=== PATIENT | female | born 1925 | race Caucasian/White ===

== ENCOUNTER 2016-08-15 09:29 | Inpatient (IN) | payer MEDICARE, OTHER ==
[2016-08-15 09:50] VITALS: BMI 24.1
--- NOTE | 2016-08-15 09:51 | PDOC ---
History of Present Illness <Bucky Cuevas - Last Filed: 08/15/16 12:18> - History of Present Illness Initial Comments: 08/15/16 10:02 The patient is a 89 year old female, with a significant past medical history of Alzheimers disease, who presents to the emergency department with the home health aide via ems s/p unwitnessed fall at home. As per the patients health aide, she arrived to the home at 8am and found the patient on her hands and knees on the side of her bed. The home health aide reports noticine new scrapes to her knees and that her heels looks slightly blue from kneeling. The home health aide states she stays with the patient overnight once a week, however, last night was not one of those nights. She reports the patient does not typically get out bed at night, but she does attempt to walk in the house unassisted. The patient denies any complaints, but is a very poor historian secondary to her dementia. She does not recall falling. She denies chest pain, shortness of breath, headache and dizziness. She denies fever, chills, nausea, vomit, diarrhea and constipation. She denies dysuria, frequency, urgency and hematuria. Allergies: NKDA PCP - Dr. Joaquin <Lashanda Rand - Last Filed: 08/15/16 15:54> - General Chief Complaint: Injury Stated Complaint: FALL Past History - Past Medical History Dementia: Yes - Immunization History Immunization Up to Date: Yes - Psycho/Social/Smoking Cessation Hx Anxiety: No Suicidal Ideation: No Smoking History: Never smoked Number of Cigarettes Smoked Daily: 0 Information on smoking cessation initiated: No Hx Alcohol Use: No Drug/Substance Use Hx: No Substance Use Type: None Hx Substance Use Treatment: No <Bucky Cuevas - Last Filed: 08/15/16 12:18> <Lashanda Rand - Last Filed: 08/15/16 15:54> - Past Medical History Allergies/Adverse Reactions: Allergies Allergy/AdvReac Type Severity Reaction Status Date / Time No Known Allergies Allergy Verified 07/14/14 12:56 Home Medications: Ambulatory Orders Carbidopa/Levodopa 10/100 [Sinemet 10/100 -] 1 each PO DAILY 08/15/16 Memantine HCl 10 mg PO BID 08/15/16 Quetiapine Fumarate [Seroquel -] 50 mg PO HS 08/15/16 Review of Systems - Review of Systems Able to Perform ROS?: No (dementia) <Lashanda Rand - Last Filed: 08/15/16 15:54> *Physical Exam - Vital Signs Last Vital Signs Temp Pulse Resp BP Pulse Ox 98.7 F 111 H 20 135/80 94 L 08/15/16 09:35 08/15/16 09:35 08/15/16 09:35 08/15/16 09:35 08/15/16 09:35 <Bucky Cuevas - Last Filed: 08/15/16 12:18> - Vital Signs Last Vital Signs Temp Pulse Resp BP Pulse Ox 98.7 F 111 H 20 135/80 94 L 08/15/16 09:35 08/15/16 09:35 08/15/16 09:35 08/15/16 09:35 08/15/16 09:35 - Physical Exam Comments: 08/15/16 10:03 GENERAL: (+) The patient is confused, alert and oriented to name, but not time or place. Well developed, well nourished. No acute distress. HEENT: (+) dry mucous membranes. Normocephalic, atraumatic. PERRLA, EOMI. No conjunctival pallor. Sclera are non-icteric. Oropharynx is clear. NECK: Supple. Full ROM. No JVD. Carotid pulses 2+ and symmetric, without bruits. No thyromegaly. No lymphadenopathy. CARDIOVASCULAR: Regular rate and rhythm. No murmurs, rubs, or gallops. Distal pulses are 2+ and symmetric. PULMONARY: No evidence of respiratory distress. Lungs clear to auscultation bilaterally. No wheezing, rales or rhonchi. ABDOMINAL: Soft. Non-tender. Non-distended. No rebound or guarding. No organomegaly. Normoactive bowel sounds. MUSCULOSKELETAL Normal range of motion at all joints. No bony deformities or tenderness. No CVA tenderness. EXTREMITIES: (+) swelling and erythema in bilateral lower extremities. No groin tenderness. Bilateral straight leg raise was deferred by patient. No cyanosis. No clubbing. No edema. No calf tenderness. SKIN: Warm and dry. Normal capillary refill. No rashes. No jaundice. NEUROLOGICAL: Alert, awake, appropriate. Cranial nerves 2-12 intact. Normoreflexic in the upper and lower extremities. Normal speech. Toes are down-going bilaterally. No foot drop. PSYCHIATRIC: Cooperative. Good eye contact. Appropriate mood and affect. <Lashanda Rand - Last Filed: 08/15/16 15:54> Heart Score/ECG Review - ECG Intrepretation Comment:: 08/15/16 09:55 EKG was read at 9:49 Impression: Sinus tachycardia with fusion complexes Vent. Rate: 110 bpm NH Interval: 148 ms QTc: 506 ms <Lashanda Rand - Last Filed: 08/15/16 15:54> ED Treatment Course - LABORATORY CBC & Chemistry Diagram: 08/15/16 10:16 08/15/16 10:16 <Bucky Cuevas - Last Filed: 08/15/16 12:18> - LABORATORY CBC & Chemistry Diagram: 08/15/16 10:16 08/15/16 10:16 - RADIOLOGY Radiograph Interpretation: 08/15/16 11:38 He Chest Xray was read by Dr. Pfeiffer at 11:12 Impression: Increased lung markings- left retrocardiac region. No evidence of vascular congestion or pneumothorax Hip/Pelvis Xray was read by Dr. Pfeiffer at 11:18 Impression: No acute bony abnormalities are seen. Xray Tib/Fib was read by Dr. Pfeiffer at 11:20 Impression: (Right) No acute bony abnormalities are seen. (Left) No acute bony abnormalities are seen. Head CT was read by Dr. White at 11:37 Impression: No significant interval change. generalized volume loss with extensive chronic microvascular ischemic changes. No gross acute intracranial pathology noted. Right Rad/Femur Xray was read by Dr. Pfeiffer at 11:56 Impression: No acute bony abnormalities are seen. No evidence of hip dislocation. Left Rad/Femur Xray was read by Dr. Pfeiffer at 12:00 Impression: sclerotic changes noted in the subarticular region, clinically correlate for subcapital Fx. 08/15/16 13:[address] was read by Dr. 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 See report for details. <Lashanda Rand - Last Filed: 08/15/16 15:54> Medical Decision Making - Medical Decision Making 08/15/16 11:48 Dr. Todd was paged at the office at this time requesting a callback for doctor to doctor consult. I have been informed that the doctor comes into the office at 12:30pm and will return our call at that time. 08/15/16 11:52 The hospitalist gisella has been contacted for patient admission at this time. <Lashanda Rand - Last Filed: 08/15/16 15:54> *DC/Admit/Observation/Transfer - Discharge Dispostion Admit: Yes <Bucky Cuevas - Last Filed: 08/15/16 12:18> - Attestations Scribe Attestion: 08/15/16 10:06 Documentation prepared by Lashanda Rand, acting as medical technicians for Bucky Cuevas MD, MD <Lashanda Rand - Last Filed: 08/15/16 15:54> Diagnosis at time of Disposition: Contusion, hip, UTI (urinary tract infection), Sepsis, Cellulitis, Dementia Fall Qualifiers: Encounter type: initial encounter Qualified Code(s): W19.XXXA - Unspecified fall, initial encounter - Discharge Dispostion Condition at time of disposition: Guarded - Referrals
[2016-08-15] MEDS ORDERED: SODIUM CHLORIDE 1,000 ML IV SCH ×2 (10:00→14:30)
[2016-08-15 10:42] LABS: URINE APPEARANCE CLOUDY; URINE BILIRUBIN NEGATIVE (NEGATIVE); URINE COLOR DKYELLOW; URINE GLUCOSE (UA) NEGATIVE (NEGATIVE); URINE KETONE TRACE (NEGATIVE); URINE NITRITE NEGATIVE (NEGATIVE); URINE UROBILINOGEN NEGATIVE E.U./dl (0.2-1.0)
[2016-08-15 10:43] LABS: URINE BLOOD 1+ (NEGATIVE); URINE LEUK ESTERASE 2+ (NEGATIVE); URINE PROTEIN 1+ (NEGATIVE)
[2016-08-15 10:46] LABS: URINE BACTERIA MANY /hpf (NONE SEEN); URINE HYALINE CAST 5 /lpf; URINE MUCUS MODERATE; URINE RBC 13 /hpf (0-3); URINE WBC 50 /hpf (3-5); YEAST MODERATE
[2016-08-15 11:01] LABS: ALK PHOS 134 U/L (45-117); ANION GAP 11 (8-16); BILIRUBIN,TOTAL 0.6 mg/dL (0.2-1.0); CALCIUM 9.7 mg/dL (8.5-10.1); CO2 26 mmol/L (21-32); CREATININE 1.3 mg/dL (0.55-1.02); GLUCOSE,RANDOM 208 mg/dL (74-106); SGOT/AST 48 U/L (15-37); SGPT/ALT 32 U/L (12-78); TOT PROT 7.8 g/dl (6.4-8.2)
[2016-08-15 11:16] LABS: MCH 30.1 pg (25.7-33.7); MCHC 32.5 g/dl (32.0-36.0); MEAN CELL VOLUME 92.4 fl (80-96); MEAN PLT VOLUME 7.6 fl (7.5-11.1); PLATELET COUNT 269 K/MM3 (134-434); RDW 14.5 % (11.6-15.6); WHITE BLOOD COUNT 25.6 K/mm3 (4.0-10.0)
[2016-08-15] MEDS ORDERED: CEFTRIAXONE 1,000 MG in DEXTROSE 5%-WATER - 50 ML IVPB ONE (11:21)
[2016-08-15] MEDS ORDERED: SODIUM CHLORIDE 1,000 ML IV STA ×3 (11:22→16:16)
[2016-08-15] MEDS ORDERED: CEFTRIAXONE 50 ML ONE (11:26)
[2016-08-15] MEDS: GENTAMICIN INJECTION 120 MG in DEXTROSE 5%-WATER - 250 ML IVPB SCH (13:28)
--- NOTE | 2016-08-15 13:35 | HP ---
CHIEF COMPLAINT: s/p fall as per home support worker PCP: Dr. Joaquin HISTORY OF PRESENT ILLNESS: 89 y/o F with PMH of alzheimer's presents to the ER after being found on her elbows and knees by home support worker. home care and home health aides teacher arrived at patients home ([facility]) at approximately 8:30 AM and found pt on her elbows and knees. Pt is unreliable historian due to dementia and does not remember the events from this morning. Aide says she called the ambulance right away as she was unsure of what may have happened prior to her arrival. Pt lives alone and has aide during the day everyday. Due to building rules pt is unable to have aide overnight. Aide says that she noticed knee red discoloartion on her knees and elbows this morning that were not there yesterday. Pt does not have a history of falls as per aide and despite needing a walker will ambulate on her own without it but does not fall. Pt is able to do most activities herself but aide has to help with bathing. Pt denies any N/V/F/C, diarrhea, dysuria, pain in her body or joints, [place], light headedness, dizziness. She says she feels like she is at baseline. ER course was notable for: (1) Head CT, CXR, B/L femur XR, Hip/Pelvis XR, Tibia/Fibula XR, Pelvis CT w/o contrast (2) (3) PAST MEDICAL HISTORY: Alzheimer's PAST SURGICAL HISTORY: None that aide is aware of Social History: Smoking: Denies Alcohol: Denies Drugs: Denies Family History: non-contributory Allergies No Known Allergies Allergy (Verified 07/14/14 12:56) HOME MEDICATIONS: Medication Instructions Recorded Carbidopa/Levodopa 10/100 [Sinemet 1 each PO DAILY 08/15/16 10/100 -] Memantine HCl 10 mg PO BID 08/15/16 Quetiapine Fumarate [Seroquel -] 50 mg PO HS 08/15/16 REVIEW OF SYSTEMS CONSTITUTIONAL: Absent: fever, chills, diaphoresis, generalized weakness, malaise, loss of appetite, weight change HEENT: Absent: rhinorrhea, nasal congestion, throat pain, throat swelling, difficulty swallowing, mouth swelling, ear pain, eye pain, visual changes CARDIOVASCULAR: Absent: chest pain, syncope, palpitations, irregular heart rate, lightheadedness , peripheral edema RESPIRATORY: Absent: cough, shortness of breath, dyspnea with exertion, orthopnea, wheezing, stridor, hemoptysis GASTROINTESTINAL: Absent: abdominal pain, abdominal distension, nausea, vomiting, diarrhea, constipation, melena, hematochezia GENITOURINARY: Absent: dysuria, frequency, urgency, hesitancy, hematuria, flank pain, genital pain MUSCULOSKELETAL: Absent: myalgia, arthralgia, joint swelling, back pain, neck pain SKIN: Absent: rash, itching, pallor HEMATOLOGIC/IMMUNOLOGIC: Absent: easy bleeding, easy bruising, lymphadenopathy, frequent infections ENDOCRINE: Absent: unexplained weight gain, unexplained weight loss, heat intolerance, cold intolerance NEUROLOGIC: Absent: headache, focal weakness or paresthesias, dizziness, unsteady gait, seizure, mental status changes, bladder or bowel incontinence PSYCHIATRIC: Absent: anxiety, depression, suicidal or homicidal ideation, hallucinations. PHYSICAL EXAMINATION GENERAL: Awake, alert, and orientated to self only. In no acute distress. HEAD: Normal with no signs of trauma. EYES: Pupils equal, round and reactive to light, extraocular movements intact, sclera anicteric, conjunctiva clear. No lid lag. EARS, NOSE, THROAT: Ears normal, nares patent, oropharynx clear without exudates. Moist mucous membranes. NECK: Normal range of motion, supple without lymphadenopathy, JVD, or masses. LUNGS: Auscultated anteriorly, Breath sounds equal, clear to auscultation bilaterally. No wheezes, and no crackles. No accessory muscle use. HEART: Regular rate and rhythm, normal S1 and S2 without murmur, rub or gallop. ABDOMEN: Soft, nontender, not distended, normoactive bowel sounds, no guarding, no rebound, no masses. No hepatomegaly or splenomegaly. MUSCULOSKELETAL: Normal range of motion at all joints. No bony deformities or tenderness. LOWER EXTREMITIES: 2+ pulses, warm, well-perfused. No calf tenderness. No peripheral edema. NEUROLOGICAL: Normal speech. Gait not observed PSYCHIATRIC: Cooperative. Good eye contact. Appropriate mood and affect. SKIN: Warm, dry, normal turgor, L Proximal tibial region: erythema with central lesion that has yellow discoloration, dry not draining. R proximal tibial region ecchymosis. B/L elbows - some ecchymosis. CBCD WBC 25.6 K/mm3 (4.0-10.0) H D 08/15/16 10:16 RBC 5.04 M/mm3 (3.60-5.2) 08/15/16 10:16 Hgb 15.1 GM/dL (10.7-15.3) 08/15/16 10:16 Hct 46.5 % (32.4-45.2) H 08/15/16 10:16 MCV 92.4 fl (80-96) 08/15/16 10:16 MCHC 32.5 g/dl (32.0-36.0) 08/15/16 10:16 RDW 14.5 % (11.6-15.6) 08/15/16 10:16 Plt Count 269 K/MM3 (134-434) D 08/15/16 10:16 MPV 7.6 fl (7.5-11.1) 08/15/16 10:16 CMP Sodium 145 mmol/L (136-145) 08/15/16 10:16 Potassium 4.4 mmol/L (3.5-5.1) 08/15/16 10:16 Chloride 108 mmol/L (98-107) H 08/15/16 10:16 Carbon Dioxide 26 mmol/L (21-32) 08/15/16 10:16 Anion Gap 11 (8-16) 08/15/16 10:16 BUN 33 mg/dL (7-18) H D 08/15/16 10:16 Creatinine 1.3 mg/dL (0.55-1.02) H D 08/15/16 10:16 Creat Clearance w eGFR 38.66 (>60) 08/15/16 10:16 Random Glucose 208 mg/dL (74-106) H D 08/15/16 10:16 Calcium 9.7 mg/dL (8.5-10.1) 08/15/16 10:16 Total Bilirubin 0.6 mg/dL (0.2-1.0) 08/15/16 10:16 AST 48 U/L (15-37) H D 08/15/16 10:16 ALT 32 U/L (12-78) D 08/15/16 10:16 Alkaline Phosphatase 134 U/L (45-117) H 08/15/16 10:16 Total Protein 7.8 g/dl (6.4-8.2) 08/15/16 10:16 Albumin 4.0 g/dl (3.4-5.0) 08/15/16 10:16 CARDIAC ENZYMES Creatine Kinase 1649 08/15/16 10:16 Laboratory Tests 08/15/16 08/15/16 10:16 11:21 Lactic Acid 5.955 H* CK-MB (CK-2) 16.937 H Urine Test Results Urine Color Dkyellow 08/15/16 10:00 Urine Appearance Cloudy 08/15/16 10:00 Urine pH 5.0 (5.0-8.0) D 08/15/16 10:00 Ur Specific [place] 1.016 (1.001-1.035) 08/15/16 10:00 Urine Protein 1+ (NEGATIVE) H 08/15/16 10:00 Urine Glucose (UA) Negative (NEGATIVE) 08/15/16 10:00 Urine Ketones Trace (NEGATIVE) H 08/15/16 10:00 Urine Blood 1+ (NEGATIVE) H 08/15/16 10:00 Urine Nitrite Negative (NEGATIVE) 08/15/16 10:00 Urine Bilirubin Negative (NEGATIVE) 08/15/16 10:00 Ur Leukocyte Esterase 2+ (NEGATIVE) H 08/15/16 10:00 Urine RBC 13 /hpf (0-3) 08/15/16 10:00 Urine WBC 50 /hpf (3-5) 08/15/16 10:00 Urine Bacteria Many /hpf (NONE SEEN) 08/15/16 10:00 Urine Mucus Moderate 08/15/16 10:00 Imaging: Head CT-No significant interval change. Generalized volume loss with extensive chronic microvascular ischemic changes. No gross acute intracranial pathology is seen. The calvarium is intact. Correlate clinically to determine further evaluation and follow-up. CXR-Increased lung markings - left retrocardiac region. No evidence of vascular congestion, pneumothorax. B/L femur XR- R femur: No acute bony abnormalities seen within limitation of examination. No evidence of hip dislocation. -L femur:Sclerotic changes noted in the left subarticular region, clinically correlate for subcapital fracture. Hip/Pelvis XR- No acute bony abnormalities are seen. R Tibia/Fibula XR - No acute bony abnormalities are seen Pelvis CT w/o contrast - No evidence of fracture Active Medications Sodium Chloride (Normal Saline -) 1,000 mls @ 125 mls/hr IV [facility] Last Admin: 08/15/16 10:12 Dose: 125 mls/hr Gentamicin Sulfate 120 mg/ (Dextrose) 253 mls @ 250 mls/hr IVPB [facility]CE [facility] ASSESSMENT/PLAN: 89 y/o F with PMH of alzheimer's, hx of UTIs, presents to the ER after being found on her elbows and knees by home support worker. -Rhabdomyoyisis secondary to Mechanical Fall -Unknown length of time on floor. Found by home support worker at 8:30 AM. Pt usually does not fall as per home support worker. -Creatinine Kinase: 1649 -CK-MB: 16.9 -Recheck CK in morning -Subcapital L femoral fracture secondary to fall -Unlikely -Pt has full ROM passively, no pain on palpation or during motion. R femur: No acute bony abnormalities seen within limitation of examination. No evidence of hip dislocation. -L femur:Sclerotic changes noted in the left subarticular region, clinically correlate for subcapital fracture. -Pelvis CT w/o contrast - No evidence of fracture -Lactic acidosis -secondary to fall vs dehydration -f/u BCx, UCx -f/u LA in 4 hours, if high continue to trend -will start empirically on ceftriaxone 1 g IV qd -Asymptomatic UTI -UA: LE 2+, WBC: 50 -No dysuria, or any urinary complaints, no fevers or chills. -Does use diaper and home support worker says pt does not always tell her when she has urinated. -Pt may not be able to describe sx -will start empirically on ceftriaxone 1 g IV qd -Leukocytosis -Secondary to fall vs dehydration vs cellulitis -f/u BCx, UCx -will start empirically on ceftriaxone 1 g IV qd -Cellulits -L proximal tibial region has yellow lesion with surrounding erythema -ALEX -secondary to fall vs dehydration -BUN/Cr: 33/1.3 -Baseline: 0.7 -NS @ 75 ml/hr -Alzheimer's dementia -c/w memantine 10 mg BID -seroquel 50 mg PO qhs -Sinemet 10/100 PO qd -FEN -NS @ 75 ml/hr -Electrolytes WNL -Regular diet -DVT -Will hold heparin in setting of recent fall. -Dispo: Monitor on floors Problem List - Problem (1) Cellulitis Code(s): L03.90 - CELLULITIS, UNSPECIFIED (2) Contusion, hip Code(s): S70.00XA - CONTUSION OF UNSPECIFIED HIP, INITIAL ENCOUNTER (3) Dementia Code(s): F03.90 - UNSPECIFIED DEMENTIA WITHOUT BEHAVIORAL DISTURBANCE (4) Fall Code(s): W19.XXXA - UNSPECIFIED FALL, INITIAL ENCOUNTER Qualifiers: Encounter type: initial encounter Qualified Code(s): W19.XXXA - Unspecified fall, initial encounter (5) UTI (urinary tract infection) Code(s): N39.0 - URINARY TRACT INFECTION, SITE NOT SPECIFIED (6) UTI (lower urinary tract infection) Code(s): N39.0 - URINARY TRACT INFECTION, SITE NOT SPECIFIED (7) Alzheimer disease Code(s): G30.9 - ALZHEIMER'S DISEASE, UNSPECIFIED Visit type - Emergency Visit Emergency Visit: Yes ED Registration Date: 08/15/16 Care time: The patient presented to the Emergency Department on the above date and was hospitalized for further evaluation of their emergent condition. - New Patient This patient is new to me today: Yes Date on this admission: 08/15/16 - Critical Care Critical Care patient: No
--- NOTE | 2016-08-15 14:58 | PN ---
Teaching Attending Note Name of Resident: Christos Parra ATTENDING PHYSICIAN STATEMENT I saw and evaluated the patient. I reviewed the resident's note and discussed the case with the resident. I agree with the resident's findings and plan as documented. SUBJECTIVE: This is an 89-year-old woman with a history of dementia who presented to the ER today after her home health aide found her on the floor on her elbows and knees. The aide reported that the patient had new discoloration of her knees and elbows and that her heels looked blue. The patient is a poor historian secondary to dementia. She denies chills, abdominal pain, chest pain, shortness of breath, dysuria. OBJECTIVE: Vital Signs Period Temp Pulse Resp BP Sys/[place] Pulse Ox Last 24 Hr 98.7 F 111 20 135/80 94 HEART: S1 S2, tachycardic LUNGS: Clear ABDOMEN: Soft, non-tender, non-distended, normal BS EXTREMITIES: No edema Laboratory Tests 08/15/16 08/15/16 08/15/16 10:00 10:16 10:16 WBC 25.6 H D RBC 5.04 Hgb 15.1 Hct 46.5 H MCV 92.4 MCHC 32.5 RDW 14.5 Plt Count 269 D MPV 7.6 Neutrophils % 91.0 H D Lymphocytes % 3.0 L D Monocytes % 4.0 Band Neutrophils 1.0 Myelocytes 1 Differential Comment Manual diff done Sodium 145 Potassium 4.4 Chloride 108 H Carbon Dioxide 26 Anion Gap 11 BUN 33 H D Creatinine 1.3 H D Creat Clearance w eGFR 38.66 Random Glucose 208 H D Lactic Acid Calcium 9.7 Total Bilirubin 0.6 AST 48 H D ALT 32 D Alkaline Phosphatase 134 H Creatine Kinase Y CK-MB (CK-2) 16.937 H Total Protein 7.8 Albumin 4.0 Urine Color Dkyellow Urine Appearance Cloudy Urine pH 5.0 D Ur Specific [place] 1.016 Urine Protein 1+ H Urine Glucose (UA) Negative Urine Ketones Trace H Urine Blood 1+ H Urine Nitrite Negative Urine Bilirubin Negative Urine Urobilinogen Negative Ur Leukocyte Esterase 2+ H Urine RBC 13 Urine WBC 50 Urine Bacteria Many Hyaline Casts 5 Urine Mucus Moderate Urine Yeast Moderate 08/15/16 11:21 WBC RBC Hgb Hct MCV MCHC RDW Plt Count MPV Neutrophils % Lymphocytes % Monocytes % Band Neutrophils Myelocytes Differential Comment Sodium Potassium Chloride Carbon Dioxide Anion Gap BUN Creatinine Creat Clearance w eGFR Random Glucose Lactic Acid 5.955 H* Calcium Total Bilirubin AST ALT Alkaline Phosphatase Creatine Kinase CK-MB (CK-2) Total Protein Albumin Urine Color Urine Appearance Urine pH Ur Specific [place] Urine Protein Urine Glucose (UA) Urine Ketones Urine Blood Urine Nitrite Urine Bilirubin Urine Urobilinogen Ur Leukocyte Esterase Urine RBC Urine WBC Urine Bacteria Hyaline Casts Urine Mucus Urine Yeast ASSESSMENT AND PLAN: This is an 89-year-old woman with a history of dementia who came to the ER via EMS after her home health aide found her on the floor on her elbows and knees. She was afebrile and tachycardic, and she was found to have WBC 25.6, BUN 33, creatinine 1.3, lactic acid 5.96. Urinalysis ws positive for 1+ protein, trace ketones, 1+ blood, 2+ leukocyte esterase, 50 WBC, many bacteria. 1. Fall with probable rhabdomyolysis - IV fluid - Repeat CK 2. Sepsis secondary to UTI - Rocephin - IV fluid - Repeat lactic acid - Follow up urine, blood cultures 3. Acute kidney injury secondary to dehydration and rhabdomyolysis - IV fluid - Monitor BUN, creatinine 4. Dementia - ? Alzheimer, ? Parkinson - Continue Steve Phelps, [facility]
--- NOTE | 2016-08-15 16:15 | EKG ---
Test Reason : Blood Pressure : / mmHG Vent. Rate : 110 BPM Atrial Rate : 110 BPM P-R Int : 148 ms QRS Dur : 128 ms QT Int : 374 ms P-R-T Axes : 052 -66 102 degrees QTc Int : 506 ms SINUS TACHYCARDIA WITH FUSION COMPLEXES LEFT AXIS DEVIATION LEFT BUNDLE BRANCH BLOCK ABNORMAL ECG WHEN COMPARED WITH ECG OF 14-JUL-2014 11:53, FUSION COMPLEXES ARE NOW PRESENT VENT. RATE HAS INCREASED BY 36 BPM LEFT BUNDLE BRANCH BLOCK IS NOW PRESENT Confirmed by SCOTT MORATAYA MD ([id number]) on 08/15/2016 4:14:50 PM Referred By: Confirmed By:SCOTT MORATAYA MD
[2016-08-15] MEDS: SODIUM CHLORIDE 1,000 ML IV SCH ×2 (17:35→20:58)
[2016-08-15] MEDS ORDERED: ACETAMINOPHEN 500 MG TABLET (FP) PO ONE ×2 (20:55)
[2016-08-16] MEDS: SODIUM CHLORIDE 1,000 ML IV SCH ×2 (08:02→19:03)
[2016-08-16 08:15] LABS: BASOPHIL 0.3 % (0-2.0); EOSINOPHIL 1.4 % (0-4.5); MCH 30.1 pg (25.7-33.7); MCHC 32.6 g/dl (32.0-36.0); MEAN CELL VOLUME 92.2 fl (80-96); MEAN PLT VOLUME 7.4 fl (7.5-11.1); PLATELET COUNT 184 K/MM3 (134-434); RDW 14.5 % (11.6-15.6); WHITE BLOOD COUNT 16.8 K/mm3 (4.0-10.0)
[2016-08-16 08:52] LABS: ALBUMIN 2.8 g/dl (3.4-5.0); ANION GAP 7 (8-16); CALCIUM 7.9 mg/dL (8.5-10.1); CO2 25 mmol/L (21-32); CREATININE 0.6 mg/dL (0.55-1.02); GLUCOSE,RANDOM 85 mg/dL (74-106); SGOT/AST 216 U/L (15-37); SGPT/ALT 81 U/L (12-78)
[2016-08-16 09:05] LABS: ALK PHOS 91 U/L (45-117); BILIRUBIN,TOTAL 0.7 mg/dL (0.2-1.0); TOT PROT 5.6 g/dl (6.4-8.2)
[2016-08-16] MEDS ORDERED: PT OWN MED DRAWER 7, Y5N ONE (09:50)
[2016-08-16] MEDS: cefTRIAXone 1 GM/50 ML BAG (PRE-DOCKED) IVPB SCH (09:52)
[2016-08-16] MEDS: MEMANTINE HCL 10 MG TABLET (FP) PO SCH ×2 (09:52→21:46)
[2016-08-16] MEDS ORDERED: CEFTRIAXONE 1 GM in DEXTROSE 5%-WATER - 50 ML IVPB SCH (10:00)
--- NOTE | 2016-08-16 11:11 | PN ---
<BentleyMark denton - Last Filed: 08/16/16 11:49> Physical Exam: ATTENDING PHYSICIAN STATEMENT I saw and evaluated the patient. I reviewed the resident's note and discussed the case with the resident. I agree with the resident's findings and plan as documented. SUBJECTIVE: seen and evaluated at the bedside OBJECTIVE: resting comfortably in bed in no distress ASSESSMENT AND PLAN: 89 year old woman with dementia, parkinson's disease admitted for sepsis due to UTI causing fall Sepsis -WBC trending down; afebrile and hemodynamically stable -cont ceftriaxone -follow up blood and urine cultures Fall with rhabdomyolysis -pt does not recall any events surrounding the fall likely due to dementia but was likely on the ground for extended period of time given evidence of rhabdo with elevated CK -cont IVF -trend CK and creat -Physical therapy evaluation <Christos Parra - Last Filed: 08/16/16 14:56> Physical Exam: SUBJECTIVE: Patient seen and examined at bedside. Has baseline dementia and has no complaints. Had fever overnight of 100.1 but she does not remember having a fever. She denies N/V/F/C, CP, SOB, dysuria, frequency, abd pain. OBJECTIVE: Vital Signs Temperature 98.8 F 08/16/16 09:35 Pulse Rate 100 H 08/16/16 09:35 Respiratory Rate 22 08/16/16 09:35 Blood Pressure 156/60 08/16/16 09:35 O2 Sat by Pulse Oximetry (%) 95 08/15/16 22:26 GENERAL: The patient is awake, alert to self only. HEAD: Normal with no signs of trauma. EYES: PERRL, extraocular movements intact, sclera anicteric, conjunctiva clear. No ptosis. ENT: moist mucous membranes. NECK: Trachea midline, full range of motion LUNGS: Breath sounds equal, clear to auscultation bilaterally, no wheezes, no crackles, no accessory muscle use. HEART: Regular rate and rhythm, S1, S2 without murmur, rub or gallop. ABDOMEN: Soft, nontender, nondistended, normoactive bowel sounds, no guarding, no rebound, no hepatosplenomegaly, no masses. EXTREMITIES: 2+ pulses, warm, well-perfused, no edema. NEUROLOGICAL: Normal speech, gait not observed. PSYCH: Alzheimer's dementia SKIN: Warm, dry, normal turgor, no rashes or lesions noted Laboratory Results - last 24 hr 08/15/16 08/15/16 08/15/16 15:30 18:45 20:20 WBC RBC Hgb Hct MCV MCHC RDW Plt Count MPV Neutrophils % Lymphocytes % Monocytes % Eosinophils % Basophils % Sodium Potassium Chloride Carbon Dioxide Anion Gap BUN Creatinine Creat Clearance w eGFR Random Glucose Lactic Acid 5.324 H* 3.301 H* 3.129 H* Calcium Total Bilirubin AST ALT Alkaline Phosphatase Creatine Kinase Total Protein Albumin 08/16/16 08/16/16 08/16/16 00:41 06:35 06:35 WBC 16.8 H D RBC 4.18 Hgb 12.6 D Hct 38.5 D MCV 92.2 MCHC 32.6 RDW 14.5 Plt Count 184 D MPV 7.4 L Neutrophils % 72.0 D Lymphocytes % 16.4 D Monocytes % 9.9 D Eosinophils % 1.4 Basophils % 0.3 Sodium 146 H Potassium 3.7 Chloride 114 H Carbon Dioxide 25 Anion Gap 7 L BUN 13 D Creatinine 0.6 D Creat Clearance w eGFR > 60 Random Glucose 85 D Lactic Acid 2.149 H* Calcium 7.9 L Total Bilirubin 0.7 AST 216 H D ALT 81 H D Alkaline Phosphatase 91 D Creatine Kinase 6618 H D Total Protein 5.6 L D Albumin 2.8 L D 08/16/16 06:35 WBC RBC Hgb Hct MCV MCHC RDW Plt Count MPV Neutrophils % Lymphocytes % Monocytes % Eosinophils % Basophils % Sodium Potassium Chloride Carbon Dioxide Anion Gap BUN Creatinine Creat Clearance w eGFR Random Glucose Lactic Acid 1.309 Calcium Total Bilirubin AST ALT Alkaline Phosphatase Creatine Kinase Total Protein Albumin Microbiology 08/15/16 13:00 Blood - Peripheral Venous Blood Culture - Preliminary NO GROWTH OBTAINED AFTER 24 HOURS, INCUBATION TO CONTINUE FOR 4 DAYS. 08/15/16 13:00 Blood - Peripheral Venous Blood Culture - Preliminary NO GROWTH OBTAINED AFTER 24 HOURS, INCUBATION TO CONTINUE FOR 4 DAYS. 08/15/16 13:00 Urine - Urine Clean Catch Urine Culture - Preliminary Lactose Fermenting Neg Bacilli Active Medications Generic Name Dose Route Start Last Admin Trade Name Freq PRN Reason Stop Dose Admin Carbidopa/Levodopa 1 each 08/16/16 10:00 Sinemet 10/100 - PO DAILY ROSA Ceftriaxone Sodium 1 gm 08/16/16 10:00 08/16/16 09:52 Rocephin 1gm Ivpb (Pre-Docked) IVPB 1 gm DAILY ROSA Administration Gentamicin Sulfate 120 mg/ 253 mls @ 250 mls/hr 08/15/16 12:00 08/15/16 13:28 Dextrose IVPB 250 mls/hr ONCE ROSA Administration Sodium Chloride 1,000 mls @ 100 mls/hr 08/15/16 17:19 08/16/16 08:02 Normal Saline - IV 100 mls/hr ASDIR ROSA Administration Memantine 10 mg 08/16/16 10:00 08/16/16 09:52 Namenda - PO 10 mg BID ROSA Administration Quetiapine Fumarate 50 mg 08/16/16 22:00 Seroquel - PO HS [facility] ASSESSMENT/PLAN: 89 y/o F with PMH of alzheimer's, hx of UTIs, presents to the ER after being found on her elbows and knees by home health lvn. -Possible sepsis secondary to UTI -Fever last night -IV fluids -on ceftriaxone -WBC trending down -Rhabdomyoyisis secondary to Mechanical Fall -Unknown length of time on floor. Found by home health lvn at 8:30 AM. Pt usually does not fall as per home health lvn. -Creatinine Kinase: 6618 today. 1649 yesterday. will f/u tomorrow. -CK-MB: 16.9 -Recheck CK in morning -Subcapital L femoral fracture secondary to fall -Unlikely -Pt has full ROM passively, no pain on palpation or during motion. R femur: No acute bony abnormalities seen within limitation of examination. No evidence of hip dislocation. -L femur:Sclerotic changes noted in the left subarticular region, clinically correlate for subcapital fracture. -Pelvis CT w/o contrast - No evidence of fracture -Lactic acidosis -wnl now: 1.309 -secondary to fall vs dehydration -BCx neg x 24hr -UCx G- lactose fermenting bacilli -will start empirically on ceftriaxone 1 g IV qd -Asymptomatic UTI -UA: LE 2+, WBC: 50 -No dysuria, or any urinary complaints, no fevers or chills. -Does use diaper and home health lvn says pt does not always tell her when she has urinated. -Pt may not be able to describe sx -will start empirically on ceftriaxone 1 g IV qd -Leukocytosis -improving -Secondary to fall vs dehydration vs cellulitis -BCx neg x 24hr -UCx G- lactose fermenting bacilli -will start empirically on ceftriaxone 1 g IV qd -Cellulits -L proximal tibial region has yellow lesion with surrounding erythema -ALEX -resolved -secondary to fall vs dehydration vs sepsis -BUN/Cr: 13/0.6 -Baseline: 0.7 -NS @ 100 ml/hr -Transaminitis -monitor LFTs -secondary to possible sepsis secondary to UTI -Alzheimer's dementia -c/w memantine 10 mg BID -seroquel 50 mg PO qhs -Sinemet 10/100 PO qd -FEN -NS @ 100 ml/hr -Electrolytes WNL -Puree diet -DVT -Will hold heparin in setting of recent fall. -SCDs -Dispo: Monitor on floors Problem List - Problems (1) Cellulitis Code(s): L03.90 - CELLULITIS, UNSPECIFIED (2) Contusion, hip Code(s): S70.00XA - CONTUSION OF UNSPECIFIED HIP, INITIAL ENCOUNTER (3) Dementia Code(s): F03.90 - UNSPECIFIED DEMENTIA WITHOUT BEHAVIORAL DISTURBANCE (4) Fall Code(s): W19.XXXA - UNSPECIFIED FALL, INITIAL ENCOUNTER Qualifiers: Encounter type: initial encounter Qualified Code(s): W19.XXXA - Unspecified fall, initial encounter (5) UTI (urinary tract infection) Code(s): N39.0 - URINARY TRACT INFECTION, SITE NOT SPECIFIED (6) UTI (lower urinary tract infection) Code(s): N39.0 - URINARY TRACT INFECTION, SITE NOT SPECIFIED (7) Alzheimer disease Code(s): G30.9 - ALZHEIMER'S DISEASE, UNSPECIFIED Visit type - Emergency Visit Emergency Visit: Yes ED Registration Date: 08/15/16 Care time: The patient presented to the Emergency Department on the above date and was hospitalized for further evaluation of their emergent condition. - New Patient This patient is new to me today: No - Critical Care Critical Care patient: No
[2016-08-16] MEDS: CARBIDOPA/LEVODOPA 10/100 TABLET (FP) PO SCH (11:47)
[2016-08-16] MEDS: GENTAMICIN INJECTION 120 MG in DEXTROSE 5%-WATER - 250 ML IVPB SCH (13:04)
[2016-08-16] MEDS: QUEtiapine FUMARATE 50 MG TABLET PO SCH (21:46)
[2016-08-17] MEDS: SODIUM CHLORIDE 1,000 ML IV SCH (06:33)
[2016-08-17 08:14] LABS: ALBUMIN 2.5 g/dl (3.4-5.0); ANION GAP 5 (8-16); BILIRUBIN,TOTAL 0.5 mg/dL (0.2-1.0); CALCIUM 7.8 mg/dL (8.5-10.1); CO2 28 mmol/L (21-32); CREATININE 0.6 mg/dL (0.55-1.02); GLUCOSE,RANDOM 80 mg/dL (74-106); SGOT/AST 176 U/L (15-37); SGPT/ALT 87 U/L (12-78); TOT PROT 5.3 g/dl (6.4-8.2)
[2016-08-17 08:28] LABS: ALK PHOS 87 U/L (45-117)
[2016-08-17 08:44] LABS: MCH 30.6 pg (25.7-33.7); MEAN PLT VOLUME 7.6 fl (7.5-11.1); PLATELET COUNT 170 K/MM3 (134-434); RDW 14.9 % (11.6-15.6)
[2016-08-17] MEDS ORDERED: SODIUM CHLORIDE 1,000 ML IV SCH (10:47)
--- NOTE | 2016-08-17 11:00 | PN ---
<Chritsos Parra - Last Filed: 08/17/16 10:48> Physical Exam: SUBJECTIVE: Patient seen and examined at bedside. Denies any complaints. Denies N/V/F/C, dysuria, CP, SOB. OBJECTIVE: GENERAL: The patient is awake, alert to self only. HEAD: Normal with no signs of trauma. EYES: PERRL, extraocular movements intact, sclera anicteric, conjunctiva clear. No ptosis. ENT: moist mucous membranes. NECK: Trachea midline, full range of motion LUNGS: B/L rales HEART: Regular rate and rhythm, S1, S2 without murmur, rub or gallop. ABDOMEN: Soft, nontender, nondistended, normoactive bowel sounds, no guarding, no rebound, no hepatosplenomegaly, no masses. EXTREMITIES: 2+ pulses, warm, well-perfused NEUROLOGICAL: Normal speech, gait not observed. PSYCH: Alzheimer's dementia SKIN: Warm, dry, normal turgor Vital Signs Temperature 98.4 F 08/16/16 22:00 Pulse Rate 100 H 08/16/16 22:00 Respiratory Rate 20 08/16/16 22:00 Blood Pressure 170/84 08/16/16 22:00 O2 Sat by Pulse Oximetry (%) 98 08/16/16 21:00 Laboratory Results - last 24 hr 08/17/16 08/17/16 06:40 06:40 WBC 11.0 H D RBC 4.09 Hgb 12.5 Hct 38.0 MCV 93.0 MCHC 33.0 RDW 14.9 Plt Count 170 MPV 7.6 Sodium 147 H Potassium 3.7 Chloride 114 H Carbon Dioxide 28 Anion Gap 5 L BUN 9 D Creatinine 0.6 Creat Clearance w eGFR > 60 Random Glucose 80 Calcium 7.8 L Total Bilirubin 0.5 D AST 176 H ALT 87 H Alkaline Phosphatase 87 Creatine Kinase 3748 H D CK-MB (CK-2) 7.687 H Total Protein 5.3 L Albumin 2.5 L Microbiology 08/15/16 13:00 Urine - Urine Clean Catch Urine Culture - Final Klebsiella Pneumoniae 08/15/16 13:00 Blood - Peripheral Venous Blood Culture - Preliminary NO GROWTH OBTAINED AFTER 24 HOURS, INCUBATION TO CONTINUE FOR 4 DAYS. 08/15/16 13:00 Blood - Peripheral Venous Blood Culture - Preliminary NO GROWTH OBTAINED AFTER 24 HOURS, INCUBATION TO CONTINUE FOR 4 DAYS. Active Medications Generic Name Dose Route Start Last Admin Trade Name Krystal PRN Reason Stop Dose Admin Carbidopa/Levodopa 1 each 08/16/16 10:00 08/16/16 11:47 Sinemet 10/100 - PO 1 each DAILY ROSA Administration Ceftriaxone Sodium 1 gm 08/16/16 10:00 08/16/16 09:52 Rocephin 1gm Ivpb (Pre-Docked) IVPB 1 gm DAILY ROSA Administration Sodium Chloride 1,000 mls @ 42 mls/hr 08/17/16 10:47 Normal Saline - IV ASDIR ROSA Memantine 10 mg 08/16/16 10:00 08/16/16 21:46 Namenda - PO 10 mg BID ROSA Administration Quetiapine Fumarate 50 mg 08/16/16 22:00 08/16/16 21:46 Seroquel - PO 50 mg HS ROSA Administration ASSESSMENT/PLAN: 89 y/o F with PMH of alzheimer's, hx of UTIs, presents to the ER after being found on her elbows and knees by home energy rater. -Possible sepsis secondary to UTI -improving -UCx: Kleb pneunomiae -IV fluids decreased to NS @ 42 ml/hr -on ceftriaxone -WBC trending down -Rhabdomyoyisis secondary to Mechanical Fall -Unknown length of time on floor. Found by home energy rater at 8:30 AM. Pt usually does not fall as per home energy rater. -Creatinine Kinase today: 3748 -CK & CK-MB trending down -Subcapital L femoral fracture secondary to fall -Unlikely -Pt has full ROM passively, no pain on palpation or during motion. R femur: No acute bony abnormalities seen within limitation of examination. No evidence of hip dislocation. -L femur:Sclerotic changes noted in the left subarticular region, clinically correlate for subcapital fracture. -Pelvis CT w/o contrast - No evidence of fracture -CHF possibly -B/L rales on resp exam -will decrease fluids to 42 ml/hr -Lactic acidosis -wnl now: 1.309 -secondary to fall vs dehydration -BCx neg x 24hr -UCx: klebsiella pneumoniae -c/w ceftriaxone 1 g IV qd -Asymptomatic UTI -UA: LE 2+, WBC: 50 -No dysuria, or any urinary complaints, no fevers or chills. -Does use diaper and home energy rater says pt does not always tell her when she has urinated. -Pt may not be able to describe sx -will start empirically on ceftriaxone 1 g IV qd -Leukocytosis -improving -Secondary to fall vs dehydration vs cellulitis -BCx neg x 24hr -UCx klebsiella pneumoniae -will start empirically on ceftriaxone 1 g IV qd -Cellulits -L proximal tibial region has yellow lesion with surrounding erythema -ALEX -resolved -secondary to fall vs dehydration vs sepsis -BUN/Cr: 9/0.6 -NS @ 42 ml/hr -Transaminitis -monitor LFTs -improving -Alzheimer's dementia -c/w memantine 10 mg BID -seroquel 50 mg PO qhs -Sinemet 10/100 PO qd -FEN -NS @ 42 ml/hr -Electrolytes WNL -Puree diet -DVT -Will hold heparin in setting of recent fall. -SCDs -Dispo: Monitor on floors Problem List - Problems (1) Cellulitis Code(s): L03.90 - CELLULITIS, UNSPECIFIED (2) Contusion, hip Code(s): S70.00XA - CONTUSION OF UNSPECIFIED HIP, INITIAL ENCOUNTER (3) Dementia Code(s): F03.90 - UNSPECIFIED DEMENTIA WITHOUT BEHAVIORAL DISTURBANCE (4) Fall Code(s): W19.XXXA - UNSPECIFIED FALL, INITIAL ENCOUNTER Qualifiers: Encounter type: initial encounter Qualified Code(s): W19.XXXA - Unspecified fall, initial encounter (5) UTI (urinary tract infection) Code(s): N39.0 - URINARY TRACT INFECTION, SITE NOT SPECIFIED (6) UTI (lower urinary tract infection) Code(s): N39.0 - URINARY TRACT INFECTION, SITE NOT SPECIFIED (7) Alzheimer disease Code(s): G30.9 - ALZHEIMER'S DISEASE, UNSPECIFIED Visit type - Emergency Visit Emergency Visit: Yes ED Registration Date: 08/15/16 Care time: The patient presented to the Emergency Department on the above date and was hospitalized for further evaluation of their emergent condition. - New Patient This patient is new to me today: No - Critical Care Critical Care patient: No <Mark Bentley - Last Filed: 08/17/16 12:21> Physical Exam: ATTENDING PHYSICIAN STATEMENT I saw and evaluated the patient. I reviewed the resident's note and discussed the case with the resident. I agree with the resident's findings and plan as documented. SUBJECTIVE: seen and evaluated at the bedside OBJECTIVE: resting comfortably in bed in no distress ASSESSMENT AND PLAN: 89 year old woman with dementia, parkinson's disease admitted for sepsis due to UTI causing fall Sepsis -WBC trending down; afebrile and hemodynamically stable -urine culture growing nam-sensitive Klebsiella -cont ceftriaxone Fall with rhabdomyolysis -pt does not recall any events surrounding the fall likely due to dementia but was likely on the ground for extended period of time given evidence of rhabdo with elevated CK -cont IVF -trend CK and creat -Physical therapy evaluation
[2016-08-17] MEDS ORDERED: PT OWN MED DRAWER 7, Y5N ONE (11:26)
[2016-08-17] MEDS: cefTRIAXone 1 GM/50 ML BAG (PRE-DOCKED) IVPB SCH (11:28)
[2016-08-17] MEDS: CARBIDOPA/LEVODOPA 10/100 TABLET (FP) PO SCH (11:28)
[2016-08-17] MEDS: MEMANTINE HCL 10 MG TABLET (FP) PO SCH ×2 (11:29→21:49)
[2016-08-17] MEDS ORDERED: DEXTROSE 5%-WATER - 1,000 ML IV SCH (12:30)
[2016-08-17] MEDS: QUEtiapine FUMARATE 50 MG TABLET PO SCH (21:49)
[2016-08-17] MEDS: BACITRACIN 30 GM TUBE TOPICAL OINTMENT TP SCH (23:27)
[2016-08-17] MEDS: SILVER SULFADIAZINE 1% TOP CREAM 50 GM JAR TP SCH (23:28)
[2016-08-18] MEDS: DEXTROSE 5%-WATER - 1,000 ML IV SCH ×2 (01:06→11:14)
[2016-08-18 10:12] LABS: MCH 30.9 pg (25.7-33.7); MCHC 33.4 g/dl (32.0-36.0); MEAN CELL VOLUME 92.5 fl (80-96); MEAN PLT VOLUME 7.5 fl (7.5-11.1); PLATELET COUNT 180 K/MM3 (134-434); RDW 14.6 % (11.6-15.6); WHITE BLOOD COUNT 9.3 K/mm3 (4.0-10.0)
[2016-08-18 10:17] LABS: ALBUMIN 2.6 g/dl (3.4-5.0); ANION GAP 5 (8-16); BILIRUBIN,TOTAL 0.4 mg/dL (0.2-1.0); CALCIUM 7.9 mg/dL (8.5-10.1); CO2 31 mmol/L (21-32); CREATININE 0.6 mg/dL (0.55-1.02); GLUCOSE,RANDOM 107 mg/dL (74-106); SGOT/AST 125 U/L (15-37); SGPT/ALT 92 U/L (12-78); TOT PROT 5.6 g/dl (6.4-8.2)
[2016-08-18 10:31] LABS: ALK PHOS 87 U/L (45-117)
[2016-08-18] MEDS: SILVER SULFADIAZINE 1% TOP CREAM 50 GM JAR TP SCH (11:15)
[2016-08-18] MEDS: BACITRACIN 30 GM TUBE TOPICAL OINTMENT TP SCH (11:15)
[2016-08-18] MEDS: MEMANTINE HCL 10 MG TABLET (FP) PO SCH (11:29)
[2016-08-18] MEDS: CARBIDOPA/LEVODOPA 10/100 TABLET (FP) PO SCH (11:29)
[2016-08-18] MEDS: cefTRIAXone 1 GM/50 ML BAG (PRE-DOCKED) IVPB SCH (11:29)
--- NOTE | 2016-08-18 14:50 | PN ---
Teaching Attending Note Name of Resident: Christos Parra ATTENDING PHYSICIAN STATEMENT I saw and evaluated the patient. I reviewed the resident's note and discussed the case with the resident. I agree with the resident's findings and plan as documented. SUBJECTIVE: seen and evaluated at the bedside OBJECTIVE: resting comfortably in bed in no distress ASSESSMENT AND PLAN: 89 year old woman with dementia, parkinson's disease admitted for sepsis due to UTI causing fall Sepsis -WBC trending down; afebrile and hemodynamically stable -cont ceftriaxone -follow up blood and urine cultures Fall with rhabdomyolysis -pt does not recall any events surrounding the fall likely due to dementia but was likely on the ground for extended period of time given evidence of rhabdo with elevated CK -CK and creat both trended down with IVF -as per pt's daughter, pt is currently at her baseline mental status and physical status and prefers to take her mother home with visiting nurse -pt for discharge today
[2016-08-18 15:02] VITALS: TEMP 97.8
[2016-08-18] MEDS ORDERED: FUROSEMIDE 40 MG/4 ML INJECTABLE VIAL IVPB ONE (15:36)
--- NOTE | 2016-08-18 17:47 | DS ---
Physical Exam: SUBJECTIVE: Patient seen and examined at bedside. Pt has no complaints. Denies N/V/F/C, SOB, CP, dysuria. OBJECTIVE: Vital Signs Temperature 97.8 F 08/18/16 14:59 Pulse Rate 98 H 08/18/16 14:59 Respiratory Rate 08/18/16 14:59 Blood Pressure 120/98 08/18/16 14:59 O2 Sat by Pulse Oximetry (%) 90 L 08/18/16 10:00 PHYSICAL EXAM GENERAL: The patient is awake, alert to self only. HEAD: Normal with no signs of trauma. EYES: PERRL, extraocular movements intact, sclera anicteric, conjunctiva clear. No ptosis. ENT: moist mucous membranes. NECK: Trachea midline, full range of motion LUNGS: B/L rales HEART: Regular rate and rhythm, S1, S2 without murmur, rub or gallop. ABDOMEN: Soft, nontender, nondistended, normoactive bowel sounds, no guarding, no rebound, no hepatosplenomegaly, no masses. EXTREMITIES: 2+ pulses, warm, well-perfused NEUROLOGICAL: Normal speech, gait not observed. PSYCH: Alzheimer's dementia SKIN: Warm, dry, normal turgor LABS Laboratory Results - last 24 hr 08/18/16 08/18/16 08/18/16 09:20 09:20 09:20 WBC 9.3 RBC 4.18 Hgb 12.9 Hct 38.7 MCV 92.5 MCHC 33.4 RDW 14.6 Plt Count 180 MPV 7.5 Sodium 143 Potassium 3.9 Chloride 107 Carbon Dioxide 31 Anion Gap 5 L BUN 9 Creatinine 0.6 Creat Clearance w eGFR > 60 Random Glucose 107 H D Calcium 7.9 L Total Bilirubin 0.4 AST 125 H D ALT 92 H Alkaline Phosphatase 87 Creatine Kinase 1759 H D CK-MB (CK-2) 3.872 H Cancelled Total Protein 5.6 L Albumin 2.6 L HOSPITAL COURSE: Date of Admission:08/15/16 Date of Discharge: 08/18/16 Prehospital course: 89 y/o F with PMH of alzheimer's presents to the ER after being found on her elbows and knees by home assessment nurse. respiratory therapy aide arrived at patients home (halfway facility) at approximately 8:30 AM and found pt on her elbows and knees. Pt is unreliable historian due to dementia and does not remember the events from this morning. Luiza says she called the ambulance right away as she was unsure of what may have happened prior to her arrival. Pt lives alone and has aide during the day everyday. Due to building rules pt is unable to have aide overnight. Luiza says that she noticed knee red discoloartion on her knees and elbows this morning that were not there yesterday. Pt does not have a history of falls as per aide and despite needing a walker will ambulate on her own without it but does not fall. Pt is able to do most activities herself but aide has to help with bathing. Pt denies any N/V/F/C, diarrhea, dysuria, pain in her body or joints, LOYOLA, light headedness, dizziness. She says she feels like she is at baseline. Hospital course: Pt was admitted to floors for mechanical fall and possible sepsis and possible femur fracture. Initially her labs showed CK of 1649, lactic acidosis, and UA showed 2+ LE and 50 WBC. The following imaging studies were done with these results: Head CT-No significant interval change. Generalized volume loss with extensive chronic microvascular ischemic changes. No gross acute intracranial pathology is seen. The calvarium is intact. Correlate clinically to determine further evaluation and follow-up. CXR-Increased lung markings - left retrocardiac region. No evidence of vascular congestion, pneumothorax. B/L femur XR- R femur: No acute bony abnormalities seen within limitation of examination. No evidence of hip dislocation. -L femur:Sclerotic changes noted in the left subarticular region, clinically correlate for subcapital fracture. Hip/Pelvis XR- No acute bony abnormalities are seen. R Tibia/Fibula XR - No acute bony abnormalities are seen Pelvis CT w/o contrast - No evidence of fracture Pelvis CT confirmed pt did not have fracture. Pt also did not have pain with palpation at head of femur nor did she have pain with passive motion at hip. Pt was given fluids to treat her lactic acidosis and started on ceftriaxone. She was found to have klebsiella pneumoniae in urine that was nam-sensitive. In this case she most likely had sepsis secondary to UTI. After fluids and antibiotics patient's labs began to improve and continued to trend towards normalizing levels. CK also continued to trend down. CXR revealed some increased fullness in hilum after receiving fluids. She was saturating in high 80s on room air and was given 1 dose of IV lasix 20 mg to help clear her lungs. Approximately 2 hours after lasix she was saturating consistently at 91%. She will be discharged with keflex to be taken twice a day for 3 more days. Needs to follow up with primary care physician within 1 week. Minutes to complete discharge: 45 Discharge Summary Reason For Visit: FALL,CONTUSION HIP,UTI Current Active Problems Cellulitis (Acute) Contusion, hip (Acute) Fall (Acute) Sepsis (Acute) UTI (urinary tract infection) (Acute) Alzheimer disease (Chronic) Dementia (Chronic) Condition: Improved - Instructions Diet, Activity, Other Instructions: Please follow up with your primary care physician within 1 week. You will be prescribed Keflex, an antibiotic, to take for 3 more days beginning tomorrow. This medication needs to be taken twice a day and you must complete the course of medication. If you begin to develop fevers, chills please come back to the ER. If you have pain or burning with urination, please call your primary care doctor. You will also need some physical therapy to help with your walking. Visiting nurse service will be able to help you with this. Please continue your home medications as they were prescribed prior to admission into the hospital. Referrals: Jensen Todd MD [Primary Care Provider] - 1 Week Disposition: VNS/HOME HEALTH CARE - Home Medications Comprehensive Discharge Medication List: Ambulatory Orders Carbidopa/Levodopa 10/100 [Sinemet 10/100 -] 1 each PO DAILY 08/15/16 Memantine HCl 10 mg PO BID 08/15/16 Quetiapine Fumarate [Seroquel -] 50 mg PO HS 08/15/16 Cephalexin [Keflex] 500 mg PO Q12H #6 capsule 08/18/16 Problem List - Problems (1) Cellulitis Code(s): L03.90 - CELLULITIS, UNSPECIFIED (2) Contusion, hip Code(s): S70.00XA - CONTUSION OF UNSPECIFIED HIP, INITIAL ENCOUNTER (3) Dementia Code(s): F03.90 - UNSPECIFIED DEMENTIA WITHOUT BEHAVIORAL DISTURBANCE (4) Fall Code(s): W19.XXXA - UNSPECIFIED FALL, INITIAL ENCOUNTER Qualifiers: Encounter type: initial encounter Qualified Code(s): W19.XXXA - Unspecified fall, initial encounter (5) UTI (urinary tract infection) Code(s): N39.0 - URINARY TRACT INFECTION, SITE NOT SPECIFIED (6) UTI (lower urinary tract infection) Code(s): N39.0 - URINARY TRACT INFECTION, SITE NOT SPECIFIED (7) Alzheimer disease Code(s): G30.9 - ALZHEIMER'S DISEASE, UNSPECIFIED This patient is new to me today: No Emergency Visit: Yes ED Registration Date: 08/15/16 Care time: The patient presented to the Emergency Department on the above date and was hospitalized for further evaluation of their emergent condition. Critical Care patient: No - Discharge Referral Referred to [facility] Yes Physician Referral: Jensen Joaquin MD ([facility])
[2016-08-18 19:58] VITALS: BP 124/83; PULSE 97
== END 2016-08-18 19:31 | disposition home health service (06) | DRG 872 ==
LOC: JER 09:29 → JERBED 12:26 → J5S 19:40
PROVIDERS: ADMIT Internal Medicine; ATTEND Internal Medicine
DX: A41.9 Sepsis, unspecified organism (principal); M62.82 Rhabdomyolysis; E87.2 Acidosis; N39.0 Urinary tract infection, site not specified; L03.116 Cellulitis of left lower limb; N17.9 Acute kidney failure, unspecified; E87.0 Hyperosmolality and hypernatremia; G30.9 Alzheimer's disease, unspecified; F02.80 Dementia in other diseases classified elsewhere, unspecified severity, without behavioral disturbance, psychotic disturbance, mood disturbance, and anxiety; E86.0 Dehydration; S70.02XA Contusion of left hip, initial encounter; W19.XXXA Unspecified fall, initial encounter; Y93.89 Activity, other specified; Y92.098 Other place in other non-institutional residence as the place of occurrence of the external cause; Y99.8 Other external cause status; B96.1 Klebsiella pneumoniae [K. pneumoniae] as the cause of diseases classified elsewhere
CPT/HCPCS: 36415; 70450-TC; 71010-TC; 72170-TC; 72192-TC; 73552-TC-LT; 73552-TC-RT; 73590-TC-RT; 80053; 81003; 81015; 82550; 82553; 83605; 85025; 85027; 87040; 87070; 87075; 87086; 87186; 87205; 93005; 93010; 97116-GP; 97163-GP; 99285-25

== ENCOUNTER 2016-11-29 17:41 | Inpatient (IN) | payer OTHER ==
--- NOTE | 2016-11-29 18:36 | PDOC ---
History of Present Illness - General History Source: Patient Exam Limitations: Dementia - History of Present Illness Initial Comments: 11/29/16 18:37 The patient is a 89 year old female, with a significant past medical history of Alzheimer's disease, who was sent by her PCP and presents to the emergency department with fever for 3 days and buttock wound possible infection. She denies recent, chills, headache or dizziness. She denies recent nausea, vomit, diarrhea or constipation. Limited due to Alzheimers. Allergies: NKA Past surgical history: Noncontributory Social history: Nonsmoker. Denies EtOH use and recreational drug use. Primary Care Physician: <Chele Dior - Last Filed: 11/29/16 18:39> <Hodan Cartagena - Last Filed: 12/01/16 13:12> - General Chief Complaint: SIRS, Suspected/Possible Stated Complaint: RESPIRATORY/FEVER Time Seen by Provider: 11/29/16 18:26 Past History <Chele Dior - Last Filed: 11/29/16 18:39> - Past Medical History Dementia: Yes (PARKINSONS) - Immunization History Immunization Up to Date: Yes - Psycho/Social/Smoking Cessation Hx Anxiety: No Suicidal Ideation: No Smoking History: Never smoked Number of Cigarettes Smoked Daily: 0 Hx Alcohol Use: No Drug/Substance Use Hx: No Substance Use Type: None Hx Substance Use Treatment: No <Hodan Cartagena - Last Filed: 12/01/16 13:12> - Past Medical History Allergies/Adverse Reactions: Allergies Allergy/AdvReac Type Severity Reaction Status Date / Time No Known Allergies Allergy Verified 11/29/16 17:49 Home Medications: Ambulatory Orders Memantine HCl 10 mg PO BID 08/15/16 Quetiapine Fumarate [Seroquel -] 50 mg PO DAILY 08/15/16 Carbidopa/Levodopa [Carbidopa-Levodopa 25-100 Tab] 1 each PO BID 11/29/16 Cephalexin Monohydrate [Keflex -] 500 mg PO Q6H #10 capsule 11/29/16 Review of Systems - Review of Systems Able to Perform ROS?: No <Chele Dior - Last Filed: 11/29/16 18:39> *Physical Exam - Vital Signs Last Vital Signs Temp Pulse Resp BP Pulse Ox 102.5 F H 134 H 20 144/101 96 11/29/16 17:49 11/29/16 17:49 11/29/16 17:49 11/29/16 17:49 11/29/16 17:49 - Physical Exam Comments: 11/29/16 18:37 GENERAL: Awake, altered to person in no acute distress HEAD: No signs of trauma EYES: PERRLA, EOMI, sclera anicteric, conjunctiva clear ENT: Auricles normal inspection, hearing grossly normal, nares patent, oropharynx clear without exudates. Moist mucosa NECK: Normal ROM, supple, no lymphadenopathy, JVD, or masses LUNGS: Breath sounds equal, clear to auscultation bilaterally. No wheezes, and no crackles HEART: +Tachycardic. Regular rate and rhythm, normal S1 and S2, no murmurs, rubs or gallops ABDOMEN: Soft, nontender, normoactive bowel sounds. No guarding, no rebound. No masses EXTREMITIES: Normal range of motion, no edema. No clubbing or cyanosis. No cords, erythema, or tenderness NEUROLOGICAL: Cranial nerves II through XII grossly intact. Normal speech, normal gait SKIN: Warm, Dry, normal turgor, 4cm diameter sacral decubitus ulcer <Chele Dior - Last Filed: 11/29/16 18:39> - Vital Signs Last Vital Signs Temp Pulse Resp BP Pulse Ox 102.5 F H 134 H 20 144/101 96 11/29/16 17:49 11/29/16 17:49 11/29/16 17:49 11/29/16 17:49 11/29/16 17:49 <Hodan Cartagena - Last Filed: 12/01/16 13:12> ED Treatment Course - LABORATORY CBC & Chemistry Diagram: 12/01/16 06:30 11/30/16 06:10 - RADIOLOGY Radiology Studies Ordered: Category Date Time Status CHEST X-RAY PORTABLE* [RAD] Stat Radiology 11/29/16 18:27 Ordered <Hodan Cartagena - Last Filed: 12/01/16 13:12> Medical Decision Making - Medical Decision Making 11/29/16 19:[address] Wagner. She was sent by PMD for admission for very large infected decubitus ulcer. Patient denies any complaints at present, but is unable to give any history due to dementia. Awaiting lab results for admission. <Hodan Cartagena - Last Filed: 12/01/16 13:12> *DC/Admit/Observation/Transfer - Attestations Scribe Attestion: 11/29/16 18:38 Documentation prepared by Chele Dior, acting as medical van driver for Hodan Cartagena MD. <Chele Dior - Last Filed: 11/29/16 18:39> <Hodan Cartagena - Last Filed: 12/01/16 13:12> Diagnosis at time of Disposition: Severe sepsis, UTI (urinary tract infection) - Referrals
[2016-11-29] MEDS ORDERED: PIPERACILLIN/TAZOB 3.375 GM 3.375 GM in DEXTROSE 5%-WATER - 50 ML IVPB ONE (18:37)
[2016-11-29] MEDS ORDERED: VANCOMYCIN 1,000 MG in DEXTROSE 5%-WATER - 250 ML IVPB ONE (18:37)
[2016-11-29] MEDS ORDERED: ACETAMINOPHEN 1000 MG/100 ML VIAL (NON FORMULARY) IVPB ONE (18:57)
[2016-11-29] MEDS ORDERED: ACETAMINOPHEN INJECTION 100 ML IVPB ONE (18:58)
[2016-11-29] MEDS ORDERED: PIPERACILLIN/TAZOB 3.375 GM 50 ML IVPB ONE (18:59)
[2016-11-29 19:08] LABS: MCH 27.9 pg (25.7-33.7); MCHC 32.7 g/dl (32.0-36.0); MEAN CELL VOLUME 85.6 fl (80-96); MEAN PLT VOLUME 7.2 fl (7.5-11.1); PLATELET COUNT 410 K/MM3 (134-434); RDW 15.5 % (11.6-15.6); WHITE BLOOD COUNT 12.8 K/mm3 (4.0-10.0)
[2016-11-29 19:23] LABS: INR 1.21 (0.82-1.09); PROTHROMBIN TIME (PATIENT) 13.4 SEC (9.98-11.88)
[2016-11-29 19:26] LABS: ACTIVATED PTT 30.7 SECONDS (26.9-34.4); HYPOCHROMIA 1+; PLATELET ESTIMATE INCREASED (NORMAL); POLYCHROMASIA FEW
[2016-11-29 19:42] LABS: ALBUMIN 2.3 g/dl (3.4-5.0); ANION GAP 8 (8-16); BILIRUBIN,TOTAL 0.2 mg/dL (0.2-1.0); CALCIUM 7.8 mg/dL (8.5-10.1); CO2 29 mmol/L (21-32); COCKROFT - GAULT 49.4955; CREATININE 0.8 mg/dL (0.55-1.02); GLUCOSE,RANDOM 210 mg/dL (74-106); SGPT/ALT 30 U/L (12-78); TOT PROT 6.6 g/dl (6.4-8.2)
[2016-11-29 19:54] LABS: URINE APPEARANCE SLCLOUDY; URINE BILIRUBIN NEGATIVE (NEGATIVE); URINE BLOOD NEGATIVE (NEGATIVE); URINE COLOR YELLOW; URINE GLUCOSE (UA) NEGATIVE (NEGATIVE); URINE KETONE NEGATIVE (NEGATIVE); URINE NITRITE NEGATIVE (NEGATIVE); URINE PROTEIN NEGATIVE (NEGATIVE); URINE UROBILINOGEN NEGATIVE E.U./dl (0.2-1.0)
[2016-11-29 19:55] LABS: URINE LEUK ESTERASE 2+ (NEGATIVE)
[2016-11-29 19:57] LABS: URINE BACTERIA MANY /hpf (NONE SEEN); URINE RBC 1 /hpf (0-3); URINE WBC 13 /hpf (3-5); YEAST FEW
[2016-11-29 20:08] LABS: SGOT/AST 30 U/L (15-37)
[2016-11-29 20:09] LABS: ALK PHOS 107 U/L (45-117); TROPONIN I < 0.02 ng/ml (0.00-0.05)
[2016-11-29 20:09] LABS: VENOUS BLOOD GAS HCO3 26.3 meq/L (19-25); VENOUS PH 7.5 (7.32-7.42)
--- NOTE | 2016-11-29 20:25 | PDOC ---
*Physical Exam - Vital Signs Last Vital Signs Temp Pulse Resp BP Pulse Ox 100.5 F H 102 H 20 128/94 95 11/29/16 20:24 11/29/16 19:30 11/29/16 19:30 11/29/16 19:30 11/29/16 19:30 <BorisAndi cortes - Last Filed: 11/29/16 20:25> - Vital Signs Last Vital Signs Temp Pulse Resp BP Pulse Ox 100.5 F H 102 H 20 128/94 95 11/29/16 20:24 11/29/16 19:30 11/29/16 19:30 11/29/16 19:30 11/29/16 19:30 <Lee Ann Fatima - Last Filed: 11/29/16 20:30> Heart Score/ECG Review - ECG Impressions Comment:: 11/29/16 20:29 Sinus tachycardia @118bpm L axis deviation LBBB Abnormal ECG <Lee Ann Fatima - Last Filed: 11/29/16 20:30> ED Treatment Course - LABORATORY CBC & Chemistry Diagram: 11/29/16 19:00 11/29/16 19:00 - ADDITIONAL ORDERS Additional order review: Laboratory Results 11/29/16 11/29/16 11/29/16 20:05 19:45 19:00 INR PTT (Actin FS) VBG pH 7.50 H POC VBG pCO2 36.4 L POC VBG pO2 53.2 H Mixed VBG HCO3 26.3 H Sodium Potassium Chloride Carbon Dioxide Anion Gap BUN Creatinine Creat Clearance w eGFR Random Glucose Lactic Acid 3.041 H* Calcium Total Bilirubin AST ALT Alkaline Phosphatase Creatine Kinase Troponin I Total Protein Albumin Urine Color Yellow Urine Appearance Slcloudy Urine pH 6.0 Urine Protein Negative Urine Glucose (UA) Negative Urine Ketones Negative Urine Blood Negative Urine Nitrite Negative Urine Bilirubin Negative Urine Urobilinogen Negative Ur Leukocyte Esterase 2+ H Urine RBC 1 Urine WBC 13 Ur Epithelial Cells Rare Urine Bacteria Many Urine Yeast Few 11/29/16 11/29/16 19:00 19:00 INR 1.21 H PTT (Actin FS) 30.7 VBG pH POC VBG pCO2 POC VBG pO2 Mixed VBG HCO3 Sodium 137 Potassium 5.5 H D Chloride 100 Carbon Dioxide 29 Anion Gap 8 BUN 15 D Creatinine 0.8 D Creat Clearance w eGFR > 60 Random Glucose 210 H D Lactic Acid Calcium 7.8 L Total Bilirubin 0.2 D AST 30 D ALT 30 D Alkaline Phosphatase 107 D Creatine Kinase 93 Troponin I < 0.02 Total Protein 6.6 Albumin 2.3 L Urine Color Urine Appearance Urine pH Urine Protein Urine Glucose (UA) Urine Ketones Urine Blood Urine Nitrite Urine Bilirubin Urine Urobilinogen Ur Leukocyte Esterase Urine RBC Urine WBC Ur Epithelial Cells Urine Bacteria Urine Yeast 11/29/16 19:00 RBC 3.55 L MCV 85.6 MCHC 32.7 RDW 15.5 MPV 7.2 L Neutrophils % 76.0 Lymphocytes % 12.0 D Monocytes % 7.0 Eosinophils % 2.0 - Medications Given in the ED: ED Medications Discontinued Medications Generic Name Dose Route Start Last Admin Trade Name Krystal PRN Reason Stop Dose Admin Acetaminophen 1,000 mg 11/29/16 18:57 11/29/16 19:00 Ofirmev Injection - IVPB 11/29/16 18:58 1,000 mg ONCE ONE Administration Vancomycin HCl 1,000 mg/ 250 mls @ 250 mls/hr 11/29/16 18:37 11/29/16 19:51 Dextrose IVPB 11/29/16 19:36 250 mls/hr ONCE ONE Administration Protocol Piperacillin Sod/Tazobactam 50 mls @ 100 mls/hr 11/29/16 18:37 11/29/16 19:12 Sod 3.375 gm/ Dextrose IVPB 11/29/16 19:06 100 mls/hr ONCE ONE Administration Protocol <Andi Wagner - Last Filed: 11/29/16 20:25> - LABORATORY CBC & Chemistry Diagram: 11/29/16 19:00 11/29/16 19:00 - ADDITIONAL ORDERS Additional order review: Laboratory Results 11/29/16 11/29/16 11/29/16 20:05 19:45 19:00 INR PTT (Actin FS) VBG pH 7.50 H POC VBG pCO2 36.4 L POC VBG pO2 53.2 H Mixed VBG HCO3 26.3 H Sodium Potassium Chloride Carbon Dioxide Anion Gap BUN Creatinine Creat Clearance w eGFR Random Glucose Lactic Acid 3.041 H* Calcium Total Bilirubin AST ALT Alkaline Phosphatase Creatine Kinase Troponin I Total Protein Albumin Urine Color Yellow Urine Appearance Slcloudy Urine pH 6.0 Urine Protein Negative Urine Glucose (UA) Negative Urine Ketones Negative Urine Blood Negative Urine Nitrite Negative Urine Bilirubin Negative Urine Urobilinogen Negative Ur Leukocyte Esterase 2+ H Urine RBC 1 Urine WBC 13 Ur Epithelial Cells Rare Urine Bacteria Many Urine Yeast Few 11/29/16 11/29/16 19:00 19:00 INR 1.21 H PTT (Actin FS) 30.7 VBG pH POC VBG pCO2 POC VBG pO2 Mixed VBG HCO3 Sodium 137 Potassium 5.5 H D Chloride 100 Carbon Dioxide 29 Anion Gap 8 BUN 15 D Creatinine 0.8 D Creat Clearance w eGFR > 60 Random Glucose 210 H D Lactic Acid Calcium 7.8 L Total Bilirubin 0.2 D AST 30 D ALT 30 D Alkaline Phosphatase 107 D Creatine Kinase 93 Troponin I < 0.02 Total Protein 6.6 Albumin 2.3 L Urine Color Urine Appearance Urine pH Urine Protein Urine Glucose (UA) Urine Ketones Urine Blood Urine Nitrite Urine Bilirubin Urine Urobilinogen Ur Leukocyte Esterase Urine RBC Urine WBC Ur Epithelial Cells Urine Bacteria Urine Yeast 11/29/16 19:00 RBC 3.55 L MCV 85.6 MCHC 32.7 RDW 15.5 MPV 7.2 L Neutrophils % 76.0 Lymphocytes % 12.0 D Monocytes % 7.0 Eosinophils % 2.0 - Medications Given in the ED: ED Medications Discontinued Medications Generic Name Dose Route Start Last Admin Trade Name Rileyq PRN Reason Stop Dose Admin Acetaminophen 1,000 mg 11/29/16 18:57 11/29/16 19:00 Ofirmev Injection - IVPB 11/29/16 18:58 1,000 mg ONCE ONE Administration Vancomycin HCl 1,000 mg/ 250 mls @ 250 mls/hr 11/29/16 18:37 11/29/16 19:51 Dextrose IVPB 11/29/16 19:36 250 mls/hr ONCE ONE Administration Protocol Piperacillin Sod/Tazobactam 50 mls @ 100 mls/hr 11/29/16 18:37 11/29/16 19:12 Sod 3.375 gm/ Dextrose IVPB 11/29/16 19:06 100 mls/hr ONCE ONE Administration Protocol <Lee Ann Fatima - Last Filed: 11/29/16 20:30> *DC/Admit/Observation/Transfer - Discharge Dispostion Admit: Yes <Andi Wagner - Last Filed: 11/29/16 20:25> <Lee Ann Fatima - Last Filed: 11/29/16 20:30> Diagnosis at time of Disposition: Severe sepsis, UTI (urinary tract infection) - Referrals Referrals: Jensen Todd MD [Primary Care Provider] - - Patient Instructions - Post Discharge Activity
[2016-11-29] MEDS ORDERED: SODIUM CHLORIDE 1,000 ML IV STA (20:27)
--- NOTE | 2016-11-29 20:37 | PN ---
<MariamJordenPhoebe - Last Filed: 11/29/16 20:36> Teaching Attending Note Name of Resident: Sandoval Reagan <Apoorva Wellington - Last Filed: 11/30/16 00:58> Teaching Attending Note ATTENDING PHYSICIAN STATEMENT I saw and evaluated the patient. I reviewed the resident's note and discussed the case with the resident. I agree with the resident's findings and plan as documented. SUBJECTIVE: 89 yo F presents with 3 days of buttocks wound with possible infection. She denies recent nausea, vomit, diarrhea or constipation. Patient is a poor historian due to her Alzheimers, Hx taken from home health aide. PMHx: Alzheimers, constipation OBJECTIVE: Last Vital Signs Temp Pulse Resp BP Pulse Ox 100.5 F H 102 H 20 128/94 95 11/29/16 20:24 11/29/16 19:30 11/29/16 19:30 11/29/16 19:30 11/29/16 19:30 GENERAL: AO x1, in no acute distress HEENT: Atraumatic. PERRLA, EOMI. Moist mucosa. No JVD LUNGS: No distress, speaks full sentences, clear to auscultation bilaterally HEART: Regular rate and rhythm, normal S1 and S2, no murmurs, rubs or gallops, peripheral pulses normal and equal bilaterally. ABDOMEN: Distended, nontender, normoactive bowel sounds. No guarding, no rebound. No masses EXTREMITIES: Normal inspection, Normal range of motion, 1+ pitting edema on bilateral LE. No clubbing or Cyanosis. NEUROLOGICAL: Cranial nerves II through XII grossly intact. Normal speech, normal gait, no focal sensorimotor deficits SKIN: Warm, Dry, normal turgor, bituminous ulcer in coccyx round, 4 by 3 cm with tunneling darkened skin no discharge. Surrounding skin is erythematous non fluctuant. 2 areas of erythema below knees. CBCD WBC 12.8 K/mm3 (4.0-10.0) H D 11/29/16 19:00 RBC 3.55 M/mm3 (3.60-5.2) L 11/29/16 19:00 Hgb 9.9 GM/dL (10.7-15.3) L D 11/29/16 19:00 Hct 30.4 % (32.4-45.2) L D 11/29/16 19:00 MCV 85.6 fl (80-96) 11/29/16 19:00 MCHC 32.7 g/dl (32.0-36.0) 11/29/16 19:00 RDW 15.5 % (11.6-15.6) 11/29/16 19:00 Plt Count 410 K/MM3 (134-434) D 11/29/16 19:00 MPV 7.2 fl (7.5-11.1) L 11/29/16 19:00 CMP Sodium 137 mmol/L (136-145) 11/29/16 19:00 Potassium 5.5 mmol/L (3.5-5.1) H D 11/29/16 19:00 Chloride 100 mmol/L (98-107) 11/29/16 19:00 Carbon Dioxide 29 mmol/L (21-32) 11/29/16 19:00 Anion Gap 8 (8-16) 11/29/16 19:00 BUN 15 mg/dL (7-18) D 11/29/16 19:00 Creatinine 0.8 mg/dL (0.55-1.02) D 11/29/16 19:00 Creat Clearance w eGFR > 60 (>60) 11/29/16 19:00 Calcium 7.8 mg/dL (8.5-10.1) L 11/29/16 19:00 Total Bilirubin 0.2 mg/dL (0.2-1.0) D 11/29/16 19:00 AST 30 U/L (15-37) D 11/29/16 19:00 ALT 30 U/L (12-78) D 11/29/16 19:00 Alkaline Phosphatase 107 U/L (45-117) D 11/29/16 19:00 Total Protein 6.6 g/dl (6.4-8.2) 11/29/16 19:00 Albumin 2.3 g/dl (3.4-5.0) L 11/29/16 19:00 ASSESSMENT AND PLAN: 1.) Sepsis likely secondary to UTI vs decubitus ulcer -Vancomyosin and rocefin -ID consult Dr. Padilla -Gentle hydration IVF -Surgical consult -Follow CBC, CMP, blood culture and wound culture in AM -daily wound care 2.) Constipation -Miralax Discuss advanced directives with family Documentation prepared by Apoorva Wellington acting as medical management specialist for Phoebe Becerra M.D.
--- NOTE | 2016-11-29 20:43 | HP ---
CHIEF COMPLAINT: fever, chills PCP: Dr. Joaquin Wound care - Dianna Meier HISTORY OF PRESENT ILLNESS: 89 yr old woman with Parkinson's disease, severe dementia, brought in by [facility]( home health aide) for fever and chills. Patient is a poor historian due to dementia, history obtained from [facility]. [facility] takes vitals everyday, and noticed since Sunday the patient has had fluctuating fevers orally and with axillae, highest temp 104. She had a f/u appointment with Dr. Tompkins this morning for her decubitus ulcer, was prescribed keflex(took once dose at home this evening). At home pt had fever of 100.5 with chills so [facility] brought her to the ED for further evaluation. Patient is oriented to self, and denies everything. (as per [facility], pt never complains of pain) As per [facility], patient has not complained of any pain, has not had cough, vomiting/diarhhea, has had good appetite, has not appeared sob, or had difficulty swallowing. Pt has daughter in [facility], (H) [phone], (W) [phone] [facility](has worked with pt for 6 yrs) [phone] ER course was notable for: (1) sepsis protocol initiated (2) vanc + zosyn (3) IVF Recent Travel: none PAST MEDICAL HISTORY: Parkinson's disease Dementia decubitus ulcer started as erythema in July after last hospitalization and pt experienced sudden skin breakdown apprx September , f/u with Dr. Kruger - [facility] was instructed to pack with silvadene BID. 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 one daughter ( Bell (H) [phone], (W) [phone], [facility] usually reaches her on her work number and has informed her of the hospital admission) Smoking: never Alcohol: denies Drugs: denies Family History: [place] Allergies No Known Allergies Allergy (Verified 11/29/16 17:49) HOME MEDICATIONS: Home Medications Medication Instructions Recorded Memantine HCl 10 mg PO BID 08/15/16 Quetiapine Fumarate [Seroquel -] 50 mg PO DAILY 08/15/16 Carbidopa/Levodopa 1 each PO BID 11/29/16 [Carbidopa-Levodopa 25-100 Tab] Cephalexin Monohydrate [Keflex -] 500 mg PO Q6H #10 capsule 11/29/16 REVIEW OF SYSTEMS CONSTITUTIONAL: Present: fever, chills, weight change(loss of 4lbs since july) Absent: diaphoresis, generalized weakness, malaise, loss of appetite HEENT: Absent: rhinorrhea, nasal congestion, throat pain, throat swelling, difficulty swallowing, mouth swelling, ear pain, eye pain CARDIOVASCULAR: Absent: chest pain, syncope, lightheadedness, peripheral edema RESPIRATORY: Absent: cough, shortness of breath, dyspnea with exertion, orthopnea, wheezing, stridor, hemoptysis GASTROINTESTINAL: Absent: abdominal pain, abdominal distension, nausea, vomiting, diarrhea, constipation, melena, hematochezia GENITOURINARY: Absent: dysuria, frequency, urgency, hesitancy, hematuria, flank pain, genital pain MUSCULOSKELETAL: Absent: myalgia, arthralgia, joint swelling, back pain, neck pain SKIN: Absent: rash, itching, pallor HEMATOLOGIC/IMMUNOLOGIC: Absent: easy bleeding, easy bruising, lymphadenopathy, frequent infections ENDOCRINE: Absent: unexplained weight gain, unexplained weight loss, heat intolerance, cold intolerance NEUROLOGIC: Absent: headache, focal weakness or paresthesias, dizziness, unsteady gait, seizure, mental status changes, bladder or bowel incontinence PSYCHIATRIC: Absent: anxiety, depression, suicidal or homicidal ideation, hallucinations. PHYSICAL EXAMINATION Vital Signs - 24 hr 11/29/16 11/29/16 11/29/16 17:49 18:20 19:00 Temperature 102.5 F H Pulse Rate 134 H Pulse Rate [ 117 H Apical] Respiratory 20 20 Rate Blood Pressure 144/101 Blood Pressure 143/87 [Left Arm] O2 Sat by Pulse 96 95 95 Oximetry (%) 11/29/16 11/29/16 19:30 20:24 Temperature 100.5 F H Pulse Rate Pulse Rate [ 102 H Apical] Respiratory 20 Rate Blood Pressure Blood Pressure 128/94 [Left Arm] O2 Sat by Pulse 95 Oximetry (%) GENERAL: Awake, alert, and in no acute distress. oriented to person only. able to follow commands and answers questions clearly, but requires constant redirection. HEAD: Normal with no signs of trauma. EYES: Pupils equal, round and reactive to light, extraocular movements intact, sclera anicteric, conjunctiva clear. No lid lag. EARS, NOSE, THROAT: Ears normal, nares patent, oropharynx clear without exudates. edentulism, wears dentures. Moist mucous membranes. NECK: Normal range of motion, supple without lymphadenopathy, JVD, or masses. LUNGS: Breath sounds equal, clear to auscultation bilaterally. No wheezes, and no crackles. No accessory muscle use. HEART: Regular rate and rhythm, normal S1 and S2 without murmur, rub or gallop. ABDOMEN: Soft, nontender, distended, normoactive bowel sounds, no guarding, no rebound, no masses. MUSCULOSKELETAL: No bony deformities or tenderness. No CVA tenderness. UPPER EXTREMITIES: 2+ pulses, warm, well-perfused. No cyanosis. No clubbing. No peripheral edema. mild resting tremor in index finger. LOWER EXTREMITIES: 2+ pulses, warm, well-perfused. No calf tenderness. 1+ nonpitting edema. 1x1 cm areas of red nonblanching purpura at b/l proximal tibia left heel with ruptured blister with dark skin, erythema at distal 1st toe on left foot. hyperpigmented rash on anterior right lower leg. right heel with mild erythema( skin intact), bony deformity between 1st and 2nd toe on right foot. mild erythema on lateral left hip, skin intact, nontender. NEUROLOGICAL: Cranial nerves II-XII intact. Normal speech, rate/tone. facial symmetry. ambulates with walker 2-wheeled walker. 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 2/5 strength in b/l hips on extension, 3/5 strength on dorsi and plantar flexion at b/l ankles. stage 4/unstagable decubitus ulcer: base not clearly visualized, cavitary at coccyx, 4x5cm with hyperpigmented surrounding skin, friable edges of ulcer, no pus/blood discharge, no underlying fluctuance, no tenderness. Laboratory Results - last 24 hr 11/29/16 11/29/16 11/29/16 19:00 19:00 19:00 WBC 12.8 H D RBC 3.55 L Hgb 9.9 L D Hct 30.4 L D MCV 85.6 MCHC 32.7 RDW 15.5 Plt Count 410 D MPV 7.2 L Neutrophils % 76.0 Lymphocytes % 12.0 D Monocytes % 7.0 Eosinophils % 2.0 Band Neutrophils 3.0 D Platelet Estimate Increased Platelet Comment No clumping noted Polychromasia Few Hypochromic-Microcytic 1+ INR 1.21 H PTT (Actin FS) 30.7 Sodium 137 Potassium 5.5 H D Chloride 100 Carbon Dioxide 29 Anion Gap 8 BUN 15 D Creatinine 0.8 D Creat Clearance w eGFR > 60 Random Glucose 210 H D Lactic Acid Calcium 7.8 L Total Bilirubin 0.2 D AST 30 D ALT 30 D Alkaline Phosphatase 107 D Creatine Kinase 93 Troponin I < 0.02 Total Protein 6.6 Albumin 2.3 L 11/29/16 11/29/16 11/29/16 19:00 19:45 20:05 VBG pH 7.50 H POC VBG pCO2 36.4 L POC VBG pO2 53.2 H Mixed VBG HCO3 26.3 H Lactic Acid 3.041 H* Urine Color Yellow Urine Appearance Slcloudy Urine pH 6.0 Urine Protein Negative Urine Glucose (UA) Negative Urine Ketones Negative Urine Blood Negative Urine Nitrite Negative Urine Bilirubin Negative Urine Urobilinogen Negative Ur Leukocyte Esterase 2+ H Urine RBC 1 Urine WBC 13 Ur Epithelial Cells Rare Urine Bacteria Many Urine Yeast Few ASSESSMENT/PLAN: 89 yr old woman with dementia, parkinson's disease, decubitus ulcer presents with fever, admitted for sepsis. #Sepsis(tachy,fever,source) - UTI vs decubitus ulcer as source - ID consult changed from to Dr. Hathaway(Dr. Hathaway saw pt on 10/31) - continue vancomycin 1gm IV q24hr for MRSA coverage given decubiti - rocephin 1gm IV q24hr for UTI(Klebsiella in past cx, sensitive to rocephin) - blood/urine/wound cx pending - gentle IVF with NS @75ml/hr - lactic acid resolved #constipation - miralax 17gm qdaily #Parkinson's disease - sinemet 1 tablet po BID #Dementia - fall risk precautions, known unsteady gait, recommend PT to prevent deconditioning - Memantine 10mg po BID - Seroqual 50mg po HS #Decubitus ulcer - Silvadene cream apply twice daily - clean, dry dressing changes daily - consider Dr. Kruger consult if debridement is needed - re-position q2hr, oob to chair when possible #Advanced directives - discuss with family #Anemia, mcv normal, normocytic - iron studies #Hyperkalemia, mildly elevated - repeat labs in the AM #DVT -lovenox sq qdaily #Diet - cannot chew, puree diet Visit type - Emergency Visit Emergency Visit: Yes ED Registration Date: 11/29/16 Care time: The patient presented to the Emergency Department on the above date and was hospitalized for further evaluation of their emergent condition. - New Patient This patient is new to me today: Yes Date on this admission: 11/29/16 - Critical Care Critical Care patient: No
[2016-11-29] MEDS: SODIUM CHLORIDE 1,000 ML IV SCH (21:57)
[2016-11-29] MEDS ORDERED: QUEtiapine FUMARATE 50 MG TABLET PO SCH (22:12)
[2016-11-29] MEDS: VANCOMYCIN 1 GRAM (PRE-DOCKED) 250 ML IVPB ONE (22:40)
[2016-11-29] MEDS ORDERED: ACETAMINOPHEN 325 MG TABLET (FP) PO PRN (23:01)
[2016-11-30 01:26] VITALS: BMI 28.1
[2016-11-30] MEDS: VANCOMYCIN 1 GRAM (PRE-DOCKED) 250 ML IVPB ONE (02:31)
[2016-11-30 07:22] LABS: BASOPHIL 0.5 % (0-2.0); EOSINOPHIL 0.9 % (0-4.5); MCH 27.7 pg (25.7-33.7); MCHC 32.6 g/dl (32.0-36.0); MEAN PLT VOLUME 6.5 fl (7.5-11.1); NEUTROPHILS 77.5 % (42.8-82.8); PLATELET COUNT 310 K/MM3 (134-434); RDW 15.1 % (11.6-15.6); WHITE BLOOD COUNT 11.4 K/mm3 (4.0-10.0)
[2016-11-30 07:46] LABS: CALCIUM 7.5 mg/dL (8.5-10.1); COCKROFT - GAULT 81.379; CREATININE 0.5 mg/dL (0.55-1.02)
[2016-11-30] MEDS: METRONIDAZOLE 500 MG PREMIXED 100 ML IVPB SCH ×2 (09:00→17:54)
--- NOTE | 2016-11-30 09:39 | CONSULT ---
Consultation: REQUESTING PROVIDER: CONSULT REQUEST: We have been asked to medically evaluate this patient for ( specify). HISTORY OF PRESENT ILLNESS: The pt has dementia, poor historian. History was taken from medical records. 89 yr old woman with Parkinson's disease, severe dementia, brought in by home health aide for fever and chills x 4 days. Temperature measured at home was 104 F. Yesterday she had appointment with Dr. davis for decubitus ulcer. She was prescribed Keflex and took one dose. The pt doesn't have any complaints. As per her nurse aidshe didn't complained of any pain, has not had cough, vomiting/diarhhea, has had good appetite, has not appeared sob, or had difficulty swallowing. The pt was hospitalized in [facility] in July 2016 for sepsis due to UTI. She was found to have Klebsiella sp. and treated with Ceftriaxone. REVIEW OF SYSTEMS: CONSTITUTIONAL: Absent: fever, chills, diaphoresis, generalized weakness, malaise, loss of appetite, weight change HEENT: Absent: rhinorrhea, nasal congestion, throat pain, throat swelling, difficulty swallowing, mouth swelling, ear pain, eye pain, visual changes CARDIOVASCULAR: Absent: chest pain, syncope, palpitations, irregular heart rate, lightheadedness , peripheral edema RESPIRATORY: Absent: cough, shortness of breath, dyspnea with exertion, orthopnea, wheezing, stridor, hemoptysis GASTROINTESTINAL: Absent: abdominal pain, abdominal distension, nausea, vomiting, diarrhea, constipation, melena, hematochezia GENITOURINARY: Absent: dysuria, frequency, urgency, hesitancy, hematuria, flank pain, genital pain MUSCULOSKELETAL: Absent: myalgia, arthralgia, joint swelling, back pain, neck pain SKIN: Absent: rash, itching, pallor NEUROLOGIC: Absent: headache, focal weakness or paresthesias, dizziness, unsteady gait, seizure, mental status changes, bladder or bowel incontinence PSYCHIATRIC: Absent: anxiety, depression, suicidal or homicidal ideation, hallucinations. PHYSICAL EXAMINATION Vital Signs - 24 hr 11/29/16 11/29/16 11/30/16 21:48 22:30 00:43 Temperature 98.3 F 98.8 F Pulse Rate 88 Pulse Rate [ 96 H Apical] Respiratory Rate Blood Pressure 128/89 Blood Pressure 130/78 [Left Arm] O2 Sat by Pulse 95 95 95 Oximetry (%) 11/30/16 11/30/16 01:31 06:00 Temperature 98.9 F 99.6 F Pulse Rate 108 H Pulse Rate [ Apical] Respiratory 18 Rate Blood Pressure 137/73 Blood Pressure [Left Arm] O2 Sat by Pulse Oximetry (%) GENERAL: Awake, alert, and fully oriented, in no acute distress. HEAD: Normal with no signs of trauma. EYES: Pupils equal, round and reactive to light, extraocular movements intact, sclera anicteric, conjunctiva clear. No lid lag. EARS, NOSE, THROAT: Ears normal, nares patent, oropharynx clear without exudates. Moist mucous membranes. NECK: Normal range of motion, supple without lymphadenopathy, JVD, or masses. LUNGS: Breath sounds equal, clear to auscultation bilaterally. No wheezes, and no crackles. No accessory muscle use. HEART: Regular rate and rhythm, normal S1 and S2 without murmur, rub or gallop. ABDOMEN: Soft, nontender, not distended, normoactive bowel sounds, no guarding, no rebound, no masses. No hepatomegaly or splenomegaly. MUSCULOSKELETAL: Normal range of motion at all joints. No bony deformities or tenderness. No CVA tenderness. UPPER EXTREMITIES: 2+ pulses, warm, well-perfused. No cyanosis. No clubbing. No peripheral edema. LOWER EXTREMITIES: 2+ pulses, warm, well-perfused. No calf tenderness. No peripheral edema. NEUROLOGICAL: No facial asymmetry.Normal speech. Normal gait. PSYCHIATRIC: Cooperative. Good eye contact. Appropriate mood and affect. 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 2 cm blister on right heel, no erythema, swelling. Laboratory Results - last 24 hr 11/29/16 11/30/16 11/30/16 21:35 06:10 06:10 WBC 11.4 H RBC 3.39 L Hgb 9.4 L Hct 28.8 L MCV 85.0 MCHC 32.6 RDW 15.1 Plt Count 310 D MPV 6.5 L Neutrophils % 77.5 Lymphocytes % 9.3 D Monocytes % 11.8 H Eosinophils % 0.9 Basophils % 0.5 Sodium 142 Potassium 4.0 D Chloride 106 Carbon Dioxide 31 Anion Gap 5 L BUN 11 D Creatinine 0.5 L D Random Glucose 130 H D Lactic Acid 1.046 Calcium 7.5 L Active Medications Generic Name Dose Route Start Last Admin Trade Name Krystal PRN Reason Stop Dose Admin Carbidopa/Levodopa 1 each 11/30/16 10:00 Sinemet 25/100 - PO BID [facility] Ceftriaxone Sodium 1 gm 11/30/16 10:00 Rocephin 1gm Ivpb (Pre-Docked) IVPB DAILY [facility] Enoxaparin Sodium 40 mg 11/30/16 10:00 Lovenox - SQ DAILY [facility] Sodium Chloride 1,000 mls @ 75 mls/hr 11/29/16 22:00 11/29/16 21:57 Normal Saline - IV 75 mls/hr ASDIR [facility] Administration Memantine 10 mg 11/30/16 10:00 Namenda - PO BID [facility] Polyethylene Glycol 17 gm 11/30/16 10:00 Miralax (For Daily Use) - PO DAILY [facility] Quetiapine Fumarate 50 mg 11/29/16 22:12 Seroquel - PO HS [facility] ASSESSMENT/PLAN: 89 yr old woman with Parkinson's disease, severe dementia, brought in by home health aide for fever and chills x 4 days. Temperature measured at home was 104 F. The pt was admitted for SIRS. SIRS: -possible due to UTI or decubitus ulcer stage 4 -wound culture, urine cultures are pending -we recommend Metronidazole and Ceftriaxone Decubitus ulcer; -wound care, dressing changes -apply Silvadene cream -dressing changes -please consult Dr Kruger-plastic surgery Dementia Parkinson's Dispo: We will continue to follow the patient. Thank you for this consultative opportunity. Problem List - Problems (1) Decubitus skin ulcer Code(s): L89.90 - PRESSURE ULCER OF UNSPECIFIED SITE, UNSPECIFIED STAGE (2) Fever Code(s): R50.9 - FEVER, UNSPECIFIED (3) UTI (urinary tract infection) Code(s): N39.0 - URINARY TRACT INFECTION, SITE NOT SPECIFIED (4) Dementia Code(s): F03.90 - UNSPECIFIED DEMENTIA WITHOUT BEHAVIORAL DISTURBANCE (5) Parkinson disease Code(s): G20 - PARKINSON'S DISEASE Visit type - Emergency Visit Emergency Visit: Yes ED Registration Date: 11/29/16 Care time: The patient presented to the Emergency Department on the above date and was hospitalized for further evaluation of their emergent condition. - New Patient This patient is new to me today: Yes Date on this admission: 11/30/16 - Critical Care Critical Care patient: No
[2016-11-30] MEDS ORDERED: CEFTRIAXONE 1 GM in DEXTROSE 5%-WATER - 50 ML IVPB SCH (10:00)
--- NOTE | 2016-11-30 10:14 | PN ---
Teaching Attending Note Name of Resident: Rebeca Acosta ATTENDING PHYSICIAN STATEMENT I saw and evaluated the patient. I reviewed the resident's note and discussed the case with the resident. I agree with the resident's findings and plan as documented. SUBJECTIVE:Admitted with fever OBJECTIVE:Stage 4 decubitus fold smelling necrotic base ASSESSMENT AND PLAN:Fever unclear source urinary tract source Ceftriaxone and metronidazole Dr Kruger should see here Joseph PIRES Problem List - Problems (1) Fever Code(s): R50.9 - FEVER, UNSPECIFIED (2) Decubitus skin ulcer Code(s): L89.90 - PRESSURE ULCER OF UNSPECIFIED SITE, UNSPECIFIED STAGE
[2016-11-30] MEDS: cefTRIAXone 1 GM/50 ML BAG (PRE-DOCKED) IVPB SCH (10:57)
[2016-11-30] MEDS: MEMANTINE HCL 10 MG TABLET (FP) PO SCH ×2 (10:58→21:41)
[2016-11-30] MEDS: CARBIDOPA/LEVODOPA 25/100 TABLET (FP) PO SCH ×2 (10:58→21:41)
[2016-11-30] MEDS: ENOXAPARIN NA (PORCINE) 40 MG/0.4 ML DISP.SYRIN SQ SCH (10:58)
[2016-11-30] MEDS: POLYETHYLENE GLYCOL 3350 119 GM BTL PO SCH (10:59)
--- NOTE | 2016-11-30 16:17 | PN ---
Physical Exam: SUBJECTIVE: Patient seen and examined, dementia, not oriented to time and place ; is not aware of the stage IV sacral decubitus ulcer OBJECTIVE: Vital Signs Period Temp Pulse Resp BP Sys/Crowell Pulse Ox Last 24 Hr 98.3 F-100.3 F 88-112 16-20 123-137/71-89 95-95 GENERAL: The patient with dementia; HEAD: Normal with no signs of trauma. EYES: PERRL, extraocular movements intact, sclera anicteric, conjunctiva clear. No ptosis. ENT: Ears normal, nares patent, oropharynx clear without exudates, moist mucous membranes. NECK: Trachea midline, full range of motion, supple. LUNGS: Breath sounds equal, clear to auscultation bilaterally, no wheezes, no crackles, no accessory muscle use. HEART: Regular rate and rhythm, S1, S2, +murmur, rub or gallop. ABDOMEN: Soft, nontender, nondistended, normoactive bowel sounds, no guarding, no rebound, no hepatosplenomegaly, no masses. EXTREMITIES: 2+ pulses, warm, well-perfused, trace b/l edema LE NEUROLOGICAL:cognitive impairment; oriented to self PSYCH: Normal mood, normal affect. SKIN: stage IV sacral decubitus ulcer; 3x3cm; 3cm deep; friable edges no visible bone, foul smelling Laboratory Results - last 24 hr 11/29/16 11/30/16 11/30/16 21:35 06:10 06:10 WBC 11.4 H RBC 3.39 L Hgb 9.4 L Hct 28.8 L MCV 85.0 MCHC 32.6 RDW 15.1 Plt Count 310 D MPV 6.5 L Neutrophils % 77.5 Lymphocytes % 9.3 D Monocytes % 11.8 H Eosinophils % 0.9 Basophils % 0.5 Sodium 142 Potassium 4.0 D Chloride 106 Carbon Dioxide 31 Anion Gap 5 L BUN 11 D Creatinine 0.5 L D Random Glucose 130 H D Lactic Acid 1.046 Calcium 7.5 L Active Medications Generic Name Dose Route Start Last Admin Trade Name Freq PRN Reason Stop Dose Admin Carbidopa/Levodopa 1 each 11/30/16 10:00 11/30/16 10:58 Sinemet 25/100 - PO 1 each BID [facility] Administration Ceftriaxone Sodium 1 gm 11/30/16 10:00 11/30/16 10:57 Rocephin 1gm Ivpb (Pre-Docked) IVPB 1 gm DAILY [facility] Administration Enoxaparin Sodium 40 mg 11/30/16 10:00 11/30/16 10:58 Lovenox - SQ 40 mg DAILY [facility] Administration Sodium Chloride 1,000 mls @ 75 mls/hr 11/29/16 22:00 11/29/16 21:57 Normal Saline - IV 75 mls/hr ASDIR [facility] Administration Metronidazole 100 mls @ 100 mls/hr 11/30/16 11:00 11/30/16 09:00 Flagyl 500mg Premixed Ivpb - IVPB 100 mls/hr Q8H-IV [facility] Administration Memantine 10 mg 11/30/16 10:00 11/30/16 10:58 Namenda - PO 10 mg BID [facility] Administration Polyethylene Glycol 17 gm 11/30/16 10:00 11/30/16 10:59 Miralax (For Daily Use) - PO 17 gm DAILY [facility] Administration Quetiapine Fumarate 50 mg 11/29/16 22:12 Seroquel - PO HS [facility] Sodium Hypochlorite 1 applic 11/30/16 16:00 Dakin's Solution 0.25% (Half-Strength) - TP DAILY [facility] ASSESSMENT/PLAN: 89 year old woman with dementia, parkinson's disease, stage IV decubitus ulcer presents with fever, admitted for sepsis secondary to ulcer vs UTI as source of infection. #Sepsis secondary UTI vs decubitus ulcer as source -wbc trending dowm; lactic acid now wnl - flagyl IVPB 500mg q8h - rocephin 1gm IV q24hr for UTI(Klebsiella in past cx, sensitive to rocephin) - blood/urine/wound cx pending - gentle IVF with NS @75ml/hr - pack wound wtih dakin diane. TID -Dr Oliveros consulted; will see her tomorrow #constipation - miralax 17gm qdaily #Parkinson's disease - sinemet 1 tablet po BID #Dementia - fall risk precautions, known unsteady gait, recommend PT to prevent deconditioning - Memantine 10mg po BID - Seroqual 50mg po HS FEN: Fluids: 75mls NS Electrolytes: wnl Diet: chopped diet DVT -lovenox sq daily Disposition: cont IV antibiotics, Dr. oliveros will see tomorrow; keep NPO in case on debridemnt ; Visit type - Emergency Visit Emergency Visit: Yes ED Registration Date: 11/29/16 Care time: The patient presented to the Emergency Department on the above date and was hospitalized for further evaluation of their emergent condition. - New Patient This patient is new to me today: Yes Date on this admission: 11/30/16 - Critical Care Critical Care patient: No
[2016-11-30] MEDS: SODIUM CHLORIDE 1,000 ML IV SCH (16:54)
[2016-11-30] MEDS: SODIUM HYPOCHLORITE 0.25%- 473 ML BULK BOTTLE TP SCH (17:09)
--- NOTE | 2016-11-30 17:29 | EKG ---
Test Reason : Blood Pressure : / mmHG Vent. Rate : 118 BPM Atrial Rate : 118 BPM P-R Int : 136 ms QRS Dur : 122 ms QT Int : 350 ms P-R-T Axes : 026 -60 082 degrees QTc Int : 490 ms SINUS TACHYCARDIA LEFT AXIS DEVIATION LEFT BUNDLE BRANCH BLOCK ABNORMAL ECG WHEN COMPARED WITH ECG OF 15-AUG-2016 09:49, FUSION COMPLEXES ARE NO LONGER PRESENT T WAVE INVERSION LESS EVIDENT IN LATERAL LEADS Confirmed by BRITTANY PIRES, RANDI ([id number]) on 11/30/2016 5:29:11 PM Referred By: Confirmed By:RANDI SOTO MD
--- NOTE | 2016-11-30 18:12 | PN ---
Teaching Attending Note Name of Resident: Xi Yates ATTENDING PHYSICIAN STATEMENT I saw and evaluated the patient. I reviewed the resident's note and discussed the case with the resident. I agree with the resident's findings and plan as documented. SUBJECTIVE:currently asymptomatic. denies CP, SOB<fever, chills, dysuria, hematuria or urinary frequency OBJECTIVE: Last Vital Signs Temp Pulse Resp BP Pulse Ox 99.1 F 98 H 20 123/73 95 11/30/16 15:36 11/30/16 15:36 11/30/16 15:36 11/30/16 15:36 11/30/16 09:00 General NAD A&Ox1 (self) CV S1 S2 RRR no murmur/rub/gallop Lungs CTA B/L no wheezing/rales/rhonchi Abdomen soft NT/ND no suprapubic tenderness skin stage 4 sacral decubitus with exposed muscle. sangenous drainage no debris of slough noted. ASSESSMENT AND PLAN: 89yo F with PMH parkinsons and dementia presented to the ER and was admitted for further evaluation of their emergent condition 1. Severe sepsis due to sacral ulcer - Tm 102.5. lactic acidosis resolved. received vanco/zosyn in the Er and now on ceftriaxone. do not believe Urine to be source of infection at this time. ID consulted. will request plastics to evaluate as shes aware of wound and has been following. will likely require debridement. Cx sent. 2. Hyperkalemia- resolved 3. Normocytic anemia- no signs of bleeding. check iron studies. no indicaiton for txn 4. parkinsons/dementia- cont current meds 5. dvt ppx- lovenox
[2016-11-30] MEDS ORDERED: QUEtiapine FUMARATE 25 MG TABLET (FP) ONE (21:36)
[2016-11-30] MEDS ORDERED: QUEtiapine FUMARATE 50 MG TABLET PO SCH (22:00)
[2016-12-01] MEDS ORDERED: VANCOMYCIN 1 GRAM (PRE-DOCKED) 1,000 MG/250 ML BAG IVPB SCH ×2 (01:30→13:30)
[2016-12-01] MEDS: METRONIDAZOLE 500 MG PREMIXED 100 ML IVPB SCH ×3 (02:12→17:55)
[2016-12-01 08:28] LABS: MCH 28.1 pg (25.7-33.7); MCHC 32.6 g/dl (32.0-36.0); MEAN PLT VOLUME 6.5 fl (7.5-11.1); PLATELET COUNT 325 K/MM3 (134-434); WHITE BLOOD COUNT 10.5 K/mm3 (4.0-10.0)
[2016-12-01] MEDS: CARBIDOPA/LEVODOPA 25/100 TABLET (FP) PO SCH ×2 (10:13→22:41)
[2016-12-01] MEDS: MEMANTINE HCL 10 MG TABLET (FP) PO SCH ×2 (10:13→22:40)
[2016-12-01] MEDS: POLYETHYLENE GLYCOL 3350 119 GM BTL PO SCH (10:13)
[2016-12-01] MEDS: SODIUM HYPOCHLORITE 0.25%- 473 ML BULK BOTTLE TP SCH (10:19)
[2016-12-01] MEDS: cefTRIAXone 1 GM/50 ML BAG (PRE-DOCKED) IVPB SCH (10:19)
[2016-12-01] MEDS: SODIUM CHLORIDE 1,000 ML IV SCH ×2 (10:21→16:30)
[2016-12-01 12:55] LABS: PLATELET ESTIMATE ADEQUATE (NORMAL)
[2016-12-01 13:00] LABS: CALCIUM 7.8 mg/dL (8.5-10.1); COCKROFT - GAULT 67.813; CREATININE 0.6 mg/dL (0.55-1.02)
[2016-12-01] MEDS ORDERED: LIDOCAINE 1%/EPI 1:100000 (50 ML MULTI DOSE VIAL) ONE (13:26)
[2016-12-01] MEDS: ENOXAPARIN NA (PORCINE) 40 MG/0.4 ML DISP.SYRIN SQ SCH (13:26)
--- NOTE | 2016-12-01 13:31 | PN ---
Progress Note (short form) - Note Progress Note: awake and alert Vital Signs Period Temp Pulse Resp BP Sys/Crowell Pulse Ox Last 24 Hr 97.9 F-99.5 F 98-107 18-20 108-138/58-86 95 cor-rrr lungs clear abd soft,nt +sacral ulcer ext no edema CBC, BMP 12/01/16 06:30 12/01/16 06:30 Microbiology 11/29/16 18:40 Decubiti Wound Culture - Preliminary Pending Organism 11/29/16 19:45 Urine - Urine Clean Catch Urine Culture - Preliminary Lactose Fermenting Neg Bacilli 11/29/16 19:00 Blood - Peripheral Venous Blood Culture - Preliminary Pending Organism 11/29/16 19:00 Blood - Peripheral Venous Blood Culture - Preliminary Pending Organism a/p fever bacteremia- gram positive infected decubitus ulcer UTI add vancomycin continue ceftriaxone/flagyl for operative debridement today f/u cultures in am repeat blood cultures in am echo
--- NOTE | 2016-12-01 13:35 | PN ---
Physical Exam: SUBJECTIVE: Patient seen and examined with severe dementia, hesitant for you to examine the wound. Does not realize she has an ulcer, denies pain, problems with urination, fever, chills. OBJECTIVE: Vital Signs Period Temp Pulse Resp BP Sys/Crowell Pulse Ox Last 24 Hr 97.9 F-99.5 F 98-107 18-20 108-138/58-86 95 GENERAL: The patient is awake, alert, not oriented to time or place HEAD: Normal with no signs of trauma. LUNGS: Breath sounds equal, clear to auscultation bilaterally, no wheezes, no crackles, no accessory muscle use. HEART: Regular rate and rhythm, S1, S2 with sytolic murmur, rub or gallop. ABDOMEN: Soft, nontender, nondistended, normoactive bowel sounds, no guarding, no rebound, no hepatosplenomegaly, no masses. EXTREMITIES: 2+ pulses, warm, well-perfused, no edema. NEUROLOGICAL: dementia PSYCH: Normal mood, normal affect. SKIN: Warm, dry, normal turgor, stage IV sacral decubitus ulcer; 3x3cm; 3cm deep ; friable edges no visible bone, foul smelling Laboratory Results - last 24 hr 12/01/16 12/01/16 12/01/16 06:30 06:30 06:30 WBC 10.5 H RBC 3.41 L Hgb 9.6 L Hct 29.3 L MCV 86.0 MCHC 32.6 RDW 15.0 Plt Count 325 MPV 6.5 L Neutrophils % 63.0 Lymphocytes % 17.0 D Monocytes % 15.0 H Eosinophils % 4.0 D Basophils % 1.0 Differential Comment Manual diff done Platelet Estimate Adequate Sodium 144 Potassium 4.2 Chloride 108 H Carbon Dioxide 29 Anion Gap 7 L BUN 10 Creatinine 0.6 Random Glucose 86 D Calcium 7.8 L Ferritin 73.129 Active Medications Generic Name Dose Route Start Last Admin Trade Name Freq PRN Reason Stop Dose Admin Carbidopa/Levodopa 1 each 11/30/16 10:00 12/01/16 10:13 Sinemet 25/100 - PO Not Given BID [facility] Ceftriaxone Sodium 1 gm 11/30/16 10:00 12/01/16 10:19 Rocephin 1gm Ivpb (Pre-Docked) IVPB 1 gm DAILY [facility] Administration Enoxaparin Sodium 40 mg 11/30/16 10:00 12/01/16 13:26 Lovenox - SQ Not Given DAILY [facility] Sodium Chloride 1,000 mls @ 75 mls/hr 11/29/16 22:00 12/01/16 10:21 Normal Saline - IV 75 mls/hr ASDIR [facility] Administration Metronidazole 100 mls @ 100 mls/hr 11/30/16 11:00 12/01/16 11:27 Flagyl 500mg Premixed Ivpb - IVPB 100 mls/hr Q8H-IV [facility] Administration Memantine 10 mg 11/30/16 10:00 12/01/16 10:13 Namenda - PO Not Given BID [facility] Polyethylene Glycol 17 gm 11/30/16 10:00 12/01/16 10:13 Miralax (For Daily Use) - PO Not Given DAILY [facility] Quetiapine Fumarate 50 mg 11/29/16 22:12 11/30/16 21:41 Seroquel - PO 50 mg HS [facility] Administration Sodium Hypochlorite 1 applic 11/30/16 16:00 12/01/16 10:19 Dakin's Solution 0.25% (Half-Strength) - TP 1 applic DAILY [facility] Administration Vancomycin HCl 1,000 mg 12/01/16 13:30 12/01/16 13:27 Vancomycin (Pre-Docked) IVPB 1,000 mg DAILY@1330 [facility] Administration Protocol ASSESSMENT/PLAN: 89 year old woman with dementia, parkinson's disease, stage IV decubitus ulcer presents with fever, admitted for sepsis secondary to ulcer vs UTI as source of infection. #Bacteremia gram +; most likely secondary to stage IV decubitus ulcer as source -wbc trending dowm; lactic acid now wnl; afebrile - flagyl IVPB 500mg q8h day #2 -vancomycin 1gm IVPB day #1 - blood/urine/wound cx gram + -repeat cultures in am - pack wound wtih abner dianeJeremie TIMinerva -Dr Kruger consulted; will see her today -echo pending #Urinary tract infection: -continue ceftriaxone 1gm IV qd Day #2 -Klebsiella in past cx, sensitive to rocephin Problem List - Problems (1) Decubitus skin ulcer Code(s): L89.90 - PRESSURE ULCER OF UNSPECIFIED SITE, UNSPECIFIED STAGE (2) Fever Code(s): R50.9 - FEVER, UNSPECIFIED (3) Parkinson disease Code(s): G20 - PARKINSON'S DISEASE (4) Severe sepsis Code(s): A41.9 - SEPSIS, UNSPECIFIED ORGANISM R65.20 - SEVERE SEPSIS WITHOUT SEPTIC SHOCK (5) UTI (urinary tract infection) Code(s): N39.0 - URINARY TRACT INFECTION, SITE NOT SPECIFIED (6) UTI (lower urinary tract infection) Code(s): N39.0 - URINARY TRACT INFECTION, SITE NOT SPECIFIED (7) Alzheimer disease Code(s): G30.9 - ALZHEIMER'S DISEASE, UNSPECIFIED Visit type - Emergency Visit Emergency Visit: Yes ED Registration Date: 11/29/16 Care time: The patient presented to the Emergency Department on the above date and was hospitalized for further evaluation of their emergent condition. - New Patient This patient is new to me today: No - Critical Care Critical Care patient: No
[2016-12-01] MEDS ORDERED: MIDAZOLAM HCL 2 MG/2 ML SINGLE DOSE VIAL ONE ×2 (14:04)
[2016-12-01] MEDS ORDERED: BUPIVACAINE HCL/PF 0.5% (5MG/ML) 10 ML VIAL ONE (14:10)
[2016-12-01] MEDS ORDERED: PROPOFOL 20 ML ONE (14:11)
[2016-12-01] MEDS ORDERED: BACITRACIN 50,000 UNITS VIAL NR ONE (14:31)
[2016-12-01] MEDS ORDERED: BUPIVACAINE HCL/PF 0.5% (5MG/ML) 10 ML VIAL IJ ONE (14:31)
[2016-12-01] MEDS ORDERED: LIDOCAINE 1%/EPI 1:100000 (50 ML MULTI DOSE VIAL) INF ONE (14:31)
[2016-12-01] MEDS ORDERED: ONDANSETRON 4 MG/2 ML VIAL IVPUSH PRN ×2 (15:23→16:31)
[2016-12-01] MEDS ORDERED: LACTATED RINGERS SOLUTION 1,000 ML IV SCH ×2 (15:30→16:31)
--- NOTE | 2016-12-01 15:40 | PN ---
Teaching Attending Note Name of Resident: Leonarda Wellington ATTENDING PHYSICIAN STATEMENT I saw and evaluated the patient. I reviewed the resident's note and discussed the case with the resident. I agree with the resident's findings and plan as documented. SUBJECTIVE:resting comfortable, no complaints OBJECTIVE: Last Vital Signs Temp Pulse Resp BP Pulse Ox 98.8 F 95 H 20 121/78 95 12/01/16 10:00 12/01/16 10:00 12/01/16 10:00 12/01/16 10:00 11/30/16 21:00 General NAD A&Ox1 (self) Abdomen soft NT/ND no suprapubic tenderness skin stage 4 sacral decubitus with exposed muscle. necrotic tissue at ulcer base , slough noted along edges ASSESSMENT AND PLAN: 89yo F with PMH parkinsons and dementia presented to the ER and was admitted for further evaluation of their emergent condition 1. Severe sepsis due to sacral ulcer -all cx reporting organism at this time. afebrile. NPO for debridement today. on Ceftriaxone/flagyl day 2. plastics and ID on board. will wait for speciation on cultures. can repeat Cx tomorrow to ensure infection cleared. 2. Hyperkalemia- resolved 3. Normocytic anemia- no signs of bleeding. iron studies pending. no indicaiton for txn 4. parkinsons/dementia- cont current meds 5. dvt ppx- hold lovenox with pending debridement
[2016-12-01] MEDS ORDERED: AMINO ACIDS/PROTEIN HYDROLYS 30 ML LIQUID.PKT PO SCH (17:30)
[2016-12-01] MEDS: AMINO ACIDS/PROTEIN HYDROLYS 30 ML LIQUID.PKT PO SCH (17:55)
--- NOTE | 2016-12-01 19:50 | PN ---
Physical Exam: SUBJECTIVE: Patient seen and examined by me at bedside. Patient resting comfortably and offers no complaints. She denies any buttock or back pain. Patient remains confused due to her advanced dementia. She is scheduled for Debridement today with Dr. Kruger. OBJECTIVE: Vital Signs Period Temp Pulse Resp BP Sys/Crowell Pulse Ox Last 24 Hr 97.6 F-99.5 F 76-107 16-22 108-158/58-86 93-100 GENERAL: The patient is awake, alert and in no acute distress. LUNGS: Breath sounds equal, clear to auscultation bilaterally, no wheezes, no crackles, no accessory muscle use. HEART: Regular rate and rhythm, S1, S2 without murmur, rub or gallop. ABDOMEN: Soft, nontender, nondistended, normoactive bowel sounds, no guarding, no rebound. EXTREMITIES: No peripheral edema NEUROLOGICAL: Confused with advanced cognitive impairment. SKIN: Stage 4 sacral decubitus ulcer with necrosis and sloughing along the edges and muscle exposure. Laboratory Results - last 24 hr 12/01/16 12/01/16 12/01/16 06:30 06:30 06:30 WBC 10.5 H RBC 3.41 L Hgb 9.6 L Hct 29.3 L MCV 86.0 MCHC 32.6 RDW 15.0 Plt Count 325 MPV 6.5 L Neutrophils % 63.0 Lymphocytes % 17.0 D Monocytes % 15.0 H Eosinophils % 4.0 D Basophils % 1.0 Differential Comment Manual diff done Platelet Estimate Adequate Sodium 144 Potassium 4.2 Chloride 108 H Carbon Dioxide 29 Anion Gap 7 L BUN 10 Creatinine 0.6 Random Glucose 86 D Calcium 7.8 L Ferritin 73.129 Active Medications Generic Name Dose Route Start Last Admin Trade Name Freq PRN Reason Stop Dose Admin Amino Acids 30 ml 12/01/16 17:30 12/01/16 17:55 Prosource No Carb Liquid Pkt PO 30 ml BID@0800,1730 [facility] Administration Ascorbic Acid 500 mg 12/02/16 10:00 Vitamin C - PO DAILY [facility] Carbidopa/Levodopa 1 each 12/01/16 22:00 Sinemet 25/100 - PO BID [facility] Ceftriaxone Sodium 1 gm 12/02/16 10:00 Rocephin 1gm Ivpb (Pre-Docked) IVPB DAILY [facility] Metronidazole 100 mls @ 100 mls/hr 12/01/16 18:00 12/01/16 17:55 Flagyl 500mg Premixed Ivpb - IVPB 100 mls/hr Q8H-IV [facility] Administration Sodium Chloride 1,000 mls @ 75 mls/hr 12/01/16 16:31 12/01/16 16:30 Normal Saline - IV 0 mls ASDIR [facility] Administration Memantine 10 mg 12/01/16 22:00 Namenda - PO BID [facility] Multivitamins/Minerals/Vitamin C 1 tab 12/02/16 10:00 Tab-A-Vit - PO DAILY [facility] Ondansetron HCl 4 mg 12/01/16 16:31 Zofran Injection IVPUSH 12/01/16 21:24 Q6H PRN NAUSEA AND/OR VOMITING Polyethylene Glycol 17 gm 12/02/16 10:00 Miralax (For Daily Use) - PO DAILY [facility] Quetiapine Fumarate 50 mg 12/01/16 22:00 Seroquel - PO HS [facility] Sodium Hypochlorite 1 applic 12/02/16 10:00 Dakin's Solution 0.25% (Half-Strength) - TP DAILY [facility] Vancomycin HCl 1,000 mg 12/02/16 01:30 Vancomycin (Pre-Docked) IVPB BID@0130,1330 [facility] Protocol ASSESSMENT/PLAN: Patient is an 89 year old female with a PMHx of Parkinsons disease and dementia who presented with Sepsis and was found to have a UTI and stage 4 decubitus ulcer. Patient admitted to med/surg for further management and monitoring. Sepsis Secondary to UTI vs Decubitus ulcer -WBC's trending down -Continue Ceftriaxone 1gm and Flagyl 500mg Q8H day #3 -Cultures pending with positive organisms growing -Continue IV Fluids @75mls/hr -Dakin solution TID -Debridement today with Dr. Kruger Chronic Constipation -Continue Miralax 17gm daily Parkinsons Disease -Continue with Sinemet 1 tablet PO BID Dementia - fall risk precautions, known unsteady gait, recommend PT to prevent deconditioning - Memantine 10mg po BID - Seroqual 50mg po HS FEN: Fluids: 75mls NS Electrolytes: wnl Diet: NPO for procedure DVT -Lovenox discontinued for procedure Disposition -Debridement today and will continue IV ABx Visit type - Emergency Visit Emergency Visit: Yes ED Registration Date: 11/29/16 Care time: The patient presented to the Emergency Department on the above date and was hospitalized for further evaluation of their emergent condition. - New Patient This patient is new to me today: Yes Date on this admission: 12/01/16 - Critical Care Critical Care patient: No
[2016-12-01] MEDS ORDERED: QUEtiapine FUMARATE 25 MG TABLET (FP) ONE (21:57)
[2016-12-01] MEDS: QUEtiapine FUMARATE 50 MG TABLET PO SCH (22:40)
[2016-12-02] MEDS ORDERED: VANCOMYCIN 1 GRAM (PRE-DOCKED) 1,000 MG/250 ML BAG IVPB SCH (01:30)
[2016-12-02] MEDS: VANCOMYCIN 1 GRAM (PRE-DOCKED) 1,000 MG/250 ML BAG IVPB SCH ×2 (01:40→12:56)
[2016-12-02] MEDS: METRONIDAZOLE 500 MG PREMIXED 100 ML IVPB SCH ×3 (02:50→17:29)
[2016-12-02 06:06] LABS: SERUM IRON 11 ug/dL (27-139); TOTAL IRON BINDING CAPACITY 136 ug/dL (250-450); UIBC 125 ug/dL (118-369)
[2016-12-02] MEDS: ASCORBIC ACID 500 MG TABLET (FP) PO SCH (09:08)
[2016-12-02] MEDS: AMINO ACIDS/PROTEIN HYDROLYS 30 ML LIQUID.PKT PO SCH ×2 (09:08→17:29)
[2016-12-02] MEDS: MULTIVITAMINS (DAILY MVI) TABLET (FP) PO SCH (09:08)
[2016-12-02] MEDS: CARBIDOPA/LEVODOPA 25/100 TABLET (FP) PO SCH ×2 (09:08→21:33)
[2016-12-02] MEDS: MEMANTINE HCL 10 MG TABLET (FP) PO SCH ×2 (09:08→21:33)
[2016-12-02] MEDS: POLYETHYLENE GLYCOL 3350 119 GM BTL PO SCH (09:09)
[2016-12-02] MEDS: SODIUM HYPOCHLORITE 0.25%- 473 ML BULK BOTTLE TP SCH (09:09)
--- NOTE | 2016-12-02 09:27 | PN ---
Progress Note, Physician Chief Complaint: Pt. resting comfortably, no anesthesia complaints. - Current Medication List Current Medications: Active Medications Amino Acids (Prosource No Carb Liquid Pkt) 30 ml PO BID@0800,1730 [facility] Last Admin: 12/02/16 09:08 Dose: 30 ml Ascorbic Acid (Vitamin C -) 500 mg PO DAILY [facility] Last Admin: 12/02/16 09:08 Dose: 500 mg Carbidopa/Levodopa (Sinemet 25/100 -) 1 each PO BID [facility] Last Admin: 12/02/16 09:08 Dose: 1 each Ceftriaxone Sodium (Rocephin 1gm Ivpb (Pre-Docked)) 1 gm IVPB DAILY [facility] Last Admin: 12/02/16 09:08 Dose: 1 gm Metronidazole (Flagyl 500mg Premixed Ivpb -) 100 mls @ 100 mls/hr IVPB Q8H-IV [facility] Last Admin: 12/02/16 02:50 Dose: 100 mls/hr Sodium Chloride (Normal Saline -) 1,000 mls @ 75 mls/hr IV ASDIR [facility] Last Admin: 12/01/16 16:30 Dose: 0 mls Memantine (Namenda -) 10 mg PO BID [facility] Last Admin: 12/02/16 09:08 Dose: 10 mg Multivitamins/Minerals/Vitamin C (Tab-A-Vit -) 1 tab PO DAILY [facility] Last Admin: 12/02/16 09:08 Dose: 1 tab Polyethylene Glycol (Miralax (For Daily Use) -) 17 gm PO DAILY [facility] Last Admin: 12/02/16 09:09 Dose: Not Given Quetiapine Fumarate (Seroquel -) 50 mg PO HS [facility] Last Admin: 12/01/16 22:40 Dose: 50 mg Sodium Hypochlorite (Dakin's Solution 0.25% (Half-Strength) -) 1 applic TP DAILY [facility] Last Admin: 12/02/16 09:09 Dose: 1 applic Vancomycin HCl (Vancomycin (Pre-Docked)) 1,000 mg IVPB BID@0130,1330 [facility] PRN Reason: Protocol Last Admin: 12/02/16 01:40 Dose: 1,000 mg - Objective Vital Signs: Vital Signs Temperature 98.8 F 12/02/16 06:00 Pulse Rate 97 H 12/02/16 06:00 Respiratory Rate 20 12/02/16 06:00 Blood Pressure 139/74 12/02/16 06:00 O2 Sat by Pulse Oximetry (%) 94 L 12/01/16 21:00 Constitutional: Yes: Well Nourished, No Distress, Calm Neurological: Yes: WNL, Alert, Oriented Labs: CBC, BMP 12/01/16 06:30 12/01/16 06:30 INR, PTT INR 1.21 (0.82-1.09) H 11/29/16 19:00 Assessment/Plan POD#1 s/p sacral debridement under MAC. Doing well. D/C from anesthesia care.
[2016-12-02] MEDS ORDERED: cefTRIAXone 1 GM/50 ML BAG (PRE-DOCKED) IVPB SCH (10:00)
[2016-12-02] MEDS ORDERED: MULTIVITAMINS (DAILY MVI) TABLET (FP) PO SCH (10:00)
[2016-12-02] MEDS ORDERED: ASCORBIC ACID 500 MG TABLET (FP) PO SCH (10:00)
--- NOTE | 2016-12-02 10:05 | PN ---
Progress Note, Physician Chief Complaint: ID Appear comfortable No distress vanco ceftriaxone metronidazole - Current Medication List Current Medications: Active Medications Amino Acids (Prosource No Carb Liquid Pkt) 30 ml PO BID@0800,1730 [facility] Last Admin: 12/02/16 09:08 Dose: 30 ml Ascorbic Acid (Vitamin C -) 500 mg PO DAILY [facility] Last Admin: 12/02/16 09:08 Dose: 500 mg Carbidopa/Levodopa (Sinemet 25/100 -) 1 each PO BID [facility] Last Admin: 12/02/16 09:08 Dose: 1 each Ceftriaxone Sodium (Rocephin 1gm Ivpb (Pre-Docked)) 1 gm IVPB DAILY [facility] Last Admin: 12/02/16 09:08 Dose: 1 gm Metronidazole (Flagyl 500mg Premixed Ivpb -) 100 mls @ 100 mls/hr IVPB Q8H-IV [facility] Last Admin: 12/02/16 02:50 Dose: 100 mls/hr Sodium Chloride (Normal Saline -) 1,000 mls @ 75 mls/hr IV ASDIR [facility] Last Admin: 12/01/16 16:30 Dose: 0 mls Memantine (Namenda -) 10 mg PO BID [facility] Last Admin: 12/02/16 09:08 Dose: 10 mg Multivitamins/Minerals/Vitamin C (Tab-A-Vit -) 1 tab PO DAILY [facility] Last Admin: 12/02/16 09:08 Dose: 1 tab Polyethylene Glycol (Miralax (For Daily Use) -) 17 gm PO DAILY [facility] Last Admin: 12/02/16 09:09 Dose: Not Given Quetiapine Fumarate (Seroquel -) 50 mg PO HS [facility] Last Admin: 12/01/16 22:40 Dose: 50 mg Sodium Hypochlorite (Dakin's Solution 0.25% (Half-Strength) -) 1 applic TP DAILY [facility] Last Admin: 12/02/16 09:09 Dose: 1 applic Vancomycin HCl (Vancomycin (Pre-Docked)) 1,000 mg IVPB BID@0130,1330 [facility] PRN Reason: Protocol Last Admin: 12/02/16 01:40 Dose: 1,000 mg - Objective Vital Signs: Vital Signs Temperature 98.8 F 12/02/16 06:00 Pulse Rate 97 H 12/02/16 06:00 Respiratory Rate 20 12/02/16 06:00 Blood Pressure 139/74 12/02/16 06:00 O2 Sat by Pulse Oximetry (%) 94 L 12/01/16 21:00 Constitutional: Yes: Well Nourished, No Distress HENT: Yes: WNL, Atraumatic Neck: Yes: WNL, Supple Respiratory: Yes: WNL, Regular, CTA Bilaterally Gastrointestinal: Yes: WNL, Normal Bowel Sounds, Soft. No: Tenderness Integumentary: Yes: Pressure Ulcer Labs: CBC, BMP 12/01/16 06:30 12/01/16 06:30 INR, PTT INR 1.21 (0.82-1.09) H 11/29/16 19:00 Problem List - Problems (1) Fever Code(s): R50.9 - FEVER, UNSPECIFIED (2) Decubitus skin ulcer Code(s): L89.90 - PRESSURE ULCER OF UNSPECIFIED SITE, UNSPECIFIED STAGE Assessment/Plan Microbiology 11/29/16 19:45 Urine - Urine Clean Catch Urine Culture - Preliminary Lactose Fermenting Neg Bacilli 11/29/16 19:00 Blood - Peripheral Venous Blood Culture - Preliminary Viridans Streptococcus Group 11/29/16 19:00 Blood - Peripheral Venous Blood Culture - Preliminary Viridans Streptococcus Group 11/29/16 18:40 Decubiti Wound Culture - Preliminary Streptococcus Viridans Laboratory Tests 11/29/16 11/29/16 11/29/16 19:00 19:00 19:45 WBC 12.8 H D Hgb 9.9 L D Hct 30.4 L D RDW 15.5 Plt Count Band Neutrophils 3.0 D BUN Creatinine Lactic Acid 3.041 H* Urine RBC 1 Urine Bacteria Many 11/30/16 12/01/16 06:10 06:30 WBC 10.5 H Hgb 9.6 L Hct 29.3 L RDW Plt Count 325 Band Neutrophils BUN 11 D Creatinine 0.5 L D Lactic Acid Urine RBC Urine Bacteria Assessment Strep viridans bacteremia decubitus source Post op day 2 debidement Urine with a GNB incidental perhaps u/a not impressive Plan Continue current antibiotics vanco level await sensitivity final ? PCN warren Ruiz MD
--- NOTE | 2016-12-02 10:39 | PN ---
Progress Note (short form) - Note Progress Note: asymptomatic. denies CP, SOB,fever, chills, buttock pain or dysuria Current Medications Generic Name Dose Route Start Last Admin Trade Name Krystal PRN Reason Stop Dose Admin Amino Acids 30 ml 12/01/16 17:30 12/02/16 09:08 Prosource No Carb Liquid Pkt PO 30 ml BID@0800,1730 [facility] Administration Ascorbic Acid 500 mg 12/02/16 10:00 12/02/16 09:08 Vitamin C - PO 500 mg DAILY [facility] Administration Carbidopa/Levodopa 1 each 12/01/16 22:00 12/02/16 09:08 Sinemet 25/100 - PO 1 each BID [facility] Administration Ceftriaxone Sodium 1 gm 12/02/16 10:00 12/02/16 09:08 Rocephin 1gm Ivpb (Pre-Docked) IVPB 1 gm DAILY [facility] Administration Metronidazole 100 mls @ 100 mls/hr 12/01/16 18:00 12/02/16 10:01 Flagyl 500mg Premixed Ivpb - IVPB 100 mls/hr Q8H-IV [facility] Administration Sodium Chloride 1,000 mls @ 75 mls/hr 12/01/16 16:31 12/01/16 16:30 Normal Saline - IV 0 mls ASDIR [facility] Administration Memantine 10 mg 12/01/16 22:00 12/02/16 09:08 Namenda - PO 10 mg BID [facility] Administration Multivitamins/Minerals/Vitamin C 1 tab 12/02/16 10:00 12/02/16 09:08 Tab-A-Vit - PO 1 tab DAILY [facility] Administration Polyethylene Glycol 17 gm 12/02/16 10:00 12/02/16 09:09 Miralax (For Daily Use) - PO Not Given DAILY [facility] Quetiapine Fumarate 50 mg 12/01/16 22:00 12/01/16 22:40 Seroquel - PO 50 mg HS [facility] Administration Sodium Hypochlorite 1 applic 12/02/16 10:00 12/02/16 09:09 Dakin's Solution 0.25% (Half-Strength) - TP 1 applic DAILY [facility] Administration Vancomycin HCl 1,000 mg 12/02/16 01:30 12/02/16 01:40 Vancomycin (Pre-Docked) IVPB 1,000 mg BID@0130,1330 [facility] Administration Protocol Last Vital Signs Temp Pulse Resp BP Pulse Ox 98.8 F 97 H 20 139/74 94 L 12/02/16 06:00 12/02/16 06:00 12/02/16 06:00 12/02/16 06:00 12/01/16 21:00 General NAD A&Ox1 (self) CV S1 S2 RRR no murmur/rub/gallop Lungs CTA BL no wheezing/rales/rhonchi Abdomen soft NT/ND no suprapubic tenderness Microbiology 11/29/16 19:00 Blood - Peripheral Venous Blood Culture - Preliminary Viridans Streptococcus Group 11/29/16 19:00 Blood - Peripheral Venous Blood Culture - Preliminary Viridans Streptococcus Group 11/29/16 18:40 Decubiti Wound Culture - Preliminary Streptococcus Viridans 11/29/16 19:45 Urine - Urine Clean Catch Urine Culture - Preliminary Lactose Fermenting Neg Bacilli ASSESSMENT AND PLAN: 89yo F with PMH parkinsons and dementia presented to the ER and was admitted for further evaluation of their emergent condition 1. Severe sepsis due viridans bactermia likely due to infected sacral ulcer - s/ p debridement yesterday in the OR. bone Bx taken. concern for OM. on Vanco/ Ceftriaxone/Flagyl. local wound care per plastics. echo pending. repeat bcx sent today. ID and plastics on board. 2. Hyperkalemia- resolved 3. Normocytic anemia- no signs of bleeding.+iron deficiency anemia. start iron supplements. no indicaiton for txn 4. parkinsons/dementia- at baseline mental status (confused oriented to self only) cont current meds 5. dvt ppx- re-start lovenox 6. d/w [employer] present at bedside. answered all questions verbalized understanding Visit type - Emergency Visit Emergency Visit: Yes ED Registration Date: 11/29/16 Care time: The patient presented to the Emergency Department on the above date and was hospitalized for further evaluation of their emergent condition. - New Patient This patient is new to me today: No - Critical Care Critical Care patient: No - Discharge Referral Referred to [facility] Med P.C.: No
[2016-12-02] MEDS: SODIUM CHLORIDE 1,000 ML IV SCH ×2 (11:44→16:40)
[2016-12-02] MEDS: ENOXAPARIN NA (PORCINE) 40 MG/0.4 ML DISP.SYRIN SQ SCH (11:44)
--- NOTE | 2016-12-02 13:35 | OP ---
DATE OF OPERATION: DATE OF DICTATION: 12/01/2016 PREOPERATIVE DIAGNOSIS: Infected sacral decubitus. POSTOPERATIVE DIAGNOSES: 1. Infected sacral decubitus; necrosis, skin, subcutaneous tissue, muscle, fascia. 2. Exposed coccyx bone. TREATMENT RENDERED: 1. Excision of skin, subcutaneous tissue, muscle, fascia. 2. Bone biopsy. 3. Exposed bone excision. ANESTHESIA: General. Anesthesia supplemented with 1% lidocaine with epinephrine with Marcaine, a total of 10 mL injected. ESTIMATED BLOOD LOSS: Less than 20. PROCEDURE: Prior to bringing the patient to the OR, a discussion was made with her daughter and all questions were answered. Patient was brought to the operating room. Transferred to the table. At this time, she was placed on a beanbag and turned to left lateral position. Standard procedure for identification of the site was carried out. Once agreed, lower back was washed and cleaned with chorol prep (Hibiclens )and then draped in the standard aseptic manner. Subcutaneous tissue and the muscles were injected with 1% lidocaine with epinephrine with 0.25% Marcaine. A total of 10 mL was injected. Using a 15-scalpel blade, an excisional debridement of the skin, necrotic muscle , and fascia was carried out, sent for pathology. Coccyx bone was exposed, soft in nature. Bone excision was carried out. Bone biopsy for culture was taken . Hemostasis had to be secured, especially around the spinal/fascia/ vertebrae. Bleeding had to be controlled meticuosly extended Op time. Wound was then pulsavac'd with 3000 mL of normal saline and 50,000 units of bacitracin. After irrigation, hemostasis was again secured. Wound was loosely packed with Kerlix soaked in bacitracin solution and a dry dressing was applied. FINDINGS: Infected grade 4 decubitus sacral ulcer , periwound inflammation Induration, erythema, foul odor, signs positive for local and systemic infection. Rosendo [id number] MTDD
--- NOTE | 2016-12-02 13:38 | OP ---
ADDENDUM The size of the sacral decubitus is over 3.5 x 4 cm, depth of 3.5 cm extending down to the coccyx bone and with involvement. NELLIE MARQUEZ M.D. [id number]
[2016-12-02] MEDS: FERROUS SO4 325 MG TABLET (FP) PO SCH (18:28)
[2016-12-02] MEDS ORDERED: QUEtiapine FUMARATE 25 MG TABLET (FP) ONE (20:54)
[2016-12-02] MEDS: QUEtiapine FUMARATE 50 MG TABLET PO SCH (21:33)
[2016-12-03] MEDS: VANCOMYCIN 1 GRAM (PRE-DOCKED) 1,000 MG/250 ML BAG IVPB SCH ×2 (00:46→00:50)
[2016-12-03] MEDS: SODIUM CHLORIDE 1,000 ML IV SCH (00:57)
[2016-12-03] MEDS: METRONIDAZOLE 500 MG PREMIXED 100 ML IVPB SCH (02:20)
[2016-12-03] MEDS: FERROUS SO4 325 MG TABLET (FP) PO SCH ×2 (06:14→18:54)
--- NOTE | 2016-12-03 08:05 | PN ---
Progress Note, Physician Chief Complaint: ID Vancomycin Ceftriaxone Metronidazole Post op day 2 surgery sacral ulcer Alert Pleasantly confused - Current Medication List Current Medications: Active Medications Amino Acids (Prosource No Carb Liquid Pkt) 30 ml PO BID@0800,1730 [facility] Last Admin: 12/02/16 17:29 Dose: 30 ml Ascorbic Acid (Vitamin C -) 500 mg PO DAILY [facility] Last Admin: 12/02/16 09:08 Dose: 500 mg Carbidopa/Levodopa (Sinemet 25/100 -) 1 each PO BID [facility] Last Admin: 12/02/16 21:33 Dose: 1 each Ceftriaxone Sodium (Rocephin 1gm Ivpb (Pre-Docked)) 1 gm IVPB DAILY [facility] Last Admin: 12/02/16 09:08 Dose: 1 gm Enoxaparin Sodium (Lovenox -) 40 mg SQ DAILY [facility] Last Admin: 12/02/16 11:44 Dose: 40 mg Ferrous Sulfate (Feosol -) 325 mg PO 0700,1900 [facility] Last Admin: 12/03/16 06:14 Dose: 325 mg Metronidazole (Flagyl 500mg Premixed Ivpb -) 100 mls @ 100 mls/hr IVPB Q8H-IV [facility] Last Admin: 12/03/16 02:20 Dose: 100 mls/hr Sodium Chloride (Normal Saline -) 1,000 mls @ 75 mls/hr IV ASDIR [facility] Last Admin: 12/03/16 00:57 Dose: 75 mls/hr Memantine (Namenda -) 10 mg PO BID [facility] Last Admin: 12/02/16 21:33 Dose: 10 mg Multivitamins/Minerals/Vitamin C (Tab-A-Vit -) 1 tab PO DAILY [facility] Last Admin: 12/02/16 09:08 Dose: 1 tab Polyethylene Glycol (Miralax (For Daily Use) -) 17 gm PO DAILY [facility] Last Admin: 12/02/16 09:09 Dose: Not Given Quetiapine Fumarate (Seroquel -) 50 mg PO HS [facility] Last Admin: 12/02/16 21:33 Dose: 50 mg Sodium Hypochlorite (Dakin's Solution 0.25% (Half-Strength) -) 1 applic TP DAILY [facility] Last Admin: 12/02/16 09:09 Dose: 1 applic Vancomycin HCl (Vancomycin (Pre-Docked)) 1,000 mg IVPB BID@0130,1330 [facility] PRN Reason: Protocol Last Admin: 12/03/16 00:50 Dose: 1,000 mg - Objective Vital Signs: Vital Signs Temperature 98.8 F 12/03/16 06:00 Pulse Rate 99 H 12/03/16 06:00 Respiratory Rate 20 12/03/16 06:00 Blood Pressure 138/71 12/03/16 06:00 O2 Sat by Pulse Oximetry (%) 98 12/02/16 21:00 Constitutional: Yes: Well Nourished, No Distress HENT: Yes: WNL, Atraumatic Neck: Yes: WNL, Supple Cardiovascular: Yes: Regular Rate and Rhythm, S1, S2. No: Murmur Respiratory: Yes: WNL, Regular, CTA Bilaterally. No: Poor Air Entry, Rales Gastrointestinal: Yes: WNL, Normal Bowel Sounds, Soft. No: Palpable Mass, Tenderness, Tenderness, Epigastrium Extremities: No: Cold, Cool, Cyanosis Edema: No Integumentary: Yes: Pressure Ulcer Labs: CBC, BMP 12/01/16 06:30 12/01/16 06:30 INR, PTT INR 1.21 (0.82-1.09) H 11/29/16 19:00 Problem List - Problems (1) Fever Code(s): R50.9 - FEVER, UNSPECIFIED (2) Decubitus skin ulcer Code(s): L89.90 - PRESSURE ULCER OF UNSPECIFIED SITE, UNSPECIFIED STAGE Assessment/Plan Microbiology 12/01/16 15:45 Bone Gram Stain - Final 11/29/16 19:45 Urine - Urine Clean Catch Urine Culture - Final Klebsiella Pneumoniae 11/29/16 18:40 Decubiti Wound Culture - Final Streptococcus Viridans 12/02/16 06:00 Blood - Peripheral Venous Blood Culture - Preliminary NO GROWTH OBTAINED AFTER 24 HOURS, INCUBATION TO CONTINUE FOR 4 DAYS. 12/02/16 06:00 Blood - Peripheral Venous Blood Culture - Preliminary NO GROWTH OBTAINED AFTER 24 HOURS, INCUBATION TO CONTINUE FOR 4 DAYS. 11/29/16 19:00 Blood - Peripheral Venous Blood Culture - Preliminary Viridans Streptococcus Group 11/29/16 19:00 Blood - Peripheral Venous Blood Culture - Preliminary Viridans Streptococcus Group Laboratory Tests 11/29/16 12/01/16 12/01/16 19:00 06:30 06:30 WBC 10.5 H RBC 3.41 L Hct 29.3 L Plt Count 325 BUN 10 Creatinine 0.6 Lactic Acid 3.041 H* Vancomycin Trough 12/02/16 11:00 WBC RBC Hct Plt Count BUN Creatinine Lactic Acid Vancomycin Trough 17.212 H* Assessment Strep viridans bacteremia ( and wound) Shold be PCN susceptible Stable Rule out endocarditis but most likely realted to sacral ulcer debrided now day 2 Plan Lets leave her on Ceftriaxone for now ( pending bone culture ) Stop Vanco Metronidazole ECHO ESR CRP Duration of therapy yet to be determined ? 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
[2016-12-03] MEDS: AMINO ACIDS/PROTEIN HYDROLYS 30 ML LIQUID.PKT PO SCH ×2 (08:52→17:06)
--- NOTE | 2016-12-03 09:05 | PN ---
Progress Note (short form) - Note Progress Note: asymptomatic. denies CP, SOB,fever, chills, buttock pain or dysuria Current Medications Generic Name Dose Route Start Last Admin Trade Name Krystal PRN Reason Stop Dose Admin Amino Acids 30 ml 12/01/16 17:30 12/02/16 17:29 Prosource No Carb Liquid Pkt PO 30 ml BID@0800,1730 [facility] Administration Ascorbic Acid 500 mg 12/02/16 10:00 12/02/16 09:08 Vitamin C - PO 500 mg DAILY [facility] Administration Carbidopa/Levodopa 1 each 12/01/16 22:00 12/02/16 21:33 Sinemet 25/100 - PO 1 each BID [facility] Administration Enoxaparin Sodium 40 mg 12/02/16 11:00 12/02/16 11:44 Lovenox - SQ 40 mg DAILY [facility] Administration Ferrous Sulfate 325 mg 12/02/16 19:00 12/03/16 06:14 Feosol - PO 325 mg 0700,1900 [facility] Administration Sodium Chloride 1,000 mls @ 75 mls/hr 12/01/16 16:31 12/03/16 00:57 Normal Saline - IV 75 mls/hr ASDIR [facility] Administration Ceftriaxone Sodium 2 gm/ 100 mls @ 200 mls/hr 12/03/16 10:00 Dextrose IVPB DAILY [facility] Memantine 10 mg 12/01/16 22:00 12/02/16 21:33 Namenda - PO 10 mg BID [facility] Administration Multivitamins/Minerals/Vitamin C 1 tab 12/02/16 10:00 12/02/16 09:08 Tab-A-Vit - PO 1 tab DAILY [facility] Administration Polyethylene Glycol 17 gm 12/02/16 10:00 12/02/16 09:09 Miralax (For Daily Use) - PO Not Given DAILY [facility] Quetiapine Fumarate 50 mg 12/01/16 22:00 12/02/16 21:33 Seroquel - PO 50 mg HS [facility] Administration Sodium Hypochlorite 1 applic 12/02/16 10:00 12/02/16 09:09 Dakin's Solution 0.25% (Half-Strength) - TP 1 applic DAILY [facility] Administration Last Vital Signs Temp Pulse Resp BP Pulse Ox 98.8 F 99 H 20 138/71 98 12/03/16 06:00 12/03/16 06:00 12/03/16 06:00 12/03/16 06:00 12/02/16 21:00 General NAD A&Ox1 (self) CV S1 S2 RRR no murmur/rub/gallop Lungs CTA BL no wheezing/rales/rhonchi Abdomen soft NT/ND Microbiology 12/02/16 06:00 Blood Culture - Preliminary Blood - Peripheral Venous NO GROWTH OBTAINED AFTER 24 HOURS, INCUBATION TO CONTINUE FOR 4 DAYS. 12/02/16 06:00 Blood Culture - Preliminary Blood - Peripheral Venous NO GROWTH OBTAINED AFTER 24 HOURS, INCUBATION TO CONTINUE FOR 4 DAYS. 12/01/16 15:45 Gram Stain - Final Bone 11/29/16 18:40 Wound Culture - Final Decubiti Streptococcus Viridans 11/29/16 19:45 Urine Culture - Final Urine - Urine Clean Catch Klebsiella Pneumoniae 11/29/16 19:00 Blood Culture - Preliminary Blood - Peripheral Venous Viridans Streptococcus Group 11/29/16 19:00 Blood Culture - Preliminary Blood - Peripheral Venous Viridans Streptococcus Group ASSESSMENT AND PLAN: 89yo F with PMH parkinsons and dementia presented to the ER and was admitted for further evaluation of their emergent condition 1. Severe sepsis due viridans bactermia likely due to infected sacral ulcer - s/ p debridement 12/01 with bone bx taken. repeat BCX NGTD. vanco and flagyl d/c on ceftriaxone only now. bone Bx taken. local wound care per plastics. echo pending. ID and plastics on board. d/c ivf 2. Hyperkalemia- resolved 3. Normocytic anemia- no signs of bleeding.+iron deficiency anemia. on iron supplements. no indicaiton for txn 4. parkinsons/dementia- at baseline mental status (confused oriented to self only) cont current meds 5. dvt ppx- lovenox Visit type - Emergency Visit Emergency Visit: Yes ED Registration Date: 11/29/16 Care time: The patient presented to the Emergency Department on the above date and was hospitalized for further evaluation of their emergent condition. - New Patient This patient is new to me today: No - Critical Care Critical Care patient: No - Discharge Referral Referred to [facility] Med P.C.: No
[2016-12-03] MEDS: POLYETHYLENE GLYCOL 3350 119 GM BTL PO SCH (09:42)
[2016-12-03] MEDS: MEMANTINE HCL 10 MG TABLET (FP) PO SCH ×2 (09:43→21:26)
[2016-12-03] MEDS: SODIUM HYPOCHLORITE 0.25%- 473 ML BULK BOTTLE TP SCH (09:43)
[2016-12-03] MEDS: ENOXAPARIN NA (PORCINE) 40 MG/0.4 ML DISP.SYRIN SQ SCH (10:40)
[2016-12-03] MEDS: CEFTRIAXONE 100 ML IVPB SCH (10:40)
[2016-12-03] MEDS: MULTIVITAMINS (DAILY MVI) TABLET (FP) PO SCH (10:40)
[2016-12-03] MEDS: CARBIDOPA/LEVODOPA 25/100 TABLET (FP) PO SCH ×2 (10:40→21:26)
[2016-12-03] MEDS: ASCORBIC ACID 500 MG TABLET (FP) PO SCH (10:40)
[2016-12-03] MEDS ORDERED: PT OWN MED DRAWER 7, Y5N ONE (20:19)
[2016-12-03] MEDS ORDERED: QUEtiapine FUMARATE 25 MG TABLET (FP) ONE (20:22)
[2016-12-03] MEDS: QUEtiapine FUMARATE 50 MG TABLET PO SCH (21:26)
[2016-12-03] MEDS: SILVER SULFADIAZINE 1% TOP CREAM 50 GM JAR TP SCH (21:26)
[2016-12-04] MEDS: FERROUS SO4 325 MG TABLET (FP) PO SCH ×2 (06:19→18:53)
--- NOTE | 2016-12-04 10:28 | PN ---
Progress Note (short form) - Note Progress Note: ID Ceftriaxone continues Selected Entries 12/04/16 06:32 Temperature 98.2 F Pulse Rate 108 H Respiratory 20 Rate Blood Pressure 132/96 Microbiology 11/29/16 19:45 Urine - Urine Clean Catch Urine Culture - Final Klebsiella Pneumoniae 11/29/16 18:40 Decubiti Gram Stain - Final 11/29/16 18:40 Decubiti Wound Culture - Final Streptococcus Viridans 11/29/16 19:00 Blood - Peripheral Venous Blood Culture - Preliminary Streptococcus Constellatus 11/29/16 19:00 Blood - Peripheral Venous Blood Culture - Preliminary Streptococcus Constellatus Laboratory Tests 12/03/16 12/03/16 06:45 06:56 ESR 72 H C-Reactive Protein 6.9 H Assessment Infected decubitus ulcer bacteremia Strep Plan Continue Ceftriaxone minimum 14 days Left message for Dr Kruger asking Do we need to treat for osteo Conservative treatment best 89 years old Joseph PIRES Problem List - Problems (1) Fever Code(s): R50.9 - FEVER, UNSPECIFIED (2) Decubitus skin ulcer Code(s): L89.90 - PRESSURE ULCER OF UNSPECIFIED SITE, UNSPECIFIED STAGE
--- NOTE | 2016-12-04 11:24 | PN ---
Physical Exam: SUBJECTIVE: Patient seen and examined pleasantly confused, no complaints, usually always denies any pain or discomfort. Afebrile, tachycardic. OBJECTIVE: Vital Signs Period Temp Pulse Resp BP Sys/Crowell Pulse Ox Last 24 Hr 98.2 F-99.2 F 101-108 17-20 132-157/67-96 98 GENERAL: The patient is awake, alert, not oriented in no acute distress. HEAD: Normal with no signs of trauma. EYES: PERRL, extraocular movements intact, sclera anicteric, conjunctiva clear. No ptosis. LUNGS: decreased Breath sounds equal, clear to auscultation bilaterally, no wheezes, no crackles, no accessory muscle use. HEART: Regular rate and rhythm, S1, S2, murmur, rub or gallop. ABDOMEN: Soft, nontender, nondistended, normoactive bowel sounds, no guarding, no rebound, no hepatosplenomegaly, no masses. EXTREMITIES: 2+ pulses, warm, well-perfused, no edema. NEUROLOGICAL:demented PSYCH: Normal mood, normal affect. SKIN: stareg IV decubits ulcer, 3x3cm; 3cm deep; non foul smelling; no drainage Laboratory Results - last 24 hr 12/03/16 12/03/16 06:45 06:56 ESR 72 H C-Reactive Protein 6.9 H Active Medications Generic Name Dose Route Start Last Admin Trade Name Freq PRN Reason Stop Dose Admin Amino Acids 30 ml 12/01/16 17:30 12/03/16 17:06 Prosource No Carb Liquid Pkt PO 30 ml BID@0800,1730 ROSA Administration Ascorbic Acid 500 mg 12/02/16 10:00 12/03/16 10:40 Vitamin C - PO 500 mg DAILY ROSA Administration Carbidopa/Levodopa 1 each 12/01/16 22:00 12/03/16 21:26 Sinemet 25/100 - PO 1 each BID ROSA Administration Enoxaparin Sodium 40 mg 12/02/16 11:00 12/03/16 10:40 Lovenox - SQ 40 mg DAILY ROSA Administration Ferrous Sulfate 325 mg 12/02/16 19:00 12/04/16 06:19 Feosol - PO 325 mg 0700,1900 ROSA Administration Ceftriaxone Sodium 100 mls @ 200 mls/hr 12/03/16 10:00 12/03/16 10:40 Rocephin 2gm Ivpb (Pre-Docked) IVPB 200 mls/hr DAILY ROSA Administration Memantine 10 mg 12/01/16 22:00 12/03/16 21:26 Namenda - PO 10 mg BID ROSA Administration Multivitamins/Minerals/Vitamin C 1 tab 12/02/16 10:00 12/03/16 10:40 Tab-A-Vit - PO 1 tab DAILY ROSA Administration Polyethylene Glycol 17 gm 12/02/16 10:00 12/03/16 09:42 Miralax (For Daily Use) - PO 17 gm DAILY ROSA Administration Quetiapine Fumarate 50 mg 12/01/16 22:00 12/03/16 21:26 Seroquel - PO 50 mg HS ROSA Administration Silver Sulfadiazine 1 applic 12/03/16 22:00 12/03/16 21:26 Silvadene - TP 1 applic BID ROSA Administration Microbiology 11/29/16 19:00 Blood - Peripheral Venous Blood Culture - Preliminary Streptococcus Constellatus 12/02/16 06:00 Blood - Peripheral Venous Blood Culture - Preliminary NO GROWTH OBTAINED AFTER 48 HOURS, INCUBATION TO CONTINUE FOR 3 DAYS. 12/02/16 06:00 Blood - Peripheral Venous Blood Culture - Preliminary NO GROWTH OBTAINED AFTER 48 HOURS, INCUBATION TO CONTINUE FOR 3 DAYS. 11/29/16 18:40 Decubiti Gram Stain - Final 11/29/16 18:40 Decubiti Wound Culture - Final Streptococcus Viridans 12/01/16 15:45 Bone Gram Stain - Final 12/01/16 15:45 Bone Tissue Culture - Preliminary NO AEROBIC GROWTH, 24 HRS 11/29/16 19:00 Blood - Peripheral Venous Blood Culture - Preliminary Streptococcus Constellatus 11/29/16 19:45 Urine - Urine Clean Catch Urine Culture - Final Klebsiella Pneumoniae ASSESSMENT/PLAN: 89 year old woman with dementia, parkinson's disease, stage IV decubitus ulcer presents with fever, admitted for sepsis secondary to ulcer vs UTI as source of infection. #Bacteremia gram +; most likely secondary to stage IV decubitus ulcer as source -wbc trending dowm; lactic acid now wnl; afebrile -flagyl/vanco d/c'd - continue ceftriaxone -Dr Kruger wound care -echo pending #Urinary tract infection: -continue ceftriaxone 1gm IV qd for total of 14 days -Klebsiella in past cx, sensitive to rocephin Problem List - Problems (1) Decubitus skin ulcer Code(s): L89.90 - PRESSURE ULCER OF UNSPECIFIED SITE, UNSPECIFIED STAGE (2) Fever Code(s): R50.9 - FEVER, UNSPECIFIED (3) Parkinson disease Code(s): G20 - PARKINSON'S DISEASE (4) Severe sepsis Code(s): A41.9 - SEPSIS, UNSPECIFIED ORGANISM R65.20 - SEVERE SEPSIS WITHOUT SEPTIC SHOCK (5) UTI (urinary tract infection) Code(s): N39.0 - URINARY TRACT INFECTION, SITE NOT SPECIFIED (6) UTI (lower urinary tract infection) Code(s): N39.0 - URINARY TRACT INFECTION, SITE NOT SPECIFIED (7) Alzheimer disease Code(s): G30.9 - ALZHEIMER'S DISEASE, UNSPECIFIED Visit type - Emergency Visit Emergency Visit: Yes ED Registration Date: 11/29/16 Care time: The patient presented to the Emergency Department on the above date and was hospitalized for further evaluation of their emergent condition. - New Patient This patient is new to me today: No - Critical Care Critical Care patient: No
[2016-12-04] MEDS: ASCORBIC ACID 500 MG TABLET (FP) PO SCH (12:39)
[2016-12-04] MEDS: ENOXAPARIN NA (PORCINE) 40 MG/0.4 ML DISP.SYRIN SQ SCH (12:39)
[2016-12-04] MEDS: CEFTRIAXONE 100 ML IVPB SCH (12:39)
[2016-12-04] MEDS: MULTIVITAMINS (DAILY MVI) TABLET (FP) PO SCH (12:40)
[2016-12-04] MEDS: CARBIDOPA/LEVODOPA 25/100 TABLET (FP) PO SCH ×2 (12:40→21:39)
[2016-12-04] MEDS: MEMANTINE HCL 10 MG TABLET (FP) PO SCH ×2 (12:40→21:39)
[2016-12-04] MEDS: AMINO ACIDS/PROTEIN HYDROLYS 30 ML LIQUID.PKT PO SCH ×2 (12:40→18:53)
[2016-12-04] MEDS: POLYETHYLENE GLYCOL 3350 119 GM BTL PO SCH (12:48)
--- NOTE | 2016-12-04 14:38 | PN ---
Physical Exam: SUBJECTIVE: Patient seen and examined by me at bedside. No overnight events noted. Patient offers no complaints and continues to have dementia at baseline. Patient is unaware of her infected sacral decubitus ulcer. Otherwise , patient denies fever, chills, nausea, vomiting, chest pain, palpitations, shortness of breath, diarrhea, abdominal pain. OBJECTIVE: Vital Signs Period Temp Pulse Resp BP Sys/Crowell Pulse Ox Last 24 Hr 98.2 F-99.2 F 101-108 18-20 132-157/76-96 98 GENERAL: The patient is awake, alert and in no acute distress. LUNGS: Breath sounds equal, clear to auscultation bilaterally, no wheezes, no crackles, no accessory muscle use. HEART: Tachycardic with regular rhythm, S1, S2 without murmur, rub or gallop. ABDOMEN: Soft, nontender, nondistended, normoactive bowel sounds, no guarding, no rebound. EXTREMITIES: No peripheral edema NEUROLOGICAL: Confused with advanced cognitive impairment. SKIN: Stage 4 sacral decubitus ulcer with necrosis and sloughing along the edges with mild drainage Active Medications Generic Name Dose Route Start Last Admin Trade Name Rileyq PRN Reason Stop Dose Admin Amino Acids 30 ml 12/01/16 17:30 12/04/16 12:40 Prosource No Carb Liquid Pkt PO 30 ml BID@0800,1730 ROSA Administration Ascorbic Acid 500 mg 12/02/16 10:00 12/04/16 12:39 Vitamin C - PO 500 mg DAILY ROSA Administration Carbidopa/Levodopa 1 each 12/01/16 22:00 12/04/16 12:40 Sinemet 25/100 - PO 1 each BID ROSA Administration Enoxaparin Sodium 40 mg 12/02/16 11:00 12/04/16 12:39 Lovenox - SQ 40 mg DAILY ROSA Administration Ferrous Sulfate 325 mg 12/02/16 19:00 12/04/16 06:19 Feosol - PO 325 mg 0700,1900 ROSA Administration Ceftriaxone Sodium 100 mls @ 200 mls/hr 12/03/16 10:00 12/04/16 12:39 Rocephin 2gm Ivpb (Pre-Docked) IVPB 200 mls/hr DAILY ROSA Administration Memantine 10 mg 12/01/16 22:00 12/04/16 12:40 Namenda - PO 10 mg BID ROSA Administration Multivitamins/Minerals/Vitamin C 1 tab 12/02/16 10:00 12/04/16 12:40 Tab-A-Vit - PO 1 tab DAILY ROSA Administration Polyethylene Glycol 17 gm 12/02/16 10:00 12/04/16 12:48 Miralax (For Daily Use) - PO 17 gm DAILY ROSA Administration Quetiapine Fumarate 50 mg 12/01/16 22:00 12/03/16 21:26 Seroquel - PO 50 mg HS ROSA Administration Silver Sulfadiazine 1 applic 12/03/16 22:00 12/03/16 21:26 Silvadene - TP 1 applic BID ROSA Administration ASSESSMENT/PLAN: Patient is an 89 year old female with a PMHx of Parkinsons disease and dementia who presented with Sepsis and was found to have a UTI and stage 4 decubitus ulcer. Patient admitted to med/surg for further management and monitoring. Sepsis Secondary to UTI vs Decubitus ulcer -S/P debridement on 12/01 -Bone biopsy results pending -Repeat blood cultures negative -WBC's trending down -Continue Ceftriaxone 1gm day #3 -Dakin solution TID -Called Dr. Kruger for possible irrigation of ulcer Chronic Constipation -Continue Miralax 17gm daily Parkinsons Disease -Continue with Sinemet 1 tablet PO BID Dementia - fall risk precautions, known unsteady gait, recommend PT to prevent deconditioning - Memantine 10mg po BID - Seroqual 50mg po HS FEN: -On no fluids -Electrolytes wnl -Puree Diet Prophylaxis -Lovenox 40mg SQ daily for DVT Disposition -Bone Biopsy pending. Will continue IV abx Visit type - Emergency Visit Emergency Visit: Yes ED Registration Date: 11/29/16 Care time: The patient presented to the Emergency Department on the above date and was hospitalized for further evaluation of their emergent condition. - New Patient This patient is new to me today: Yes Date on this admission: 12/04/16 - Critical Care Critical Care patient: No
[2016-12-04] MEDS: SILVER SULFADIAZINE 1% TOP CREAM 50 GM JAR TP SCH ×2 (14:39→21:40)
--- NOTE | 2016-12-04 15:37 | PN ---
Teaching Attending Note Name of Resident: Leonarda Wellington ATTENDING PHYSICIAN STATEMENT I saw and evaluated the patient. I reviewed the resident's note and discussed the case with the resident. I agree with the resident's findings and plan as documented. SUBJECTIVE:asymptomatic. denies CP, SOB,fever, chills, N/V/C/D OBJECTIVE: Last Vital Signs Temp Pulse Resp BP Pulse Ox 98.2 F 108 H 20 132/96 98 12/04/16 06:32 12/04/16 06:32 12/04/16 06:32 12/04/16 06:32 12/03/16 21:00 General NAD A&Ox1 (self) Skin stage 4 ulcer with sloughing around the edge of the wounds. white pus inside. Microbiology 12/01/16 15:45 Gram Stain - Final Bone Tissue Culture - Preliminary NO AEROBIC GROWTH, 24 HRS Anaerobic Culture - Final NO ANAEROBES WERE ISOLATED 11/29/16 19:00 Blood Culture - Preliminary Blood - Peripheral Venous Streptococcus Constellatus 12/02/16 06:00 Blood Culture - Preliminary Blood - Peripheral Venous NO GROWTH OBTAINED AFTER 48 HOURS, INCUBATION TO CONTINUE FOR 3 DAYS. 12/02/16 06:00 Blood Culture - Preliminary Blood - Peripheral Venous NO GROWTH OBTAINED AFTER 48 HOURS, INCUBATION TO CONTINUE FOR 3 DAYS. 11/29/16 18:40 Gram Stain - Final Decubiti Wound Culture - Final Streptococcus Viridans ASSESSMENT AND PLAN: 89yo F with PMH parkinsons and dementia presented to the ER and was admitted for further evaluation of their emergent condition 1. Severe sepsis due viridans bactermia likely due to infected sacral ulcer - s/ p debridement 12/01 with bone bx taken. repeat BCX NGTD. to be re-evaluated by plastics today. bone bc negative to date. on Ceftriaxone day 2. vanco and flagyl was d/c. local wound care. 2. Hyperkalemia- resolved 3. Normocytic anemia- no signs of bleeding.+iron deficiency anemia. on iron supplements. no indicaiton for txn 4. parkinsons/dementia- at baseline mental status (confused oriented to self only) cont current meds 5. dvt ppx- lovenox
[2016-12-04] MEDS ORDERED: PT OWN MED DRAWER 7, Y5N ONE (21:35)
[2016-12-04] MEDS ORDERED: QUEtiapine FUMARATE 25 MG TABLET (FP) ONE (21:35)
[2016-12-04] MEDS: QUEtiapine FUMARATE 50 MG TABLET PO SCH (21:40)
[2016-12-05] MEDS: FERROUS SO4 325 MG TABLET (FP) PO SCH ×2 (06:09→18:42)
[2016-12-05 07:48] LABS: MCH 27.7 pg (25.7-33.7); MCHC 32.4 g/dl (32.0-36.0); MEAN CELL VOLUME 85.4 fl (80-96); MEAN PLT VOLUME 6.7 fl (7.5-11.1); PLATELET COUNT 381 K/MM3 (134-434); RDW 15.9 % (11.6-15.6); WHITE BLOOD COUNT 11.7 K/mm3 (4.0-10.0)
[2016-12-05 08:12] LABS: CALCIUM 7.9 mg/dL (8.5-10.1); COCKROFT - GAULT 81.379; CREATININE 0.5 mg/dL (0.55-1.02)
--- NOTE | 2016-12-05 09:47 | PN ---
Physical Exam: SUBJECTIVE: Patient seen and examined, pleasantly confused, does not realize that she has an sacral ulcer or infection. Afebrile, slight up trend in white count. OBJECTIVE: Vital Signs Period Temp Pulse Resp BP Sys/Crowell Pulse Ox Last 24 Hr 96.8 F-99.1 F 92-99 18-22 136-165/77-83 98 GENERAL: The patient is awake, alert, with dementia, at baseline NECK: Trachea midline, full range of motion, supple. LUNGS: Breath sounds equal, clear to auscultation bilaterally, no wheezes, no crackles, no accessory muscle use. HEART: Regular rate and rhythm, S1, S2 without murmur, rub or gallop. ABDOMEN: Soft, nontender, nondistended, normoactive bowel sounds, no guarding, no rebound, no hepatosplenomegaly, no masses. EXTREMITIES: 2+ pulses, warm, well-perfused, no edema. NEUROLOGICAL: Cranial nerves II through XII grossly intact. Normal speech, gait not observed. PSYCH: Normal mood, normal affect. SKIN: stage IV decubitus ulcer, [id number]; still with necrotic tissue and friable edges CBC, BMP 12/05/16 06:00 12/05/16 06:30 Active Medications Generic Name Dose Route Start Last Admin Trade Name Freq PRN Reason Stop Dose Admin Amino Acids 30 ml 12/01/16 17:30 12/04/16 18:53 Prosource No Carb Liquid Pkt PO 30 ml BID@0800,1730 ROSA Administration Ascorbic Acid 500 mg 12/02/16 10:00 12/04/16 12:39 Vitamin C - PO 500 mg DAILY ROSA Administration Carbidopa/Levodopa 1 each 12/01/16 22:00 12/04/16 21:39 Sinemet 25/100 - PO 1 each BID ROSA Administration Enoxaparin Sodium 40 mg 12/02/16 11:00 12/04/16 12:39 Lovenox - SQ 40 mg DAILY ROSA Administration Ferrous Sulfate 325 mg 12/02/16 19:00 12/05/16 06:09 Feosol - PO 325 mg 0700,1900 ROSA Administration Ceftriaxone Sodium 100 mls @ 200 mls/hr 12/03/16 10:00 12/04/16 12:39 Rocephin 2gm Ivpb (Pre-Docked) IVPB 200 mls/hr DAILY ROSA Administration Memantine 10 mg 12/01/16 22:00 12/04/16 21:39 Namenda - PO 10 mg BID ROSA Administration Multivitamins/Minerals/Vitamin C 1 tab 12/02/16 10:00 12/04/16 12:40 Tab-A-Vit - PO 1 tab DAILY ROSA Administration Polyethylene Glycol 17 gm 12/02/16 10:00 12/04/16 12:48 Miralax (For Daily Use) - PO 17 gm DAILY ROSA Administration Quetiapine Fumarate 50 mg 12/01/16 22:00 12/04/16 21:40 Seroquel - PO 50 mg HS ROSA Administration Silver Sulfadiazine 1 applic 12/03/16 22:00 12/04/16 21:40 Silvadene - TP 1 applic BID ROSA Administration Microbiology 12/02/16 06:00 Blood - Peripheral Venous Blood Culture - Preliminary NO GROWTH OBTAINED AFTER 72 HOURS, INCUBATION TO CONTINUE FOR 2 DAYS. 12/02/16 06:00 Blood - Peripheral Venous Blood Culture - Preliminary NO GROWTH OBTAINED AFTER 72 HOURS, INCUBATION TO CONTINUE FOR 2 DAYS. 12/01/16 15:45 Bone Gram Stain - Final 12/01/16 15:45 Bone Tissue Culture - Final NO GROWTH OF AEROBIC ORGANISMS AFTER 48 HOURS INCUBATION 12/01/16 15:45 Bone Anaerobic Culture - Final NO ANAEROBES WERE ISOLATED 11/29/16 18:40 Decubiti Gram Stain - Final 11/29/16 18:40 Decubiti Wound Culture - Final Streptococcus Viridans 11/29/16 19:00 Blood - Peripheral Venous Blood Culture - Preliminary Streptococcus Constellatus 11/29/16 19:00 Blood - Peripheral Venous Blood Culture - Preliminary Streptococcus Constellatus 11/29/16 19:45 Urine - Urine Clean Catch Urine Culture - Final Klebsiella Pneumoniae ASSESSMENT/PLAN: 89 year old woman with dementia, parkinson's disease, stage IV decubitus ulcer presents with fever, admitted for sepsis secondary to ulcer with urinary tract infection. #Bacteremia gram +; most likely secondary to stage IV decubitus ulcer as source -still with necrotic tissue will need further debridement -wbc trend up ;afebrile -flagyl/vanco d/c'd -ceftriaxone day 3; total antibitoc day 6 -Dr Kruger wound care -echo #Urinary tract infection: -continue ceftriaxone 1gm IV qd for total of 14 days -Klebsiella in past cx, sensitive to rocephin Problem List - Problems (1) Decubitus skin ulcer Code(s): L89.90 - PRESSURE ULCER OF UNSPECIFIED SITE, UNSPECIFIED STAGE (2) Fever Code(s): R50.9 - FEVER, UNSPECIFIED (3) Parkinson disease Code(s): G20 - PARKINSON'S DISEASE (4) Severe sepsis Code(s): A41.9 - SEPSIS, UNSPECIFIED ORGANISM R65.20 - SEVERE SEPSIS WITHOUT SEPTIC SHOCK (5) UTI (urinary tract infection) Code(s): N39.0 - URINARY TRACT INFECTION, SITE NOT SPECIFIED (6) UTI (lower urinary tract infection) Code(s): N39.0 - URINARY TRACT INFECTION, SITE NOT SPECIFIED (7) Alzheimer disease Code(s): G30.9 - ALZHEIMER'S DISEASE, UNSPECIFIED Visit type - Emergency Visit Emergency Visit: Yes ED Registration Date: 11/29/16 Care time: The patient presented to the Emergency Department on the above date and was hospitalized for further evaluation of their emergent condition. - New Patient This patient is new to me today: No - Critical Care Critical Care patient: No
[2016-12-05 10:37] LABS: ERYTHROCYTE SEDIMENTATION RATE 100 mm/hr (0-30)
[2016-12-05] MEDS: ENOXAPARIN NA (PORCINE) 40 MG/0.4 ML DISP.SYRIN SQ SCH (10:39)
[2016-12-05] MEDS: ASCORBIC ACID 500 MG TABLET (FP) PO SCH (10:39)
[2016-12-05] MEDS: POLYETHYLENE GLYCOL 3350 119 GM BTL PO SCH (10:39)
[2016-12-05] MEDS: MULTIVITAMINS (DAILY MVI) TABLET (FP) PO SCH (10:39)
[2016-12-05] MEDS: MEMANTINE HCL 10 MG TABLET (FP) PO SCH ×2 (10:39→21:56)
[2016-12-05] MEDS: AMINO ACIDS/PROTEIN HYDROLYS 30 ML LIQUID.PKT PO SCH ×2 (10:39→18:42)
[2016-12-05] MEDS: CARBIDOPA/LEVODOPA 25/100 TABLET (FP) PO SCH ×2 (10:39→21:56)
[2016-12-05] MEDS: CEFTRIAXONE 100 ML IVPB SCH (10:40)
--- NOTE | 2016-12-05 11:51 | PATH ---
Surgical Pathology Report Patient Name: HOMAR ALSTON Med. Rec. #: [id number] /Age/Gender: 1925 (Age: 89) / F Account: [id number] Location: [facility] MED/SURG Taken: 12/01/2016 Received: 12/04/2016 Reported: 12/05/2016 Physicians: Grant Kruger M.D. Specimen(s) Received A: BONE BIOPSY COCCYX B: DEBRIDEMENT TISSUE FROM SACRUM Clinical History Sacral decubitus ulcer Final Diagnosis A. BONE, COCCYX, BIOPSY: BONE WITH ACUTE OSTEOMYELITIS. B. SOFT TISSUE, SACRUM, DEBRIDEMENT: GANGRENOUS NECROSIS. Electronically Signed Benjamin Longoria M.D. Gross Description A. Received in formalin labeled "bone biopsy from coccyx" is a 0.6 x 0.5 x 0.2 cm hayward, irregular portion of bone. The specimen is submitted in toto in one cassette, following decalcification. B. Received in formalin labeled "debrided tissue from sacrum" is a 3.2 x 2.7 x 0.3 cm aggregate of brown sheppard, irregular portions of skin and soft tissue. The specimen is entirely submitted in one cassette. /12/04/2016 saudi12/04/2016
[2016-12-05 12:07] LABS: METAMYELOCYTE 1 % (0-2); PLATELET ESTIMATE ADEQUATE (NORMAL)
[2016-12-05] MEDS: SILVER SULFADIAZINE 1% TOP CREAM 50 GM JAR TP SCH ×2 (12:45→22:01)
--- NOTE | 2016-12-05 14:13 | PN ---
Teaching Attending Note Name of Resident: Xi Yates ATTENDING PHYSICIAN STATEMENT I saw and evaluated the patient. I reviewed the resident's note and discussed the case with the resident. I agree with the resident's findings and plan as documented. SUBJECTIVE: OBJECTIVE: Vital Signs Period Temp Pulse Resp BP Sys/Crowell Pulse Ox Last 24 Hr 96.8 F-99.1 F 92-99 18-22 145-165/77-83 98 ulcer without drainage CBC, BMP 12/05/16 06:00 12/05/16 06:30 Microbiology 12/02/16 06:00 Blood - Peripheral Venous Blood Culture - Preliminary NO GROWTH OBTAINED AFTER 72 HOURS, INCUBATION TO CONTINUE FOR 2 DAYS. 12/02/16 06:00 Blood - Peripheral Venous Blood Culture - Preliminary NO GROWTH OBTAINED AFTER 72 HOURS, INCUBATION TO CONTINUE FOR 2 DAYS. 12/01/16 15:45 Bone Gram Stain - Final 12/01/16 15:45 Bone Tissue Culture - Final NO GROWTH OF AEROBIC ORGANISMS AFTER 48 HOURS INCUBATION 12/01/16 15:45 Bone Anaerobic Culture - Final NO ANAEROBES WERE ISOLATED 11/29/16 18:40 Decubiti Gram Stain - Final 11/29/16 18:40 Decubiti Wound Culture - Final Streptococcus Viridans 11/29/16 19:00 Blood - Peripheral Venous Blood Culture - Preliminary Streptococcus Constellatus 11/29/16 19:00 Blood - Peripheral Venous Blood Culture - Preliminary Streptococcus Constellatus 11/29/16 19:45 Urine - Urine Clean Catch Urine Culture - Final Klebsiella Pneumoniae ASSESSMENT AND PLAN: strep bacteremia infected decubitus s/p debridement day #6 antibiotics pathology with acute osteomyelitis would plan 4 to 6 weeks iv rocephin and then po augmentin for another 2 to 4 weeks add probiotics
--- NOTE | 2016-12-05 16:16 | PN ---
Physical Exam: SUBJECTIVE: Patient seen and examined by me at bedside. No overnight events noted. Patient offers no complaints. Sacral decubitus ulcer irrigated and cleaned by nurse. Silvadine and packing ordered by Dr. Kruger. Patient otherwise denies fever, chills, nausea, vomiting, diarrhea, chest pain, palpitations, shortness of breath. OBJECTIVE: Vital Signs Period Temp Pulse Resp BP Sys/Crowell Pulse Ox Last 24 Hr 96.8 F-99.1 F 94-101 18-22 140-165/77-84 98 GENERAL: The patient is awake, alert and in no acute distress. LUNGS: Breath sounds equal, clear to auscultation bilaterally, no wheezes, no crackles, no accessory muscle use. HEART: Tachycardic with regular rhythm, S1, S2 without murmur, rub or gallop. ABDOMEN: Soft, nontender, nondistended, normoactive bowel sounds, no guarding, no rebound. : Cole Catheter EXTREMITIES: No peripheral edema NEUROLOGICAL: Confused with advanced cognitive impairment. SKIN: Stage 4 sacral decubitus ulcer [id number] with necrosis Laboratory Results - last 24 hr 12/05/16 12/05/16 06:00 06:30 WBC 11.7 H RBC 3.54 L Hgb 9.8 L Hct 30.3 L MCV 85.4 MCHC 32.4 RDW 15.9 H Plt Count 381 MPV 6.7 L Neutrophils % 57.0 Lymphocytes % 22.0 D Monocytes % 9.0 Eosinophils % 4.0 Metamyelocytes 1 Myelocytes 3 H D Differential Comment Manual diff done Reactive Lymphocytes 4 Platelet Estimate Adequate ESR 100 H Sodium 144 Potassium 4.7 Chloride 105 Carbon Dioxide 30 Anion Gap 9 BUN 11 Creatinine 0.5 L Random Glucose 95 Calcium 7.9 L Active Medications Generic Name Dose Route Start Last Admin Trade Name Freq PRN Reason Stop Dose Admin Amino Acids 30 ml 12/01/16 17:30 12/05/16 10:39 Prosource No Carb Liquid Pkt PO 30 ml BID@0800,1730 ROSA Administration Ascorbic Acid 500 mg 12/02/16 10:00 12/05/16 10:39 Vitamin C - PO 500 mg DAILY ROSA Administration Carbidopa/Levodopa 1 each 12/01/16 22:00 12/05/16 10:39 Sinemet 25/100 - PO 1 each BID ROSA Administration Enoxaparin Sodium 40 mg 12/02/16 11:00 12/05/16 10:39 Lovenox - SQ 40 mg DAILY ROSA Administration Ferrous Sulfate 325 mg 12/02/16 19:00 12/05/16 06:09 Feosol - PO 325 mg 0700,1900 ROSA Administration Ceftriaxone Sodium 100 mls @ 200 mls/hr 12/03/16 10:00 12/05/16 10:40 Rocephin 2gm Ivpb (Pre-Docked) IVPB 200 mls/hr DAILY ROSA Administration Lactobacillus Acidophilus 1 tab 12/05/16 15:00 Bacid - PO DAILY ROSA Memantine 10 mg 12/01/16 22:00 12/05/16 10:39 Namenda - PO 10 mg BID ROSA Administration Multivitamins/Minerals/Vitamin C 1 tab 12/02/16 10:00 12/05/16 10:39 Tab-A-Vit - PO 1 tab DAILY ROSA Administration Polyethylene Glycol 17 gm 12/02/16 10:00 12/05/16 10:39 Miralax (For Daily Use) - PO Not Given DAILY ROSA Quetiapine Fumarate 50 mg 12/01/16 22:00 12/04/16 21:40 Seroquel - PO 50 mg HS ROSA Administration Silver Sulfadiazine 1 applic 12/03/16 22:00 12/04/16 21:40 Silvadene - TP 1 applic BID ROSA Administration ASSESSMENT/PLAN: Patient is an 89 year old female with a PMHx of Parkinsons disease and dementia who presented with Sepsis and was found to have a UTI and stage 4 decubitus ulcer. Patient admitted to med/surg for further management and monitoring. Sepsis Secondary to UTI vs Decubitus ulcer -S/P debridement on 12/01 -Bone biopsy results negative -Repeat blood cultures negative -Continue Ceftriaxone 1gm day #4 -Continue wound packing and Silvadene HyperKalemia -Resolved Anemia secondary to sepsis vs chronic illness -Hgb 9.8 today -Continue Ferrous Sulfate 325mg BID Chronic Constipation -Continue Miralax 17gm daily Parkinsons Disease -Continue with Sinemet 1 tablet PO BID Dementia - fall risk precautions, known unsteady gait, recommend PT to prevent deconditioning - Memantine 10mg po BID - Seroqual 50mg po HS FEN: -On no fluids -Electrolytes wnl -Puree Diet Prophylaxis -Lovenox 40mg SQ daily for DVT Disposition -Bone Biopsy negative. Will continue IV abx Visit type - Emergency Visit Emergency Visit: Yes ED Registration Date: 11/29/16 Care time: The patient presented to the Emergency Department on the above date and was hospitalized for further evaluation of their emergent condition. - New Patient This patient is new to me today: No - Critical Care Critical Care patient: No
[2016-12-05] MEDS: LACTOBACILLUS ACIDOPHILUS 1 EACH TAB (FP) PO SCH (16:45)
--- NOTE | 2016-12-05 16:51 | PN ---
Teaching Attending Note Name of Resident: Leonarda Wellington ATTENDING PHYSICIAN STATEMENT I saw and evaluated the patient. I reviewed the resident's note and discussed the case with the resident. I agree with the resident's findings and plan as documented. SUBJECTIVE: Patient confused. Appears comfortable. OBJECTIVE: Vital Signs Period Temp Pulse Resp BP Sys/Crowell Pulse Ox Last 24 Hr 96.8 F-99.1 F 97-101 18-22 140-165/78-84 98 HEART: S1 S2, RRR LUNGS: Clear ABDOMEN: Soft, non-tender, non-distended, normal BS EXTREMITIES: No edema SKIN: Stage IV pressure ulcer of sacrum with no drainage ASSESSMENT AND PLAN: This is an 89-year-old woman with a history of Parkinson disease, dementia who presented to the ER with fever and chills. 1. Severe sepsis secondary to infected stage IV sacral pressure ulcer with osteomyelitis and Strep bacteremia - Continue Rocephin (plan 4-6 weeks followed by Augmentin for 2-4 weeks) - Continue wound care 2. Hyperkalemia - Improved 3. Anemia, likely secondary to sepsis and chronic illness - Hemoglobin stable - Continue ferrous sulfate 4. Parkinson disease with dementia - Continue Namenda, Sinemet, Seroquel
[2016-12-05] MEDS ORDERED: QUEtiapine FUMARATE 25 MG TABLET (FP) ONE (21:14)
[2016-12-05] MEDS ORDERED: PT OWN MED DRAWER 7, Y5N ONE (21:15)
[2016-12-05] MEDS: QUEtiapine FUMARATE 50 MG TABLET PO SCH (21:56)
[2016-12-06] MEDS: FERROUS SO4 325 MG TABLET (FP) PO SCH ×2 (06:33→18:01)
[2016-12-06] MEDS: AMINO ACIDS/PROTEIN HYDROLYS 30 ML LIQUID.PKT PO SCH ×2 (08:12→18:01)
--- NOTE | 2016-12-06 08:17 | PN ---
Physical Exam: SUBJECTIVE: Patient seen and examined pleasantly confused, denies pain or any associated symptoms. OBJECTIVE: Vital Signs Period Temp Pulse Resp BP Sys/Crowell Pulse Ox Last 24 Hr 97.9 F-99.3 F 101-107 18-20 140-159/81-91 98-98 GENERAL: The patient is awake, alert, confused, no acute distress HEAD: Normal with no signs of trauma. EYES: PERRL, extraocular movements intact, sclera anicteric, conjunctiva clear. No ptosis. ENT: Ears normal, nares patent, oropharynx clear without exudates, moist mucous membranes. NECK: Trachea midline, full range of motion, supple. LUNGS: Breath sounds equal, clear to auscultation bilaterally, no wheezes, no crackles, no accessory muscle use. HEART: Regular rate and rhythm, S1, S2 without murmur, rub or gallop. ABDOMEN: Soft, nontender, nondistended, normoactive bowel sounds, no guarding, no rebound, no hepatosplenomegaly, no masses. EXTREMITIES: 2+ pulses, warm, well-perfused, no edema. NEUROLOGICAL: Cranial nerves II through XII grossly intact. Normal speech, gait not observed. PSYCH: Normal mood, normal affect. SKIN: stage IV decubitus ulcer; packed; with surrounding friable edges; 3cm deep ; 4x4cm; necrotic center; no surrounding erythema/edema CBC, BMP 12/05/16 06:00 12/05/16 06:30 Active Medications Generic Name Dose Route Start Last Admin Trade Name Freq PRN Reason Stop Dose Admin Amino Acids 30 ml 12/01/16 17:30 12/05/16 18:42 Prosource No Carb Liquid Pkt PO 30 ml BID@0800,1730 ROSA Administration Ascorbic Acid 500 mg 12/02/16 10:00 12/05/16 10:39 Vitamin C - PO 500 mg DAILY ROSA Administration Carbidopa/Levodopa 1 each 12/01/16 22:00 12/05/16 21:56 Sinemet 25/100 - PO 1 each BID ROSA Administration Enoxaparin Sodium 40 mg 12/02/16 11:00 12/05/16 10:39 Lovenox - SQ 40 mg DAILY ROSA Administration Ferrous Sulfate 325 mg 12/02/16 19:00 12/06/16 06:33 Feosol - PO 325 mg 0700,1900 ROSA Administration Ceftriaxone Sodium 100 mls @ 200 mls/hr 12/03/16 10:00 12/05/16 10:40 Rocephin 2gm Ivpb (Pre-Docked) IVPB 200 mls/hr DAILY ROSA Administration Lactobacillus Acidophilus 1 tab 12/05/16 15:00 12/05/16 16:45 Bacid - PO 1 tab DAILY ROSA Administration Memantine 10 mg 12/01/16 22:00 12/05/16 21:56 Namenda - PO 10 mg BID ROSA Administration Multivitamins/Minerals/Vitamin C 1 tab 12/02/16 10:00 12/05/16 10:39 Tab-A-Vit - PO 1 tab DAILY ROSA Administration Polyethylene Glycol 17 gm 12/02/16 10:00 12/05/16 10:39 Miralax (For Daily Use) - PO Not Given DAILY ROSA Quetiapine Fumarate 50 mg 12/01/16 22:00 12/05/16 21:56 Seroquel - PO 50 mg HS ROSA Administration Silver Sulfadiazine 1 applic 12/03/16 22:00 12/05/16 22:01 Silvadene - TP 1 applic BID ROSA Administration Microbiology 12/02/16 06:00 Blood - Peripheral Venous Blood Culture - Preliminary NO GROWTH OBTAINED AFTER 96 HOURS, INCUBATION TO CONTINUE FOR 1 DAYS. 12/02/16 06:00 Blood - Peripheral Venous Blood Culture - Preliminary NO GROWTH OBTAINED AFTER 96 HOURS, INCUBATION TO CONTINUE FOR 1 DAYS. 12/01/16 15:45 Bone Gram Stain - Final 12/01/16 15:45 Bone Tissue Culture - Final NO GROWTH OF AEROBIC ORGANISMS AFTER 48 HOURS INCUBATION 12/01/16 15:45 Bone Anaerobic Culture - Final NO ANAEROBES WERE ISOLATED 11/29/16 18:40 Decubiti Gram Stain - Final 11/29/16 18:40 Decubiti Wound Culture - Final Streptococcus Viridans 11/29/16 19:00 Blood - Peripheral Venous Blood Culture - Preliminary Streptococcus Constellatus 11/29/16 19:00 Blood - Peripheral Venous Blood Culture - Preliminary Streptococcus Constellatus 11/29/16 19:45 Urine - Urine Clean Catch Urine Culture - Final Klebsiella Pneumoniae ASSESSMENT/PLAN: 89 year old woman with dementia, parkinson's disease, stage IV decubitus ulcer presents with fever, admitted for sepsis secondary to ulcer with urinary tract infection. #Bacteremia secondary to stage IV decubitus ulcer as source -still with necrotic tissue may need further debridement; -wound vac placement -afebrile this am -flagyl/vanco d/c'd -IV ceftiaxone 4-6 weeks treatment and po augmentan 2-4 weeks -lactobacilius -Dr Kruger wound care -echo #Urinary tract infection: -continue ceftriaxone -Klebsiella in past cx, sensitive to rocephin Problem List - Problems (1) Decubitus skin ulcer Code(s): L89.90 - PRESSURE ULCER OF UNSPECIFIED SITE, UNSPECIFIED STAGE (2) Fever Code(s): R50.9 - FEVER, UNSPECIFIED (3) Parkinson disease Code(s): G20 - PARKINSON'S DISEASE (4) Severe sepsis Code(s): A41.9 - SEPSIS, UNSPECIFIED ORGANISM R65.20 - SEVERE SEPSIS WITHOUT SEPTIC SHOCK (5) UTI (urinary tract infection) Code(s): N39.0 - URINARY TRACT INFECTION, SITE NOT SPECIFIED (6) UTI (lower urinary tract infection) Code(s): N39.0 - URINARY TRACT INFECTION, SITE NOT SPECIFIED (7) Alzheimer disease Code(s): G30.9 - ALZHEIMER'S DISEASE, UNSPECIFIED Visit type - Emergency Visit Emergency Visit: Yes ED Registration Date: 11/29/16 Care time: The patient presented to the Emergency Department on the above date and was hospitalized for further evaluation of their emergent condition. - New Patient This patient is new to me today: No - Critical Care Critical Care patient: No
--- NOTE | 2016-12-06 09:31 | PN ---
Addendum entered and electronically signed by Leonarda Wellington RES 12/06/16 16:38 : Will discontinue Silvadene as per Dr. Kruger and will schedule VAC application. Original Note: Physical Exam: SUBJECTIVE: Patient seen and examined by me at bedside. No overnight events noted. Patient offers no complaints. Patient is to have another debridement, as per wound care. Otherwise, patient denies fever, chills, nausea, vomiting, chest pain, shortness of breath, palpitations, abdominal pain, dysuria. OBJECTIVE: Vital Signs Period Temp Pulse Resp BP Sys/Crowell Pulse Ox Last 24 Hr 97.9 F-99.3 F 101-107 18-20 140-159/81-91 98 GENERAL: The patient is awake, alert and in no acute distress. LUNGS: Breath sounds equal, clear to auscultation bilaterally, no wheezes, no crackles, no accessory muscle use. HEART: Tachycardic with regular rhythm, S1, S2 without murmur, rub or gallop. ABDOMEN: Soft, nontender, nondistended, normoactive bowel sounds, no guarding, no rebound. : Cole Catheter day EXTREMITIES: No peripheral edema NEUROLOGICAL: Confused with advanced cognitive impairment. SKIN: Stage 4 sacral decubitus ulcer [id number] with necrosis Laboratory Results - last 24 hr 12/05/16 06:00 Neutrophils % 57.0 Lymphocytes % 22.0 D Monocytes % 9.0 Eosinophils % 4.0 Metamyelocytes 1 Myelocytes 3 H D Differential Comment Manual diff done Reactive Lymphocytes 4 Platelet Estimate Adequate ESR 100 H Active Medications Generic Name Dose Route Start Last Admin Trade Name Krystal PRN Reason Stop Dose Admin Amino Acids 30 ml 12/01/16 17:30 12/05/16 18:42 Prosource No Carb Liquid Pkt PO 30 ml BID@0800,1730 ROSA Administration Ascorbic Acid 500 mg 12/02/16 10:00 12/05/16 10:39 Vitamin C - PO 500 mg DAILY ROSA Administration Carbidopa/Levodopa 1 each 12/01/16 22:00 12/05/16 21:56 Sinemet 25/100 - PO 1 each BID ROSA Administration Enoxaparin Sodium 40 mg 12/02/16 11:00 12/05/16 10:39 Lovenox - SQ 40 mg DAILY ROSA Administration Ferrous Sulfate 325 mg 12/02/16 19:00 12/06/16 06:33 Feosol - PO 325 mg 0700,1900 ROSA Administration Ceftriaxone Sodium 100 mls @ 200 mls/hr 12/03/16 10:00 12/05/16 10:40 Rocephin 2gm Ivpb (Pre-Docked) IVPB 200 mls/hr DAILY ROSA Administration Lactobacillus Acidophilus 1 tab 12/05/16 15:00 12/05/16 16:45 Bacid - PO 1 tab DAILY ROSA Administration Memantine 10 mg 12/01/16 22:00 12/05/16 21:56 Namenda - PO 10 mg BID ROSA Administration Multivitamins/Minerals/Vitamin C 1 tab 12/02/16 10:00 12/05/16 10:39 Tab-A-Vit - PO 1 tab DAILY ROSA Administration Polyethylene Glycol 17 gm 12/02/16 10:00 12/05/16 10:39 Miralax (For Daily Use) - PO Not Given DAILY ROSA Quetiapine Fumarate 50 mg 12/01/16 22:00 12/05/16 21:56 Seroquel - PO 50 mg HS ROSA Administration Silver Sulfadiazine 1 applic 12/03/16 22:00 12/05/16 22:01 Silvadene - TP 1 applic BID ROSA Administration ASSESSMENT/PLAN: Patient is an 89 year old female with a PMHx of Parkinsons disease and dementia who presented with Sepsis and was found to have a UTI and stage 4 decubitus ulcer. Patient admitted to med/surg for further management and monitoring. Sepsis Secondary to UTI vs Decubitus ulcer- resolved -S/P debridement on 12/01 -Will need another debridement, as per wound care -Bone biopsy results positive for osteomyelitis -Repeat blood cultures negative -Continue Ceftriaxone 1gm day #5 for 4-6 weeks. Will be discharged on PO augmentin for 2-3 weeks -Bacid 1 tab PO -Continue wound packing and Silvadene HyperKalemia -Resolved Anemia secondary to sepsis vs chronic illness- resolved -Hgb stable -Continue Ferrous Sulfate 325mg BID Chronic Constipation -Continue Miralax 17gm daily Parkinsons Disease -Continue with Sinemet 1 tablet PO BID Dementia - fall risk precautions, known unsteady gait, recommend PT to prevent deconditioning - Memantine 10mg po BID - Seroqual 50mg po HS FEN: -On no fluids -Electrolytes wnl -Puree Diet Prophylaxis -Lovenox 40mg SQ daily for DVT Disposition -Will need another Debridement. Will continue IV abx Visit type - Emergency Visit Emergency Visit: Yes ED Registration Date: 11/29/16 Care time: The patient presented to the Emergency Department on the above date and was hospitalized for further evaluation of their emergent condition. - New Patient This patient is new to me today: No - Critical Care Critical Care patient: No
[2016-12-06] MEDS: CEFTRIAXONE 100 ML IVPB SCH (10:11)
[2016-12-06] MEDS: MEMANTINE HCL 10 MG TABLET (FP) PO SCH ×2 (10:12→22:07)
[2016-12-06] MEDS: ENOXAPARIN NA (PORCINE) 40 MG/0.4 ML DISP.SYRIN SQ SCH (10:12)
[2016-12-06] MEDS: ASCORBIC ACID 500 MG TABLET (FP) PO SCH (10:12)
[2016-12-06] MEDS: CARBIDOPA/LEVODOPA 25/100 TABLET (FP) PO SCH ×2 (10:12→22:07)
[2016-12-06] MEDS: MULTIVITAMINS (DAILY MVI) TABLET (FP) PO SCH (10:12)
[2016-12-06] MEDS: LACTOBACILLUS ACIDOPHILUS 1 EACH TAB (FP) PO SCH (10:12)
[2016-12-06] MEDS: SILVER SULFADIAZINE 1% TOP CREAM 50 GM JAR TP SCH (10:13)
[2016-12-06] MEDS: POLYETHYLENE GLYCOL 3350 119 GM BTL PO SCH (10:14)
--- NOTE | 2016-12-06 13:23 | PN ---
Teaching Attending Note Name of Resident: Leonarda Wellington ATTENDING PHYSICIAN STATEMENT I saw and evaluated the patient. I reviewed the resident's note and discussed the case with the resident. I agree with the resident's findings and plan as documented. SUBJECTIVE: Patient confused and has no complaints. OBJECTIVE: Vital Signs Period Temp Pulse Resp BP Sys/Crowell Pulse Ox Last 24 Hr 97.9 F-99.3 F 101-107 18-20 140-159/81-91 98 HEART: S1 S2, RRR LUNGS: Clear ABDOMEN: Soft, non-tender, non-distended, normal BS EXTREMITIES: No edema SKIN: Stage IV pressure ulcer of sacrum with no drainage ASSESSMENT AND PLAN: This is an 89-year-old woman with a history of Parkinson disease, dementia who presented to the ER with fever and chills. 1. Severe sepsis secondary to infected stage IV sacral pressure ulcer with osteomyelitis, Strep bacteremia, Klebsiella UTI - Continue Rocephin (plan 4-6 weeks followed by Augmentin for 2-4 weeks) - Continue wound care 2. Hyperkalemia - Improved 3. Anemia, likely secondary to sepsis and chronic illness - Hemoglobin stable - Continue ferrous sulfate 4. Parkinson disease with dementia - Continue Namenda, Sinemet, Seroquel
--- NOTE | 2016-12-06 14:24 | PN ---
Teaching Attending Note Name of Resident: Xi Yates ATTENDING PHYSICIAN STATEMENT I saw and evaluated the patient. I reviewed the resident's note and discussed the case with the resident. I agree with the resident's findings and plan as documented. SUBJECTIVE: OBJECTIVE: ASSESSMENT AND PLAN: strep bacteremia infected sacral ulcer s/p debridement needs surgical f/u plan for [facility] antibiotics as previously outlined
--- NOTE | 2016-12-06 16:02 | PN ---
Progress Note (short form) - Note Progress Note: Follow Up for grade IV infected sacral decubitus ulcer Patient pleasantly confused, disoriented See sitting in chair difficult , resistive argumentative to get back in bed for proper evaluation of sacral wound Sacral wound covered with silvidine cream, no erythema, no induration, during examination patient had BM soft contaminating the wound, extends and involves sacral bone Microbiology 11/29/16 19:45 Urine - Urine Clean Catch Urine Culture - Final Klebsiella Pneumoniae 11/29/16 18:40 Decubiti Wound Culture - Final Streptococcus Viridans 11/29/16 18:40 Decubiti Gram Stain - Final 11/29/16 18:40 Decubiti Wound Culture - Final Streptococcus Viridans 11/29/16 19:00 Blood - Peripheral Venous Blood Culture - Preliminary Streptococcus Constellatus 11/29/16 19:00 Blood - Peripheral Venous Blood Culture - Preliminary Streptococcus Constellatus 11/29/16 19:00 Blood - Peripheral Venous Blood Culture - Preliminary Streptococcus Constellatus Selected Entries 12/02/16 12/03/16 12/06/16 21:00 14:00 15:18 Temperature 97.4 F L 98.5 F 99.2 F Pulse Rate 101 H 103 H 104 H Respiratory 18 Rate Blood Pressure 158/79 138/67 142/74 Laboratory Tests 12/05/16 12/05/16 06:00 06:30 WBC 11.7 H Hct 30.3 L RDW 15.9 H MPV 6.7 L Myelocytes 3 H D Reactive Lymphocytes 4 ESR 100 H Sodium 144 Potassium 4.7 Chloride 105 Carbon Dioxide 30 Anion Gap 9 BUN 11 Creatinine 0.5 L Random Glucose 95 Calcium 7.9 L Plan : 1. D/C silvidine cream ( difficult to keep it clean, choice of colostomy in elderly patient is difficult) 2. VAC application with duoderm at periwound for better adhesive VAC dressing 3 Needs to continue IV antibiotics for sacral bone involvement /osteomyelitis Spoke and discussed with Dr Hathaway regarding longterm therapy for osteomyelitis
[2016-12-06] MEDS ORDERED: QUEtiapine FUMARATE 25 MG TABLET (FP) ONE (21:42)
[2016-12-06] MEDS: QUEtiapine FUMARATE 50 MG TABLET PO SCH (22:07)
[2016-12-07] MEDS: FERROUS SO4 325 MG TABLET (FP) PO SCH (06:25)
[2016-12-07] MEDS: AMINO ACIDS/PROTEIN HYDROLYS 30 ML LIQUID.PKT PO SCH (08:14)
[2016-12-07] MEDS: CEFTRIAXONE 100 ML IVPB SCH (09:14)
[2016-12-07] MEDS: ENOXAPARIN NA (PORCINE) 40 MG/0.4 ML DISP.SYRIN SQ SCH (09:14)
[2016-12-07] MEDS: MEMANTINE HCL 10 MG TABLET (FP) PO SCH (09:15)
[2016-12-07] MEDS: ASCORBIC ACID 500 MG TABLET (FP) PO SCH (09:15)
[2016-12-07] MEDS: POLYETHYLENE GLYCOL 3350 119 GM BTL PO SCH (09:15)
[2016-12-07] MEDS: MULTIVITAMINS (DAILY MVI) TABLET (FP) PO SCH (09:15)
[2016-12-07] MEDS: CARBIDOPA/LEVODOPA 25/100 TABLET (FP) PO SCH (09:15)
[2016-12-07] MEDS: LACTOBACILLUS ACIDOPHILUS 1 EACH TAB (FP) PO SCH (09:15)
[2016-12-07] MEDS ORDERED: PICC LINE 8 ML FLUSH PROTOCOL IVPUSH PRN (10:58)
[2016-12-07 12:47] VITALS: BP 135/62; PULSE 94; TEMP 97.9
--- NOTE | 2016-12-07 13:01 | PN ---
Teaching Attending Note Name of Resident: Xi Yates ATTENDING PHYSICIAN STATEMENT I saw and evaluated the patient. I reviewed the resident's note and discussed the case with the resident. I agree with the resident's findings and plan as documented. SUBJECTIVE: OBJECTIVE: ASSESSMENT AND PLAN: S/P debridement sacral wound Osteomyelitis Strep bacteremia For discharge on ceftriaxone IV x 4weeks, followed by po Augmentin bid x 2weeks Local wound care
--- NOTE | 2016-12-07 14:00 | PN ---
Physical Exam: SUBJECTIVE: Patient seen and examined sitting up in chair, pleasant no complaints, unaware of ulcer. OBJECTIVE: Vital Signs Period Temp Pulse Resp BP Sys/Crowell Pulse Ox Last 24 Hr 97.9 F-99.2 F 94-117 18-18 134-150/62-92 96-96 GENERAL: The patient is awake, alert, pleasantly confused HEAD: Normal with no signs of trauma. EYES: PERRL, extraocular movements intact, sclera anicteric, conjunctiva clear. No ptosis. LUNGS: Breath sounds equal, clear to auscultation bilaterally, no wheezes, no crackles, no accessory muscle use. HEART: Regular rate and rhythm, S1, S2 without murmur, rub or gallop. ABDOMEN: Soft, nontender, nondistended, normoactive bowel sounds, no guarding, no rebound, no hepatosplenomegaly, no masses. EXTREMITIES: 2+ pulses, warm, well-perfused, no edema. NEUROLOGICAL: confused, dementia PSYCH: Normal mood, normal affect. SKIN: stage IV decubitus 3/3/4deep, no drainage or pus; still with friable edges Active Medications Generic Name Dose Route Start Last Admin Trade Name Freq PRN Reason Stop Dose Admin Amino Acids 30 ml 12/01/16 17:30 12/07/16 08:14 Prosource No Carb Liquid Pkt PO 30 ml BID@0800,1730 ROSA Administration Ascorbic Acid 500 mg 12/02/16 10:00 12/07/16 09:15 Vitamin C - PO 500 mg DAILY ROSA Administration Carbidopa/Levodopa 1 each 12/01/16 22:00 12/07/16 09:15 Sinemet 25/100 - PO 1 each BID ROSA Administration Enoxaparin Sodium 40 mg 12/02/16 11:00 12/07/16 09:14 Lovenox - SQ 40 mg DAILY ROSA Administration Ferrous Sulfate 325 mg 12/02/16 19:00 12/07/16 06:25 Feosol - PO 325 mg 0700,1900 ROSA Administration IV Flush 8 ml 12/07/16 10:58 Picc Line Flush IVPUSH PRN PRN Protocol Ceftriaxone Sodium 100 mls @ 200 mls/hr 12/03/16 10:00 12/07/16 09:14 Rocephin 2gm Ivpb (Pre-Docked) IVPB 200 mls/hr DAILY ROSA Administration Lactobacillus Acidophilus 1 tab 12/05/16 15:00 12/07/16 09:15 Bacid - PO 1 tab DAILY ROSA Administration Memantine 10 mg 12/01/16 22:00 12/07/16 09:15 Namenda - PO 10 mg BID ROSA Administration Multivitamins/Minerals/Vitamin C 1 tab 12/02/16 10:00 12/07/16 09:15 Tab-A-Vit - PO 1 tab DAILY ROSA Administration Polyethylene Glycol 17 gm 12/02/16 10:00 12/07/16 09:15 Miralax (For Daily Use) - PO Not Given DAILY ROSA Quetiapine Fumarate 50 mg 12/01/16 22:00 12/06/16 22:07 Seroquel - PO 50 mg HS ROSA Administration Microbiology 12/02/16 06:00 Blood - Peripheral Venous Blood Culture - Final NO GROWTH AFTER 5 DAYS INCUBATION 12/02/16 06:00 Blood - Peripheral Venous Blood Culture - Final NO GROWTH AFTER 5 DAYS INCUBATION 11/29/16 19:00 Blood - Peripheral Venous Blood Culture - Final Streptococcus Constellatus 11/29/16 19:00 Blood - Peripheral Venous Blood Culture - Preliminary Streptococcus Constellatus 12/01/16 15:45 Bone Gram Stain - Final 12/01/16 15:45 Bone Tissue Culture - Final NO GROWTH OF AEROBIC ORGANISMS AFTER 48 HOURS INCUBATION 12/01/16 15:45 Bone Anaerobic Culture - Final NO ANAEROBES WERE ISOLATED 11/29/16 18:40 Decubiti Gram Stain - Final 11/29/16 18:40 Decubiti Wound Culture - Final Streptococcus Viridans 11/29/16 19:45 Urine - Urine Clean Catch Urine Culture - Final Klebsiella Pneumoniae ASSESSMENT/PLAN: 89 year old woman with dementia, parkinson's disease, stage IV decubitus ulcer presents with fever, admitted for sepsis secondary to ulcer with urinary tract infection. #osteomyelitis with bacteremia secondary to stage IV decubitus ulcer as source: -wound vac placement -afebrile/white cout wnl/ -1gm IV ceftriaxone 4 weeks treatment and then po Augmentin 500mg bid for 2 weeks -lactobacilius -Dr Kruger wound care -echo wnl #Urinary tract infection: -continue ceftriaxone -Klebsiella in past cx, sensitive to rocephin Stable for d/c with picc line; follow up with Dr. Kruger for wound care Problem List - Problems (1) Decubitus skin ulcer Code(s): L89.90 - PRESSURE ULCER OF UNSPECIFIED SITE, UNSPECIFIED STAGE (2) Fever Code(s): R50.9 - FEVER, UNSPECIFIED (3) Parkinson disease Code(s): G20 - PARKINSON'S DISEASE (4) Severe sepsis Code(s): A41.9 - SEPSIS, UNSPECIFIED ORGANISM R65.20 - SEVERE SEPSIS WITHOUT SEPTIC SHOCK (5) UTI (urinary tract infection) Code(s): N39.0 - URINARY TRACT INFECTION, SITE NOT SPECIFIED (6) UTI (lower urinary tract infection) Code(s): N39.0 - URINARY TRACT INFECTION, SITE NOT SPECIFIED (7) Alzheimer disease Code(s): G30.9 - ALZHEIMER'S DISEASE, UNSPECIFIED (8) Bacteremia Code(s): R78.81 - BACTEREMIA (9) Osteomyelitis Code(s): M86.9 - OSTEOMYELITIS, UNSPECIFIED Visit type - Emergency Visit Emergency Visit: Yes ED Registration Date: 11/29/16 Care time: The patient presented to the Emergency Department on the above date and was hospitalized for further evaluation of their emergent condition. - New Patient This patient is new to me today: No - Critical Care Critical Care patient: No - Discharge Referral Referred to [facility] No
--- NOTE | 2016-12-07 16:33 | DS ---
Physical Exam: SUBJECTIVE: Patient seen and examined by me at bedside. No overnight events noted. Patient was sitting on chair and in no acute distress. She offers no complaints. [facility] will be [facility] to [facility] for continuation of IV abx for osteomyelitis as well as Wound Vac placement. Otherwise, patient denies any fever, chills, nausea, vomiting, abdominal pain, chest pain, palpitations, shortness of breath OBJECTIVE: Vital Signs Period Temp Pulse Resp BP Sys/Crowell Pulse Ox Last 24 Hr 97.9 F-99.2 F 94-117 18-18 134-150/62-92 96-96 PHYSICAL EXAM GENERAL: The patient is awake, alert and in no acute distress. LUNGS: Breath sounds equal, clear to auscultation bilaterally, no wheezes, no crackles, no accessory muscle use. HEART: Regular rate and rhythm, normal S1 and S2 without murmur, rub or gallop. ABDOMEN: Soft, nontender, nondistended, normoactive bowel sounds, no guarding, no rebound. EXTREMITIES: No peripheral edema NEUROLOGICAL: Confused with advanced cognitive impairment. SKIN: Stage 4 sacral decubitus ulcer [id number] with necrosis LABS HOSPITAL COURSE: Prehospital course: Patient is an 89 year old female with a PMHx of Parkinsons disease and dementia who was brought in to the ED by her home health aid for fever and chills. Patient is a poor historian and all information obtained by home health aide. Patient's aide reports she was checking her temperature frequently due to fluctuating fevers and found her highest temperature at 104.0 F. Per home bhavana aide, patient never complains of pain even when in pain. She does report that patient has been following up with Dr. Kruger for wound care of her sacral decubitus ulcer and has been on Keflex. Otherwise, patient and patients home health aide deny any chest pain, shortness of breath, palpitations, chills, abdominal pain, dysuria, hematuria, headaches. In the ED patient was found to have UTI and sepsis protocol was initiated. She was given Rocephin for UTI ( Klebsiella in the past and was sensitive to rocephin) and Vancomycin for MRSA coverage from decubitus ulcer. Hospital Course: Patient was then admitted to the floors for Sepsis secondary to UTI vs. Sacral decubitus ulcer. Initially her labs showed Leukocytosis with WBC's of 12.8 and lactic acid of 3.041 with U/A of 2+ Leukocyte esterase. Wound care was consulted for evaluation of sacral decubitus ulcer. ESR and CRP levels were elevated and patient was sent for surgical debridement of the sacral decubitus ulcer. Bone biopsy was taken and was found to be positive. Patient found to have positive bone biopsy and placed on IV abx with Ceftriaxone 1gm daily. Patient tolerated procedure well and responded well to antibiotics. Patient was no longer septic and sepsis was resolved. Wound care and support was done through packing and application of silvadene. Wound Vac is now ordered and patient will need a wound vac placed, as per Dr. Kruger. PICC line ordered and placed for patient. [facility] accepted to [facility] for continuation of IV abx with Ceftriaxone 1gm for an additional 24 days for a total of 4 weeks and then will be switched to PO augmentin 500mg BID for two weeks. Patient is to be followed up by PCP and wound care for VAC placement and IV antibiotic follow up and monitoring. Date of Admission:11/29/16 Date of Discharge: 12/07/16 Minutes to complete discharge: 35 Discharge Summary Reason For Visit: SEPSIS Condition: Stable - Instructions Diet, Activity, Other Instructions: -Resume Normal activities and Diet -Maintain wound care and dressing care -You make take Tylenol as needed for pain -Take IV Ceftriaxone 2gm for another 24 days for a total of 30 days (4weeks) and then Take Augmentin 500 BID oral for a total of 14 days (2 weeks) -If you begin to have severe pain not relieved by medication, a fever 101.0F or higher or excessive bleeding or drainage on dressing and the inability to urinate, return to the emergency department. puree diet Activity as tolerated may take shower picc line care wound VAC to coccyx Referrals: Jensen Todd MD [Primary Care Provider] - Disposition: [facility] - Home Medications Comprehensive Discharge Medication List: Ambulatory Orders Memantine HCl 10 mg PO BID 08/15/16 Quetiapine Fumarate [Seroquel -] 50 mg PO DAILY 08/15/16 Carbidopa/Levodopa [Carbidopa-Levodopa 25-100 Tab] 1 each PO BID 11/29/16 Amino Acids/Protein Hydrolys [Prosource No Carb Liquid Pkt] 30 ml PO BID@0800, 1730 packet 12/07/16 Amox-Tr/K Cl [Augmentin - 500Mg Tablet] 1 tab PO BID #14 tab 12/07/16 Ascorbic Acid [Vitamin C -] 500 mg PO DAILY tablet 12/07/16 Ceftriaxone [Rocephin 2Gm Ivpb (Pre-Docked)] 100 ml IVPB DAILY 24 Days 12/07/16 Multivitamins [Multivit ([facility] Formul[facility])] 1 tab PO DAILY tab 12/07/16 Picc Line Flush [Picc Line Flush -] 8 ml IVPUSH PRN PRN #0 ml 12/07/16 This patient is new to me today: No Emergency Visit: Yes ED Registration Date: 11/29/16 Care time: The patient presented to the Emergency Department on the above date and was hospitalized for further evaluation of their emergent condition. Critical Care patient: No - Discharge Referral Referred to [facility] Med P.C.: No
--- NOTE | 2016-12-07 17:37 | PN ---
Teaching Attending Note Name of Resident: Leonarda Wellington ATTENDING PHYSICIAN STATEMENT I saw and evaluated the patient. I reviewed the resident's note and discussed the case with the resident. I agree with the resident's findings and plan as documented. SUBJECTIVE: Patient is confused. She has no complaints. OBJECTIVE: Vital Signs Period Temp Pulse Resp BP Sys/[place] Pulse Ox Last 24 Hr 97.9 F-99.2 F 94-117 18-18 134-149/62-92 96-96 HEART: S1 S2, RRR LUNGS: Clear ABDOMEN: Soft, non-tender, non-distended, normal BS EXTREMITIES: No edema SKIN: Stage IV pressure ulcer of sacrum with no drainage ASSESSMENT AND PLAN: This is an 89-year-old woman with a history of Parkinson disease, dementia who presented to the ER with fever and chills. 1. 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 Hyperkalemia - Improved 3. Anemia, likely secondary to sepsis and chronic illness - Hemoglobin stable - Continue ferrous sulfate 4. Parkinson disease with dementia - Continue Namenda, Sinemet, Seroquel 5. Disposition - Discharge to [facility] with PICC for continued IV antibiotics, wound VAC and local wound care
== END 2016-12-07 15:05 | DRG 853 ==
LOC: JER 17:41 → JERBED 20:25 → J8W 22:50
PROVIDERS: ADMIT Internal Medicine; ATTEND Internal Medicine
PROC: 0QB10ZZ Excision of Sacrum, Open Approach (ICD-10-PCS; principal; 2016-12-01 13:00)
PROC: 02HV33Z Insertion of Infusion Device into Superior Vena Cava, Percutaneous Approach (ICD-10-PCS; 2016-12-07)
PROC: B548ZZA Ultrasonography of Superior Vena Cava, Guidance (ICD-10-PCS; 2016-12-07)
DX: A41.9 Sepsis, unspecified organism (principal); L89.154 Pressure ulcer of sacral region, stage 4; N39.0 Urinary tract infection, site not specified; M46.28 Osteomyelitis of vertebra, sacral and sacrococcygeal region; B96.1 Klebsiella pneumoniae [K. pneumoniae] as the cause of diseases classified elsewhere; G30.9 Alzheimer's disease, unspecified; F02.80 Dementia in other diseases classified elsewhere, unspecified severity, without behavioral disturbance, psychotic disturbance, mood disturbance, and anxiety; K59.00 Constipation, unspecified; E87.5 Hyperkalemia; R26.81 Unsteadiness on feet; G20 Parkinson's disease; R65.20 Severe sepsis without septic shock; B95.4 Other streptococcus as the cause of diseases classified elsewhere
CPT/HCPCS: 11042; 36415; 36569; 71010-TC; 77001-TC; 80048; 80053; 81003; 81015; 82550; 82728; 82803; 83540; 83550; 83605; 84484; 85025; 85027; 85610; 85651; 85730; 86140; 86850; 86900; 86901; 87040; 87070; 87075; 87077; 87086; 87186; 87205; 88304-TC; 88305-TC; 88311-TC; 93005; 93010; 93306-TC; 94760; 97116-GP; 97161-GP; 99285-25; C1751; G0480

== ENCOUNTER 2017-01-16 11:06 | Inpatient (IN) | payer OTHER ==
[2017-01-16 12:15] VITALS: BMI 20.5
[2017-01-16] MEDS ORDERED: SODIUM CHLORIDE 1,000 ML IV STA ×2 (12:21→13:44)
[2017-01-16] MEDS ORDERED: ACETAMINOPHEN 500 MG TABLET (FP) PO ONE (12:21)
--- NOTE | 2017-01-16 12:24 | PDOC ---
History of Present Illness - General History Source: Patient, Old Records Exam Limitations: Clinical Condition, Dementia <Raul Gaofany - Last Filed: 01/16/17 14:34> - General History Source: Patient, EMS, Old Records Exam Limitations: No Limitations - History of Present Illness Initial Comments: 01/16/17 12:54 The patient is a 89 year old female with a past medical history of Alzheimer's disease, BIBA to the emergency department today with of breath and cough. The rest of the HPI is limited due to the patients clinical condition. The patient denies chest pain The patient denies fever, chills, and sweats. The patient denies nausea, vomiting, and diarrhea. PCP: Dr. Todd [phone] PAST MEDICAL HISTORY: Alzheimers PAST SURGICAL HISTORY: Noncontributory FAMILY HISTORY: Noncontributory SOCIAL HISTORY: Noncontributory ALLERGIES: NKDA MEDICATIONS: Reviewed <Gaudencio Scott - Last Filed: 01/16/17 14:46> - General Chief Complaint: Shortness of Breath Stated Complaint: R/O SEPSIS Time Seen by Provider: 01/16/17 12:17 Past History - Past Medical History Cardiac Disorders: Yes (CAD, angina) Dementia: Yes (PARKINSONS) HTN: Yes Hypercholesterolemia: Yes - Immunization History Immunization Up to Date: Yes - Psycho/Social/Smoking Cessation Hx Anxiety: No Suicidal Ideation: No Smoking History: Never smoked Number of Cigarettes Smoked Daily: 0 Hx Alcohol Use: (unknown) Drug/Substance Use Hx: (unknown) Substance Use Type: None Hx Substance Use Treatment: No <Carly Gao - Last Filed: 01/16/17 14:34> <Gaudencio Scott - Last Filed: 01/16/17 14:46> - Past Medical History Allergies/Adverse Reactions: Allergies Allergy/AdvReac Type Severity Reaction Status Date / Time No Known Allergies Allergy Verified 01/16/17 12:16 Home Medications: Ambulatory Orders Acetazolamide [Diamox -] 250 mg PO BID 01/16/17 Amlodipine Besylate [Norvasc -] 10 mg PO DAILY 01/16/17 Ascorbate Calcium [Vitamin C] 500 mg PO DAILY 01/16/17 Atorvastatin Ca [Lipitor] 20 mg PO HS 01/16/17 Docusate Sodium 300 mg PO HS 01/16/17 Memantine HCl [Namenda -] 10 mg PO BID 01/16/17 Multivitamins [Tab-A-Vit -] 1 tab PO DAILY 01/16/17 Quetiapine Fumarate [Seroquel -] 50 mg PO HS 01/16/17 Sennosides [Senna] 8.6 mg PO BID 01/16/17 Review of Systems - Review of Systems Able to Perform ROS?: Yes Comments:: 01/16/17 12:54 CONSTITUTIONAL: Absent: fever, no chills, no fatigue EYES: Absent: visual changes ENT: Absent: ear pain, no sore throat CARDIOVASCULAR: Absent: chest pain, no palpitations RESPIRATORY: Present: Cough, SOB GI: Absent: abdominal pain, no nausea, no vomiting, no constipation, no diarrhea GENITOURINARY: Absent: dysuria, no frequency, no hematuria MUSCULOSKELETAL: Absent: back pain, no arthralgia, no myalgia SKIN: Absent: rash <Gaudencio Scott - Last Filed: 01/16/17 14:46> *Physical Exam - Vital Signs Last Vital Signs Temp Pulse Resp BP Pulse Ox 100.2 F H 95 H 24 106/68 76 L 01/16/17 12:01 01/16/17 12:01 01/16/17 12:01 01/16/17 12:01 01/16/17 12:01 <Carly Gao - Last Filed: 01/16/17 14:34> - Vital Signs Last Vital Signs Temp Pulse Resp BP Pulse Ox 100.2 F H 88 22 115/78 99 01/16/17 12:46 01/16/17 12:46 01/16/17 12:46 01/16/17 12:46 01/16/17 12:46 - Physical Exam Comments: 01/16/17 12:54 GENERAL: Well-appearing, well-nourished. No apparent distress. HEENT: (+) Dry mucous membranes. Normocephalic, atraumatic. PERRL, EOM intact. CARDIOVASCULAR: Normal S1, S2. Regular rate and rhythm. PULMONARY: Clear to auscultation bilaterally. ABDOMEN: Soft, non-distended, non-tender. EXTREMITIES: Normal ROM in all four extremities. No gross deformities. SKIN: Warm, dry. No rash NEUROLOGICAL: No focal neurological deficits. <Gaudencio Scott - Last Filed: 01/16/17 14:46> ED Treatment Course - LABORATORY CBC & Chemistry Diagram: 01/16/17 12:46 01/16/17 12:46 - RADIOLOGY Radiology Studies Ordered: Category Date Time Status CHEST X-RAY PORTABLE* [RAD] Stat Radiology 01/16/17 12:20 Ordered <Carly Gao - Last Filed: 01/16/17 14:34> - LABORATORY CBC & Chemistry Diagram: 01/16/17 12:46 01/16/17 12:46 - ADDITIONAL ORDERS Additional order review: Laboratory Results 01/16/17 12:20 VBG pH 7.31 L D POC VBG pCO2 53.8 H D POC VBG pO2 24.7 L D Mixed VBG HCO3 26.2 H - RADIOLOGY Radiograph Interpretation: 01/16/17 13:22 EXAM#: TYPE/EXAM: RESULT: [id number] RAD/CHEST X-RAY PORTABLE* Clinical history: Rule out sepsis. COMPARISON: November 29, 2016. A lordotic and rotated portable semierect chest film is compared to prior similar study. There is cardiomegaly, unfolding of the great vessels, degenerative changes of the spine and elevated right hemidiaphragm as previously. Since prior study, congestive changes have resolved. No acute intrathoracic abnormality is seen. IMPRESSION: Interval clearing of congestive changes. No acute intrathoracic abnormality. Reported By : Patrice Marin MD 01/16/17 1312 - Medications Given in the ED: ED Medications Discontinued Medications Generic Name Dose Route Start Last Admin Trade Name Freq PRN Reason Stop Dose Admin Acetaminophen 1,000 mg 01/16/17 12:21 01/16/17 12:44 Tylenol - PO 01/16/17 12:22 1,000 mg ONCE ONE Administration <Gaudencio Scott - Last Filed: 01/16/17 14:46> Medical Decision Making - Medical Decision Making 01/16/17 12:22 89-year-old female with history of hypertension, Alzheimer's disease presents the emergency department with cough and fever; she was found to have an oxygen saturation of 80% on room air. Differential diagnosis includes but is not limited to: Sepsis, servers, infection (pneumonia versus UTI) electrolyte abnormality, dehydration, toxic/metabolic derangement. Plan: 1. Calvo cultured 2. Chest x-ray 3. Labs 4. EKG 5. Urine analysis and culture 6. Supplemental oxygen therapy 7. Observe and reevaluate 01/16/17 13:57 Addendum: Labs were reviewed and are noted in the EMR. The WBC is slightly elevated and the sodium is 163; lactate is 2.1. The CXR is negative. Zosyn has been ordered. The plan is to admit to medicine for IVF hydration for hypernatremia, sepsis and IV abx, monitoring of hypoxia. <Carly Gao - Last Filed: 01/16/17 14:34> - Medical Decision Making 01/16/17 14:[address] Peterson placed. Immediately called into ER. Case discussed. Agreed to admit. <Gaudencio Scott - Last Filed: 01/16/17 14:46> *DC/Admit/Observation/Transfer - Discharge Dispostion Admit: Yes - Attestations Physician Attestion: 01/16/17 12:24 I, Dr. Carly Gao, attest that the scribes documentation that appears above has been prepared under my direction and personally reviewed by me in its entirety. I confirmed that the note above accurately reflects all work, treatment, procedures, and medical decision-making performed by me. <Carly Gao - Last Filed: 01/16/17 14:34> - Attestations Scribe Attestion: 01/16/17 12:54 Documentation prepared by Gaudencio Scott, acting as biomedical engineering aide for Carly Gao MD. <Gaudencio Scott - Last Filed: 01/16/17 14:46> Diagnosis at time of Disposition: Fever, Hypernatremia - Discharge Dispostion Condition at time of disposition: Stable - Referrals Referrals: Jensen Todd MD [Primary Care Provider] -
[2017-01-16] MEDS ORDERED: ACETAMINOPHEN 325 MG TABLET (FP) ONE (12:33)
[2017-01-16 12:46] LABS: VENOUS BLOOD GAS HCO3 26.2 meq/L (19-25); VENOUS PH 7.31 (7.32-7.42)
[2017-01-16 13:01] LABS: MCH 26.7 pg (25.7-33.7); MCHC 30.8 g/dl (32.0-36.0); MEAN CELL VOLUME 86.7 fl (80-96); PLATELET COUNT 192 K/MM3 (134-434); RDW 19.9 % (11.6-15.6); WHITE BLOOD COUNT 10.4 K/mm3 (4.0-10.0)
[2017-01-16 13:22] LABS: INR 1.21 (0.82-1.09); PROTHROMBIN TIME (PATIENT) 13.4 SEC (9.98-11.88)
[2017-01-16 13:25] LABS: ACTIVATED PTT 38.7 SECONDS (26.9-34.4)
[2017-01-16 13:29] LABS: URINE APPEARANCE CLEAR; URINE BILIRUBIN NEGATIVE (NEGATIVE); URINE BLOOD NEGATIVE (NEGATIVE); URINE COLOR YELLOW; URINE GLUCOSE (UA) NEGATIVE (NEGATIVE); URINE KETONE NEGATIVE (NEGATIVE); URINE LEUK ESTERASE NEGATIVE (NEGATIVE); URINE NITRITE NEGATIVE (NEGATIVE); URINE PROTEIN NEGATIVE (NEGATIVE); URINE UROBILINOGEN NEGATIVE E.U./dl (0.2-1.0)
[2017-01-16 13:38] LABS: ALBUMIN 2.3 g/dl (3.4-5.0); ANION GAP 7 (8-16); CALCIUM 7.9 mg/dL (8.5-10.1); CO2 29 mmol/L (21-32); CREATININE 0.9 mg/dL (0.55-1.02); GLUCOSE,RANDOM 108 mg/dL (74-106); SGOT/AST 49 U/L (15-37); SGPT/ALT 52 U/L (12-78)
[2017-01-16 13:42] LABS: ALK PHOS 151 U/L (45-117); BILIRUBIN,TOTAL 0.4 mg/dL (0.2-1.0); TOT PROT 6.8 g/dl (6.4-8.2); TROPONIN I 0.04 ng/ml (0.00-0.05)
[2017-01-16] MEDS ORDERED: PIPERACILLIN/TAZOB 3.375 GM/50 ML PRE-DOCKED IV ONE (13:56)
[2017-01-16] MEDS ORDERED: PIPERACILLIN/TAZOB 3.375 GM 50 ML IVPB ONE (14:12)
--- NOTE | 2017-01-16 14:38 | EKG ---
Test Reason : Blood Pressure : / mmHG Vent. Rate : 094 BPM Atrial Rate : 094 BPM P-R Int : 134 ms QRS Dur : 124 ms QT Int : 382 ms P-R-T Axes : 042 -59 099 degrees QTc Int : 477 ms NORMAL SINUS RHYTHM LEFT AXIS DEVIATION LEFT BUNDLE BRANCH BLOCK ABNORMAL ECG WHEN COMPARED WITH ECG OF 29-NOV-2016 20:14, NO SIGNIFICANT CHANGE WAS FOUND Confirmed by SCOTT MORATAYA MD ([id number]) on 01/16/2017 2:38:10 PM Referred By: Confirmed By:SCOTT MORATAYA MD
[2017-01-16 15:44] LABS: PLATELET ESTIMATE ADEQUATE (NORMAL)
[2017-01-16] MEDS ORDERED: PANTOPRAZOLE SODIUM 100 ML IVPB ONE ×2 (17:46→17:52)
[2017-01-16] MEDS ORDERED: ACETAMINOPHEN 650 MG SUPP.RECT PR PRN (17:46)
[2017-01-16] MEDS ORDERED: ACETAMINOPHEN 325 MG TABLET (FP) PO PRN (17:46)
[2017-01-16] MEDS ORDERED: SODIUM CHLORIDE 0.45% 1,000 ML IV SCH ×2 (18:00→21:30)
--- NOTE | 2017-01-16 20:04 | CONSULT ---
Consult Consult Specialty:: Nephrology Reason for Consultation:: hypernatremia - History of Present Illness Chief Complaint: sent in for SOB and cough History of Present Illness: Pt is an 89 year old [place] resident who was sent in to the hospital for SOB and cough. She was found to be hypernatremic and I was called to evaluate her. She has history of dementia and is a poor historian. She denies fevers or chills. She says she has good appetite. She denies dysuria or hematuria. 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 Cardio/Vascular: Yes: HTN Gastrointestinal: Yes: Constipation - Alcohol/Substance Use Hx Alcohol Use: (unknown) - Smoking History Smoking history: Never smoked Aproximately how many cigarettes per day: 0 Home Medications - Allergies Allergies/Adverse Reactions: Allergies Allergy/AdvReac Type Severity Reaction Status Date / Time No Known Allergies Allergy Verified 01/16/17 12:16 - Home Medications Home Medications: Ambulatory Orders Acetazolamide [Diamox -] 250 mg PO BID 01/16/17 Amlodipine Besylate [Norvasc -] 10 mg PO DAILY 01/16/17 Ascorbate Calcium [Vitamin C] 500 mg PO DAILY 01/16/17 Atorvastatin Ca [Lipitor] 20 mg PO HS 01/16/17 Docusate Sodium 300 mg PO HS 01/16/17 Memantine HCl [Namenda -] 10 mg PO BID 01/16/17 Multivitamins [Tab-A-Vit -] 1 tab PO DAILY 01/16/17 Quetiapine Fumarate [Seroquel -] 50 mg PO HS 01/16/17 Sennosides [Senna] 8.6 mg PO BID 01/16/17 Family Disease History - Family Disease History Family History: Denies Review of Systems Findings/Remarks: Pt has dementia and is not reporting symptoms. - Review of Systems Constitutional: reports: No Symptoms Eyes: reports: No Symptoms HENT: reports: No Symptoms Neck: reports: No Symptoms Respiratory: reports: Cough Gastrointestinal: reports: No Symptoms Genitourinary: reports: No Symptoms Neurological: reports: No Symptoms Endocrine: reports: No Symptoms Hematology/Lymphatic: reports: No Symptoms Physical Exam Vital Signs: Vital Signs Temperature 98.7 F 01/16/17 14:02 Pulse Rate 80 01/16/17 19:21 Respiratory Rate 15 01/16/17 19:21 Blood Pressure 129/86 01/16/17 19:21 O2 Sat by Pulse Oximetry (%) 97 01/16/17 19:21 Constitutional: Yes: Calm Eyes: Yes: Conjunctiva Clear HENT: Yes: Atraumatic Cardiovascular: Yes: S1, S2 Respiratory: Yes: Cough, On Nasal O2, Rhonchi Gastrointestinal: Yes: Soft Renal/: Yes: WNL Edema: No Neurological: Yes: Confusion Labs: Laboratory Tests 01/16/17 01/16/17 01/16/17 12:46 12:46 12:46 WBC 10.4 H Hgb 11.4 D Plt Count 192 D Sodium 163 H* D Potassium 3.9 Chloride 127 H D Carbon Dioxide 29 Anion Gap 7 L BUN 35 H D Creatinine 0.9 D Lactic Acid Ammonia Urine Color Yellow Urine Appearance Clear Urine pH 5.0 Ur Specific [place] 1.015 Urine Protein Negative Urine Glucose (UA) Negative Urine Ketones Negative Urine Blood Negative Urine Nitrite Negative Urine Bilirubin Negative Urine Urobilinogen Negative Ur Leukocyte Esterase Negative 01/16/17 01/16/17 01/16/17 12:46 15:11 15:11 WBC Hgb Plt Count Sodium Potassium Chloride Carbon Dioxide Anion Gap BUN Creatinine Lactic Acid 2.1 H* 1.9 Ammonia 16.71 Urine Color Urine Appearance Urine pH Ur Specific [place] Urine Protein Urine Glucose (UA) Urine Ketones Urine Blood Urine Nitrite Urine Bilirubin Urine Urobilinogen Ur Leukocyte Esterase Imaging - Results Chest X-ray: Report Reviewed Problem List - Problems (1) Hypernatremia Code(s): E87.0 - HYPEROSMOLALITY AND HYPERNATREMIA (2) Dementia Code(s): F03.90 - UNSPECIFIED DEMENTIA WITHOUT BEHAVIORAL DISTURBANCE (3) Hypertension Code(s): I10 - ESSENTIAL (PRIMARY) HYPERTENSION Assessment/Plan Current Medications Generic Name Dose Route Start Last Admin Trade Name Freq PRN Reason Stop Dose Admin Acetaminophen 650 mg 01/16/17 17:46 Tylenol - PO Q6H PRN FEVER OR PAIN Acetaminophen 650 mg 01/16/17 17:46 Tylenol Suppository - [place] Q6H PRN FEVER OR PAIN Dextrose 1,000 mls @ 100 mls/hr 01/16/17 20:15 01/16/17 20:48 D5w - IV 100 mls/hr ASDIR ROSA Administration Vancomycin HCl 1,250 mg/ 250 mls @ 166.667 mls/hr 01/16/17 21:00 Dextrose IVPB DAILY@2100 [facility] [place] Protocol Quetiapine Fumarate 50 mg 01/16/17 22:00 Seroquel - PO HS [facility] Impression 1. Hypernatremia 2. dementia 3. HTN 4. sepsis 5. PNA Plan - agree with hypotonic fluids - abx per ID - follow cultures - monitor pulse ox - based on the weight of 120 pounds, she has a total free water deficit of about 4.47 Liters - monitor volume status - will follow Dr Rodriguez
--- NOTE | 2017-01-16 20:07 | CONSULT ---
Consult Consult Specialty:: infectious diseases Referred by:: Reason for Consultation:: sepsis,ams - History of Present Illness History of Present Illness: Pt is an 89 year old [place] resident who was sent in to the hospital for SOB and cough. according to the notes patient was having a change in mental status and resp distress and was send to the hospital in the ER patient was found to be hypoxic patient is currently awake and on nasal canula and feels much better and is talking relevantly - History Source History Provided By: Medical Record Limitations to Obtaining History: Clinical Condition - Alcohol/Substance Use Hx Alcohol Use: (unknown) - Smoking History Smoking history: Never smoked Aproximately how many cigarettes per day: 0 Home Medications - Allergies Allergies/Adverse Reactions: Allergies Allergy/AdvReac Type Severity Reaction Status Date / Time No Known Allergies Allergy Verified 01/16/17 12:16 - Home Medications Home Medications: Ambulatory Orders Acetazolamide [Diamox -] 250 mg PO BID 01/16/17 Amlodipine Besylate [Norvasc -] 10 mg PO DAILY 01/16/17 Ascorbate Calcium [Vitamin C] 500 mg PO DAILY 01/16/17 Atorvastatin Ca [Lipitor] 20 mg PO HS 01/16/17 Docusate Sodium 300 mg PO HS 01/16/17 Memantine HCl [Namenda -] 10 mg PO BID 01/16/17 Multivitamins [Tab-A-Vit -] 1 tab PO DAILY 01/16/17 Quetiapine Fumarate [Seroquel -] 50 mg PO HS 01/16/17 Sennosides [Senna] 8.6 mg PO BID 01/16/17 Review of Systems - Review of Systems Constitutional: reports: No Symptoms Eyes: reports: No Symptoms HENT: reports: No Symptoms Neck: reports: No Symptoms Cardiovascular: reports: No Symptoms Respiratory: reports: Other (hypoxia) Gastrointestinal: reports: No Symptoms Genitourinary: reports: No Symptoms Musculoskeletal: reports: No Symptoms Integumentary: reports: No Symptoms Neurological: reports: Confusion Endocrine: reports: No Symptoms Hematology/Lymphatic: reports: No Symptoms Psychiatric: reports: No Symptoms Physical Exam Vital Signs: Vital Signs Temperature 98.7 F 01/16/17 14:02 Pulse Rate 80 01/16/17 19:21 Respiratory Rate 15 01/16/17 19:21 Blood Pressure 129/86 01/16/17 19:21 O2 Sat by Pulse Oximetry (%) 97 01/16/17 19:21 Constitutional: Yes: Calm, Other Eyes: Yes: Conjunctiva Clear Neck: Yes: Supple Cardiovascular: Yes: Regular Rate and Rhythm Respiratory: Yes: On Nasal O2, Poor Air Entry (at the bases) Gastrointestinal: Yes: Normal Bowel Sounds, Soft Musculoskeletal: Yes: Other Extremities: Yes: Other Neurological: Yes: Alert Psychiatric: Yes: Alert Imaging - Results Chest X-ray: Report Reviewed, Image Reviewed Assessment/Plan Problem List - Problems (1) Fever Code(s): R50.9 - FEVER, UNSPECIFIED (2) Hypertension Code(s): I10 - ESSENTIAL (PRIMARY) HYPERTENSION (3) Hypernatremia Code(s): E87.0 - HYPEROSMOLALITY AND HYPERNATREMIA 4--sepsis 5 dehydration 6 r/ uti plan will start patient on broad coverage await for all cx reports to be back rest as per priamry team hydration
[2017-01-16] MEDS ORDERED: DEXTROSE 5%-WATER - 1,000 ML IV SCH (20:15)
[2017-01-16] MEDS ORDERED: VANCOMYCIN 1,250 MG in DEXTROSE 5%-WATER - 250 ML IVPB SCH (21:00)
--- NOTE | 2017-01-16 22:22 | HP ---
Admitting History and Physical - Primary Care Physician PCP: Hansa Peterson - Admission Chief Complaint: SEPSIS/METABOLIC ENCEPHALOPATHY History of Present Illness: SENT FROM [facility] FOR ALETERED MENTAL STATUS, SEPSIS, POOR APPETITE, AND HYPOTENSION The patient is a 89 year old female with a past medical history of Alzheimer's disease, BIBA to the emergency department today with of breath and cough. The rest of the HPI is limited due to the patients clinical condition. The patient denies chest pain The patient denies fever, chills, and sweats. The patient denies nausea, vomiting, and diarrhea. 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 Cardiovascular: Yes: HTN Gastrointestinal: Yes: Constipation - Smoking History Smoking history: Never smoked Aproximately how many cigarettes per day: 0 - Alcohol/Substance Use Hx Alcohol Use: (unknown) Home Medications - Allergies Allergies/Adverse Reactions: Allergies Allergy/AdvReac Type Severity Reaction Status Date / Time No Known Allergies Allergy Verified 01/16/17 12:16 - Home Medications Home Medications: Ambulatory Orders Acetazolamide [Diamox -] 250 mg PO BID 01/16/17 Amlodipine Besylate [Norvasc -] 10 mg PO DAILY 01/16/17 Ascorbate Calcium [Vitamin C] 500 mg PO DAILY 01/16/17 Atorvastatin Ca [Lipitor] 20 mg PO HS 01/16/17 Docusate Sodium 300 mg PO HS 01/16/17 Memantine HCl [Namenda -] 10 mg PO BID 01/16/17 Multivitamins [Tab-A-Vit -] 1 tab PO DAILY 01/16/17 Quetiapine Fumarate [Seroquel -] 50 mg PO HS 01/16/17 Sennosides [Senna] 8.6 mg PO BID 01/16/17 Review of Systems - Review of Systems Constitutional: reports: Lethargy, Loss of Appetite, Malaise Eyes: reports: No Symptoms HENT: reports: No Symptoms Neck: reports: No Symptoms Cardiovascular: reports: No Symptoms Respiratory: reports: No Symptoms Gastrointestinal: reports: No Symptoms Genitourinary: reports: Incontinence Musculoskeletal: reports: Muscle Weakness Integumentary: reports: Other Neurological: reports: No Symptoms, Pre-Existing Deficit, Weakness Hematology/Lymphatic: reports: No Symptoms Psychiatric: reports: Other Physical Examination Vital Signs: Vital Signs Temperature 97.8 F 01/16/17 14:34 Pulse Rate 80 01/16/17 19:21 Respiratory Rate 15 01/16/17 19:21 Blood Pressure 129/86 01/16/17 19:21 O2 Sat by Pulse Oximetry (%) 97 01/16/17 19:21 Constitutional: Yes: Moderate Distress Eyes: Yes: WNL HENT: Yes: WNL Neck: Yes: WNL Cardiovascular: Yes: WNL Respiratory: Yes: WNL Gastrointestinal: Yes: WNL Musculoskeletal: Yes: Muscle Weakness Extremities: Yes: WNL Edema: No Peripheral Pulses WNL: Yes Integumentary: Yes: WNL Wound/Incision: Yes: Clean/Dry Neurological: Yes: Confusion, Loss of Sensation, Paresthesia, Pre-Existing Deficit, Unsteady Gait, Weakness ...Motor Strength: LLE, RLE Problem List - Problems (1) Fever Code(s): R50.9 - FEVER, UNSPECIFIED (2) Hypertension Code(s): I10 - ESSENTIAL (PRIMARY) HYPERTENSION (3) Hypernatremia Code(s): E87.0 - HYPEROSMOLALITY AND HYPERNATREMIA (4) Bacteremia Code(s): R78.81 - BACTEREMIA Assessment/Plan NEURO EVAL NEPHROLOGY ID CONSULTS ORDERED CHECK LABS FALL AND SEIZURE PRECAUTION IV ABX UTI LIKELY R/O SEPSIS
[2017-01-16] MEDS: QUEtiapine FUMARATE 50 MG TABLET PO SCH (22:48)
[2017-01-17 07:36] LABS: MCH 27.1 pg (25.7-33.7); MCHC 31.2 g/dl (32.0-36.0); MEAN CELL VOLUME 86.6 fl (80-96); MEAN PLT VOLUME 8.4 fl (7.5-11.1); PLATELET COUNT 142 K/MM3 (134-434); RDW 19.5 % (11.6-15.6); WHITE BLOOD COUNT 8.3 K/mm3 (4.0-10.0)
[2017-01-17 08:36] LABS: ANION GAP 6 (8-16); CALCIUM 7.1 mg/dL (8.5-10.1); CO2 25 mmol/L (21-32); CREATININE 0.6 mg/dL (0.55-1.02); GLUCOSE,RANDOM 115 mg/dL (74-106); THYROID STIMULATING HORMONE 2.03 uIU/ml (0.358-3.74)
--- NOTE | 2017-01-17 09:07 | PN ---
Progress Note, Physician Chief Complaint: AWAKE MORE ALERT TODAY DENIES CP/ ++SOB ON 02 2L MADE AWARE BY NURSE PATIENT WITH STAGE 3-4 DECUBITI ULCERS ON BACK SIDE. - Current Medication List Current Medications: Active Medications Acetaminophen (Tylenol -) 650 mg PO Q6H PRN PRN Reason: FEVER OR PAIN Acetaminophen (Tylenol Suppository -) 650 mg [place] Q6H PRN PRN Reason: FEVER OR PAIN Collagenase (Santyl -) 1 applic TP DAILY [facility] Vancomycin HCl 1,250 mg/ (Dextrose) 250 mls @ 166.667 mls/hr IVPB DAILY@2100 ROSA PRN Reason: Protocol Last Admin: 01/16/17 22:49 Dose: 166.667 mls/hr Sodium Chloride (1/2 Normal Saline) 1,000 mls @ 65 mls/hr IV ASDIR [facility] Last Admin: 01/16/17 22:48 Dose: 65 mls/hr Quetiapine Fumarate (Seroquel -) 50 mg PO HS [facility] Last Admin: 01/16/17 22:48 Dose: 50 mg - Objective Vital Signs: Vital Signs Temperature 98.8 F 01/17/17 06:00 Pulse Rate 113 H 01/17/17 06:00 Respiratory Rate 20 01/17/17 06:00 Blood Pressure 119/42 01/17/17 06:00 O2 Sat by Pulse Oximetry (%) 97 01/16/17 21:00 Constitutional: Yes: No Distress Eyes: Yes: WNL HENT: Yes: WNL Neck: Yes: WNL Cardiovascular: Yes: WNL Respiratory: Yes: WNL Gastrointestinal: Yes: WNL Genitourinary: Yes: Incontinence Musculoskeletal: Yes: Muscle Weakness Extremities: Yes: WNL Edema: No Peripheral Pulses WNL: Yes Integumentary: Yes: WNL Wound/Incision: Yes: Clean/Dry Neurological: Yes: Pre-Existing Deficit, Weakness ...Motor Strength: LLE, RLE Psychiatric: Yes: Other Labs: CBC, BMP 01/17/17 06:30 INR, PTT INR 1.21 (0.82-1.09) H 01/16/17 12:46 Problem List - Problems (1) Fever Code(s): R50.9 - FEVER, UNSPECIFIED (2) Hypertension Code(s): I10 - ESSENTIAL (PRIMARY) HYPERTENSION (3) Hypernatremia Code(s): E87.0 - HYPEROSMOLALITY AND HYPERNATREMIA (4) Bacteremia Code(s): R78.81 - BACTEREMIA (5) Respiratory distress, acute Code(s): R06.00 - DYSPNEA, UNSPECIFIED Assessment/Plan IV ABX 02 SUPPORT PULM EVAL VASC SX FOR ULCER CARE/TX NEBS
[2017-01-17] MEDS ORDERED: ALBUTEROL SO4 2.5/IPRATROPIUM 0.5 INH SOL 3 ML VIAL.NEB. NEB PRN (09:08)
--- NOTE | 2017-01-17 10:51 | CONSULT ---
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 Cardio/Vascular: Yes: HTN Gastrointestinal: Yes: Constipation - Alcohol/Substance Use Hx Alcohol Use: (unknown) - Smoking History Smoking history: Never smoked Aproximately how many cigarettes per day: 0 Home Medications - Allergies Allergies/Adverse Reactions: Allergies Allergy/AdvReac Type Severity Reaction Status Date / Time No Known Allergies Allergy Verified 01/16/17 12:16 - Home Medications Home Medications: Ambulatory Orders Acetazolamide [Diamox -] 250 mg PO BID 01/16/17 Amlodipine Besylate [Norvasc -] 10 mg PO DAILY 01/16/17 Ascorbate Calcium [Vitamin C] 500 mg PO DAILY 01/16/17 Atorvastatin Ca [Lipitor] 20 mg PO HS 01/16/17 Docusate Sodium 300 mg PO HS 01/16/17 Memantine HCl [Namenda -] 10 mg PO BID 01/16/17 Multivitamins [Tab-A-Vit -] 1 tab PO DAILY 01/16/17 Quetiapine Fumarate [Seroquel -] 50 mg PO HS 01/16/17 Sennosides [Senna] 8.6 mg PO BID 01/16/17 Physical Exam Vital Signs: Vital Signs Temperature 98.8 F 01/17/17 06:00 Pulse Rate 113 H 01/17/17 06:00 Respiratory Rate 20 01/17/17 06:00 Blood Pressure 119/42 01/17/17 06:00 O2 Sat by Pulse Oximetry (%) 97 01/16/17 21:00 Labs: CBC, BMP 01/17/17 06:30 01/17/17 06:30 Assessment/Plan VAscular Surgery The patient is a 89 year old female with a past medical history of Alzheimer's disease, BIBA to the emergency department today with of breath and cough. The rest of the HPI is limited due to the patients clinical condition. The patient denies chest pain The patient denies fever, chills, and sweats. The patient denies nausea, vomiting, and diarrhea. PCP: Dr. Todd [phone] PAST MEDICAL HISTORY: Alzheimers PAST SURGICAL HISTORY: Noncontributory FAMILY HISTORY: Noncontributory SOCIAL HISTORY: Noncontributory ALLERGIES: NKDA MEDICATIONS: Reviewed PE Head - NC/AT Lung - CTA Heart - RRR abd - soft,nt/nd sacrum -- stage 4 ulcer down to coccyx. Coccyx is exposed. A/P STage 4 sacral ulcer with coccyx exposed. Saline moist dressings daily. offload. Abraham Parra dO
--- NOTE | 2017-01-17 11:19 | CONSULT ---
Admitting History and Physical - Primary Care Physician PCP: Hansa Peterson - Admission History of Present Illness: 89 year old female [facility] resident with a PMH of Alzheimer's disease, admitted with SOB/cough. 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 This is my first consult with this pt. History Source: Medical Record Limitations to Obtaining History: Dementia - Past Medical History [employer]AN: Yes: Dementia Cardiovascular: Yes: HTN Gastrointestinal: Yes: Constipation - Smoking History Smoking history: Never smoked Aproximately how many cigarettes per day: 0 - Alcohol/Substance Use Hx Alcohol Use: (unknown) History - Admission Reason For Visit: HYPERNATREMIA,SEPSIS - Diagnostics X-ray: Report Reviewed - General Mental Status: Awake and Alert Attention: Intact Ability to Follow Directions: Poor (Suspect ANIAK.Pt does not follow verbal commands consistently but seems to follow gesture.) Head/Neck Control: Fair - Hearing Hearing: Impaired (suspected) Speech Evaluation - Communication Primary Language: TAMAZIGHT Communication: Yes: Simple Responses ("Thank you") - Speech Production Intelligibility: Yes: Mildly Impaired - Speech Characteristics Voice Loudness: Normal Voice Pitch: Yes: Mildly High Voice Phonatory-based Quality: Yes: Normal, Vocal Wetness (mild. cough,audible upper airway congestion) Speech Clarity: < 100% Nasal Resonance: Normal Articulation: Yes: Precise - Language/Auditory Comprehension Observation: Able to respond to yes/no queries: Yes (occasional), Comprehends Conversational Speech: Yes (simple occas), Benefits from Increased Volume of Speech: Yes - Swallow Evaluation/Bedside Assessment Current Nutritional Intake: Dysphagia Minced, Honey Textured Liquids Oral Secretions: Yes: WFL (cough,audible upper airway congestion) Dentition: Yes: Edentulous Facial Symmetry at Rest: Symmetrical Facial Symmetry on Retraction: Symmetrical Against Resistance Opening: Normal Against Resistance Closing: Normal Pucker Lips: Normal Smile: Normal Lingual Movement: Normal, Symmetric Lingual Speed of Movement: Normal Lingual Movement Strgth Against Opposition: Normal Lingual Movement Characteristics: Normal Velopharyngeal Movement: Normal Laryngeal Movement: Labored,delay initiation Oral Prep Time: WFL A-P Transit: WFL Pocketing: None Timing of Swallow: Delayed Coughing/Throat Clear: Yes (without po intake) Recommendations - Speech Evaluation, Impression/Plan Impression: Pt has a cough with audible upper airway congestion. h/o impaired PO acceptance at NH and for breakfast today. Accepted puree/nectar readily for me, repeating "oh, thank you!". Swallow is delayed in onset but quite brisk. Intermittent wet vocal quality. Decubitis. Suspect in need of protein for healing decubitus. - Dysphagia Impressions/Plan Dysphagia Impressions: Mild Impairment, Risk of Aspiration *Silent aspiration: cannot be R/O at bedside Recommendations: Modified Barium Swallow, Other (RD consult/calorie count/ increased protein/supplements?) - Recommendations Diet Consistency: Dysphagia Pureed Medication Administration: Crushed with applesauce Liquids: [place] Thick Supplement: Magic Cup, Other (Ensure compact)
[2017-01-17] MEDS: COLLAGENASE CLOSTRIDIUM HIST. 30 GRAMS TUBE TP SCH (11:36)
--- NOTE | 2017-01-17 13:30 | PN ---
Progress Note, Physician History of Present Illness: Pt seen and examined at bedside. She is more awake and alert today. She denies shortness of breath. - Current Medication List Current Medications: Active Medications Acetaminophen (Tylenol -) 650 mg PO Q6H PRN PRN Reason: FEVER OR PAIN Acetaminophen (Tylenol Suppository -) 650 mg [place] Q6H PRN PRN Reason: FEVER OR PAIN Albuterol/Ipratropium (Duoneb -) 1 amp NEB Q6H PRN PRN Reason: SHORTNESS OF BREATH Last Admin: 01/17/17 12:38 Dose: 1 amp Collagenase (Santyl -) 1 applic TP DAILY [facility] Last Admin: 01/17/17 11:36 Dose: Not Given Vancomycin HCl 1,250 mg/ (Dextrose) 250 mls @ 166.667 mls/hr IVPB DAILY@2100 [facility] PRN Reason: Protocol Last Admin: 01/16/17 22:49 Dose: 166.667 mls/hr Sodium Chloride (1/2 Normal Saline) 1,000 mls @ 65 mls/hr IV ASDIR [facility] Last Admin: 01/16/17 22:48 Dose: 65 mls/hr Quetiapine Fumarate (Seroquel -) 50 mg PO HS [facility] Last Admin: 01/16/17 22:48 Dose: 50 mg - Objective Vital Signs: Vital Signs Temperature 98.8 F 01/17/17 06:00 Pulse Rate 113 H 01/17/17 06:00 Respiratory Rate 20 01/17/17 06:00 Blood Pressure 119/42 01/17/17 06:00 O2 Sat by Pulse Oximetry (%) 97 01/16/17 21:00 Constitutional: Yes: Calm Eyes: Yes: Conjunctiva Clear HENT: Yes: Atraumatic Neck: Yes: Supple Cardiovascular: Yes: S1, S2 Respiratory: Yes: CTA Bilaterally, On Nasal O2 Gastrointestinal: Yes: Soft Musculoskeletal: Yes: WNL Edema: No Neurological: Yes: Confusion Labs: CBC, BMP 01/17/17 06:30 01/17/17 06:30 INR, PTT INR 1.21 (0.82-1.09) H 01/16/17 12:46 Problem List - Problems (1) Hypernatremia Code(s): E87.0 - HYPEROSMOLALITY AND HYPERNATREMIA (2) Dementia Code(s): F03.90 - UNSPECIFIED DEMENTIA WITHOUT BEHAVIORAL DISTURBANCE (3) Hypertension Code(s): I10 - ESSENTIAL (PRIMARY) HYPERTENSION Assessment/Plan Current Medications Generic Name Dose Route Start Last Admin Trade Name Freq PRN Reason Stop Dose Admin Acetaminophen 650 mg 01/16/17 17:46 Tylenol - PO Q6H PRN FEVER OR PAIN Acetaminophen 650 mg 01/16/17 17:46 Tylenol Suppository - NM Q6H PRN FEVER OR PAIN Albuterol/Ipratropium 1 amp 01/17/17 09:08 01/17/17 12:38 Duoneb - NEB 1 amp Q6H PRN Administration SHORTNESS OF BREATH Collagenase 1 applic 01/17/17 10:00 01/17/17 11:36 Santyl - TP Not Given DAILY [facility] Vancomycin HCl 1,250 mg/ 250 mls @ 166.667 mls/hr 01/16/17 21:00 01/16/17 22:49 Dextrose IVPB 166.667 mls/hr DAILY@2100 [facility] Administration Protocol Sodium Chloride 1,000 mls @ 65 mls/hr 01/16/17 21:30 01/16/17 22:48 1/2 Normal Saline IV 65 mls/hr ASDIR ROSA Administration Quetiapine Fumarate 50 mg 01/16/17 22:00 01/16/17 22:48 Seroquel - PO 50 mg HS [facility]A Administration Impression 1. Hypernatremia 2. dementia 3. HTN 4. sepsis 5. PNA 6. hypokalemia Plan - will continue with fluids - sodium is impoving - will replace potassium - check mag level - abx per ID - monitor volume status - will follow Dr Rodriguez
--- NOTE | 2017-01-17 13:49 | PN ---
Progress Note (short form) - Note Progress Note: PULMONARY CONSULTATION DICTATED 01/17/17 IMP ACUTE HYPOXEMIC/HYPERCAPNEIC RESPIRATORY FAILURE ASPIRATION HYPERNATREMIA HTN ELEVATED LACTATE LEVEL DEMENTIA SACRAL DECUBITUS PARKINSONS PLAN IV ANTIBIOTICS PER ID INHALED BRONCHODILATORS IVF O2 CULTURES ASPIRATION PRECAUTIONS ABG MONITOR LYTES.NA,RENAL FUNCTION TREND LACTATE DR GARG Problem List - Problems (1) Fever Code(s): R50.9 - FEVER, UNSPECIFIED (2) Hypernatremia Code(s): E87.0 - HYPEROSMOLALITY AND HYPERNATREMIA (3) Hypertension Code(s): I10 - ESSENTIAL (PRIMARY) HYPERTENSION (4) Respiratory distress, acute Code(s): R06.00 - DYSPNEA, UNSPECIFIED (5) Decubitus skin ulcer Code(s): L89.90 - PRESSURE ULCER OF UNSPECIFIED SITE, UNSPECIFIED STAGE (6) Alzheimer disease Code(s): G30.9 - ALZHEIMER'S DISEASE, UNSPECIFIED (7) Dementia Code(s): F03.90 - UNSPECIFIED DEMENTIA WITHOUT BEHAVIORAL DISTURBANCE (8) Parkinson disease Code(s): G20 - PARKINSON'S DISEASE (9) Acute respiratory failure with hypoxia and hypercarbia Code(s): J96.01 - ACUTE RESPIRATORY FAILURE WITH HYPOXIA J96.02 - ACUTE RESPIRATORY FAILURE WITH HYPERCAPNIA (10) Elevated lactic acid level Code(s): R79.89 - OTHER SPECIFIED ABNORMAL FINDINGS OF BLOOD CHEMISTRY
[2017-01-17 14:50] LABS: ARTERIAL BLD GAS O2 SATURATION 87.2 % (90-98.9); ARTERIAL BLOOD GAS BASE EXCESS -3.2 meq/l (-2-2); ARTERIAL BLOOD GAS HCO3 20.8 meq/L (22-26)
[2017-01-17 14:58] LABS: ALLENS TEST POSITIVE; ART PUNCT SITE RIGHT RADIAL; ARTERIAL BLOOD GAS pH 7.39 (7.35-7.45); LPM/O2% 3; PT. ON O2? YES; TYPE OF O2 N/C
[2017-01-17 14:59] LABS: ARTERIAL BLOOD GAS PO2 53.7 mmHg (68-100)
[2017-01-17] MEDS ORDERED: POTASSIUM CHLORIDE TABS 20 MEQ TABLET.ER (FP) PO ONE (15:00)
--- NOTE | 2017-01-17 15:03 | CONS ---
PULMONARY CONSULTATION DATE OF CONSULTATION: 01/17/2017 REFERRING PHYSICIAN: Hansa Peterson MD History is obtained from chart. The patient is a poor historian apparently. The patient is an 89-year-old white female with a past medical history of Alzheimer disease, hypercholesterolemia, likely hypertension, also Parkinson's, ASHD, brought in by ambulance secondary to increasing shortness of breath and chest congestion. The patient was admitted with the above. On admission, she was noted to be hypoxemic with O2 saturations in the 80s. She had a venous blood gas which revealed evidence of acute hypercapnia with a pH of 7.31 and a PCO2 of 53. She was transferred up to the medical floor for further management. She was placed on vancomycin by ID for possible sepsis, most likely of decubitus origin. She was also noted to be hypernatremic with a serum sodium of 163. She was placed on IV fluids by renal consultation. PAST MEDICAL HISTORY: Again includes hypertension, dementia, ASHD. CURRENT MEDICATIONS: Include Tylenol, vancomycin, Seroquel, DuoNeb, KCl, Santyl. REVIEW OF SYSTEMS: Unable to obtain. The patient is a poor historian. PHYSICAL EXAMINATION: General: The patient is an elderly white female, thin, well developed, awake, confused, in no acute distress. Vital signs: She is currently afebrile. Blood pressure is 119/42, respiratory rate is 20, O2 saturation is 97% on 4 L nasal cannula. HEENT: Exam is normocephalic, atraumatic. Neck: Supple. Heart: Regular S1 and S2. Chest: Scattered bilateral rhonchi. Abdomen: Soft. Bowel sounds are present. Extremities: No cyanosis or edema. LABORATORIES: Most recent chemistry: Serum sodium is 155, potassium 3.3, chloride is 124, BUN is 23, creatinine 0.6, lactate level is 2.1. Venous blood gas: PH of 7.31, PCO2 of 53, a PO2 of 24, bicarbonate of 26. WBC is 8.3, hemoglobin 9.6, hematocrit 30.7, and a platelet count of 142,000. Chest x-ray had mild congestion. IMPRESSION: 1. Acute hypoxemic, hypercapnic respiratory failure. Likely possible secondary to aspiration pneumonia. 2. Severe hypernatremia. 3. Sacral decubitus. 4. Hypertension. 5. Dementia. PLAN: Broad-spectrum antibiotics to cover wound infection as well as possible aspiration. Inhaled bronchodilators. Supplemental O2. Check arterial blood gas. Monitor serum sodium level. Trend lactate. Followup chest x-ray. Aspiration precautions. Swallow evaluation when the patient's mental status improves. Also, consider a short course of 24 hours of IV steroids. MALISSA GARG M.D. ROBBIN/[id number]
--- NOTE | 2017-01-17 17:23 | PN ---
Progress Note, Physician History of Present Illness: patient much more awke and alert no issues says feeling much better - Current Medication List Current Medications: Active Medications Acetaminophen (Tylenol -) 650 mg PO Q6H PRN PRN Reason: FEVER OR PAIN Acetaminophen (Tylenol Suppository -) 650 mg NE Q6H PRN PRN Reason: FEVER OR PAIN Albuterol/Ipratropium (Duoneb -) 1 amp NEB QIDR [facility] Collagenase (Santyl -) 1 applic TP DAILY [facility] Last Admin: 01/17/17 11:36 Dose: Not Given Vancomycin HCl 1,250 mg/ (Dextrose) 250 mls @ 166.667 mls/hr IVPB DAILY@2100 [facility] PRN Reason: Protocol Last Admin: 01/16/17 22:49 Dose: 166.667 mls/hr Potassium Chloride 10 meq/ (Dextrose) 1,005 mls @ 60 mls/hr IVPB Q16H [facility] Quetiapine Fumarate (Seroquel -) 50 mg PO HS [facility] Last Admin: 01/16/17 22:48 Dose: 50 mg - Objective Vital Signs: Vital Signs Temperature 97.5 F L 01/17/17 14:31 Pulse Rate 59 L 01/17/17 16:33 Respiratory Rate 22 01/17/17 14:31 Blood Pressure 100/59 01/17/17 14:31 O2 Sat by Pulse Oximetry (%) 93 L 01/17/17 16:33 Constitutional: Yes: No Distress, Calm Cardiovascular: Yes: Regular Rate and Rhythm Respiratory: Yes: Regular, On Nasal O2 Gastrointestinal: Yes: Normal Bowel Sounds, Soft ...Rectal Exam: Yes: Other Musculoskeletal: Yes: Other Wound/Incision: Yes: Other (patients wound seen has sacral ulcer going to the bone) Neurological: Yes: Alert Psychiatric: Yes: Alert Labs: CBC, BMP 01/17/17 06:30 01/17/17 06:30 INR, PTT INR 1.21 (0.82-1.09) H 01/16/17 12:46 Assessment/Plan Problem List - Problems (1) Fever Code(s): R50.9 - FEVER, UNSPECIFIED (2) Hypertension Code(s): I10 - ESSENTIAL (PRIMARY) HYPERTENSION (3) Hypernatremia Code(s): E87.0 - HYPEROSMOLALITY AND HYPERNATREMIA 4--sepsis 5 dehydration 6 r/ uti 7 osteo of the sacral bone plan wound care /vacular seeing the patient fever could have come from the decubitus currently patient stable bld cx report noted urine pending will continue zosyn will stop vanco
[2017-01-17] MEDS: PIPERACILLIN/TAZOB 3.375 GM 50 ML IVPB SCH (17:33)
[2017-01-17] MEDS: POTASSIUM CHLORIDE 10 MEQ in DEXTROSE 5%-WATER - 1,000 ML IVPB SCH (17:37)
[2017-01-17] MEDS: ALBUTEROL SO4 2.5/IPRATROPIUM 0.5 INH SOL 3 ML VIAL.NEB. NEB SCH (18:00)
--- NOTE | 2017-01-17 18:12 | CON.NEURO ---
Consult Consult Specialty:: neurology - History of Present Illness History of Present Illness: The patient is a 89 year old female with a past medical history of Alzheimer's disease, parkinsons (listed in chart) BIBA to the ER with of breath and cough. noted to have ALETERED MENTAL STATUS, SEPSIS, POOR APPETITE, AND HYPOTENSION Dx with sepsis, and scral decubiit, and called for change in MS/hypernatremia. started on ABX and hydration. pt feels much better today, able to vocalize and converse. no LOYOLA, no focal weakness. 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 Cardio/Vascular: Yes: HTN Gastrointestinal: Yes: Constipation - Alcohol/Substance Use Hx Alcohol Use: (unknown) - Smoking History Smoking history: Never smoked Aproximately how many cigarettes per day: 0 Home Medications - Allergies Allergies/Adverse Reactions: Allergies Allergy/AdvReac Type Severity Reaction Status Date / Time No Known Allergies Allergy Verified 01/16/17 12:16 - Home Medications Home Medications: Ambulatory Orders Acetazolamide [Diamox -] 250 mg PO BID 01/16/17 Amlodipine Besylate [Norvasc -] 10 mg PO DAILY 01/16/17 Ascorbate Calcium [Vitamin C] 500 mg PO DAILY 01/16/17 Atorvastatin Ca [Lipitor] 20 mg PO HS 01/16/17 Docusate Sodium 300 mg PO HS 01/16/17 Memantine HCl [Namenda -] 10 mg PO BID 01/16/17 Multivitamins [Tab-A-Vit -] 1 tab PO DAILY 01/16/17 Quetiapine Fumarate [Seroquel -] 50 mg PO HS 01/16/17 Sennosides [Senna] 8.6 mg PO BID 01/16/17 Physical Exam-Neuro Vital Signs: Vital Signs Temperature 97.5 F L 01/17/17 14:31 Pulse Rate 59 L 01/17/17 16:33 Respiratory Rate 22 01/17/17 14:31 Blood Pressure 100/59 01/17/17 14:31 O2 Sat by Pulse Oximetry (%) 93 L 01/17/17 16:33 Constitutional: Yes: Well Nourished Neck: Yes: Supple Labs: CBC, BMP 01/17/17 06:30 01/17/17 06:30 INR, PTT INR 1.21 (0.82-1.09) H 01/16/17 12:46 - Neuro Exam Level Of Consciousness: Yes: Alert, Oriented to Person (not age, year though she knows she is in [facility] , 5 th floor; follows basic requests, EOMI, no facial, motor UE appaers 5/5, no drift, +coghwheeling, + tremor resting, LE limited movements --but does not want to cooperate, plantars upgoing L ) NIH Stroke Scale - Total Score NIH Stroke Scale Score: 0 Imaging - Results X-ray: Report Reviewed Problem List - Problems (1) Sepsis Code(s): A41.9 - SEPSIS, UNSPECIFIED ORGANISM (2) Dementia Code(s): F03.90 - UNSPECIFIED DEMENTIA WITHOUT BEHAVIORAL DISTURBANCE (3) Parkinson disease Code(s): G20 - PARKINSON'S DISEASE (4) Encephalopathy acute Code(s): G93.40 - ENCEPHALOPATHY, UNSPECIFIED Assessment/Plan 89 year old female with a past medical history of Alzheimer's disease, parkinsons (listed in chart) BIBA to the ER with of breath and cough. noted to have ALTERED MENTAL STATUS, SEPSIS, POOR APPETITE, AND HYPOTENSION Dx with sepsis, and sacral decubiti, and called for change in MS/hypernatremia. mod to severe DEMENTIA with transient encephalopathy from infection, dehydration /hypernatremia -- doing better with fluids and ABX. appaers to be close to baseline FU NA , slow correction , ID FU ; no signs of stroke, meningitis etc Parkinsons-- does not appear to be on meds (on seroquel which in theory can make tremor worse) , could start SINEMET 25/100 TID, though will wait for BP to improve before starting ; spoke to daughter, MAICO (she last saw her 5 yrs ago, was unaware of dx of PArkinsons and states if she is not bothered by these sx, would not treat--so will defer for now) Dr Ryder [phone]
[2017-01-17] MEDS: QUEtiapine FUMARATE 50 MG TABLET PO SCH (22:11)
[2017-01-18] MEDS: ALBUTEROL SO4 2.5/IPRATROPIUM 0.5 INH SOL 3 ML VIAL.NEB. NEB SCH ×5 (00:10→23:30)
[2017-01-18] MEDS: PIPERACILLIN/TAZOB 3.375 GM 50 ML IVPB SCH ×3 (01:18→17:32)
[2017-01-18] MEDS: POTASSIUM CHLORIDE 10 MEQ in DEXTROSE 5%-WATER - 1,000 ML IVPB SCH (06:55)
[2017-01-18 08:41] LABS: ALBUMIN 1.7 g/dl (3.4-5.0); ANION GAP 7 (8-16); BILIRUBIN,TOTAL 0.4 mg/dL (0.2-1.0); CO2 25 mmol/L (21-32); CREATININE 0.8 mg/dL (0.55-1.02); GLUCOSE,RANDOM 223 mg/dL (74-106); SGOT/AST 25 U/L (15-37); SGPT/ALT 40 U/L (12-78); TOT PROT 5.4 g/dl (6.4-8.2)
[2017-01-18 08:42] LABS: ALK PHOS 138 U/L (45-117)
--- NOTE | 2017-01-18 11:13 | PN ---
Progress Note (short form) - Note Progress Note: PULMONARY Somnolent but arousable. No fevers recorded. On 40% ventimask. Last Vital Signs Temp Pulse Resp BP Pulse Ox 98.5 F 93 H 20 135/76 92 L 01/18/17 06:30 01/18/17 06:30 01/18/17 06:30 01/18/17 06:30 01/17/17 21:00 Gen: somnolent, breathing nonlabored Heart: RRR Lung: scattered rhonchi Abd: soft, nontender Ext: no edema CBC, BMP 01/17/17 06:30 01/18/17 07:00 ABG Results ABG pH 7.39 (7.35-7.45) 01/17/17 14:30 ABG pCO2 at Pt Temp 35.2 mmHg (35-45) 01/17/17 14:30 ABG pO2 at Pt Temp 53.7 mmHg (68-100) L 01/17/17 14:30 ABG HCO3 20.8 meq/L (22-26) L 01/17/17 14:30 ABG O2 Sat (Measured) 87.2 % (90-98.9) L 01/17/17 14:30 ABG O2 Content 11.5 % vol (15-22) L 01/17/17 14:30 ABG Base Excess -3.2 meq/l (-2-2) L 01/17/17 14:30 Active Medications Acetaminophen (Tylenol -) 650 mg PO Q6H PRN PRN Reason: FEVER OR PAIN Acetaminophen (Tylenol Suppository -) 650 mg [place] Q6H PRN PRN Reason: FEVER OR PAIN Albuterol/Ipratropium (Duoneb -) 1 amp NEB QIDR [facility] Last Admin: 01/18/17 06:30 Dose: 1 amp Collagenase (Santyl -) 1 applic TP DAILY [facility] Last Admin: 01/17/17 11:36 Dose: Not Given Potassium Chloride 10 meq/ (Dextrose) 1,005 mls @ 60 mls/hr IVPB Q16H [facility] Last Admin: 01/18/17 06:55 Dose: Not Given Piperacillin Sod/Tazobactam Sod (Zosyn 3.375gm Ivpb (Pre-Docked)) 50 mls @ 100 mls/hr IVPB Q8H-IV [facility] PRN Reason: Protocol Last Admin: 01/18/17 09:59 Dose: 100 mls/hr Quetiapine Fumarate (Seroquel -) 50 mg PO HS [facility] Last Admin: 01/17/17 22:11 Dose: 50 mg A/P Acute Hypoxic Respiratory Failure r/o Aspiration Lactic Acidosis Hypernatremia HTN Sacral Decubitus Ulcer Parkinsons Dementia - antibiotics per ID - aspiration precautions - O2 to keep SpO2 >90% - inhaled bronchodilators - IVF - trend lactate - DVT prophylaxis
--- NOTE | 2017-01-18 15:20 | PN ---
Progress Note, Physician Chief Complaint: awake on 02 mask dvt + upper extremity - Current Medication List Current Medications: Active Medications Acetaminophen (Tylenol -) 650 mg PO Q6H PRN PRN Reason: FEVER OR PAIN Acetaminophen (Tylenol Suppository -) 650 mg DE Q6H PRN PRN Reason: FEVER OR PAIN Albuterol/Ipratropium (Duoneb -) 1 amp NEB QIDR [facility] Last Admin: 01/18/17 11:30 Dose: 1 amp Collagenase (Santyl -) 1 applic TP DAILY [facility] Last Admin: 01/17/17 11:36 Dose: Not Given Enoxaparin Sodium (Lovenox -) 60 mg SQ BID [facility] Potassium Chloride 10 meq/ (Dextrose) 1,005 mls @ 60 mls/hr IVPB Q16H [facility] Last Admin: 01/18/17 06:55 Dose: Not Given Piperacillin Sod/Tazobactam Sod (Zosyn 3.375gm Ivpb (Pre-Docked)) 50 mls @ 100 mls/hr IVPB Q8H-IV [facility] PRN Reason: Protocol Last Admin: 01/18/17 09:59 Dose: 100 mls/hr Quetiapine Fumarate (Seroquel -) 50 mg PO HS [facility] Last Admin: 01/17/17 22:11 Dose: 50 mg - Objective Vital Signs: Vital Signs Temperature 98.5 F 01/18/17 10:30 Pulse Rate 99 H 01/18/17 10:30 Respiratory Rate 18 01/18/17 10:30 Blood Pressure 141/68 01/18/17 10:30 O2 Sat by Pulse Oximetry (%) 92 L 01/17/17 21:00 Constitutional: Yes: Mild Distress Eyes: Yes: WNL HENT: Yes: WNL Neck: Yes: WNL Cardiovascular: Yes: WNL Respiratory: Yes: On Venti-Mask, Wheezes Gastrointestinal: Yes: WNL Genitourinary: Yes: WNL, Incontinence Musculoskeletal: Yes: Muscle Weakness Extremities: Yes: Erythema, Other Edema: Yes Peripheral Pulses WNL: Yes Integumentary: Yes: Venous Stasis Changes Wound/Incision: Yes: Open to air, Other Neurological: Yes: Pre-Existing Deficit, Weakness ...Motor Strength: LLE, RLE Psychiatric: Yes: Other Labs: CBC, BMP 01/17/17 06:30 01/18/17 07:00 INR, PTT INR 1.21 (0.82-1.09) H 01/16/17 12:46 Problem List - Problems (1) Fever Code(s): R50.9 - FEVER, UNSPECIFIED (2) Hypertension Code(s): I10 - ESSENTIAL (PRIMARY) HYPERTENSION (3) Hypernatremia Code(s): E87.0 - HYPEROSMOLALITY AND HYPERNATREMIA (4) Bacteremia Code(s): R78.81 - BACTEREMIA (5) Respiratory distress, acute Code(s): R06.00 - DYSPNEA, UNSPECIFIED (6) DVT (deep venous thrombosis) Code(s): I82.409 - ACUTE EMBOLISM AND THOMBOS UNSP DEEP VN UNSP LOWER EXTREMITY Qualifiers: DVT location: upper extremity Chronicity: acute Assessment/Plan dvt + acute lovenox started vasc sx consult check occult stool 02 support transfer tp tele check echo
--- NOTE | 2017-01-18 15:24 | PN ---
Progress Note, Physician History of Present Illness: events noted patient found to have dvt in the rt arm - Current Medication List Current Medications: Active Medications Acetaminophen (Tylenol -) 650 mg PO Q6H PRN PRN Reason: FEVER OR PAIN Acetaminophen (Tylenol Suppository -) 650 mg [place] Q6H PRN PRN Reason: FEVER OR PAIN Albuterol/Ipratropium (Duoneb -) 1 amp NEB QIDR [facility] Last Admin: 01/18/17 11:30 Dose: 1 amp Collagenase (Santyl -) 1 applic TP DAILY [facility] Last Admin: 01/17/17 11:36 Dose: Not Given Enoxaparin Sodium (Lovenox -) 60 mg SQ BID [facility] Potassium Chloride 10 meq/ (Dextrose) 1,005 mls @ 60 mls/hr IVPB Q16H [facility] Last Admin: 01/18/17 06:55 Dose: Not Given Piperacillin Sod/Tazobactam Sod (Zosyn 3.375gm Ivpb (Pre-Docked)) 50 mls @ 100 mls/hr IVPB Q8H-IV [facility] PRN Reason: Protocol Last Admin: 01/18/17 09:59 Dose: 100 mls/hr Quetiapine Fumarate (Seroquel -) 50 mg PO HS [facility] Last Admin: 01/17/17 22:11 Dose: 50 mg - Objective Vital Signs: Vital Signs Temperature 98.5 F 01/18/17 10:30 Pulse Rate 99 H 01/18/17 10:30 Respiratory Rate 18 01/18/17 10:30 Blood Pressure 141/68 01/18/17 10:30 O2 Sat by Pulse Oximetry (%) 92 L 01/17/17 21:00 Constitutional: Yes: No Distress, Calm Cardiovascular: Yes: Regular Rate and Rhythm Respiratory: Yes: Other (on ventimask) Gastrointestinal: Yes: Normal Bowel Sounds, Soft Musculoskeletal: Yes: Other Extremities: Yes: Other Neurological: Yes: Alert, Other Labs: CBC, BMP 01/17/17 06:30 01/18/17 07:00 INR, PTT INR 1.21 (0.82-1.09) H 01/16/17 12:46 Assessment/Plan Problem List - Problems (1) Fever Code(s): R50.9 - FEVER, UNSPECIFIED (2) Hypertension Code(s): I10 - ESSENTIAL (PRIMARY) HYPERTENSION (3) Hypernatremia Code(s): E87.0 - HYPEROSMOLALITY AND HYPERNATREMIA 4--sepsis 5 dehydration 6 r/ uti 7 osteo of the sacral bone 8 pna 1. Hypernatremia 2. dementia 3. HTN 4. sepsis 5. PNA 6. hypokalemia 7. DVT sacral osteo plan continue abx continue current mgmt patient has dvt rest as per nephrology and primary
--- NOTE | 2017-01-18 16:10 | PN ---
Progress Note, Physician History of Present Illness: Pt seen and examined at bedside. She was found to have a DVT in her right upper extremity. - Current Medication List Current Medications: Active Medications Acetaminophen (Tylenol -) 650 mg PO Q6H PRN PRN Reason: FEVER OR PAIN Acetaminophen (Tylenol Suppository -) 650 mg CA Q6H PRN PRN Reason: FEVER OR PAIN Albuterol/Ipratropium (Duoneb -) 1 amp NEB QIDR [facility] Last Admin: 01/18/17 11:30 Dose: 1 amp Collagenase (Santyl -) 1 applic TP DAILY [facility] Last Admin: 01/17/17 11:36 Dose: Not Given Enoxaparin Sodium (Lovenox -) 60 mg SQ BID [facility] Potassium Chloride 10 meq/ (Dextrose) 1,005 mls @ 60 mls/hr IVPB Q16H [facility] Last Admin: 01/18/17 06:55 Dose: Not Given Piperacillin Sod/Tazobactam Sod (Zosyn 3.375gm Ivpb (Pre-Docked)) 50 mls @ 100 mls/hr IVPB Q8H-IV [facility] PRN Reason: Protocol Last Admin: 01/18/17 09:59 Dose: 100 mls/hr Quetiapine Fumarate (Seroquel -) 50 mg PO HS [facility] Last Admin: 01/17/17 22:11 Dose: 50 mg - Objective Vital Signs: Vital Signs Temperature 98.1 F 01/18/17 14:51 Pulse Rate 99 H 01/18/17 10:30 Respiratory Rate 22 01/18/17 14:51 Blood Pressure 148/98 01/18/17 14:51 O2 Sat by Pulse Oximetry (%) 92 L 01/17/17 21:00 Constitutional: Yes: Calm Eyes: Yes: Conjunctiva Clear HENT: Yes: Atraumatic Cardiovascular: Yes: S1, S2 Respiratory: Yes: On Venti-Mask Gastrointestinal: Yes: Soft Genitourinary: Yes: WNL Musculoskeletal: Yes: WNL Extremities: Yes: WNL Edema: Yes Edema: LLE: Trace, RLE: Trace Neurological: Yes: Confusion Labs: CBC, BMP 01/17/17 06:30 01/18/17 07:00 INR, PTT INR 1.21 (0.82-1.09) H 01/16/17 12:46 Problem List - Problems (1) Hypernatremia Code(s): E87.0 - HYPEROSMOLALITY AND HYPERNATREMIA (2) Dementia Code(s): F03.90 - UNSPECIFIED DEMENTIA WITHOUT BEHAVIORAL DISTURBANCE (3) Hypertension Code(s): I10 - ESSENTIAL (PRIMARY) HYPERTENSION Assessment/Plan Current Medications Generic Name Dose Route Start Last Admin Trade Name Freq PRN Reason Stop Dose Admin Acetaminophen 650 mg 01/16/17 17:46 Tylenol - PO Q6H PRN FEVER OR PAIN Acetaminophen 650 mg 01/16/17 17:46 Tylenol Suppository - [place] Q6H PRN FEVER OR PAIN Albuterol/Ipratropium 1 amp 01/17/17 18:00 01/18/17 11:30 Duoneb - NEB 1 amp QIDR [facility] Administration Collagenase 1 applic 01/17/17 10:00 01/17/17 11:36 Santyl - TP Not Given DAILY [facility] Enoxaparin Sodium 60 mg 01/18/17 22:00 Lovenox - SQ BID [facility] Potassium Chloride 10 meq/ 1,005 mls @ 60 mls/hr 01/17/17 13:45 01/18/17 06:55 Dextrose IVPB Not Given Q16H [facility] Piperacillin Sod/Tazobactam Sod 50 mls @ 100 mls/hr 01/17/17 18:00 01/18/17 09: 59 Zosyn 3.375gm Ivpb (Pre-Docked) IVPB 100 mls/hr Q8H-IV [facility] Administration Protocol Quetiapine Fumarate 50 mg 01/16/17 22:00 01/17/17 22:11 Seroquel - PO 50 mg HS [facility] Administration Laboratory Tests 01/18/17 07:00 Potassium 3.7 Magnesium 2.0 Impression 1. Hypernatremia 2. dementia 3. HTN 4. sepsis 5. PNA 6. hypokalemia 7. DVT Plan - decrease rate for d5w - check cxr - pt found to have DVT - will continue with fluids - sodium is impoving - abx per ID - monitor volume status - will follow Dr Rodriguez
[2017-01-18] MEDS ORDERED: POTASSIUM CHLORIDE 10 MEQ in DEXTROSE 5%-WATER - 1,000 ML IVPB SCH (16:11)
[2017-01-18] MEDS: COLLAGENASE CLOSTRIDIUM HIST. 30 GRAMS TUBE TP SCH (16:44)
[2017-01-18] MEDS: ENOXAPARIN NA (PORCINE) 60 MG/0.6 ML DISP.SYRIN SQ SCH (16:54)
--- NOTE | 2017-01-18 19:41 | CON.CARD ---
Consult Consult Specialty:: Cardiology - History of Present Illness Chief Complaint: Offers no complaints History of Present Illness: This is an 89 year old female with a PMH of HtN, Alzheimer's disease and Parkinson's disease. She was sent to the ED on 01/16/17 via ambulance with SOB and a cough. She was noted to have an altered mental status, sepsis, and hypotension. CXR 01/18/17 Basilar atelecesis. Doppler 01/18/17 Upper Extremity DVT - extensive. Her right arm has extensive swelling. An echocardiogram is planned. 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[employer]: Yes: Dementia Cardio/Vascular: Yes: HTN Gastrointestinal: Yes: Constipation - Alcohol/Substance Use Hx Alcohol Use: (unknown) - Smoking History Smoking history: Never smoked Aproximately how many cigarettes per day: 0 Home Medications - Allergies Allergies/Adverse Reactions: Allergies Allergy/AdvReac Type Severity Reaction Status Date / Time No Known Allergies Allergy Verified 01/16/17 12:16 - Home Medications Home Medications: Ambulatory Orders Acetazolamide [Diamox -] 250 mg PO BID 01/16/17 Amlodipine Besylate [Norvasc -] 10 mg PO DAILY 01/16/17 Ascorbate Calcium [Vitamin C] 500 mg PO DAILY 01/16/17 Atorvastatin Ca [Lipitor] 20 mg PO HS 01/16/17 Docusate Sodium 300 mg PO HS 01/16/17 Memantine HCl [Namenda -] 10 mg PO BID 01/16/17 Multivitamins [Tab-A-Vit -] 1 tab PO DAILY 01/16/17 Quetiapine Fumarate [Seroquel -] 50 mg PO HS 01/16/17 Sennosides [Senna] 8.6 mg PO BID 01/16/17 Review of Systems Unable to obtain ROS, reason: As per HPI Vital Signs: Vital Signs Temperature 98.1 F 01/18/17 14:51 Pulse Rate 99 H 01/18/17 10:30 Respiratory Rate 22 01/18/17 14:51 Blood Pressure 148/98 01/18/17 14:51 O2 Sat by Pulse Oximetry (%) 94 L 01/18/17 09:00 Edema: Yes Edema: RUE: 3+ - Other Data Labs, Other Data: CBC, BMP 01/17/17 06:30 01/18/17 07:00 INR, PTT INR 1.21 (0.82-1.09) H 01/16/17 12:46 Assessment/Plan Upper extremity DVT Obtain an echocardiogram Consider anticoagulation if no contraindications Consider Vascular consultation HTN/HLD Continue Liptor 20 mg daily Continue amlodipine 10 mg daily Presumed PNA on ABX Will follow with you.
[2017-01-18] MEDS: QUEtiapine FUMARATE 50 MG TABLET PO SCH (23:00)
[2017-01-18] MEDS ORDERED: QUEtiapine FUMARATE 25 MG TABLET (FP) ONE (23:01)
[2017-01-19] MEDS: PIPERACILLIN/TAZOB 3.375 GM 50 ML IVPB SCH ×3 (01:21→17:00)
[2017-01-19] MEDS: ENOXAPARIN NA (PORCINE) 60 MG/0.6 ML DISP.SYRIN SQ SCH ×2 (04:13→17:00)
[2017-01-19] MEDS: ALBUTEROL SO4 2.5/IPRATROPIUM 0.5 INH SOL 3 ML VIAL.NEB. NEB SCH ×3 (06:15→17:12)
--- NOTE | 2017-01-19 08:43 | PN ---
Progress Note, Physician Chief Complaint: ECHO REVIEWED EF% 60% NO ACUTE CHANGES ASLEEP ON 02MASK - Current Medication List Current Medications: Active Medications Acetaminophen (Tylenol -) 650 mg PO Q6H PRN PRN Reason: FEVER OR PAIN Acetaminophen (Tylenol Suppository -) 650 mg [place] Q6H PRN PRN Reason: FEVER OR PAIN Albuterol/Ipratropium (Duoneb -) 1 amp NEB QIDR [facility] Last Admin: 01/19/17 06:15 Dose: 1 amp Collagenase (Santyl -) 1 applic TP DAILY [facility] Last Admin: 01/18/17 16:44 Dose: Not Given Enoxaparin Sodium (Lovenox -) 60 mg SQ Q12H [facility] Last Admin: 01/19/17 04:13 Dose: 60 mg Piperacillin Sod/Tazobactam Sod (Zosyn 3.375gm Ivpb (Pre-Docked)) 50 mls @ 100 mls/hr IVPB Q8H-IV [facility] PRN Reason: Protocol Last Admin: 01/19/17 01:21 Dose: 100 mls/hr Potassium Chloride 10 meq/ (Dextrose) 1,005 mls @ 45 mls/hr IVPB Q22H [facility] Last Admin: 01/18/17 18:02 Dose: 45 mls/hr Quetiapine Fumarate (Seroquel -) 50 mg PO HS [facility] Last Admin: 01/18/17 23:00 Dose: 50 mg - Objective Vital Signs: Vital Signs Temperature 98.3 F 01/19/17 06:00 Pulse Rate 93 H 01/19/17 06:00 Respiratory Rate 20 01/19/17 06:00 Blood Pressure 127/63 01/19/17 06:00 O2 Sat by Pulse Oximetry (%) 95 01/18/17 22:00 Constitutional: Yes: Mild Distress Eyes: Yes: WNL HENT: Yes: WNL Neck: Yes: WNL Cardiovascular: Yes: Murmur Respiratory: Yes: On Venti-Mask, Rhonchi, SOB Gastrointestinal: Yes: WNL Genitourinary: Yes: Incontinence Musculoskeletal: Yes: Muscle Weakness Extremities: Yes: Other Edema: Yes Edema: LLE: 1+, RLE: 1+ Integumentary: Yes: WNL Wound/Incision: Yes: Clean/Dry Neurological: Yes: Confusion, Weakness ...Motor Strength: LLE, RLE Psychiatric: Yes: Other Labs: INR, PTT INR 1.21 (0.82-1.09) H 01/16/17 12:46 Problem List - Problems (1) Fever Code(s): R50.9 - FEVER, UNSPECIFIED (2) Hypertension Code(s): I10 - ESSENTIAL (PRIMARY) HYPERTENSION (3) Hypernatremia Code(s): E87.0 - HYPEROSMOLALITY AND HYPERNATREMIA (4) Bacteremia Code(s): R78.81 - BACTEREMIA (5) Respiratory distress, acute Code(s): R06.00 - DYSPNEA, UNSPECIFIED (6) DVT (deep venous thrombosis) Code(s): I82.409 - ACUTE EMBOLISM AND THOMBOS UNSP DEEP VN UNSP LOWER EXTREMITY Qualifiers: DVT location: upper extremity Chronicity: acute Assessment/Plan ECHO REVIEWED CT CHEST ORDERED IV ABX LIKELY PNA NEBS 02 SUPPORT
[2017-01-19 08:46] LABS: MCH 26.8 pg (25.7-33.7); MCHC 31.6 g/dl (32.0-36.0); MEAN CELL VOLUME 84.8 fl (80-96); MEAN PLT VOLUME 8.3 fl (7.5-11.1); PLATELET COUNT 137 K/MM3 (134-434); RDW 19.1 % (11.6-15.6); WHITE BLOOD COUNT 7.2 K/mm3 (4.0-10.0)
[2017-01-19 09:21] LABS: ALBUMIN 1.6 g/dl (3.4-5.0); ALK PHOS 150 U/L (45-117); ANION GAP 6 (8-16); BILIRUBIN,TOTAL 0.7 mg/dL (0.2-1.0); CALCIUM 7.3 mg/dL (8.5-10.1); CO2 27 mmol/L (21-32); CREATININE 0.7 mg/dL (0.55-1.02); GLUCOSE,RANDOM 161 mg/dL (74-106); SGOT/AST 23 U/L (15-37); SGPT/ALT 34 U/L (12-78); TOT PROT 5.4 g/dl (6.4-8.2)
[2017-01-19] MEDS: COLLAGENASE CLOSTRIDIUM HIST. 30 GRAMS TUBE TP SCH (10:00)
--- NOTE | 2017-01-19 10:40 | PN ---
Progress Note, Physician History of Present Illness: Pt seen and examined at bedside. She is now on tele. She remains confused. She denies shortness of breath. - Current Medication List Current Medications: Active Medications Acetaminophen (Tylenol -) 650 mg PO Q6H PRN PRN Reason: FEVER OR PAIN Acetaminophen (Tylenol Suppository -) 650 mg [place] Q6H PRN PRN Reason: FEVER OR PAIN Albuterol/Ipratropium (Duoneb -) 1 amp NEB QIDR [facility] Last Admin: 01/19/17 06:15 Dose: 1 amp Collagenase (Santyl -) 1 applic TP DAILY [facility] Last Admin: 01/18/17 16:44 Dose: Not Given Enoxaparin Sodium (Lovenox -) 60 mg SQ Q12H [facility] Last Admin: 01/19/17 04:13 Dose: 60 mg Piperacillin Sod/Tazobactam Sod (Zosyn 3.375gm Ivpb (Pre-Docked)) 50 mls @ 100 mls/hr IVPB Q8H-IV [facility] PRN Reason: Protocol Last Admin: 01/19/17 01:21 Dose: 100 mls/hr Potassium Chloride 10 meq/ (Dextrose) 1,005 mls @ 45 mls/hr IVPB Q22H [facility] Last Admin: 01/18/17 18:02 Dose: 45 mls/hr Quetiapine Fumarate (Seroquel -) 50 mg PO HS [facility] Last Admin: 01/18/17 23:00 Dose: 50 mg - Objective Vital Signs: Vital Signs Temperature 98.3 F 01/19/17 06:00 Pulse Rate 93 H 01/19/17 06:00 Respiratory Rate 20 01/19/17 06:00 Blood Pressure 127/63 01/19/17 06:00 O2 Sat by Pulse Oximetry (%) 95 01/18/17 22:00 Constitutional: Yes: Calm Eyes: Yes: Conjunctiva Clear HENT: Yes: Atraumatic Neck: Yes: Supple Cardiovascular: Yes: S1, S2 Respiratory: Yes: On Venti-Mask Gastrointestinal: Yes: Soft Genitourinary: Yes: Incontinence Edema: No Neurological: Yes: Confusion Labs: CBC, BMP 01/19/17 08:15 01/19/17 08:15 INR, PTT INR 1.21 (0.82-1.09) H 01/16/17 12:46 Problem List - Problems (1) Hypernatremia Code(s): E87.0 - HYPEROSMOLALITY AND HYPERNATREMIA (2) Dementia Code(s): F03.90 - UNSPECIFIED DEMENTIA WITHOUT BEHAVIORAL DISTURBANCE (3) Hypertension Code(s): I10 - ESSENTIAL (PRIMARY) HYPERTENSION Assessment/Plan Current Medications Generic Name Dose Route Start Last Admin Trade Name Freq PRN Reason Stop Dose Admin Acetaminophen 650 mg 01/16/17 17:46 Tylenol - PO Q6H PRN FEVER OR PAIN Acetaminophen 650 mg 01/16/17 17:46 Tylenol Suppository - [place] Q6H PRN FEVER OR PAIN Albuterol/Ipratropium 1 amp 01/17/17 18:00 01/19/17 06:15 Duoneb - NEB 1 amp QIDR [facility] Administration Collagenase 1 applic 01/17/17 10:00 01/18/17 16:44 Santyl - TP Not Given DAILY [facility] Enoxaparin Sodium 60 mg 01/18/17 17:00 01/19/17 04:13 Lovenox - SQ 60 mg Q12H [facility] Administration Piperacillin Sod/Tazobactam Sod 50 mls @ 100 mls/hr 01/17/17 18:00 01/19/17 01: 21 Zosyn 3.375gm Ivpb (Pre-Docked) IVPB 100 mls/hr Q8H-IV [facility] Administration Protocol Potassium Chloride 10 meq/ 1,005 mls @ 45 mls/hr 01/18/17 16:11 01/18/17 18:02 Dextrose IVPB 45 mls/hr Q22H [facility] Administration Quetiapine Fumarate 50 mg 01/16/17 22:00 01/18/17 23:00 Seroquel - PO 50 mg HS [facility] Administration Impression 1. Hypernatremia 2. dementia 3. HTN 4. sepsis 5. PNA 6. hypokalemia 7. DVT Plan - sodium is improving - will decrease rate of d5w to 35 - pt tolerating diet - repeat labs in am - will follow - pt is being treated for the DVT - abx per ID - monitor volume status - will follow Dr Rodriguez
[2017-01-19] MEDS ORDERED: POTASSIUM CHLORIDE 10 MEQ in DEXTROSE 5%-WATER - 1,000 ML IVPB SCH (10:41)
--- NOTE | 2017-01-19 14:57 | PN ---
Progress Note, Physician History of Present Illness: PULMNARY MORE ALERT,ON VM ,COMFORTABLE - Current Medication List Current Medications: Active Medications Acetaminophen (Tylenol -) 650 mg PO Q6H PRN PRN Reason: FEVER OR PAIN Acetaminophen (Tylenol Suppository -) 650 mg [place] Q6H PRN PRN Reason: FEVER OR PAIN Albuterol/Ipratropium (Duoneb -) 1 amp NEB QIDR [facility] Last Admin: 01/19/17 11:56 Dose: 1 amp Collagenase (Santyl -) 1 applic TP DAILY [facility] Last Admin: 01/18/17 16:44 Dose: Not Given Enoxaparin Sodium (Lovenox -) 60 mg SQ Q12H [facility] Last Admin: 01/19/17 04:13 Dose: 60 mg Piperacillin Sod/Tazobactam Sod (Zosyn 3.375gm Ivpb (Pre-Docked)) 50 mls @ 100 mls/hr IVPB Q8H-IV [facility] PRN Reason: Protocol Last Admin: 01/19/17 10:56 Dose: 100 mls/hr Potassium Chloride 10 meq/ (Dextrose) 1,005 mls @ 35 mls/hr IVPB Q24H [facility] Last Admin: 01/19/17 10:57 Dose: 35 mls/hr Quetiapine Fumarate (Seroquel -) 50 mg PO HS [facility] Last Admin: 01/18/17 23:00 Dose: 50 mg - Objective Vital Signs: Vital Signs Temperature 98.2 F 01/19/17 14:00 Pulse Rate 85 01/19/17 14:00 Respiratory Rate 22 01/19/17 14:00 Blood Pressure 129/73 01/19/17 14:00 O2 Sat by Pulse Oximetry (%) 93 L 01/19/17 11:57 Constitutional: Yes: Well Nourished, Calm Eyes: Yes: WNL HENT: Yes: WNL Neck: Yes: WNL Cardiovascular: Yes: Regular Rate and Rhythm, S1, S2 Respiratory: Yes: Rhonchi (SCATTERED YVONNE RHONCHI) Gastrointestinal: Yes: Normal Bowel Sounds, Soft Extremities: Yes: WNL Edema: Yes Labs: CBC, BMP 01/19/17 08:15 01/19/17 08:15 INR, PTT INR 1.21 (0.82-1.09) H 01/16/17 12:46 - ....Imaging Cat Scan: Image Reviewed Problem List - Problems (1) Fever Code(s): R50.9 - FEVER, UNSPECIFIED (2) Hypernatremia Code(s): E87.0 - HYPEROSMOLALITY AND HYPERNATREMIA (3) Hypertension Code(s): I10 - ESSENTIAL (PRIMARY) HYPERTENSION (4) Respiratory distress, acute Code(s): R06.00 - DYSPNEA, UNSPECIFIED (5) Decubitus skin ulcer Code(s): L89.90 - PRESSURE ULCER OF UNSPECIFIED SITE, UNSPECIFIED STAGE (6) Alzheimer disease Code(s): G30.9 - ALZHEIMER'S DISEASE, UNSPECIFIED (7) Dementia Code(s): F03.90 - UNSPECIFIED DEMENTIA WITHOUT BEHAVIORAL DISTURBANCE (8) Parkinson disease Code(s): G20 - PARKINSON'S DISEASE (9) Acute respiratory failure with hypoxia and hypercarbia Code(s): J96.01 - ACUTE RESPIRATORY FAILURE WITH HYPOXIA J96.02 - ACUTE RESPIRATORY FAILURE WITH HYPERCAPNIA (10) Elevated lactic acid level Code(s): R79.89 - OTHER SPECIFIED ABNORMAL FINDINGS OF BLOOD CHEMISTRY Assessment/Plan IMP ACUTE HYPOXEMIC/HYPERCAPNEIC RESPIRATORY FAILURE IMPROVING LIKELY ASPIRATION HYPERNATREMIA IMPROVING HTN ELEVATED LACTATE LEVEL DEMENTIA SACRAL DECUBITUS PARKINSONS PLAN CONTINUE IV ANTIBIOTICS PER ID INHALED BRONCHODILATORS IVF O2 ASPIRATION PRECAUTIONS MONITOR LYTES.NA,RENAL FUNCTION TREND LACTATE DR GARG Problem List - Problems (1) Fever Code(s): R50.9 - FEVER, UNSPECIFIED (2) Hypernatremia Code(s): E87.0 - HYPEROSMOLALITY AND HYPERNATREMIA (3) Hypertension Code(s): I10 - ESSENTIAL (PRIMARY) HYPERTENSION (4) Respiratory distress, acute Code(s): R06.00 - DYSPNEA, UNSPECIFIED (5) Decubitus skin ulcer Code(s): L89.90 - PRESSURE ULCER OF UNSPECIFIED SITE, UNSPECIFIED STAGE (6) Alzheimer disease Code(s): G30.9 - ALZHEIMER'S DISEASE, UNSPECIFIED (7) Dementia Code(s): F03.90 - UNSPECIFIED DEMENTIA WITHOUT BEHAVIORAL DISTURBANCE (8) Parkinson disease Code(s): G20 - PARKINSON'S DISEASE (9) Acute respiratory failure with hypoxia and hypercarbia Code(s): J96.01 - ACUTE RESPIRATORY FAILURE WITH HYPOXIA J96.02 - ACUTE RESPIRATORY FAILURE WITH HYPERCAPNIA (10) Elevated lactic acid level Code(s): R79.89 - OTHER SPECIFIED ABNORMAL FINDINGS OF BLOOD CHEMISTRY
--- NOTE | 2017-01-19 15:33 | PN ---
Progress Note, Physician Chief Complaint: Resting comfortably and offers no new complaints History of Present Illness: This is an 89 year old female with a PMH of HtN, Alzheimer's disease and Parkinson's disease. She was sent to the ED on 01/16/17 via ambulance with SOB and a cough. She was noted to have an altered mental status, sepsis, and hypotension. CXR 01/18/17 Basilar atelecesis. Doppler 01/18/17 Upper Extremity DVT - extensive. Her right arm has extensive swelling. An echocardiogram was performed on 01/19/17: EF 60.1% Normal LV size and function Normal RV size and function Trace TR Trace AI RVSP 30 - 40 mmHg - Current Medication List Current Medications: Active Medications Acetaminophen (Tylenol -) 650 mg PO Q6H PRN PRN Reason: FEVER OR PAIN Acetaminophen (Tylenol Suppository -) 650 mg [place] Q6H PRN PRN Reason: FEVER OR PAIN Albuterol/Ipratropium (Duoneb -) 1 amp NEB QIDR [facility] Last Admin: 01/19/17 11:56 Dose: 1 amp Collagenase (Santyl -) 1 applic TP DAILY [facility] Last Admin: 01/18/17 16:44 Dose: Not Given Enoxaparin Sodium (Lovenox -) 60 mg SQ Q12H [facility] Last Admin: 01/19/17 04:13 Dose: 60 mg Piperacillin Sod/Tazobactam Sod (Zosyn 3.375gm Ivpb (Pre-Docked)) 50 mls @ 100 mls/hr IVPB Q8H-IV [facility] PRN Reason: Protocol Last Admin: 01/19/17 10:56 Dose: 100 mls/hr Potassium Chloride 10 meq/ (Dextrose) 1,005 mls @ 35 mls/hr IVPB Q24H [facility] Last Admin: 01/19/17 10:57 Dose: 35 mls/hr Quetiapine Fumarate (Seroquel -) 50 mg PO HS [facility] Last Admin: 01/18/17 23:00 Dose: 50 mg - Objective Vital Signs: Vital Signs Temperature 98.2 F 01/19/17 14:00 Pulse Rate 85 01/19/17 14:00 Respiratory Rate 22 01/19/17 14:00 Blood Pressure 129/73 01/19/17 14:00 O2 Sat by Pulse Oximetry (%) 93 L 01/19/17 11:57 Constitutional: Yes: No Distress Neck: Yes: WNL Cardiovascular: Yes: Regular Rate and Rhythm, S1, S2 Respiratory: Yes: CTA Bilaterally Gastrointestinal: Yes: Soft Extremities: Yes: Other (Rt arm swelling/edema) Neurological: Yes: Other (Grossly non focal) Labs: CBC, BMP 01/19/17 08:15 01/19/17 08:15 INR, PTT INR 1.21 (0.82-1.09) H 01/16/17 12:46 Assessment/Plan Upper extremity DVT Agree with Lovenox 60 mg Q12 hours for now Will likely need senior living AC Can consider coumadin with an INR goal 2.0 - 3.0 or a NOAC Of the NOACs, apixabanm can be used for DVT treatment in the geriatric population. The dose would be 2.5 mg PO Q12h (wt = 54.6 KG and age > 80 years) In terms of the duration of AC treatment, if we assume that this was an "unprovoked DVT", the treatment would be life long. Presumed PNA on ABX Call us prn
--- NOTE | 2017-01-19 16:25 | PN ---
Progress Note, Physician History of Present Illness: more awake and alert still on ventimask - Current Medication List Current Medications: Active Medications Acetaminophen (Tylenol -) 650 mg PO Q6H PRN PRN Reason: FEVER OR PAIN Acetaminophen (Tylenol Suppository -) 650 mg [place] Q6H PRN PRN Reason: FEVER OR PAIN Albuterol/Ipratropium (Duoneb -) 1 amp NEB QIDR [facility] Last Admin: 01/19/17 11:56 Dose: 1 amp Collagenase (Santyl -) 1 applic TP DAILY [facility] Last Admin: 01/18/17 16:44 Dose: Not Given Enoxaparin Sodium (Lovenox -) 60 mg SQ Q12H [facility] Last Admin: 01/19/17 04:13 Dose: 60 mg Piperacillin Sod/Tazobactam Sod (Zosyn 3.375gm Ivpb (Pre-Docked)) 50 mls @ 100 mls/hr IVPB Q8H-IV [facility] PRN Reason: Protocol Last Admin: 01/19/17 10:56 Dose: 100 mls/hr Potassium Chloride 10 meq/ (Dextrose) 1,005 mls @ 35 mls/hr IVPB Q24H [facility] Last Admin: 01/19/17 10:57 Dose: 35 mls/hr Quetiapine Fumarate (Seroquel -) 50 mg PO HS [facility] Last Admin: 01/18/17 23:00 Dose: 50 mg - Objective Vital Signs: Vital Signs Temperature 98.2 F 01/19/17 14:00 Pulse Rate 85 01/19/17 14:00 Respiratory Rate 22 01/19/17 14:00 Blood Pressure 129/73 01/19/17 14:00 O2 Sat by Pulse Oximetry (%) 93 L 01/19/17 11:57 Constitutional: Yes: No Distress, Calm Cardiovascular: Yes: Regular Rate and Rhythm Respiratory: Yes: Regular, Poor Air Entry, Rhonchi Gastrointestinal: Yes: Normal Bowel Sounds, Soft Musculoskeletal: Yes: Other Extremities: Yes: Other Neurological: Yes: Alert Psychiatric: Yes: Alert Labs: CBC, BMP 01/19/17 08:15 01/19/17 08:15 INR, PTT INR 1.21 (0.82-1.09) H 01/16/17 12:46 Assessment/Plan Problem List - Problems (1) Fever Code(s): R50.9 - FEVER, UNSPECIFIED (2) Hypertension Code(s): I10 - ESSENTIAL (PRIMARY) HYPERTENSION (3) Hypernatremia Code(s): E87.0 - HYPEROSMOLALITY AND HYPERNATREMIA 4--sepsis 5 dehydration 6 r/ uti 7 osteo of the sacral bone 8 pna 1. Hypernatremia 2. dementia 3. HTN 4. sepsis 5. PNA 6. hypokalemia 7. DVT sacral osteo plan continue abx continue current mgmt patient has dvt rest as per nephrology and primary
[2017-01-19] MEDS ORDERED: QUEtiapine FUMARATE 25 MG TABLET (FP) ONE (21:34)
[2017-01-19] MEDS: QUEtiapine FUMARATE 50 MG TABLET PO SCH (22:09)
[2017-01-20] MEDS: ALBUTEROL SO4 2.5/IPRATROPIUM 0.5 INH SOL 3 ML VIAL.NEB. NEB SCH ×4 (00:54→17:25)
[2017-01-20] MEDS: PIPERACILLIN/TAZOB 3.375 GM 50 ML IVPB SCH ×3 (02:13→17:35)
[2017-01-20] MEDS: ENOXAPARIN NA (PORCINE) 60 MG/0.6 ML DISP.SYRIN SQ SCH ×2 (05:39→16:20)
[2017-01-20 08:43] LABS: ANION GAP 7 (8-16); CALCIUM 7.3 mg/dL (8.5-10.1); CO2 25 mmol/L (21-32); CREATININE 0.7 mg/dL (0.55-1.02); GLUCOSE,RANDOM 295 mg/dL (74-106)
--- NOTE | 2017-01-20 09:33 | PN ---
Progress Note, Physician History of Present Illness: Renal F/U Pt in no distress with VM in place She has some audible upper airway adventitious sounds She is cooperative - Current Medication List Current Medications: Active Medications Acetaminophen (Tylenol -) 650 mg PO Q6H PRN PRN Reason: FEVER OR PAIN Acetaminophen (Tylenol Suppository -) 650 mg [place] Q6H PRN PRN Reason: FEVER OR PAIN Albuterol/Ipratropium (Duoneb -) 1 amp NEB QIDR [facility] Last Admin: 01/20/17 06:00 Dose: 1 amp Collagenase (Santyl -) 1 applic TP DAILY [facility] Last Admin: 01/19/17 10:00 Dose: Not Given Enoxaparin Sodium (Lovenox -) 60 mg SQ Q12H [facility] Last Admin: 01/20/17 05:39 Dose: 60 mg Piperacillin Sod/Tazobactam Sod (Zosyn 3.375gm Ivpb (Pre-Docked)) 50 mls @ 100 mls/hr IVPB Q8H-IV [facility] PRN Reason: Protocol Last Admin: 01/20/17 02:13 Dose: 100 mls/hr Potassium Chloride 10 meq/ (Dextrose) 1,005 mls @ 35 mls/hr IVPB Q24H [facility] Last Admin: 01/19/17 10:57 Dose: 35 mls/hr Quetiapine Fumarate (Seroquel -) 50 mg PO HS [facility] Last Admin: 01/19/17 22:09 Dose: 50 mg - Objective Vital Signs: Vital Signs Temperature 98.2 F 01/20/17 05:41 Pulse Rate 89 01/20/17 05:41 Respiratory Rate 18 01/20/17 05:41 Blood Pressure 120/69 01/20/17 05:41 O2 Sat by Pulse Oximetry (%) 93 L 01/19/17 21:00 Constitutional: Yes: No Distress Cardiovascular: Yes: S1, S2 Respiratory: Yes: Rhonchi Gastrointestinal: Yes: Soft. No: Tenderness, Rebound Edema: Yes (RUE edema ) Labs: CBC, BMP 01/19/17 08:15 01/20/17 06:00 INR, PTT INR 1.21 (0.82-1.09) H 01/16/17 12:46 Assessment/Plan Impression 1. S/P Hypernatremia 2. Dementia 3. HTN 4. Sepsis 5. PNA 6. DVT Plan D/C IVF since serum Na now wnl Rpt labs in am Dr Vega
[2017-01-20] MEDS: COLLAGENASE CLOSTRIDIUM HIST. 30 GRAMS TUBE TP SCH (09:41)
--- NOTE | 2017-01-20 09:57 | PN ---
Progress Note, Physician History of Present Illness: in bed - Current Medication List Current Medications: Active Medications Acetaminophen (Tylenol -) 650 mg PO Q6H PRN PRN Reason: FEVER OR PAIN Acetaminophen (Tylenol Suppository -) 650 mg [place] Q6H PRN PRN Reason: FEVER OR PAIN Albuterol/Ipratropium (Duoneb -) 1 amp NEB QIDR [facility] Last Admin: 01/20/17 06:00 Dose: 1 amp Collagenase (Santyl -) 1 applic TP DAILY [facility] Last Admin: 01/20/17 09:41 Dose: Not Given Enoxaparin Sodium (Lovenox -) 60 mg SQ Q12H [facility] Last Admin: 01/20/17 05:39 Dose: 60 mg Piperacillin Sod/Tazobactam Sod (Zosyn 3.375gm Ivpb (Pre-Docked)) 50 mls @ 100 mls/hr IVPB Q8H-IV [facility] PRN Reason: Protocol Last Admin: 01/20/17 09:41 Dose: 100 mls/hr Quetiapine Fumarate (Seroquel -) 50 mg PO HS [facility] Last Admin: 01/19/17 22:09 Dose: 50 mg - Objective Vital Signs: Vital Signs Temperature 98.2 F 01/20/17 05:41 Pulse Rate 89 01/20/17 05:41 Respiratory Rate 18 01/20/17 05:41 Blood Pressure 120/69 01/20/17 05:41 O2 Sat by Pulse Oximetry (%) 93 L 01/19/17 21:00 Cardiovascular: Yes: S1, S2 Respiratory: Yes: Diminished, On Nasal O2 Gastrointestinal: Yes: Normal Bowel Sounds, Soft Labs: CBC, BMP 01/19/17 08:15 01/20/17 06:00 INR, PTT INR 1.21 (0.82-1.09) H 01/16/17 12:46 Problem List - Problems (1) Acute respiratory failure with hypoxia and hypercarbia Assessment/Plan: nebs oxygen iv abx Code(s): J96.01 - ACUTE RESPIRATORY FAILURE WITH HYPOXIA J96.02 - ACUTE RESPIRATORY FAILURE WITH HYPERCAPNIA (2) DVT (deep venous thrombosis) Assessment/Plan: [facility] Code(s): I82.409 - ACUTE EMBOLISM AND THOMBOS UNSP DEEP VN UNSP LOWER EXTREMITY Qualifiers: DVT location: upper extremity Chronicity: acute (3) Decubitus skin ulcer Assessment/Plan: WOUND CARE ABX Code(s): L89.90 - PRESSURE ULCER OF UNSPECIFIED SITE, UNSPECIFIED STAGE (4) Pneumonia Assessment/Plan: IV ABX CT SCAN --NOTED SMALL INFUSION/CONSOLIDATION Code(s): J18.9 - PNEUMONIA, UNSPECIFIED ORGANISM (5) Hypernatremia Assessment/Plan: RESOLVED Code(s): E87.0 - HYPEROSMOLALITY AND HYPERNATREMIA (6) Anemia Assessment/Plan: W/U ORDERED MONITOR CLOSELY ON AC Code(s): D64.9 - ANEMIA, UNSPECIFIED
[2017-01-20 12:46] LABS: FERRITIN 76.314 ng/ml (6.9-282.5)
[2017-01-20 13:01] LABS: MCH 26.5 pg (25.7-33.7); MCHC 31.3 g/dl (32.0-36.0); MEAN CELL VOLUME 84.7 fl (80-96); MEAN PLT VOLUME 8.3 fl (7.5-11.1); PLATELET COUNT 159 K/MM3 (134-434); RDW 19.2 % (11.6-15.6); WHITE BLOOD COUNT 6.6 K/mm3 (4.0-10.0)
--- NOTE | 2017-01-20 13:13 | PN ---
Progress Note (short form) - Note Progress Note: Awake on VM O2. No acute events overnight. Intake & Output 01/17/17 01/18/17 01/19/17 01/20/17 23:59 23:59 23:59 23:59 Intake Total 1520 1080 1067.5 Balance 1520 1080 1067.5 Last Vital Signs Temp Pulse Resp BP Pulse Ox 97.9 F 92 H 18 130/91 98 01/20/17 09:00 01/20/17 11:30 01/20/17 09:00 01/20/17 09:00 01/20/17 11:30 Active Medications Acetaminophen (Tylenol -) 650 mg PO Q6H PRN PRN Reason: FEVER OR PAIN Acetaminophen (Tylenol Suppository -) 650 mg [place] Q6H PRN PRN Reason: FEVER OR PAIN Albuterol/Ipratropium (Duoneb -) 1 amp NEB QIDR [facility] Last Admin: 01/20/17 11:30 Dose: Not Given Collagenase (Santyl -) 1 applic TP DAILY [facility] Last Admin: 01/20/17 09:41 Dose: Not Given Enoxaparin Sodium (Lovenox -) 60 mg SQ Q12H [facility] Last Admin: 01/20/17 05:39 Dose: 60 mg Piperacillin Sod/Tazobactam Sod (Zosyn 3.375gm Ivpb (Pre-Docked)) 50 mls @ 100 mls/hr IVPB Q8H-IV [facility] PRN Reason: Protocol Last Admin: 01/20/17 09:41 Dose: 100 mls/hr Quetiapine Fumarate (Seroquel -) 50 mg PO HS [facility] Last Admin: 01/19/17 22:09 Dose: 50 mg Constitutional: Yes: NAD On VM O2 Eyes: Yes: WNL HENT: Yes: WNL Neck: Yes: WNL Cardiovascular: Yes: Regular Rate and Rhythm, S1, S2 Respiratory: Yes: Scattered Rhonchi Gastrointestinal: Yes: Normal Bowel Sounds, Soft Extremities: Yes: WNL Edema: Yes Labs: Laboratory Results - last 24 hr 01/20/17 01/20/17 01/20/17 06:00 06:00 12:09 WBC RBC Hgb Hct MCV MCHC RDW Plt Count MPV Sodium 136 Potassium 3.7 Chloride 104 Carbon Dioxide 25 Anion Gap 7 L BUN 7 D Creatinine 0.7 Random Glucose 295 H D Lactic Acid 1.3 Calcium 7.3 L Ferritin 76.314 Vitamin B12 1253 H 01/20/17 12:20 WBC 6.6 RBC 3.44 L Hgb 9.1 L Hct 29.1 L MCV 84.7 MCHC 31.3 L RDW 19.2 H Plt Count 159 MPV 8.3 Sodium Potassium Chloride Carbon Dioxide Anion Gap BUN Creatinine Random Glucose Lactic Acid Calcium Ferritin Vitamin B12 Problem List - Problems (1) Fever Code(s): R50.9 - FEVER, UNSPECIFIED (2) Hypernatremia Code(s): E87.0 - HYPEROSMOLALITY AND HYPERNATREMIA (3) Hypertension Code(s): I10 - ESSENTIAL (PRIMARY) HYPERTENSION (4) Respiratory distress, acute Code(s): R06.00 - DYSPNEA, UNSPECIFIED (5) Decubitus skin ulcer Code(s): L89.90 - PRESSURE ULCER OF UNSPECIFIED SITE, UNSPECIFIED STAGE (6) Alzheimer disease Code(s): G30.9 - ALZHEIMER'S DISEASE, UNSPECIFIED (7) Dementia Code(s): F03.90 - UNSPECIFIED DEMENTIA WITHOUT BEHAVIORAL DISTURBANCE (8) Parkinson disease Code(s): G20 - PARKINSON'S DISEASE (9) Acute respiratory failure with hypoxia and hypercarbia Code(s): J96.01 - ACUTE RESPIRATORY FAILURE WITH HYPOXIA J96.02 - ACUTE RESPIRATORY FAILURE WITH HYPERCAPNIA (10) Elevated lactic acid level Code(s): R79.89 - OTHER SPECIFIED ABNORMAL FINDINGS OF BLOOD CHEMISTRY Assessment/Plan IMP ACUTE HYPOXEMIC/HYPERCAPNEIC RESPIRATORY FAILURE IMPROVING LIKELY ASPIRATION HYPERNATREMIA IMPROVING HTN ELEVATED LACTATE LEVEL DEMENTIA SACRAL DECUBITUS PARKINSONS PLAN ABX PER ID INHALED BRONCHODILATORS O2 ASPIRATION PRECAUTIONS MONITOR LYTES.NA,RENAL FUNCTION DR SHULTZ
--- NOTE | 2017-01-20 14:09 | PN ---
Progress Note, Physician History of Present Illness: more awake and alert on nasal canula no events overnight - Current Medication List Current Medications: Active Medications Acetaminophen (Tylenol -) 650 mg PO Q6H PRN PRN Reason: FEVER OR PAIN Acetaminophen (Tylenol Suppository -) 650 mg [place] Q6H PRN PRN Reason: FEVER OR PAIN Albuterol/Ipratropium (Duoneb -) 1 amp NEB QIDR [facility] Last Admin: 01/20/17 11:30 Dose: Not Given Collagenase (Santyl -) 1 applic TP DAILY [facility] Last Admin: 01/20/17 09:41 Dose: Not Given Enoxaparin Sodium (Lovenox -) 60 mg SQ Q12H [facility] Last Admin: 01/20/17 05:39 Dose: 60 mg Piperacillin Sod/Tazobactam Sod (Zosyn 3.375gm Ivpb (Pre-Docked)) 50 mls @ 100 mls/hr IVPB Q8H-IV [facility] PRN Reason: Protocol Last Admin: 01/20/17 09:41 Dose: 100 mls/hr Quetiapine Fumarate (Seroquel -) 50 mg PO HS [facility] Last Admin: 01/19/17 22:09 Dose: 50 mg - Objective Vital Signs: Vital Signs Temperature 98.1 F 01/20/17 13:37 Pulse Rate 95 H 01/20/17 13:37 Respiratory Rate 20 01/20/17 13:37 Blood Pressure 130/66 01/20/17 13:37 O2 Sat by Pulse Oximetry (%) 98 01/20/17 11:30 Constitutional: Yes: No Distress, Calm Cardiovascular: Yes: S1, S2 Respiratory: Yes: Poor Air Entry, Other Gastrointestinal: Yes: Normal Bowel Sounds, Soft Musculoskeletal: Yes: WNL Extremities: Yes: Other Neurological: Yes: Alert Labs: CBC, BMP 01/20/17 12:20 01/20/17 06:00 INR, PTT INR 1.21 (0.82-1.09) H 01/16/17 12:46 Assessment/Plan Problem List - Problems (1) Fever Code(s): R50.9 - FEVER, UNSPECIFIED (2) Hypertension Code(s): I10 - ESSENTIAL (PRIMARY) HYPERTENSION (3) Hypernatremia Code(s): E87.0 - HYPEROSMOLALITY AND HYPERNATREMIA 4--sepsis 5 dehydration 6 r/ uti 7 osteo of the sacral bone 8 pna 1. Hypernatremia 2. dementia 3. HTN 4. sepsis 5. PNA 6. hypokalemia 7. DVT sacral osteo plan continue abx await for wound cx rest as per primary and pul
[2017-01-20] MEDS ORDERED: QUEtiapine FUMARATE 25 MG TABLET (FP) ONE (21:52)
[2017-01-20] MEDS: QUEtiapine FUMARATE 50 MG TABLET PO SCH (21:56)
[2017-01-21] MEDS: PIPERACILLIN/TAZOB 3.375 GM 50 ML IVPB SCH ×3 (01:40→17:53)
[2017-01-21] MEDS: ENOXAPARIN NA (PORCINE) 60 MG/0.6 ML DISP.SYRIN SQ SCH ×2 (05:28→16:30)
[2017-01-21] MEDS: ALBUTEROL SO4 2.5/IPRATROPIUM 0.5 INH SOL 3 ML VIAL.NEB. NEB SCH ×5 (06:40→23:30)
[2017-01-21 07:32] LABS: BASOPHIL 0.4 % (0-2.0); EOSINOPHIL 5.4 % (0-4.5); MCH 27.1 pg (25.7-33.7); MCHC 32.1 g/dl (32.0-36.0); MEAN CELL VOLUME 84.5 fl (80-96); MEAN PLT VOLUME 8.4 fl (7.5-11.1); NEUTROPHILS 65.6 % (42.8-82.8); PLATELET COUNT 192 K/MM3 (134-434); RDW 19.6 % (11.6-15.6); WHITE BLOOD COUNT 8.2 K/mm3 (4.0-10.0)
[2017-01-21 08:12] LABS: ANION GAP 8 (8-16); CALCIUM 7.7 mg/dL (8.5-10.1); CO2 29 mmol/L (21-32); CREATININE 0.5 mg/dL (0.55-1.02); GLUCOSE,RANDOM 134 mg/dL (74-106)
[2017-01-21] MEDS: COLLAGENASE CLOSTRIDIUM HIST. 30 GRAMS TUBE TP SCH (09:00)
--- NOTE | 2017-01-21 09:58 | PN ---
Progress Note, Physician History of Present Illness: Renal F/U Pt remains with no distress with VM in place She is cooperative and able to follow commands Noted to have a cough - Current Medication List Current Medications: Active Medications Acetaminophen (Tylenol -) 650 mg PO Q6H PRN PRN Reason: FEVER OR PAIN Acetaminophen (Tylenol Suppository -) 650 mg [place] Q6H PRN PRN Reason: FEVER OR PAIN Albuterol/Ipratropium (Duoneb -) 1 amp NEB QIDR [facility] Last Admin: 01/21/17 06:40 Dose: 1 amp Collagenase (Santyl -) 1 applic TP DAILY [facility] Last Admin: 01/21/17 09:00 Dose: Not Given Enoxaparin Sodium (Lovenox -) 60 mg SQ Q12H [facility] Last Admin: 01/21/17 05:28 Dose: 60 mg Piperacillin Sod/Tazobactam Sod (Zosyn 3.375gm Ivpb (Pre-Docked)) 50 mls @ 100 mls/hr IVPB Q8H-IV [facility] PRN Reason: Protocol Last Admin: 01/21/17 09:06 Dose: 100 mls/hr Quetiapine Fumarate (Seroquel -) 50 mg PO HS [facility] Last Admin: 01/20/17 21:56 Dose: 50 mg - Objective Vital Signs: Vital Signs Temperature 97.9 F 01/21/17 05:30 Pulse Rate 97 H 01/21/17 05:30 Respiratory Rate 20 01/21/17 05:30 Blood Pressure 135/68 01/21/17 05:30 O2 Sat by Pulse Oximetry (%) 98 01/20/17 11:30 Constitutional: Yes: Calm Cardiovascular: Yes: S1, S2 Respiratory: Yes: Rhonchi Gastrointestinal: Yes: Soft, Distention. No: Tenderness, Rebound Edema: RUE: 1+ Psychiatric: Yes: Alert Labs: CBC, BMP 01/21/17 06:25 01/21/17 06:25 INR, PTT INR 1.21 (0.82-1.09) H 01/16/17 12:46 Assessment/Plan Impression 1. S/P Hypernatremia 2. Dementia 3. HTN 4. Sepsis 5. PNA 6. DVT Plan Continue to monitor off IVF Rpt labs in am Dr Vega
--- NOTE | 2017-01-21 11:18 | PN ---
Progress Note, Physician History of Present Illness: in bed awake - Current Medication List Current Medications: Active Medications Acetaminophen (Tylenol -) 650 mg PO Q6H PRN PRN Reason: FEVER OR PAIN Acetaminophen (Tylenol Suppository -) 650 mg [place] Q6H PRN PRN Reason: FEVER OR PAIN Albuterol/Ipratropium (Duoneb -) 1 amp NEB QIDR [facility] Last Admin: 01/21/17 06:40 Dose: 1 amp Collagenase (Santyl -) 1 applic TP DAILY [facility] Last Admin: 01/21/17 09:00 Dose: Not Given Enoxaparin Sodium (Lovenox -) 60 mg SQ Q12H [facility] Last Admin: 01/21/17 05:28 Dose: 60 mg Piperacillin Sod/Tazobactam Sod (Zosyn 3.375gm Ivpb (Pre-Docked)) 50 mls @ 100 mls/hr IVPB Q8H-IV [facility] PRN Reason: Protocol Last Admin: 01/21/17 09:06 Dose: 100 mls/hr Quetiapine Fumarate (Seroquel -) 50 mg PO HS [facility] Last Admin: 01/20/17 21:56 Dose: 50 mg - Objective Vital Signs: Vital Signs Temperature 97.9 F 01/21/17 10:00 Pulse Rate 95 H 01/21/17 10:49 Respiratory Rate 20 01/21/17 10:00 Blood Pressure 149/87 01/21/17 10:00 O2 Sat by Pulse Oximetry (%) 95 01/21/17 10:49 Cardiovascular: Yes: S1, S2 Respiratory: Yes: Regular, CTA Bilaterally Gastrointestinal: Yes: Normal Bowel Sounds, Soft Labs: CBC, BMP 01/21/17 06:25 01/21/17 06:25 INR, PTT INR 1.21 (0.82-1.09) H 01/16/17 12:46 Problem List - Problems (1) Acute respiratory failure with hypoxia and hypercarbia Assessment/Plan: nebs oxygen iv abx--on zosyn--???oral Code(s): J96.01 - ACUTE RESPIRATORY FAILURE WITH HYPOXIA J96.02 - ACUTE RESPIRATORY FAILURE WITH HYPERCAPNIA (2) DVT (deep venous thrombosis) Assessment/Plan: LOVENOX Code(s): I82.409 - ACUTE EMBOLISM AND THOMBOS UNSP DEEP VN UNSP LOWER EXTREMITY Qualifiers: DVT location: upper extremity Chronicity: acute (3) Decubitus skin ulcer Assessment/Plan: WOUND CARE ABX Code(s): L89.90 - PRESSURE ULCER OF UNSPECIFIED SITE, UNSPECIFIED STAGE (4) Pneumonia Assessment/Plan: IV ABX--TO PO CT SCAN --NOTED SMALL INFUSION/CONSOLIDATION Code(s): J18.9 - PNEUMONIA, UNSPECIFIED ORGANISM (5) Hypernatremia Assessment/Plan: RESOLVED 142 Code(s): E87.0 - HYPEROSMOLALITY AND HYPERNATREMIA (6) Anemia Assessment/Plan: W/U ORDERED MONITOR CLOSELY ON AC 9.6 Code(s): D64.9 - ANEMIA, UNSPECIFIED
--- NOTE | 2017-01-21 15:19 | PN ---
Progress Note (short form) - Note Progress Note: Awake on 50% VM O2. No acute events overnight. Remains mildly tachypneic at rest, but in NAD. Intake & Output 01/18/17 01/19/17 01/20/17 01/21/17 23:59 23:59 23:59 23:59 Intake Total 1080 1067.5 150 150 Balance 1080 1067.5 150 150 Last Vital Signs Temp Pulse Resp BP Pulse Ox 98.1 F 98 H 20 140/84 95 01/21/17 14:23 01/21/17 14:23 01/21/17 14:23 01/21/17 14:23 01/21/17 10:49 Active Medications Acetaminophen (Tylenol -) 650 mg PO Q6H PRN PRN Reason: FEVER OR PAIN Acetaminophen (Tylenol Suppository -) 650 mg [place] Q6H PRN PRN Reason: FEVER OR PAIN Albuterol/Ipratropium (Duoneb -) 1 amp NEB QIDR [facility] Last Admin: 01/21/17 11:30 Dose: Not Given Collagenase (Santyl -) 1 applic TP DAILY [facility] Last Admin: 01/21/17 09:00 Dose: Not Given Enoxaparin Sodium (Lovenox -) 60 mg SQ Q12H [facility] Last Admin: 01/21/17 05:28 Dose: 60 mg Piperacillin Sod/Tazobactam Sod (Zosyn 3.375gm Ivpb (Pre-Docked)) 50 mls @ 100 mls/hr IVPB Q8H-IV [facility] PRN Reason: Protocol Last Admin: 01/21/17 09:06 Dose: 100 mls/hr Quetiapine Fumarate (Seroquel -) 50 mg PO HS [facility] Last Admin: 01/20/17 21:56 Dose: 50 mg Constitutional: Yes: NAD On VM O2 Eyes: Yes: WNL HENT: Yes: WNL Neck: Yes: WNL Cardiovascular: Yes: Regular Rate and Rhythm, S1, S2 Respiratory: Yes: Scattered Rhonchi Gastrointestinal: Yes: Normal Bowel Sounds, Soft Extremities: Yes: WNL Edema: Yes Labs: Laboratory Results - last 24 hr 01/21/17 01/21/17 06:25 06:25 WBC 8.2 RBC 3.53 L Hgb 9.6 L Hct 29.8 L MCV 84.5 MCHC 32.1 RDW 19.6 H Plt Count 192 D MPV 8.4 Neutrophils % 65.6 D Lymphocytes % 20.1 D Monocytes % 8.5 Eosinophils % 5.4 H D Basophils % 0.4 Sodium 142 Potassium 3.7 Chloride 105 Carbon Dioxide 29 Anion Gap 8 BUN 6 L Creatinine 0.5 L D Random Glucose 134 H D Calcium 7.7 L Problem List - Problems (1) Fever Code(s): R50.9 - FEVER, UNSPECIFIED (2) Hypernatremia Code(s): E87.0 - HYPEROSMOLALITY AND HYPERNATREMIA (3) Hypertension Code(s): I10 - ESSENTIAL (PRIMARY) HYPERTENSION (4) Respiratory distress, acute Code(s): R06.00 - DYSPNEA, UNSPECIFIED (5) Decubitus skin ulcer Code(s): L89.90 - PRESSURE ULCER OF UNSPECIFIED SITE, UNSPECIFIED STAGE (6) Alzheimer disease Code(s): G30.9 - ALZHEIMER'S DISEASE, UNSPECIFIED (7) Dementia Code(s): F03.90 - UNSPECIFIED DEMENTIA WITHOUT BEHAVIORAL DISTURBANCE (8) Parkinson disease Code(s): G20 - PARKINSON'S DISEASE (9) Acute respiratory failure with hypoxia and hypercarbia Code(s): J96.01 - ACUTE RESPIRATORY FAILURE WITH HYPOXIA J96.02 - ACUTE RESPIRATORY FAILURE WITH HYPERCAPNIA (10) Elevated lactic acid level Code(s): R79.89 - OTHER SPECIFIED ABNORMAL FINDINGS OF BLOOD CHEMISTRY Assessment/Plan IMP ACUTE HYPOXEMIC/HYPERCAPNEIC RESPIRATORY FAILURE IMPROVING LIKELY ASPIRATION HYPERNATREMIA IMPROVING HTN ELEVATED LACTATE LEVEL DEMENTIA SACRAL DECUBITUS PARKINSONS PLAN ABX PER ID INHALED BRONCHODILATORS O2 ASPIRATION PRECAUTIONS MONITOR LYTES / RENAL FUNCTION DR SHULTZ
[2017-01-21] MEDS ORDERED: QUEtiapine FUMARATE 25 MG TABLET (FP) ONE (21:30)
[2017-01-21] MEDS: QUEtiapine FUMARATE 50 MG TABLET PO SCH (21:31)
[2017-01-22] MEDS: PIPERACILLIN/TAZOB 3.375 GM 50 ML IVPB SCH ×3 (01:58→17:04)
[2017-01-22] MEDS: ENOXAPARIN NA (PORCINE) 60 MG/0.6 ML DISP.SYRIN SQ SCH ×2 (04:48→17:06)
[2017-01-22 08:14] LABS: MCHC 32.1 g/dl (32.0-36.0); MEAN CELL VOLUME 84.1 fl (80-96); MEAN PLT VOLUME 8.2 fl (7.5-11.1); PLATELET COUNT 202 K/MM3 (134-434); RDW 19.5 % (11.6-15.6); WHITE BLOOD COUNT 5.8 K/mm3 (4.0-10.0)
[2017-01-22 09:02] LABS: ANION GAP 6 (8-16); CALCIUM 7.5 mg/dL (8.5-10.1); CO2 32 mmol/L (21-32); CREATININE 0.5 mg/dL (0.55-1.02); GLUCOSE,RANDOM 67 mg/dL (74-106)
[2017-01-22 09:36] LABS: ANISOCYTOSIS 1+; METAMYELOCYTE 4 % (0-2); PLATELET ESTIMATE ADEQUATE (NORMAL)
[2017-01-22] MEDS: COLLAGENASE CLOSTRIDIUM HIST. 30 GRAMS TUBE TP SCH (09:39)
[2017-01-22] MEDS ORDERED: POTASSIUM CHLORIDE TABS 20 MEQ TABLET.ER (FP) PO ONE (09:45)
[2017-01-22] MEDS ORDERED: KCL 10 MEQ IVPB 100 ML IVPB ONE (09:45)
--- NOTE | 2017-01-22 11:44 | PN ---
Progress Note, Physician History of Present Illness: pulmonary alert,feeling better,less dyspneic, - Current Medication List Current Medications: Active Medications Acetaminophen (Tylenol -) 650 mg PO Q6H PRN PRN Reason: FEVER OR PAIN Acetaminophen (Tylenol Suppository -) 650 mg [place] Q6H PRN PRN Reason: FEVER OR PAIN Albuterol/Ipratropium (Duoneb -) 1 amp NEB QIDR [facility] Last Admin: 01/21/17 23:30 Dose: 1 amp Collagenase (Santyl -) 1 applic TP DAILY [facility] Last Admin: 01/22/17 09:39 Dose: Not Given Enoxaparin Sodium (Lovenox -) 60 mg SQ Q12H [facility] Last Admin: 01/22/17 04:48 Dose: 60 mg Piperacillin Sod/Tazobactam Sod (Zosyn 3.375gm Ivpb (Pre-Docked)) 50 mls @ 100 mls/hr IVPB Q8H-IV [facility] PRN Reason: Protocol Last Admin: 01/22/17 09:39 Dose: 100 mls/hr Quetiapine Fumarate (Seroquel -) 50 mg PO HS [facility] Last Admin: 01/21/17 21:31 Dose: 50 mg - Objective Vital Signs: Vital Signs Temperature 98.5 F 01/22/17 05:00 Pulse Rate 93 H 01/22/17 05:00 Respiratory Rate 20 01/22/17 05:00 Blood Pressure 138/65 01/22/17 05:00 O2 Sat by Pulse Oximetry (%) 92 L 01/21/17 21:00 Constitutional: Yes: Well Nourished, Calm Eyes: Yes: WNL HENT: Yes: WNL Neck: Yes: WNL Cardiovascular: Yes: Regular Rate and Rhythm, S1, S2 Respiratory: Yes: Rales (few bibasilar crackles) Gastrointestinal: Yes: Normal Bowel Sounds, Soft Extremities: Yes: WNL Edema: No Labs: CBC, BMP 01/22/17 06:00 01/22/17 06:00 INR, PTT INR 1.21 (0.82-1.09) H 01/16/17 12:46 Problem List - Problems (1) Fever Code(s): R50.9 - FEVER, UNSPECIFIED (2) Hypernatremia Code(s): E87.0 - HYPEROSMOLALITY AND HYPERNATREMIA (3) Hypertension Code(s): I10 - ESSENTIAL (PRIMARY) HYPERTENSION (4) Respiratory distress, acute Code(s): R06.00 - DYSPNEA, UNSPECIFIED (5) Decubitus skin ulcer Code(s): L89.90 - PRESSURE ULCER OF UNSPECIFIED SITE, UNSPECIFIED STAGE (6) Alzheimer disease Code(s): G30.9 - ALZHEIMER'S DISEASE, UNSPECIFIED (7) Dementia Code(s): F03.90 - UNSPECIFIED DEMENTIA WITHOUT BEHAVIORAL DISTURBANCE (8) Parkinson disease Code(s): G20 - PARKINSON'S DISEASE (9) Acute respiratory failure with hypoxia and hypercarbia Code(s): J96.01 - ACUTE RESPIRATORY FAILURE WITH HYPOXIA J96.02 - ACUTE RESPIRATORY FAILURE WITH HYPERCAPNIA (10) Elevated lactic acid level Code(s): R79.89 - OTHER SPECIFIED ABNORMAL FINDINGS OF BLOOD CHEMISTRY Assessment/Plan IMP ACUTE HYPOXEMIC/HYPERCAPNEIC RESPIRATORY FAILURE IMPROVING LIKELY ASPIRATION HYPERNATREMIA IMPROVED HTN ELEVATED LACTATE LEVEL IMPROVED DEMENTIA SACRAL DECUBITUS PARKINSONS PLAN CONTINUE IV ANTIBIOTICS PER ID INHALED BRONCHODILATORS IVF O2 ASPIRATION PRECAUTIONS MONITOR LYTES.NA,RENAL FUNCTION DR GARG Problem List - Problems (1) Fever Code(s): R50.9 - FEVER, UNSPECIFIED (2) Hypernatremia Code(s): E87.0 - HYPEROSMOLALITY AND HYPERNATREMIA (3) Hypertension Code(s): I10 - ESSENTIAL (PRIMARY) HYPERTENSION (4) Respiratory distress, acute Code(s): R06.00 - DYSPNEA, UNSPECIFIED (5) Decubitus skin ulcer Code(s): L89.90 - PRESSURE ULCER OF UNSPECIFIED SITE, UNSPECIFIED STAGE (6) Alzheimer disease Code(s): G30.9 - ALZHEIMER'S DISEASE, UNSPECIFIED (7) Dementia Code(s): F03.90 - UNSPECIFIED DEMENTIA WITHOUT BEHAVIORAL DISTURBANCE (8) Parkinson disease Code(s): G20 - PARKINSON'S DISEASE (9) Acute respiratory failure with hypoxia and hypercarbia Code(s): J96.01 - ACUTE RESPIRATORY FAILURE WITH HYPOXIA J96.02 - ACUTE RESPIRATORY FAILURE WITH HYPERCAPNIA (10) Elevated lactic acid level Code(s): R79.89 - OTHER SPECIFIED ABNORMAL FINDINGS OF BLOOD CHEMISTRY
[2017-01-22] MEDS: ALBUTEROL SO4 2.5/IPRATROPIUM 0.5 INH SOL 3 ML VIAL.NEB. NEB SCH ×2 (12:40→18:41)
--- NOTE | 2017-01-22 13:11 | PN ---
Progress Note, Physician History of Present Illness: Pt seen and examined at bedside. She is awake and alert. She appears comfortable. - Current Medication List Current Medications: Active Medications Acetaminophen (Tylenol -) 650 mg PO Q6H PRN PRN Reason: FEVER OR PAIN Acetaminophen (Tylenol Suppository -) 650 mg [place] Q6H PRN PRN Reason: FEVER OR PAIN Albuterol/Ipratropium (Duoneb -) 1 amp NEB QIDR [facility] Last Admin: 01/21/17 23:30 Dose: 1 amp Collagenase (Santyl -) 1 applic TP DAILY [facility] Last Admin: 01/22/17 09:39 Dose: Not Given Enoxaparin Sodium (Lovenox -) 60 mg SQ Q12H [facility] Last Admin: 01/22/17 04:48 Dose: 60 mg Piperacillin Sod/Tazobactam Sod (Zosyn 3.375gm Ivpb (Pre-Docked)) 50 mls @ 100 mls/hr IVPB Q8H-IV [facility] PRN Reason: Protocol Last Admin: 01/22/17 09:39 Dose: 100 mls/hr Quetiapine Fumarate (Seroquel -) 50 mg PO HS [facility] Last Admin: 01/21/17 21:31 Dose: 50 mg - Objective Vital Signs: Vital Signs Temperature 98.0 F 01/22/17 09:00 Pulse Rate 92 H 01/22/17 11:00 Respiratory Rate 16 01/22/17 09:00 Blood Pressure 135/77 01/22/17 09:00 O2 Sat by Pulse Oximetry (%) 98 01/22/17 11:00 Constitutional: Yes: Calm Eyes: Yes: Conjunctiva Clear HENT: Yes: Atraumatic Neck: Yes: Supple Cardiovascular: Yes: S1, S2 Respiratory: Yes: On Venti-Mask Gastrointestinal: Yes: Soft Genitourinary: Yes: WNL Musculoskeletal: Yes: Muscle Weakness Edema: No Neurological: Yes: Confusion Labs: CBC, BMP 01/22/17 06:00 01/22/17 06:00 INR, PTT INR 1.21 (0.82-1.09) H 01/16/17 12:46 Problem List - Problems (1) Hypernatremia Code(s): E87.0 - HYPEROSMOLALITY AND HYPERNATREMIA (2) Dementia Code(s): F03.90 - UNSPECIFIED DEMENTIA WITHOUT BEHAVIORAL DISTURBANCE (3) Hypertension Code(s): I10 - ESSENTIAL (PRIMARY) HYPERTENSION Assessment/Plan Current Medications Generic Name Dose Route Start Last Admin Trade Name Freq PRN Reason Stop Dose Admin Acetaminophen 650 mg 01/16/17 17:46 Tylenol - PO Q6H PRN FEVER OR PAIN Acetaminophen 650 mg 01/16/17 17:46 Tylenol Suppository - [place] Q6H PRN FEVER OR PAIN Albuterol/Ipratropium 1 amp 01/17/17 18:00 01/21/17 23:30 Duoneb - NEB 1 amp QIDR [facility] Administration Collagenase 1 applic 01/17/17 10:00 01/22/17 09:39 Santyl - TP Not Given DAILY [facility] Enoxaparin Sodium 60 mg 01/18/17 17:00 01/22/17 04:48 Lovenox - SQ 60 mg Q12H [facility] Administration Piperacillin Sod/Tazobactam Sod 50 mls @ 100 mls/hr 01/17/17 18:00 01/22/17 09: 39 Zosyn 3.375gm Ivpb (Pre-Docked) IVPB 100 mls/hr Q8H-IV [facility] Administration Protocol Quetiapine Fumarate 50 mg 01/16/17 22:00 01/21/17 21:31 Seroquel - PO 50 mg HS [facility] Administration Laboratory Tests 01/22/17 06:00 Potassium 3.2 L Impression 1. Hypernatremia 2. dementia 3. HTN 4. sepsis 5. PNA 6. hypokalemia 7. DVT Plan - sodium is stable - monitor off of fluids - replace potassium - check mag level - monitor volume status - will follow Dr Rodriguez
--- NOTE | 2017-01-22 14:04 | PN ---
Progress Note, Physician History of Present Illness: stable on ventimask awake patient was drowsy in the morning - Current Medication List Current Medications: Active Medications Acetaminophen (Tylenol -) 650 mg PO Q6H PRN PRN Reason: FEVER OR PAIN Acetaminophen (Tylenol Suppository -) 650 mg [place] Q6H PRN PRN Reason: FEVER OR PAIN Albuterol/Ipratropium (Duoneb -) 1 amp NEB QIDR [facility] Last Admin: 01/21/17 23:30 Dose: 1 amp Collagenase (Santyl -) 1 applic TP DAILY [facility] Last Admin: 01/22/17 09:39 Dose: Not Given Enoxaparin Sodium (Lovenox -) 60 mg SQ Q12H [facility] Last Admin: 01/22/17 04:48 Dose: 60 mg Piperacillin Sod/Tazobactam Sod (Zosyn 3.375gm Ivpb (Pre-Docked)) 50 mls @ 100 mls/hr IVPB Q8H-IV [facility] PRN Reason: Protocol Last Admin: 01/22/17 09:39 Dose: 100 mls/hr Quetiapine Fumarate (Seroquel -) 50 mg PO HS [facility] Last Admin: 01/21/17 21:31 Dose: 50 mg - Objective Vital Signs: Vital Signs Temperature 98.0 F 01/22/17 09:00 Pulse Rate 92 H 01/22/17 11:00 Respiratory Rate 16 01/22/17 09:00 Blood Pressure 135/77 01/22/17 09:00 O2 Sat by Pulse Oximetry (%) 98 01/22/17 11:00 Constitutional: Yes: No Distress, Calm Cardiovascular: Yes: S1, S2 Respiratory: Yes: Poor Air Entry, Other (on ventimask) Gastrointestinal: Yes: Normal Bowel Sounds, Soft Musculoskeletal: Yes: Other Extremities: Yes: Other Neurological: Yes: Alert, Other Labs: CBC, BMP 01/22/17 06:00 01/22/17 06:00 INR, PTT INR 1.21 (0.82-1.09) H 01/16/17 12:46 Assessment/Plan Problem List - Problems (1) Fever Code(s): R50.9 - FEVER, UNSPECIFIED (2) Hypertension Code(s): I10 - ESSENTIAL (PRIMARY) HYPERTENSION (3) Hypernatremia Code(s): E87.0 - HYPEROSMOLALITY AND HYPERNATREMIA 4--sepsis 5 dehydration 6 r/ uti 7 osteo of the sacral bone 8 pna 1. Hypernatremia 2. dementia 3. HTN 4. sepsis 5. PNA 6. hypokalemia 7. DVT sacral osteo plan continue abx all cx negative will stop abx tomorrow rest continue nutrition and resp support
--- NOTE | 2017-01-22 16:51 | PN ---
Progress Note, Physician Chief Complaint: ASLEEP, WAS AWAKE AEARLIER LACTIC ACID AND AMMONIA LEVELS NORMAL - Current Medication List Current Medications: Active Medications Acetaminophen (Tylenol -) 650 mg PO Q6H PRN PRN Reason: FEVER OR PAIN Acetaminophen (Tylenol Suppository -) 650 mg [place] Q6H PRN PRN Reason: FEVER OR PAIN Albuterol/Ipratropium (Duoneb -) 1 amp NEB QIDR [facility] Last Admin: 01/21/17 23:30 Dose: 1 amp Collagenase (Santyl -) 1 applic TP DAILY [facility] Last Admin: 01/22/17 09:39 Dose: Not Given Enoxaparin Sodium (Lovenox -) 60 mg SQ Q12H [facility] Last Admin: 01/22/17 04:48 Dose: 60 mg Piperacillin Sod/Tazobactam Sod (Zosyn 3.375gm Ivpb (Pre-Docked)) 50 mls @ 100 mls/hr IVPB Q8H-IV [facility] PRN Reason: Protocol Last Admin: 01/22/17 09:39 Dose: 100 mls/hr Quetiapine Fumarate (Seroquel -) 50 mg PO HS [facility] Last Admin: 01/21/17 21:31 Dose: 50 mg - Objective Vital Signs: Vital Signs Temperature 97.4 F L 01/22/17 15:24 Pulse Rate 94 H 01/22/17 15:24 Respiratory Rate 18 01/22/17 15:24 Blood Pressure 122/73 01/22/17 15:24 O2 Sat by Pulse Oximetry (%) 98 01/22/17 11:00 Constitutional: Yes: Mild Distress Eyes: Yes: WNL HENT: Yes: WNL Neck: Yes: WNL Respiratory: Yes: On Venti-Mask, Rhonchi Gastrointestinal: Yes: WNL Genitourinary: Yes: Incontinence Musculoskeletal: Yes: Muscle Weakness Extremities: Yes: WNL Edema: No Peripheral Pulses WNL: Yes Integumentary: Yes: WNL Wound/Incision: Yes: Clean/Dry Neurological: Yes: Confusion, Pre-Existing Deficit Psychiatric: Yes: Other Labs: CBC, BMP 01/22/17 06:00 01/22/17 06:00 INR, PTT INR 1.21 (0.82-1.09) H 01/16/17 12:46 Problem List - Problems (1) Fever Code(s): R50.9 - FEVER, UNSPECIFIED Qualifiers: Fever type: due to other condition Qualified Code(s): R50.81 - Fever presenting with conditions classified elsewhere (2) Hypertension Code(s): I10 - ESSENTIAL (PRIMARY) HYPERTENSION (3) Hypernatremia Code(s): E87.0 - HYPEROSMOLALITY AND HYPERNATREMIA (4) Bacteremia Code(s): R78.81 - BACTEREMIA (5) Respiratory distress, acute Code(s): R06.00 - DYSPNEA, UNSPECIFIED (6) DVT (deep venous thrombosis) Code(s): I82.409 - ACUTE EMBOLISM AND THOMBOS UNSP DEEP VN UNSP LOWER EXTREMITY Qualifiers: DVT location: upper extremity Chronicity: acute Assessment/Plan DECREASE SERAQUEL ID F/U PT EVAL OOB TO CHAIR
[2017-01-22] MEDS ORDERED: QUEtiapine FUMARATE 25 MG TABLET (FP) ONE (21:01)
[2017-01-22] MEDS: QUEtiapine FUMARATE 50 MG TABLET PO SCH (21:06)
[2017-01-22] MEDS ORDERED: ALBUTEROL SO4 2.5/IPRATROPIUM 0.5 INH SOL 3 ML VIAL.NEB. NEB ONE (23:25)
[2017-01-23] MEDS: PIPERACILLIN/TAZOB 3.375 GM 50 ML IVPB SCH ×2 (01:21→08:59)
[2017-01-23] MEDS: ENOXAPARIN NA (PORCINE) 60 MG/0.6 ML DISP.SYRIN SQ SCH (04:47)
[2017-01-23 08:00] LABS: ANION GAP 5 (8-16); CALCIUM 7.8 mg/dL (8.5-10.1); CO2 32 mmol/L (21-32); CREATININE 0.6 mg/dL (0.55-1.02); GLUCOSE,RANDOM 92 mg/dL (74-106); MAGNESIUM 2.1 mg/dL (1.8-2.4)
[2017-01-23] MEDS: COLLAGENASE CLOSTRIDIUM HIST. 30 GRAMS TUBE TP SCH (08:59)
--- NOTE | 2017-01-23 11:46 | PN ---
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 RD requested re-evaluation to upgrade to thin liquid safely. Pt's eyes closed. Arousable but continuously said "leave me alone" adamently refusing PO trial. Nursing reports pt becomes more alert and interactive in mid afternoon. PO intake limited. Based on MBS, swallowing is functional. Will reassess as cooperation improves. Consider appetite stimulant. Encourage supplements throughout the day.
--- NOTE | 2017-01-23 14:19 | PN ---
Progress Note, Physician History of Present Illness: Pt seen and examined at bedside. She is awake and appears comfortable. She denies shortness of breath. Pt has dementia and is a poor historian. Her PO intake is improved. - Current Medication List Current Medications: Active Medications Acetaminophen (Tylenol -) 650 mg PO Q6H PRN PRN Reason: FEVER OR PAIN Acetaminophen (Tylenol Suppository -) 650 mg [place] Q6H PRN PRN Reason: FEVER OR PAIN Collagenase (Santyl -) 1 applic TP DAILY [facility] Last Admin: 01/23/17 08:59 Dose: Not Given Enoxaparin Sodium (Lovenox -) 60 mg SQ Q12H [facility] Last Admin: 01/23/17 04:47 Dose: 60 mg Piperacillin Sod/Tazobactam Sod (Zosyn 3.375gm Ivpb (Pre-Docked)) 50 mls @ 100 mls/hr IVPB Q8H-IV [facility] PRN Reason: Protocol Last Admin: 01/23/17 08:59 Dose: 100 mls/hr Quetiapine Fumarate (Seroquel -) 50 mg PO HS [facility] Last Admin: 01/22/17 21:06 Dose: 50 mg - Objective Vital Signs: Vital Signs Temperature 98.3 F 01/23/17 09:00 Pulse Rate 93 H 01/23/17 09:00 Respiratory Rate 18 01/23/17 09:00 Blood Pressure 159/78 01/23/17 09:00 O2 Sat by Pulse Oximetry (%) 95 01/23/17 09:00 Constitutional: Yes: Calm Eyes: Yes: Conjunctiva Clear HENT: Yes: Atraumatic Neck: Yes: Supple Cardiovascular: Yes: S1, S2 Respiratory: Yes: On Venti-Mask Gastrointestinal: Yes: Soft Genitourinary: Yes: WNL Musculoskeletal: Yes: WNL Edema: No Neurological: Yes: Confusion Labs: CBC, BMP 01/22/17 06:00 01/23/17 07:25 INR, PTT INR 1.21 (0.82-1.09) H 01/16/17 12:46 Problem List - Problems (1) Hypernatremia Code(s): E87.0 - HYPEROSMOLALITY AND HYPERNATREMIA (2) Dementia Code(s): F03.90 - UNSPECIFIED DEMENTIA WITHOUT BEHAVIORAL DISTURBANCE (3) Hypertension Code(s): I10 - ESSENTIAL (PRIMARY) HYPERTENSION Assessment/Plan Current Medications Generic Name Dose Route Start Last Admin Trade Name Freq PRN Reason Stop Dose Admin Acetaminophen 650 mg 01/16/17 17:46 Tylenol - PO Q6H PRN FEVER OR PAIN Acetaminophen 650 mg 01/16/17 17:46 Tylenol Suppository - [place] Q6H PRN FEVER OR PAIN Collagenase 1 applic 01/17/17 10:00 01/23/17 08:59 Santyl - TP Not Given DAILY [facility] Enoxaparin Sodium 60 mg 01/18/17 17:00 01/23/17 04:47 Lovenox - SQ 60 mg Q12H [facility] Administration Piperacillin Sod/Tazobactam Sod 50 mls @ 100 mls/hr 01/17/17 18:00 01/23/17 08: 59 Zosyn 3.375gm Ivpb (Pre-Docked) IVPB 100 mls/hr Q8H-IV [facility] Administration Protocol Quetiapine Fumarate 50 mg 01/16/17 22:00 01/22/17 21:06 Seroquel - PO 50 mg HS [facility] Administration Laboratory Tests 01/23/17 07:25 Potassium 3.9 D Magnesium 2.1 Impression 1. Hypernatremia 2. dementia 3. HTN 4. sepsis 5. PNA 6. hypokalemia 7. DVT Plan - electrolytes have stabilized - pt is off of fluids - cont current meds - will follow PRN - monitor volume status - mag levels is stable - check bmp and mag periodically - will follow Dr Rodriguez
--- NOTE | 2017-01-23 15:20 | PN ---
Progress Note, Physician - Current Medication List Current Medications: Active Medications Acetaminophen (Tylenol -) 650 mg PO Q6H PRN PRN Reason: FEVER OR PAIN Acetaminophen (Tylenol Suppository -) 650 mg [place] Q6H PRN PRN Reason: FEVER OR PAIN Collagenase (Santyl -) 1 applic TP DAILY [facility] Last Admin: 01/23/17 08:59 Dose: Not Given Enoxaparin Sodium (Lovenox -) 60 mg SQ Q12H [facility] Last Admin: 01/23/17 04:47 Dose: 60 mg Piperacillin Sod/Tazobactam Sod (Zosyn 3.375gm Ivpb (Pre-Docked)) 50 mls @ 100 mls/hr IVPB Q8H-IV [facility] PRN Reason: Protocol Last Admin: 01/23/17 08:59 Dose: 100 mls/hr Quetiapine Fumarate (Seroquel -) 50 mg PO HS [facility] Last Admin: 01/22/17 21:06 Dose: 50 mg - Objective Vital Signs: Vital Signs Temperature 97.9 F 01/23/17 14:00 Pulse Rate 101 H 01/23/17 14:00 Respiratory Rate 18 01/23/17 14:00 Blood Pressure 114/60 01/23/17 14:00 O2 Sat by Pulse Oximetry (%) 95 01/23/17 09:00 Labs: CBC, BMP 01/22/17 06:00 01/23/17 07:25 INR, PTT INR 1.21 (0.82-1.09) H 01/16/17 12:46
--- NOTE | 2017-01-23 16:17 | PN ---
Progress Note, Physician Chief Complaint: ON VENTIMASK 02 SAT 95% FINAL DAY OF ABX - Current Medication List Current Medications: Active Medications Acetaminophen (Tylenol -) 650 mg PO Q6H PRN PRN Reason: FEVER OR PAIN Acetaminophen (Tylenol Suppository -) 650 mg [place] Q6H PRN PRN Reason: FEVER OR PAIN Collagenase (Santyl -) 1 applic TP DAILY [facility] Last Admin: 01/23/17 08:59 Dose: Not Given Enoxaparin Sodium (Lovenox -) 60 mg SQ Q12H [facility] Last Admin: 01/23/17 04:47 Dose: 60 mg Piperacillin Sod/Tazobactam Sod (Zosyn 3.375gm Ivpb (Pre-Docked)) 50 mls @ 100 mls/hr IVPB Q8H-IV [facility] PRN Reason: Protocol Last Admin: 01/23/17 08:59 Dose: 100 mls/hr Quetiapine Fumarate (Seroquel -) 50 mg PO HS [facility] Last Admin: 01/22/17 21:06 Dose: 50 mg - Objective Vital Signs: Vital Signs Temperature 97.9 F 01/23/17 14:00 Pulse Rate 101 H 01/23/17 14:00 Respiratory Rate 18 01/23/17 14:00 Blood Pressure 114/60 01/23/17 14:00 O2 Sat by Pulse Oximetry (%) 95 01/23/17 09:00 Constitutional: Yes: Mild Distress Eyes: Yes: WNL HENT: Yes: WNL Neck: Yes: WNL Cardiovascular: Yes: WNL Respiratory: Yes: On Venti-Mask, SOB Gastrointestinal: Yes: WNL Genitourinary: Yes: Incontinence Musculoskeletal: Yes: Muscle Weakness Extremities: Yes: Other Edema: No Peripheral Pulses WNL: Yes Integumentary: Yes: WNL Wound/Incision: Yes: Clean/Dry Neurological: Yes: Other ...Motor Strength: LLE, RLE Psychiatric: Yes: Other Labs: CBC, BMP 01/22/17 06:00 01/23/17 07:25 INR, PTT INR 1.21 (0.82-1.09) H 01/16/17 12:46 Problem List - Problems (1) Fever Code(s): R50.9 - FEVER, UNSPECIFIED Qualifiers: Fever type: due to other condition Qualified Code(s): R50.81 - Fever presenting with conditions classified elsewhere (2) Hypertension Code(s): I10 - ESSENTIAL (PRIMARY) HYPERTENSION (3) Hypernatremia Code(s): E87.0 - HYPEROSMOLALITY AND HYPERNATREMIA (4) Bacteremia Code(s): R78.81 - BACTEREMIA (5) Respiratory distress, acute Code(s): R06.00 - DYSPNEA, UNSPECIFIED (6) DVT (deep venous thrombosis) Code(s): I82.409 - ACUTE EMBOLISM AND THOMBOS UNSP DEEP VN UNSP LOWER EXTREMITY Qualifiers: DVT location: upper extremity Chronicity: acute Assessment/Plan ON 02 MASK, NEED TO REDUCE TO NC AND OFF 02 METABOLIC ENCEPHALOPATHY IMPROVING CHECK LABS AM DISCUSSED WITH NURSES AID MY PHONE NUMBER GIVEN FOR ANY QUESTIONS FROM FAMILY DECREASE SERAQUEL ID F/U APPRECIATED FINAL DAY ABX PT EVAL OOB TO CHAIR
[2017-01-23] MEDS: HEPARIN NA (PORCINE) 5,000 UNITS/ML 1ML VIAL SQ SCH (21:51)
[2017-01-24 07:49] LABS: ALBUMIN 1.9 g/dl (3.4-5.0); ANION GAP 8 (8-16); CALCIUM 7.8 mg/dL (8.5-10.1); CO2 32 mmol/L (21-32); GLUCOSE,RANDOM 72 mg/dL (74-106); MAGNESIUM 2.1 mg/dL (1.8-2.4)
[2017-01-24 07:54] LABS: ALK PHOS 134 U/L (45-117); BILIRUBIN,TOTAL 0.3 mg/dL (0.2-1.0); CREATININE 0.4 mg/dL (0.55-1.02); SGOT/AST 36 U/L (15-37); SGPT/ALT 32 U/L (12-78)
[2017-01-24 08:19] LABS: MCH 27.2 pg (25.7-33.7); MCHC 32.1 g/dl (32.0-36.0); MEAN CELL VOLUME 84.7 fl (80-96); MEAN PLT VOLUME 7.6 fl (7.5-11.1); PLATELET COUNT 308 K/MM3 (134-434); WHITE BLOOD COUNT 7.1 K/mm3 (4.0-10.0)
[2017-01-24] MEDS: HEPARIN NA (PORCINE) 5,000 UNITS/ML 1ML VIAL SQ SCH (09:48)
[2017-01-24] MEDS: COLLAGENASE CLOSTRIDIUM HIST. 30 GRAMS TUBE TP SCH (10:00)
--- NOTE | 2017-01-24 10:03 | PN ---
Progress Note, Physician Chief Complaint: AWAKE, MORE ALERT SERAQUEL STOPPED. MONITOR MOOD - Current Medication List Current Medications: Active Medications Acetaminophen (Tylenol -) 650 mg PO Q6H PRN PRN Reason: FEVER OR PAIN Acetaminophen (Tylenol Suppository -) 650 mg [place] Q6H PRN PRN Reason: FEVER OR PAIN Collagenase (Santyl -) 1 applic TP DAILY [facility] Last Admin: 01/23/17 08:59 Dose: Not Given Heparin Sodium (Porcine) (Heparin -) 5,000 unit SQ BID [facility] Last Admin: 01/24/17 09:48 Dose: 5,000 unit - Objective Vital Signs: Vital Signs Temperature 98.5 F 01/24/17 06:00 Pulse Rate 99 H 01/24/17 06:00 Respiratory Rate 20 01/24/17 06:00 Blood Pressure 155/82 01/24/17 06:00 O2 Sat by Pulse Oximetry (%) 95 01/23/17 21:00 Constitutional: Yes: No Distress Eyes: Yes: WNL HENT: Yes: WNL Neck: Yes: WNL Cardiovascular: Yes: WNL Respiratory: Yes: On Venti-Mask Gastrointestinal: Yes: WNL Genitourinary: Yes: Incontinence Musculoskeletal: Yes: Muscle Weakness Extremities: Yes: Other Edema: No Peripheral Pulses WNL: Yes Integumentary: Yes: Pressure Ulcer, Skin Tear Wound/Incision: Yes: Dressing Dry and Intact (STAGE 3-4 SACRAL ULCER, CLEAN, HEEL ULCERS B/L UNSTAGEABLE) Neurological: Yes: Pre-Existing Deficit ...Motor Strength: LLE, RLE Psychiatric: Yes: Other Labs: CBC, BMP 01/24/17 07:50 01/24/17 05:35 INR, PTT INR 1.21 (0.82-1.09) H 01/16/17 12:46 Problem List - Problems (1) Fever Code(s): R50.9 - FEVER, UNSPECIFIED Qualifiers: Qualified Code(s): R50.81 - Fever presenting with conditions classified elsewhere (2) Hypertension Code(s): I10 - ESSENTIAL (PRIMARY) HYPERTENSION (3) Hypernatremia Code(s): E87.0 - HYPEROSMOLALITY AND HYPERNATREMIA (4) Bacteremia Code(s): R78.81 - BACTEREMIA (5) Respiratory distress, acute Code(s): R06.00 - DYSPNEA, UNSPECIFIED (6) DVT (deep venous thrombosis) Code(s): I82.409 - ACUTE EMBOLISM AND THOMBOS UNSP DEEP VN UNSP LOWER EXTREMITY Assessment/Plan IV ABX STOPPED VASC SX FOR F/U ON ULCERS DECREASE 02 TO NC TOLERATED DVT RUE. STOP LOVENOX, PLAN FOR CHROINIC TREATMENT ELIUQUIS 2.5MG BID
--- NOTE | 2017-01-24 10:08 | PN ---
Progress Note (short form) - Note Progress Note: PULMONARY OFFERS NO COMPLAINTS VSS/AFEBRILE ANICTERIC DISTANT B/L BREATH SOUNDS S1S2 BS+ SOFT B/L HEEL OFFLOADERS LABS/MICRO/NOTES/IMAGING REVIEWED RUE DVT ON LOVENOX ACUTE HYPOXEMIC/HYPERCAPNEIC RESP FAILURE IMPROVING HYPERNATREMIA HTN DEMENTIA PARKINSONS SUPPLEMENTAL O2 TO KEEP SAT 90%/OR GREATER ANTICOAGULATION FOR DVT BRONCHODILATORS NEEDED COMPLETED ANTIBIOTIC COURSE AGREE WITH DISCHARGE PLANNING Ameya ROSS MD
[2017-01-24 10:21] LABS: METAMYELOCYTE 4 % (0-2); PLATELET ESTIMATE ADEQUATE (NORMAL)
[2017-01-24] MEDS ORDERED: ACETAMINOPHEN 325 MG TABLET (FP) PO PRN (10:31)
[2017-01-24] MEDS ORDERED: ACETAMINOPHEN 650 MG SUPP.RECT PR PRN (10:31)
[2017-01-24] MEDS: ALBUTEROL SO4 2.5/IPRATROPIUM 0.5 INH SOL 3 ML VIAL.NEB. NEB SCH (12:10)
--- NOTE | 2017-01-24 13:04 | PN ---
Progress Note, CENTRIFUGAL SEPARATOR - Note Progress Note: Selected Entries 01/23/17 01/23/17 01/23/17 02:00 09:00 13:08 Breakfast 0 Lunch 75% Supper Temperature 98 F 98.3 F 01/23/17 01/23/17 01/23/17 14:00 18:38 22:00 Breakfast Lunch Supper 25% Temperature 97.9 F 97.6 F 99.8 F H 01/24/17 01/24/17 01/24/17 02:00 06:00 10:00 Breakfast Lunch Supper Temperature 98.5 F 98.5 F 98 F Laboratory Tests 01/22/17 06:00 WBC 5.8 Accepted more by mouth yesterday anmd more alert and cooperative today. Cough noted. Pt receiving nectar thick liquid, due to cough, which I concur with. Please adjust diet order to puree and nectar.,
[2017-01-24] MEDS: NYSTATIN 100,000 UNIT/GM TOPICAL CREAM 15 GM TUBE TP SCH ×2 (14:00→21:00)
--- NOTE | 2017-01-24 14:51 | PN ---
Progress Note, Physician - Current Medication List Current Medications: Active Medications Acetaminophen (Tylenol -) 650 mg PO Q6H PRN PRN Reason: FEVER OR PAIN Acetaminophen (Tylenol Suppository -) 650 mg [place] Q6H PRN PRN Reason: FEVER OR PAIN Apixaban (Eliquis -) 5 mg PO BID [facility] Collagenase (Santyl -) 1 applic TP DAILY [facility] Nystatin (Mycostatin Cream -) 1 applic TP BID [facility] - Objective Vital Signs: Vital Signs Temperature 98 F 01/24/17 10:00 Pulse Rate 86 01/24/17 11:10 Respiratory Rate 20 01/24/17 10:00 Blood Pressure 156/72 01/24/17 10:00 O2 Sat by Pulse Oximetry (%) 92 L 01/24/17 11:10 Labs: CBC, BMP 01/24/17 07:50 01/24/17 05:35 INR, PTT INR 1.21 (0.82-1.09) H 01/16/17 12:46
--- NOTE | 2017-01-24 15:22 | PN ---
Progress Note (short form) - Note Progress Note: Surgery- Dr. Parra Patient seen and examined for sacral decubitus ulcer. Patient seen with aid at bedside. No complaints. Last Vital Signs Temp Pulse Resp BP Pulse Ox 98 F 86 20 156/72 94 L 01/24/17 10:00 01/24/17 11:10 01/24/17 10:00 01/24/17 10:00 01/24/17 15:00 Exam: Gen: NAD Sacrum: 4x4 cm opening with undermining, tissue, clean, pink, no drainage or foul odor, saline gauze packing replaced, no surrounding erythema LE: 0.5 cm open skin, no drainage or erythema Problem List - Problems (1) Decubitus skin ulcer Assessment/Plan: sacral ulcer clean continue current tx moist saline gauze packing, optifoam offloading Code(s): L89.90 - PRESSURE ULCER OF UNSPECIFIED SITE, UNSPECIFIED STAGE
[2017-01-24] MEDS ORDERED: APIXABAN 5 MG TABLET PO SCH (22:00)
[2017-01-25] MEDS: NYSTATIN 100,000 UNIT/GM TOPICAL CREAM 15 GM TUBE TP SCH (09:08)
[2017-01-25] MEDS ORDERED: COLLAGENASE CLOSTRIDIUM HIST. 30 GRAMS TUBE TP SCH (10:00)
[2017-01-25 10:01] LABS: MCH 27.2 pg (25.7-33.7); MCHC 31.9 g/dl (32.0-36.0); MEAN CELL VOLUME 85.3 fl (80-96); MEAN PLT VOLUME 7.7 fl (7.5-11.1); PLATELET COUNT 338 K/MM3 (134-434); RDW 19.5 % (11.6-15.6); WHITE BLOOD COUNT 9.8 K/mm3 (4.0-10.0)
[2017-01-25 10:25] LABS: ANION GAP 6 (8-16); CALCIUM 7.9 mg/dL (8.5-10.1); CO2 34 mmol/L (21-32); CREATININE 0.4 mg/dL (0.55-1.02); GLUCOSE,RANDOM 99 mg/dL (74-106)
--- NOTE | 2017-01-25 11:24 | PN ---
Progress Note (short form) - Note Progress Note: Vascular Surgery S/P picc line removal. 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 Will need AC for 3 months. Xarelto is ok. Abraham Parra DO
--- NOTE | 2017-01-25 11:28 | DS ---
Physical Examination Vital Signs: Vital Signs Temperature 98.8 F 01/25/17 10:00 Pulse Rate 107 H 01/25/17 10:00 Respiratory Rate 20 01/25/17 10:00 Blood Pressure 156/83 01/25/17 10:00 O2 Sat by Pulse Oximetry (%) 92 L 01/25/17 10:00 Findings/Remarks: REVIEWED NOTES AND EVENTS, START ELIQUIS 2.5MG BID MONITOR RIGHT ARM DVT AT [facility], CHECK WEEKLY CBC TO MONITOR H/H. ELEVATE RIGHT ARM. Constitutional: Yes: No Distress Eyes: Yes: WNL HENT: Yes: WNL Neck: Yes: WNL Cardiovascular: Yes: WNL Respiratory: Yes: On Nasal O2 Gastrointestinal: Yes: WNL Renal/: Yes: Incontinence Musculoskeletal: Yes: Muscle Weakness Extremities: Yes: Other Edema: Yes Edema: RUE: 1+ Peripheral Pulses WNL: Yes Integumentary: Yes: Erythema Wound/Incision: Yes: Dressing Dry and Intact Neurological: Yes: Pre-Existing Deficit, Weakness ...Motor Strength: RUE Psychiatric: Yes: Other Labs: CBC, BMP 01/25/17 09:21 01/25/17 09:21 Discharge Summary Reason For Visit: HYPERNATREMIA,SEPSIS Current Active Problems Acute respiratory failure with hypoxia and hypercarbia (Acute) Anemia (Acute) DVT (deep venous thrombosis) (Acute) Elevated lactic acid level (Acute) Encephalopathy acute (Acute) Fever (Acute) Hypernatremia (Acute) Hypertension (Acute) Pneumonia (Acute) Respiratory distress, acute (Acute) Procedures: Principal: CT SCAN Other Procedures: RIGHT UPPER EXTREMITY DVT Hospital Course: ADMITTED SEPSIS/PNA/UTI/RIGHT UPPER ARM EXTREMITY DVT METABOLIC ENCEPAHLOPATHY DUE TO INFECTION, IMPROVED ON ANTIBIOTICS, WILL START ELIQUIS 2.5MG BID FOR DVT RIGHT ARM, KEEP ARM ELEVATED, TREAT SACRAL UILCER WITH SAINTYL AND WASH. Condition: Stable - Instructions Diet, Activity, Other Instructions: CHECK CBC WEEKLY FOR H/H MONITORING ELIQUIS 2.5MG BID FOR 3 MONTHS KEEP RIGHT ARM ELEVATED Referrals: Jensen Todd MD [Primary Care Provider] - Disposition: [facility] - Home Medications Comprehensive Discharge Medication List: Ambulatory Orders Acetazolamide [Diamox -] 250 mg PO BID 01/16/17 Amlodipine Besylate [Norvasc -] 10 mg PO DAILY 01/16/17 Ascorbate Calcium [Vitamin C] 500 mg PO DAILY 01/16/17 Atorvastatin Ca [Lipitor] 20 mg PO HS 01/16/17 Docusate Sodium 300 mg PO HS 01/16/17 Memantine HCl [Namenda -] 10 mg PO BID 01/16/17 Multivitamins [Tab-A-Vit -] 1 tab PO DAILY 01/16/17 Quetiapine Fumarate [Seroquel -] 50 mg PO HS 01/16/17 Sennosides [Senna] 8.6 mg PO BID 01/16/17
[2017-01-25] MEDS ORDERED: APIXABAN 2.5 MG TABLET PO SCH (11:30)
--- NOTE | 2017-01-25 11:53 | PN ---
Progress Note (short form) - Note Progress Note: Awake on 4 L NC O2. No acute events overnight. Remains mildly tachypneic at rest, but in NAD. Intake & Output 01/22/17 01/23/17 01/24/17 01/25/17 23:59 23:59 23:59 23:59 Intake Total 160 250 370 150 Balance 160 250 370 150 Last Vital Signs Temp Pulse Resp BP Pulse Ox 98.8 F 107 H 20 156/83 92 L 01/25/17 10:00 01/25/17 10:00 01/25/17 10:00 01/25/17 10:00 01/25/17 10:00 Active Medications Acetaminophen (Tylenol -) 650 mg PO Q6H PRN PRN Reason: FEVER OR PAIN Acetaminophen (Tylenol Suppository -) 650 mg [place] Q6H PRN PRN Reason: FEVER OR PAIN Amino Acids (Prosource No Carb Liquid Pkt) 30 ml PO BID@0800,1730 [facility] Amlodipine Besylate (Norvasc -) 2.5 mg PO DAILY [facility] Apixaban (Eliquis -) 2.5 mg PO BID [facility] Collagenase (Santyl -) 1 applic TP DAILY [facility] Multivitamins (Thera-Plus -) 5 ml PO DAILY [facility] Nystatin (Mycostatin Cream -) 1 applic TP BID [facility] Last Admin: 01/25/17 09:08 Dose: 1 applic Zinc Sulfate (Orazinc -) 220 mg PO DAILY [facility] Constitutional: Yes: NAD On 4 L NC O2 Eyes: Yes: WNL HENT: Yes: WNL Neck: Yes: WNL Cardiovascular: Yes: Regular Rate and Rhythm, S1, S2 Respiratory: Yes: Scattered Rhonchi Gastrointestinal: Yes: Normal Bowel Sounds, Soft Extremities: Yes: WNL Edema: Yes Labs: Laboratory Results - last 24 hr 01/25/17 01/25/17 01/25/17 09:21 09:21 09:30 WBC 9.8 D RBC 3.77 Hgb 10.2 L Hct 32.1 L MCV 85.3 MCHC 31.9 L RDW 19.5 H Plt Count 338 MPV 7.7 Sodium 139 Potassium 4.2 Chloride 99 Carbon Dioxide 34 H Anion Gap 6 L BUN 6 L Creatinine 0.4 L Random Glucose 99 D Calcium 7.9 L Stool Occult Blood Negative Problem List - Problems (1) Fever Code(s): R50.9 - FEVER, UNSPECIFIED (2) Hypernatremia Code(s): E87.0 - HYPEROSMOLALITY AND HYPERNATREMIA (3) Hypertension Code(s): I10 - ESSENTIAL (PRIMARY) HYPERTENSION (4) Respiratory distress, acute Code(s): R06.00 - DYSPNEA, UNSPECIFIED (5) Decubitus skin ulcer Code(s): L89.90 - PRESSURE ULCER OF UNSPECIFIED SITE, UNSPECIFIED STAGE (6) Alzheimer disease Code(s): G30.9 - ALZHEIMER'S DISEASE, UNSPECIFIED (7) Dementia Code(s): F03.90 - UNSPECIFIED DEMENTIA WITHOUT BEHAVIORAL DISTURBANCE (8) Parkinson disease Code(s): G20 - PARKINSON'S DISEASE (9) Acute respiratory failure with hypoxia and hypercarbia Code(s): J96.01 - ACUTE RESPIRATORY FAILURE WITH HYPOXIA J96.02 - ACUTE RESPIRATORY FAILURE WITH HYPERCAPNIA (10) Elevated lactic acid level Code(s): R79.89 - OTHER SPECIFIED ABNORMAL FINDINGS OF BLOOD CHEMISTRY Assessment/Plan IMP ACUTE HYPOXEMIC/HYPERCAPNEIC RESPIRATORY FAILURE IMPROVING LIKELY ASPIRATION HYPERNATREMIA IMPROVING HTN ELEVATED LACTATE LEVEL DEMENTIA SACRAL DECUBITUS PARKINSONS PLAN ABX PER ID INHALED BRONCHODILATORS O2 ASPIRATION PRECAUTIONS AC FOR D/C TO SNF DR SHULTZ
--- NOTE | 2017-01-25 12:18 | PN ---
Progress Note, TRANSPORTATION SUPERINTENDENT - Note Progress Note: Selected Entries 01/24/17 01/24/17 01/24/17 02:00 06:00 10:00 Breakfast Lunch Supper Temperature 98.5 F 98.5 F 98 F 01/24/17 01/24/17 01/24/17 13:19 14:00 14:10 Breakfast 75% Lunch 100% Supper Temperature 98.6 F 98.6 F 01/24/17 01/24/17 01/25/17 18:00 22:00 02:00 Breakfast Lunch Supper 100% Temperature 99.1 F 98.1 F 98.1 F 01/25/17 01/25/17 01/25/17 06:00 10:00 11:14 Breakfast 75% Lunch Supper Temperature 99.4 F 98.8 F Accepting more by mouth when alert and cooperative Pending d/c today. Likely aspiration with improved tolerance of puree and nectar. Suggest f/u at NH by speechp[athology. MBS as out pt if congestion persists or to upgrade diet.
[2017-01-25 14:29] VITALS: BP 147/76; PULSE 112; TEMP 99.6
[2017-01-25] MEDS ORDERED: AMINO ACIDS/PROTEIN HYDROLYS 30 ML LIQUID.PKT PO SCH (17:30)
[2017-01-26] MEDS ORDERED: amLODIPine BESYLATE 2.5 MG TABLET (FP) PO SCH (10:00)
[2017-01-26] MEDS ORDERED: MULTIVITAMINS THERAPEUTIC PO SCH (10:00)
[2017-01-26] MEDS ORDERED: ZINC SULFATE 220 MG CAPSULE (FP) PO SCH (10:00)
== END 2017-01-25 15:29 | DRG 871 ==
LOC: JER 11:06 → JERBED 14:34 → J5S 20:51 → J4S 01-18 17:16
PROVIDERS: ADMIT Family Medicine; ATTEND Family Medicine
PROC: 3E0F7GC Introduction of Other Therapeutic Substance into Respiratory Tract, Via Natural or Artificial Opening (ICD-10-PCS; principal; 2017-01-16)
PROC: 3E033GC Introduction of Other Therapeutic Substance into Peripheral Vein, Percutaneous Approach (ICD-10-PCS; 2017-01-18)
DX: A41.9 Sepsis, unspecified organism (principal); L89.154 Pressure ulcer of sacral region, stage 4; J18.9 Pneumonia, unspecified organism; G93.41 Metabolic encephalopathy; J96.01 Acute respiratory failure with hypoxia; J96.02 Acute respiratory failure with hypercapnia; E87.0 Hyperosmolality and hypernatremia; I82.621 Acute embolism and thrombosis of deep veins of right upper extremity; J98.11 Atelectasis; I25.119 Atherosclerotic heart disease of native coronary artery with unspecified angina pectoris; E86.0 Dehydration; F02.80 Dementia in other diseases classified elsewhere, unspecified severity, without behavioral disturbance, psychotic disturbance, mood disturbance, and anxiety; I10 Essential (primary) hypertension; K59.00 Constipation, unspecified; R26.81 Unsteadiness on feet; G30.9 Alzheimer's disease, unspecified; L89.620 Pressure ulcer of left heel, unstageable; E87.6 Hypokalemia; D64.9 Anemia, unspecified
CPT/HCPCS: 36415; 36600; 71010-TC; 71250-TC; 74230-TC; 80048; 80053; 81003; 82140; 82272; 82550; 82607; 82728; 82803; 83605; 83735; 84443; 84484; 85025; 85027; 85610; 85730; 87040; 87070; 87086; 87205; 92611-GN; 93005; 93010; 93306-TC; 93971; 94010; 94640; 97116-GP; 97162-GP; 99285-25; J1644

== ENCOUNTER 2017-03-27 11:04 | Emergency (ER) | payer OTHER ==
[2017-03-27 11:17] VITALS: TEMP 98.6; BMI 23.1
--- NOTE | 2017-03-27 11:34 | PDOC ---
Attending Attestation - HPI HPI: 03/27/17 12:00 The patient is an 89 year old female with history of advanced Alzheimer's, Parkinson's dementia, on Eliquis for DVT/PE prophylaxis brought in by EMS with a right eyebrow laceration s/p unwitnessed fall at approximately 10 AM today. Per the patient's home health aide at bedside, the patient was in another room when she slipped and struck her right eyebrow on a wooden bedpost. No reported loss of consciousness. The home health aide denies any fever, cough, or recent illness. She denies any nausea, vomiting, or diarrhea. She denies any physical complaints this morning. She states behavior is at patient's baseline. Patient is demented and unable to provide remainder of history of present illness. - Physicial Exam PE: 03/27/17 12:14 GENERAL: Awake, alert, oriented to person, in no acute distress. Smells of urine. HEAD: +3 cm stellate laceration to the right superorbital region, no active bleeding. EYES: +right subconjuctival hematoma. PERRLA, EOMI, sclera anicteric ENT: Auricles normal inspection, hearing grossly normal, nares patent, oropharynx clear without exudates. Moist mucosa, edentulous. No septal hematoma. NECK: Normal ROM, supple, no lymphadenopathy, JVD, or masses. No cervical spine tenderness to palpation. LUNGS: Breath sounds equal, clear to auscultation bilaterally. No wheezes, and no crackles HEART: Regular rate and rhythm, normal S1 and S2, no murmurs, rubs or gallops ABDOMEN: Soft, nontender, normoactive bowel sounds. No guarding, no rebound. No masses BACK: No midline spinal tenderness. EXTREMITIES: Normal range of motion, no edema. No clubbing or cyanosis. No cords, erythema, or tenderness NEUROLOGICAL: Cranial nerves II through XII grossly intact. Normal speech, gait deferred. SKIN: Warm, Dry, normal turgor. +Laceration as noted in HEAD. - Medical Decision Making 03/27/17 12:06 Patient's O2 saturation noted to be 97 at bedside, patient does not require supplementary O2 at this time. <Enedina Bryan - Last Filed: 03/27/17 12:14> - Resident Resident Name: Jesus Leslie - ED Attending Attestation I have performed the following: I have examined & evaluated the patient, The case was reviewed & discussed with the resident, I agree w/resident's findings & plan, Exceptions are as noted - Medical Decision Making 03/27/17 12:19 a/p: 89yo female with mechanical fall at home. Pt with a closed head injury without LOC. tetanus is UTD. Pt is on eliquis so concern for poss intracranial injury. Per Nexus criteria, c spine cleared. Will check labs, ekg, CT head without contrast Pt will need laceration repair. Will continue to monitor and reassess. 03/27/17 14:33 A portion of this note was documented by scribe services under my direction. I have reviewed the details of the note, within reason, and agree with the documentation with the following case summary and management plan written by me. 03/27/17 17:02 sutures placed by the resident under my supervision. the pt tolerated the procedure well. pt returns from repeat head ct. negative head ct. stable for d/c to home. Discussed all reasons to return to the ED and need for follow up. Answered all questions. Pt will need abx for UTI. Rx sent to pharmacy. <Mari Husain - Last Filed: 03/27/17 17:03> Heart Score/ECG Review #1 03/27/17 11:39 sinus tach at 102, L axis, lvh, poor r wave progression, t wave inversions I, aVL, no acute changes, no changes from prior 01/16/17 <Mari Husain - Last Filed: 03/27/17 17:03>
[2017-03-27 11:49] LABS: BASOPHIL 1.2 % (0-2.0); EOSINOPHIL 3.6 % (0-4.5); MCH 26.2 pg (25.7-33.7); MCHC 31.6 g/dl (32.0-36.0); MEAN CELL VOLUME 82.9 fl (80-96); MEAN PLT VOLUME 7.2 fl (7.5-11.1); NEUTROPHILS 67.2 % (42.8-82.8); PLATELET COUNT 542 K/MM3 (134-434); RDW 16.8 % (11.6-15.6)
[2017-03-27 12:03] LABS: ALBUMIN 2.7 g/dl (3.4-5.0); ALK PHOS 116 U/L (45-117); ANION GAP 3 (8-16); BILIRUBIN,TOTAL 0.4 mg/dL (0.2-1.0); CALCIUM 8.9 mg/dL (8.5-10.1); CO2 31 mmol/L (21-32); CREATININE 0.9 mg/dL (0.55-1.02); GLUCOSE,RANDOM 89 mg/dL (74-106); SGPT/ALT 24 U/L (12-78); TOT PROT 7.1 g/dl (6.4-8.2)
[2017-03-27 12:05] LABS: SGOT/AST 59 U/L (15-37)
[2017-03-27 12:12] LABS: INR 1.11 (0.82-1.09); PROTHROMBIN TIME (PATIENT) 12.2 SEC (9.98-11.88)
--- NOTE | 2017-03-27 13:11 | PDOC ---
History of Present Illness - General Chief Complaint: Injury Stated Complaint: FALL Time Seen by Provider: 03/27/17 11:09 - History of Present Illness Initial Comments: 03/27/17 13:03 89 yo F with h/o advanced Alzheimers dementia, Parkinson's disease, and DVT prophylaxis on Elquis arrives via EMS following mechanical fall. Pt. inside contractor sales at bedside to assist in report. States that at 1000am pt. was in front room while inside contractor sales was in bathroom. [employer] reports hearing drop outside and saw pt. lying on floor with blood on bed post and patient with active bleeding from right side forehead. Denies witnessing LOC. Pt. denies any pain, lightheadedness , N/V, SOB, urinary complaints or GI complaints. Per inside contractor sales pt. is at baseline mental status. Past History - Past Medical History Allergies/Adverse Reactions: Allergies Allergy/AdvReac Type Severity Reaction Status Date / Time No Known Allergies Allergy Verified 03/27/17 11:08 Home Medications: Ambulatory Orders Memantine HCl [Namenda -] 10 mg PO BID 01/16/17 Amlodipine Besylate [Norvasc -] 2.5 mg PO DAILY tablet 01/25/17 Apixaban [Eliquis -] 2.5 mg PO DAILY 03/27/17 Calcium Carbonate/Vitamin D3 [Calcium 500-Vit D3 200 Caplet] 1 tab PO DAILY Cephalexin [Keflex] 500 mg PO BID #14 capsule 03/27/17 Quetiapine Fumarate [Seroquel -] 50 mg PO HS 03/27/17 Cardiac Disorders: Yes (CAD, angina) Dementia: Yes (PARKINSONS) HTN: Yes Hypercholesterolemia: Yes - Immunization History Immunization Up to Date: Yes - Psycho/Social/Smoking Cessation Hx Anxiety: No Suicidal Ideation: No Smoking History: Never smoked Number of Cigarettes Smoked Daily: 0 Hx Alcohol Use: No Drug/Substance Use Hx: No Substance Use Type: None Hx Substance Use Treatment: No Review of Systems - Review of Systems Comments:: 03/27/17 13:14 GENERAL/CONSTITUTIONAL: No fever or chills. No weakness. HEAD, EYES, EARS, NOSE AND THROAT: No change in vision. No ear pain or discharge. No sore throat.- CARDIOVASCULAR: No chest pain or shortness of breath RESPIRATORY: No cough, wheezing, or hemoptysis. GASTROINTESTINAL: No nausea, vomiting, diarrhea or constipation. GENITOURINARY: No dysuria, frequency, or change in urination. MUSCULOSKELETAL: No joint or muscle swelling or pain. No neck or back pain. SKIN: No rash NEUROLOGIC: No headache, vertigo, loss of consciousness, or change in strength/ sensation. ENDOCRINE: No increased thirst. No abnormal weight change HEMATOLOGIC/LYMPHATIC: No anemia, easy bleeding, or history of blood clots. ALLERGIC/IMMUNOLOGIC: No hives or skin allergy. *Physical Exam - Vital Signs Last Vital Signs Temp Pulse Resp BP Pulse Ox 98.6 F 103 H 18 158/83 98 03/27/17 11:07 03/27/17 11:07 03/27/17 11:07 03/27/17 11:07 03/27/17 11:10 - Physical Exam Comments: 03/27/17 13:14 GENERAL: Awake, alert, and fully oriented, in no acute distress HEAD: Right superior orbit , stellate laceration. Approximately 2 inches. Absent muscle tissue or bone visualized.Absent eyelid involvement. + eyebrow involvement. normocephalic, atraumatic EYES: PERRLA, EOMI, sclera anicteric, conjunctiva clear ENT: Auricles normal inspection, hearing grossly normal, nares patent, oropharynx clear without exudates. Moist mucosa NECK: Normal ROM, supple, no lymphadenopathy, JVD, or masses LUNGS: No distress, speaks full sentences, clear to auscultation bilaterally HEART: Regular rate and rhythm, normal S1 and S2, no murmurs, rubs or gallops, peripheral pulses normal and equal bilaterally. ABDOMEN: Soft, nontender, normoactive bowel sounds. No guarding, no rebound. No masses EXTREMITIES: Normal inspection, Normal range of motion, no edema. No clubbing or cyanosis. NEUROLOGICAL: Limited exam. CNII-XII intact. Normal gross motor strength and sensation intact. Unable to assess gait. SKIN: Warm, Dry, normal turgor, no rashes or lesions noted. Procedures - Laceration/Wound Repair Right Anterior Face Wound Length: to 2.5 cm Wound Explored: clean, no foreign body present Wound's Depth, Shape: superficial, irregular, stellate Irrigated w/ Saline: Yes Betadine Prep: No Anesthesia: 1% Lidocaine Wound Debrided: minimal Wound Repaired With: Sutures Suture Size/Type: 6:0, proline Number of Sutures: 9 Sterile Dressing Applied: Yes ED Treatment Course - LABORATORY CBC & Chemistry Diagram: 03/27/17 11:35 03/27/17 11:35 - ADDITIONAL ORDERS Additional order review: Laboratory Results 03/27/17 03/27/17 03/27/17 11:38 11:35 11:35 INR 1.11 Sodium 140 Potassium 5.8 H D Chloride 106 Carbon Dioxide 31 Anion Gap 3 L BUN 14 D Creatinine 0.9 D Creat Clearance w eGFR 58.95 Random Glucose 89 Calcium 8.9 Total Bilirubin 0.4 D AST 59 H D ALT 24 D Alkaline Phosphatase 116 Total Protein 7.1 Albumin 2.7 L D Blood Type Cancelled Antibody Screen Cancelled Spec Expiration Date Cancelled 03/27/17 11:35 RBC 3.86 MCV 82.9 MCHC 31.6 L RDW 16.8 H D MPV 7.2 L Neutrophils % 67.2 D Lymphocytes % 21.0 D Monocytes % 7.0 Eosinophils % 3.6 Basophils % 1.2 D - RADIOLOGY Radiology Studies Ordered: Category Date Time Status HEAD CT WITHOUT CONTRAST [CT] Stat CT Scan 03/27/17 11:10 Taken Radiograph Interpretation: 03/27/17 15:42 EXAM#: TYPE/EXAM: RESULT: [id number] CT/HEAD CT WITHOUT CONTRAST Status post fall. CT scan of the brain without intravenous contrast. Since prior CT scan of the head dated 08/15/2016, there remains generalized volume loss with moderate ventricular dilatation and extensive periventricular chronic microvascular ischemic changes. No mass lesion, gross acute infarct or intracranial hemorrhage are identified. There is no shift of the midline structures. The calvarium is intact. Moderate soft tissue swelling over right side of the forehead. Calcification of the cavernous carotid arteries are present. Visualized paranasal sinuses are well aerated. There is minimal bilateral mastoid effusion IMPRESSION: No significant interval change or acute intracranial pathology is identified. Moderate soft tissue swelling over right side of the forehead. Minimal bilateral mastoid effusion Medical Decision Making - Medical Decision Making 03/27/17 13:17 89 yo F with h/o advanced Alzheimers dementia, Parkinson's disease, and DVT prophylaxis on Elquis arrives via EMS following mechanical fall. [employer] reports hearing drop outside and saw pt. lying on floor with blood on bed post and patient with active bleeding from right side forehead. Denies witnessing LOC. No other associated symptoms. Physical exam reveals right superior orbit stellate laceration. Approximately 2 inches with minimal eyebrow involvement, absent muscle tissue or bone visualized or eyelid involvement. On Eliquis. ED Course: - Nexus criteria C spine cleared - CT head non contrast CT - CBC, CMP, UA - K+ 5.8, Kayexelate, Insulin 10 U 03/27/17 15:07 - 9 simple interrupted sutures placed at laceration site. 03/27/17 15:42 CT Head: IMPRESSION: No significant interval change or acute intracranial pathology is identified. Moderate soft tissue swelling over right side of the forehead. Minimal bilateral mastoid effusion 03/27/17 16:48 UA: + nitrite, leuk esterase, 1 + blood. *DC/Admit/Observation/Transfer Diagnosis at time of Disposition: UTI (lower urinary tract infection) Laceration of face without complication Qualifiers: Encounter type: initial encounter Qualified Code(s): S01.81XA - Laceration without foreign body of other part of head, initial encounter Fall Qualifiers: Encounter type: initial encounter Qualified Code(s): W19.XXXA - Unspecified fall, initial encounter - Discharge Dispostion Disposition: HOME Admit: No - Prescriptions Prescriptions: Cephalexin [Keflex] 500 mg PO BID #14 capsule - Referrals Referrals: Jensen Todd MD [Primary Care Provider] - - Patient Instructions Additional Instructions: Please return to ED if you experience lightheadedness, dizziness/vertigo , vision changes, fatigue, or worsening symptoms. Please take Keflex as recommended. Continue over the counter pain control/medication as needed.
[2017-03-27] MEDS ORDERED: INSULIN REGULAR HUMAN 100 UNITS/ML *VIAL IVPUSH ONE (13:28)
[2017-03-27] MEDS ORDERED: SODIUM POLYSTYRENE SULFONATE 15 GM/60 ML BOTTLE PO ONE (13:28)
[2017-03-27] MEDS ORDERED: DEXTROSE 50%-WATER - 25 GM/50 ML VIAL IVPUSH ONE (13:28)
[2017-03-27 16:26] LABS: URINE APPEARANCE CLOUDY; URINE BILIRUBIN NEGATIVE (NEGATIVE); URINE BLOOD 1+ (NEGATIVE); URINE COLOR YELLOW; URINE GLUCOSE (UA) NEGATIVE (NEGATIVE); URINE KETONE NEGATIVE (NEGATIVE); URINE NITRITE POSITIVE (NEGATIVE); URINE UROBILINOGEN NEGATIVE mg/dL (0.2-1.0)
[2017-03-27 16:31] LABS: URINE LEUK ESTERASE 3+ (NEGATIVE); URINE PROTEIN 1+ (NEGATIVE)
[2017-03-27] MEDS ORDERED: CEPHALEXIN 250 MG/5 ML ORAL SUSPENSION PO ONE (16:51)
--- NOTE | 2017-03-27 17:00 | EKG ---
Test Reason : Blood Pressure : / mmHG Vent. 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
[2017-03-27 17:53] LABS: URINE BACTERIA RARE /hpf (NONE SEEN); URINE RBC 7 /hpf (0-3); URINE WBC 705 /hpf (3-5)
[2017-03-27] MEDS ORDERED: CEPHALEXIN MONOHYDRATE 250 MG CAPSULE (FP) ONE (17:53)
[2017-03-27 18:44] VITALS: BP 105/72; PULSE 72
--- NOTE | 2017-03-30 14:46 | PDOC ---
Patient Follow-up (Call Back) - Post ED Follow - Up Disposition at time of original discharge: HOME Reason for Call Back: Abnwl. Microbiology (Klebsiella pneumoniae ESBL with carbapenem resistance) - Disposition Rx Needed: Yes (doxy 100mg po BID m97arse) Additional Instructions/Notes: Spoke with patient and her caregiver who will get Rx and make appointment for Sunday with PMD.
== END 2017-03-27 18:44 | disposition home or self-care (01) ==
LOC: JER 11:04
PROC: 0HQ1XZZ Repair Face Skin, External Approach (ICD-10-PCS; principal; 2017-03-27)
DX: S01.81XA Laceration without foreign body of other part of head, initial encounter (principal); N39.0 Urinary tract infection, site not specified; W01.190A Fall on same level from slipping, tripping and stumbling with subsequent striking against furniture, initial encounter; Y93.89 Activity, other specified; Y92.032 Bedroom in apartment as the place of occurrence of the external cause; I25.119 Atherosclerotic heart disease of native coronary artery with unspecified angina pectoris; I10 Essential (primary) hypertension; G30.9 Alzheimer's disease, unspecified; F02.80 Dementia in other diseases classified elsewhere, unspecified severity, without behavioral disturbance, psychotic disturbance, mood disturbance, and anxiety; Z86.711 Personal history of pulmonary embolism; Z86.718 Personal history of other venous thrombosis and embolism; Z79.01 Long term (current) use of anticoagulants; G20 Parkinson's disease
CPT/HCPCS: 12011-25; 36415; 70450-TC; 80053; 81003; 81015; 85025; 85610; 87086; 87186; 93005; 93010; 99283-25

== ENCOUNTER 2017-04-04 11:36 | Emergency (ER) | payer OTHER ==
[2017-04-04 11:42] VITALS: BP 120/68; PULSE 110; TEMP 98; BMI 21.8
--- NOTE | 2017-04-04 12:08 | PDOC ---
Suture Removal/Wound Check HPI - History of Present Illness Chief Complaint: Suture/Staple Removal(Here) Stated Complaint: SUTURE REMOVAL Time Seen by Provider: 04/04/17 11:53 History Source: Yes: Patient Exam Limitations: Yes: No Limitations Treated at: [facility] Date of Last ED visit: 03/27/17 - Previous ED Treatment Type of procedure performed on last visit: Yes: Laceration Repair Tetanus Immunization: Yes: Up to Date Past History - Past Medical History Allergies/Adverse Reactions: Allergies No Known Allergies Allergy (Verified 04/04/17 11:42) Home Medications: Ambulatory Orders Memantine HCl [Namenda -] 10 mg PO BID 01/16/17 Amlodipine Besylate [Norvasc -] 2.5 mg PO DAILY tablet 01/25/17 Apixaban [Eliquis -] 2.5 mg PO DAILY 03/27/17 Calcium Carbonate/Vitamin D3 [Calcium 500-Vit D3 200 Caplet] 1 tab PO DAILY Cephalexin [Keflex] 500 mg PO BID #14 capsule 03/27/17 Quetiapine Fumarate [Seroquel -] 50 mg PO HS 03/27/17 Doxycycline Monohydrate [Mondoxyne Nl] 100 mg PO BID #28 capsule 03/30/17 General: Yes: no pertinent history Surgical History: Yes: No Surgical History Psych History: Yes: No Pertinent Psych Hx. - Immunization History Immunizations Up to Date: Yes - Social History Smoking Status: Never smoked Number of Ciarettes Per Day: 0 Suture Removal/Wound Check PE - Physical Exam Laceration/Wound Check Symptoms: reports: None Current Severity Level: None Maximum Severity Level: None Pain Localization: None *Review of Systems - Review of Systems Constitutional: No: Symptoms Reported Respiratory: No: Symptoms reported Cardiac (ROS): No: Symptoms Reported Integumentary: No: Symptoms Reported All Other Systems: Reviewed and Negative Medical Decision Making - Medical Decision Making 04/04/17 12:04 A/P: Patient here for suture removal to forehead, 9 sutures removed without incident patient tolerated well, will follow-up as needed *DC/Admit/Observation/Transfer Diagnosis at time of Disposition: Visit for suture removal - Discharge Dispostion Disposition: HOME Condition at time of disposition: Good - Referrals Referrals: Jensen Todd MD [Primary Care Provider] - - Patient Instructions Printed Discharge Instructions: DI for Suture Removal Additional Instructions: Please keep area clean and dry.
== END 2017-04-04 12:12 | disposition home or self-care (01) ==
LOC: JERFT 11:36
DX: Z48.02 Encounter for removal of sutures (principal)
CPT/HCPCS: 99281-25